=== PATIENT | male | born 1945 | race Hispanic/Latino ===

== ENCOUNTER 2016-08-12 12:26 | Emergency (ER) | payer MEDICARE ==
[2016-08-12 12:46] VITALS: RESP 18; TEMP 98.2; O2SAT 98; BMI 34.2
[2016-08-12] MEDS ORDERED: Oxycodone/Acetaminophen 5/325 mg Tab PO STA (12:55)
--- NOTE | 2016-08-12 13:25 | ED PDOC ---
Arrival/HPI - General Historian: Patient - General Chief Complaint: Finger,Hand,&Wrist Time Seen by Provider: 08/12/16 12:48 - History of Present Illness Narrative History of Present Illness (Text): 08/12/16 13:12 71yo male with PMHx of thrombocytopenia who present with complaint of left wrist pain/swelling s/p trauma 4days ago. States he placed his left outstretched hand on the floor when he fell foreward when fell asleep asleep while sitting on a sofa. He denies hitting head anywhere, nausea, vomiting, focal weakness, stephen other complaint. (Nicolas Marley A) Past Medical History - Provider Review Nursing Documentation Reviewed: Yes - Infectious Disease Hx of Infectious Diseases: None - Tetanus Immunization Tetanus Immunization: Unknown - Past Medical History Past Medical History: No Previous - Cardiac Hx Pacemaker: No - Pulmonary Hx Respiratory Disorders: No - Neurological Hx Paralysis: No - HEENT Hx HEENT Disorder: Yes (TONSILLECTOMY) Other/Comment: upper dentures only - Renal Hx Renal Disorder: No - Endocrine/Metabolic Hx Diabetes Mellitus Type 2: Yes - Hematological/Oncological Hx Blood Transfusions: Yes Hx Blood Transfusion Reaction: No - Integumentary Hx Dermatological Disorder: Yes (GENERALIZED PETECHIAE 01-15-16) - Musculoskeletal/Rheumatological Hx Musculoskeletal Disorders: No - Gastrointestinal Hx Gastrointestinal Disorders: Yes (HEMORRHOID) Other/Comment: RECTAL BLEED 11-06-15 - Genitourinary/Gynecological Hx Genitourinary Disorders: Yes Hx Urinary Tract Infection: Yes - Psychiatric Hx Psychophysiologic Disorder: No Hx Substance Use: No - Past Surgical History Past Surgical History: No Previous - Surgical History Hx Splenectomy: Yes - Anesthesia Hx Anesthesia Reactions: No Hx Malignant Hyperthermia: No - Suicidal Assessment Feels Threatened In Home Enviroment: No Family/Social History - Physician Review Nursing Documentation Reviewed: Yes Family/Social History: Unknown Family HX Smoking Status: Never Smoked Hx Alcohol Use: Yes (FEW GLASSES WINE/NIGHT) Hx Substance Use: No Hx Substance Use Treatment: No Allergies/Home Meds Allergies/Adverse Reactions: Allergies aspirin Allergy (Severe, Verified 08/12/16 12:46) RASH doxycycline Allergy (Severe, Verified 08/12/16 12:46) LOW PLATELETS ibuprofen [From Advil] Allergy (Severe, Verified 08/12/16 12:46) RASH Review of Systems - Physician Review All systems were reviewed & negative as marked: Yes - Review of Systems Constitutional: Normal Eyes: Normal ENT: Normal Respiratory: Normal Cardiovascular: Normal Gastrointestinal: Normal Genitourinary Male: Normal Musculoskeletal: Arthralgias (Left wrist/hand) Skin: Normal Neurological: Normal Endocrine: Normal Hemo/Lymphatic: Normal Psychiatric: Normal Physical Exam Vital Signs Reviewed: Yes Temperature: Afebrile Blood Pressure: Normal Pulse: Regular Respiratory Rate: Normal Appearance: Positive for: Well-Appearing, Non-Toxic, Comfortable Pain Distress: None Mental Status: Positive for: Alert and Oriented X 3 - Systems Exam Head: Present: Atraumatic, Normocephalic Pupils: Present: PERRL Extroacular Muscles: Present: EOMI Conjunctiva: Present: Normal Mouth: Present: Moist Mucous Membranes Neck: Present: Normal Range of Motion Respiratory/Chest: Present: Clear to Auscultation, Good Air Exchange. No: Respiratory Distress, Accessory Muscle Use Cardiovascular: Present: Regular Rate and Rhythm, Normal S1, S2. No: Murmurs Abdomen: Present: Normal Bowel Sounds. No: Tenderness, Distention, Peritoneal Signs Back: Present: Normal Inspection Upper Extremity: Present: Normal ROM, NORMAL PULSES, Tenderness (LEft wrist), Swelling (LEft wrist/hands), Neurovascularly Intact. No: Cyanosis, Edema, Erythema, Temperature Abnormalties, Deformity Lower Extremity: Present: Normal Inspection. No: Edema Neurological: Present: GCS=15, CN II-XII Intact, Speech Normal Skin: Present: Warm, Dry, Normal Color. No: Rashes Psychiatric: Present: Alert, Oriented x 3, Normal Insight, Normal Concentration Vital Signs Temp Pulse Resp BP Pulse Ox 08/12/16 12:38 98.2 F 98 H 18 148/76 98 Medical Decision Making ED Course and Treatment: I was available for consultation during PA evaluation. The chart was reviewed by me, and I agree with disposition. The documented history was done by the physician audit control clerk. The documented physical exam was done by the physician audit control clerk. The documented procedures were done by the physician audit control clerk. (Jack Klein) 08/12/16 14:22 Pt presented for stated history. Left wrist/hand - No acute fracture. DJD of MCP noted. Pt was seen in ED by Dr. Izquierdo Cock up splint was placed. and arm placed in a sling. Dr. Izquierdo advised patient to f/u with his office in 2weeks. (Nicolas Marley) - RAD Interpretation Radiology Orders: 08/12/16 12:55 HAND LEFT 3 VIEWS ROUTINE [RAD] Stat WRIST, LEFT 3 VIEWS [RAD] Stat - Medication Orders Current Medication Orders: Discontinued Medications Acetaminophen (Tylenol 325mg Tab) Confirm Administered Dose 650 mg .ROUTE .STK- MED ONE Stop: 08/12/16 13:09 Last Admin: 08/12/16 13:13 Dose: 650 mg Oxycodone/Acetaminophen (Percocet 5/325 Mg Tab) 1 tab PO STAT STA Stop: 08/12/16 12:56 Last Admin: 08/12/16 13:11 Dose: Not Given Non-Admin Reason: Patient Refused Disposition/Present on Arrival - Present on Arrival Any Indicators Present on Arrival: No History of DVT/PE: No History of Uncontrolled Diabetes: No Urinary Catheter: No History of Decub. Ulcer: No History Surgical Site Infection Following: None - Disposition Have Diagnosis and Disposition been Completed?: Yes Disposition Time: 14:25 Patient Plan: Discharge - Disposition Diagnosis: Wrist sprain, Acute arthritis Disposition: HOME/ ROUTINE Condition: STABLE Discharge Instructions (ExitCare): Wrist Sprain (ED) Additional Instructions: Follow up with Orthopedist, Dr. Izquierdo in 2weeks Return to ED for any new or worsening symptoms Prescriptions: Acetaminophen with Codeine [Tylenol with Codeine #3 Tablet] 1 each PO Q6 #9 tablet Referrals: Chadd Savage MD [Primary Care Provider] - Follow up with primary Andres Izquierdo DO [Staff Provider] - Follow up with primary
--- NOTE | 2016-08-12 13:54 | RAD ---
PROCEDURE: Left Hand Radiographs. HISTORY: hand pain s/p trauma COMPARISON: None. FINDINGS: BONES: Bone alignment and mineralization are normal. There is no acute fracture or bone destruction. JOINTS: There is severe degenerative osteoarthrosis in the interphalangeal joints with probable fixed flexion deformities. SOFT TISSUES: There is moderate soft tissue swelling in the hand. OTHER FINDINGS: Atherosclerotic vascular calcifications are present. IMPRESSION: No acute fracture or dislocation. Moderate soft tissue swelling in the hand.
--- NOTE | 2016-08-12 13:56 | RAD ---
PROCEDURE: Left Wrist Radiographs. HISTORY: wrist pain s/p trauma COMPARISON: None. FINDINGS: BONES: Bone alignment and mineralization are normal. There is no acute fracture or bone destruction. JOINTS: There is moderate degenerative osteoarthrosis in the 1st [employer] joint. The proximal and distal carpal rows are maintained. The intercarpal joint spaces are preserved. SOFT TISSUES: Normal. OTHER FINDINGS: Atherosclerotic vascular calcifications are present. Wake IMPRESSION: No acute fracture or dislocation.
[2016-08-12 14:35] VITALS: BP 145/69; PULSE 89
--- NOTE | 2016-08-12 15:09 | CON ---
DATE: 08/12/2016 A 71-year-old male with left thumb pain from a blunt injury. X-ray shows osteoarthritis of the base of the thumb with no evidence of fracture. It looks like a chronic injury of metacarpocarpal joints, so we are going to put him in a volar splint with thumb extension and see him in the office when the swelling goes down. He is right hand dominant. FINAL DIAGNOSIS: Severe osteoarthritis base of left thumb put in a splint and I will see him when th e swelling goes down to reevaluate him in the office. Andres Izquierdo DO cc: [id number] TT: 08/12/2016 15:08:56 Confirmation # [id number] Dictation # [id number]
== END 2016-08-12 14:50 | disposition home or self-care (01) ==
LOC: ED 12:26
DX: S63.502A Unspecified sprain of left wrist, initial encounter (principal); W07.XXXA Fall from chair, initial encounter; Y93.89 Activity, other specified; Y92.89 Other specified places as the place of occurrence of the external cause; M13.842 Other specified arthritis, left hand

== ENCOUNTER 2018-06-09 13:42 | Inpatient (IN) | payer MEDICARE ==
--- NOTE | 2018-06-09 14:24 | ED PDOC ---
Arrival/HPI - General Chief Complaint: Shortness Of Breath Time Seen by Provider: 06/09/18 13:43 Historian: Patient, Family - History of Present Illness Narrative History of Present Illness (Text): 06/09/18 14:21 73 year old male, with past medical history of thrombocytopenia and spleenectomy, presents to the ED for evaluation of dyspnea on exertion, increased somnolence and abdominal distention since 3 weeks. Sister reports kylie donato has been experiencing falls secondary to symptoms, with last fall was last Thursday. Patient reports visiting Dr. Savage with the presented symptoms and was subsequently referred to the Ed for evaluation of possible pneumonia and concern for A-fib. Patient denies any other associated somatic complaints. Patient denies any fevers, chills, headache, dizziness, chest pain, cough, diaphoresis, abdominal pain, nausea, vomiting, diarrhea, back pain, neck pain, or any other complaints. As per sister, patient stopped alcohol consumption for past 2 months. PMD: Dr. Savage Time/Duration: > week Symptom Onset: Gradual Symptom Course: Unchanged Activities at Onset: Light Context: Home Past Medical History - Provider Review Nursing Documentation Reviewed: Yes - Infectious Disease Hx of Infectious Diseases: None - Tetanus Immunization Tetanus Immunization: Unknown - Past Medical History Past Medical History: No Previous - Cardiac Hx Pacemaker: No - Pulmonary Hx Respiratory Disorders: No - Neurological Hx Paralysis: No - HEENT Hx HEENT Disorder: Yes (TONSILLECTOMY) Other/Comment: upper dentures only - Renal Hx Renal Disorder: No - Endocrine/Metabolic Hx Diabetes Mellitus Type 2: Yes - Hematological/Oncological Hx Blood Transfusions: Yes Hx Blood Transfusion Reaction: No - Integumentary Hx Dermatological Disorder: Yes (GENERALIZED PETECHIAE 01-15-16) - Musculoskeletal/Rheumatological Hx Musculoskeletal Disorders: No - Gastrointestinal Hx Gastrointestinal Disorders: Yes (HEMORRHOID) Other/Comment: RECTAL BLEED 11-06-15 - Genitourinary/Gynecological Hx Genitourinary Disorders: Yes Hx Urinary Tract Infection: Yes - Psychiatric Hx Psychophysiologic Disorder: No Hx Substance Use: No - Past Surgical History Past Surgical History: No Previous - Surgical History Hx Splenectomy: Yes - Anesthesia Hx Anesthesia Reactions: No Hx Malignant Hyperthermia: No - Suicidal Assessment Feels Threatened In Home Enviroment: No Family/Social History - Physician Review Nursing Documentation Reviewed: Yes Family/Social History: No Known Family HX Smoking Status: Never Smoked Hx Alcohol Use: Yes (FEW GLASSES WINE/NIGHT) Hx Substance Use: No Hx Substance Use Treatment: No Allergies/Home Meds Allergies/Adverse Reactions: Allergies aspirin Allergy (Severe, Verified 06/09/18 17:16) RASH doxycycline Allergy (Severe, Verified 06/09/18 17:16) LOW PLATELETS ibuprofen [From Advil] Allergy (Severe, Verified 06/09/18 17:16) RASH Home Medications: Home Meds Medication Instructions Recorded Confirmed No Known Home Med 06/09/18 06/09/18 Review of Systems - Physician Review All systems were reviewed & negative as marked: Yes - Review of Systems Constitutional: absent: Fevers Eyes: absent: Vision Changes Respiratory: SOB. absent: Cough Cardiovascular: Edema, CONNORS. absent: Chest Pain Gastrointestinal: absent: Abdominal Pain, Diarrhea, Nausea, Vomiting Genitourinary Male: absent: Dysuria, Urinary Output Changes Musculoskeletal: absent: Back Pain, Neck Pain Skin: absent: Rash Neurological: absent: Headache, Dizziness Endocrine: absent: Diaphoresis Psychiatric: absent: Anxiety Physical Exam Vital Signs Reviewed: Yes Vital Signs Temp Pulse Resp BP Pulse Ox 06/09/18 14:10 20 98 06/09/18 14:08 98.1 F 06/09/18 14:06 107 H 18 130/84 98 Temperature: Afebrile Blood Pressure: Normal Pulse: Tachycardic Respiratory Rate: Normal Appearance: Positive for: Well-Appearing, Non-Toxic, Comfortable Pain Distress: None Mental Status: Positive for: Alert and Oriented X 3, other (Drowsy but arousable) - Systems Exam Head: Present: Atraumatic, Normocephalic Pupils: Present: PERRL Extroacular Muscles: Present: EOMI Conjunctiva: Present: Normal Mouth: Present: Dry Nose (External): Present: Abrasion (2 abrasions to bridge of nose) Neck: Present: Normal Range of Motion Respiratory/Chest: Present: Decreased Breath Sounds. No: Respiratory Distress, Accessory Muscle Use Cardiovascular: Present: Regular Rate and Rhythm, Normal S1, S2. No: Murmurs Abdomen: Present: Distention, Other (Lower abdominal edema). No: Tenderness, Normal Bowel Sounds (Decreased bowel sounds), Peritoneal Signs Upper Extremity: Present: Normal Inspection. No: Cyanosis, Edema Lower Extremity: Present: Edema, Other (Chronic venous changes. Right tibial skin sloffing, ble wounds) Neurological: Present: GCS=15, CN II-XII Intact, Speech Normal, Other (Non tremulous. No asterisk on exam.) Skin: Present: Warm, Dry, Normal Color. No: Rashes Psychiatric: Present: Alert, Oriented x 3, Normal Insight, Normal Concentration Medical Decision Making ED Course and Treatment: 06/09/18 14:31 Impression: 73 year old male presents to the ED for evaluation of dyspnea on exertion and abdominal distention. Plan: -- VBG -- CT of Head -- EKG -- Labs -- Chest X-ray -- Blood Culture -- Urine Culture -- Urinalysis -- US of Lower Extremity -- Reassess and disposition Prior Visits: Notes and results from previous visits were reviewed. Progress Notes: 06/09/18 14:59 EK BPM. NSR. PVCs. Flattened T waves. No S/T elevation. 06/09/18 15:17 Chest X-Ray: IMPRESSION: Suspect right lower lobe pneumonia and small right pleural effusion. Follow-up after medical management is recommended to ensure complete resolution. 06/09/18 15:58 CT Head: IMPRESSION: No acute intracranial abnormality. 06/09/18 16:01 Extremity Ultrasound: IMPRESSION: No sonographic evidence for deep venous thrombosis in the visualized segments of both lower extremities. 06/09/18 16:[address] Savage who agrees to admit patient and advise to give patient antibiotics and Lasix. - Scribe Statement The provider has reviewed the documentation as recorded by the Scribe Connor Sheth. All medical record entries made by the Scribe were at my direction and personally dictated by me. I have reviewed the chart and agree that the record accurately reflects my personal performance of the history, physical exam, [facility] decision making, and the department course for this patient. I have also personally directed, reviewed, and agree with the discharge instructions and disposition. Disposition/Present on Arrival - Present on Arrival Any Indicators Present on Arrival: No History of DVT/PE: No History of Uncontrolled Diabetes: No Urinary Catheter: No History of Decub. Ulcer: No History Surgical Site Infection Following: None - Disposition Have Diagnosis and Disposition been Completed?: Yes Diagnosis: CHF (congestive heart failure), Falls frequently Disposition: HOSPITALIZED Disposition Time: 16:35 Patient Plan: Admission Condition: STABLE
[2018-06-09 14:35] LABS: VENOUS BLOOD GAS BASE EXCESS 1.4 mmol/L (0.0-2.0); VENOUS BLOOD GAS PO2 32 mm/Hg (30-55); VENOUS BLOOD PH 7.34 (7.32-7.43)
[2018-06-09 14:43] LABS: BASO # 0.02 K/mm3 (0.0-2.0); BASO % 0.3 % (0.0-3.0); EOS # 0.2 (0.0-0.7); EOS % 2.8 % (1.5-5.0); HEMOGLOBIN 14.8 g/dL (14.0-18.0); LYMPH # 0.6 (1.2-3.4); LYMPH % 9.4 % (22.0-35.0); MEAN CELL VOLUME 96.8 fl (80.0-105.0); MEAN CORPUSCULAR HEMOGLOBIN 33.6 pg (25.0-35.0); MEAN CORPUSCULAR HGB CONC 34.7 g/dl (31.0-37.0); MEAN PLATELET VOLUME 10.1 fl (7.0-11.0); MONO # 0.8 (0.1-0.6); MONO % 11.7 % (1.0-6.0); RBC 4.4 10^6/uL (3.5-6.1); RED CELL DISTRIBUTION WIDTH 16.7 % (11.5-14.5); WHITE BLOOD COUNT 6.5 10^3/uL (4.5-11.0)
[2018-06-09 14:51] LABS: INR 2.28; PARTIAL THROMBOPLASTIN TIME 45.6 Seconds (26.9-38.3); PROTHROMBIN TIME 25.3 SECONDS (9.4-12.5)
[2018-06-09 14:56] LABS: ALB/GLOB RATIO 0.8 (1.1-1.8); ALBUMIN 3.6 g/dL (3.0-4.8); ALT/SGPT 48 U/L (7-56); AST/SGOT 82 U/L (17-59); BLOOD UREA NITROGEN 39 mg/dL (7-21); CALCIUM 9.6 mg/dL (8.4-10.5); GFR NON-AFRICAN AMERICAN 46
--- NOTE | 2018-06-09 15:01 | RAD ---
Date of service: 06/09/2018 HISTORY: sob COMPARISON: 02/11/2016. FINDINGS: LUNGS: The lungs are well inflated. There is confluent airspace disease in the right lower lobe. The left lung is clear. PLEURA: Small right pleural effusion. No left pleural effusion or pneumothorax. CARDIOVASCULAR: The heart is normal in size. No aortic atherosclerotic calcifications present. OSSEOUS STRUCTURES: Within normal limits for the patient's age. VISUALIZED UPPER ABDOMEN: Normal. OTHER FINDINGS: None. IMPRESSION: Suspect right lower lobe pneumonia and small right pleural effusion. Follow-up after medical management is recommended to ensure complete resolution. The final report is tagged to the PA review folder.
[2018-06-09 15:07] LABS: B-TYPE NATRIURETIC PEPTIDE 3760 pg/mL (0-450); TROPONIN I < 0.01 ng/mL
[2018-06-09 15:20] LABS: CK MB% 6.2 % (2.5-3.0)
--- NOTE | 2018-06-09 15:22 | CT ---
Date of service: 06/09/2018 PROCEDURE: CT HEAD WITHOUT CONTRAST. HISTORY: falls COMPARISON: None available. TECHNIQUE: Axial computed tomography images were obtained through the head/brain without intravenous contrast. Radiation dose: Total exam DLP = 1088.24 mGy-cm. This CT exam was performed using one or more of the following dose reduction techniques: Automated exposure control, adjustment of the mA and/or kV according to patient size, and/or use of iterative reconstruction technique. FINDINGS: HEMORRHAGE: No intracranial hemorrhage. BRAIN: Eisenberg-white matter differentiation is preserved. There is no mass, mass effect or abnormal extra-axial fluid collection. There is no territorial infarction. The midline sagittal structures are normal. VENTRICLES: There is mild age-related global parenchymal volume loss and proportionate enlargement of the ventricles and cortical sulci. CALVARIUM: There is no calvarial fracture or extracranial soft tissue swelling. PARANASAL SINUSES: Predominantly clear. MASTOID AIR CELLS: Predominantly clear. OTHER FINDINGS: None. IMPRESSION: No acute intracranial abnormality.
--- NOTE | 2018-06-09 15:48 | US ---
HISTORY: Leg pain and swelling. Evaluate for DVT PHYSICIAN(S): Henry Gomes MD. TECHNIQUE: Duplex sonography and color-flow Doppler with graded compression were used to evaluate the deep venous systems of both lower extremities. The exam is limited by body habitus and edema FINDINGS: The visualized deep venous systems of both lower extremities are sonographically normal and compressible. Normal wave forms and augmentation are seen. There is no sonographic evidence for deep venous thrombosis in the visualized segments of both lower extremities. IMPRESSION: No sonographic evidence for deep venous thrombosis in the visualized segments of both lower extremities. Limited study.
--- NOTE | 2018-06-09 15:59 | US ---
Date of service: 06/09/2018 HISTORY: ascites COMPARISON: None. TECHNIQUE: Grayscale imaging was performed. FINDINGS: LIVER: Measures 18.7 cm. There is diffuse increased echogenicity of the liver parenchyma with coarse echotexture. No mass. No intrahepatic bile duct dilatation. GALLBLADDER: There is diffuse gallbladder wall thickening. The sonographic Becker's sign is negative. No gallstones. COMMON BILE DUCT: No stones. No dilatation. PANCREAS: Unremarkable as visualized. No mass. No ductal dilatation. RIGHT KIDNEY: Measures cm. Normal echogenicity. No calculus, mass, or hydronephrosis. LEFT KIDNEY: Measures cm. Normal echogenicity. No calculus, mass, or hydronephrosis. SPLEEN: Normal in size and contour. No mass. AORTA: No aneurysmal dilatation. IVC: Unremarkable. OTHER FINDINGS: There is trace perihepatic ascites. IMPRESSION: Mild hepatomegaly.Diffuse increased echogenicity in the liver may reflect hepatic steatosis however parenchymal infectious/ inflammatory etiologies cannot be entirely excluded. Clinical and laboratory correlation is advised. Trace perihepatic ascites. No cholelithiasis or biliary dilatation. Diffuse gallbladder wall thickening nonspecific and could be primary or secondary in etiology.
[2018-06-09 16:18] LABS: PH,URINE 5.5 (4.7-8.0); URINE BILIRUBIN MODERATE (NEGATIVE); URINE BLOOD NEGATIVE (NEGATIVE); URINE GLUCOSE (UA) NEGATIVE (NEGATIVE); URINE LEUKOCYTE ESTERASE SMALL Leu/uL (NEGATIVE); URINE PROTEIN 100 mg/dL (<30 mg/dL); URINE UROBILINOGEN 0.2 E.U./dL (<1 E.U./dL)
[2018-06-09 16:20] LABS: URINE APPEARANCE CLEAR (CLEAR); URINE COLOR DARK YELLOW (YELLOW)
[2018-06-09 16:27] LABS: VENOUS BLOOD GAS PO2 62 mm/Hg (30-55); VENOUS BLOOD PH 7.35 (7.32-7.43)
[2018-06-09 16:53] LABS: URINE RBC 0 - 2 /hpf (0-2)
[2018-06-09 16:54] LABS: URINE EPITHELIAL CELLS 0 - 2 /hpf (0-5)
[2018-06-09 16:55] LABS: BARBITURATES, UR NEGATIVE (NEGATIVE); BENZODIAZEPINES, UR NEGATIVE (NEGATIVE); OPIATES, UR NEGATIVE (NEGATIVE); PHENCYCLIDINE, UR NEGATIVE (NEGATIVE)
[2018-06-09] MEDS ORDERED: Vancomycin 1gm in NS 250ml 1 GM/250 ML BAG IVPB STA (17:09)
[2018-06-09 20:39] VITALS: BMI 38.5
[2018-06-09] MEDS ORDERED: Pneumococcal 23-Valent Vaccine IM ONE (20:39)
[2018-06-09] MEDS ORDERED: Influenza Vaccine 60 mcg/0.5 mL SYR (4YR UP) IM ONE (20:39)
[2018-06-09] MEDS: levoFLOXacin 750 mg in D5W 750 MG/150 ML BAG IVPB SCH (21:38)
--- NOTE | 2018-06-09 22:18 | CARD ---
APPROVED REPORT Date of service: 06/09/2018 EKG Measurement Heart [id number] [id number] <Conclusion> Atrial fibrillation with a moderate ventricular response Rare probable PVC's Indeterminate axis Q waves in the inferior leads- cannot exclude IMI Nonspecific T wave abnormality Abnormal ECG
--- NOTE | 2018-06-09 23:07 | HP ---
DATE OF EXAM: 06/09/2018 HISTORY OF PRESENT ILLNESS: The patient, Danilo Chaidez, a 73-year-old white male, long history of splenectomy for ITP, history of chronic lymphedema of his lower extremities with venous insufficiency. Patient has a chronic history of alcoholism abuse. The patient over the past 3 to 4 weeks has been found by the family to have increasing episodes of lethargy, sometimes nodding out during a mid sentence. Patient had fallen off his chair onto the floor after passing out multiple times, injuring the bridge of his nose and lacerating his face. Patient also has had increasing swelling of his lower extremities, increasing abdominal girth, darkening of the urine over the last several weeks and some shortness of breath. Patient was brought to the office by his sister today, was found to be in rapid atrial fibrillation with anasarca swelling from the feet, legs, up to the abdominal wall, decreased breath sounds with rales at the bases, possible pleural effusions, possible ascites and evidence of liver compromise. Patient was taken by the EMT's to the hospital and admitted through the emergency room. Patient denies any chest pain or palpitations. Patient does complain of some shortness of breath on short walks. REVIEW OF SYSTEMS: Cardiac: Negative for chest pain and palpitations, but he does complain of increased heart rate. Chest: Respiratory is positive for shortness of breath, but negative for cough or sputum production, hemoptysis. Genitourinary: Positive for dark urine, frequency of urination without dysuria. Gastrointestinal: Negative for nausea, vomiting and diarrhea. Skin: Positive for swelling, erythema, and leaking of fluids from the lower extremities. Neurological: Positive only for episodes of passing out, syncope and lethargy, but denies any headache. PHYSICAL EXAMINATION GENERAL: A poorly developed massively obese white male in a wheel chair, seen with his sister and then again seen in the Emergency Room at [facility] on the day of admission. VITAL SIGNS: Patient is in rapid atrial fibrillation with heart rates ranging from 85 to 140. CHEST: Shows decreased breath sounds with rales at both bases. ABDOMEN: Obese with a midline scar from a past splenectomy. Liver edge is barely palpable due to the induration of the abdominal wall. The abdominal wall is erythematous, indurated and distended. Bowel sounds are normoactive. EXTREMITIES: Show chronic stasis dermatitis with weeping wounds on both lower extremities, particularly left with 2 to 3+ pitting and brawny edema bilaterally. Patient also does have some hypothenar and thenar atrophy of both upper extremities. NEUROLOGIC: Patient is alert and oriented x3. Neurologic examination is grossly intact. LABORATORY DATA: Reveal an elevated PT/INR, elevated total bilirubin, elevated liver enzymes, normal CBC and platelet count, bilirubinuria, some hematuria and bacteriuria. PLAN: Cardiology consult, Infectious Disease consult and consult with a liver specialist. IV antibiotics, diuretics, DT precautions. Further evaluation of liver disease, treatment of his elevated BNP and counseling for alcohol abuse. Chadd Savage MD
[2018-06-10] MEDS ORDERED: Barium Sulfate Susp 2.1% w/v, 2.0% w/w 450 mL Bottle PO ONE (00:22)
--- NOTE | 2018-06-10 01:36 | CP.PCM.CON ---
<Yee Simpson - Last Filed: 06/10/18 06:34> History of Present Illness - History of Present Illness History of Present Illness: HEPATOBILIARY SURGERY CONSULT NOTE FOR DR. HOFFMAN 73yo M with PMHx of ITP s/p splenectomy, etoh abuse presented to the ED as sent by his PMD for lethargy, somnolence leading to falls, weight gain, dyspnea on exertion. Pt states that he has noticed he is gaining weight and he has increased abdominal girth. He reports darker urine than usual. Pt states that he is so tired that sometimes he falls forward while sitting in a chair or while eating. Denies abdominal pain. PMHx: open splenectomy for ITP, chronic lymphadema of LE Allergies: aspirin, doxycycline, ibuprofen Social hx: former etoh abuse, hasn't drinken in 2 months Review of Systems - Review of Systems All systems: reviewed and no additional remarkable complaints except (as per HPI) Past Patient History - Infectious Disease Hx of Infectious Diseases: None - Tetanus Immunizations Tetanus Immunization: Unknown - Past Medical History & Family History Past Medical History?: Yes - Past Social History Smoking Status: Former Smoker - CARDIAC Hx Cardiac Disorders: Yes Hx Congestive Heart Failure: Yes Hx Pacemaker: No Hx Peripheral Edema: Yes Hx Peripheral Vascular Disease: Yes - PULMONARY Hx Respiratory Disorders: Yes (USED TO SMOKE CIGARETTES 2 PPD QUIT 1972) Hx Pneumonia: Yes (06-09-18) - NEUROLOGICAL Hx Neurological Disorder: No - HEENT Hx HEENT Problems: Yes (TONSILLECTOMY) Other/Comment: upper dentures only - RENAL Hx Chronic Kidney Disease: No - ENDOCRINE/METABOLIC Hx Endocrine Disorders: Yes Hx Diabetes Mellitus Type 2: Yes - HEMATOLOGICAL/ONCOLOGICAL Hx Blood Disorders: Yes Other/Comment: thrombocytopenia - INTEGUMENTARY Hx Dermatological Problems: Yes (GENERALIZED PETECHIAE 01-15-16) Hx Psoriasis: Yes (PT DENIES) Other/Comment: 06-09-18- GENERALIZED SKIN DRYNESS,REDDENED SKIN ALL OVER. BILATERAL LE GROSS EDEMA MORE TO RIGHT LEG THAN LEFT. WITH MULTIPE DRY SCABBED W OUNDS. TEDS STOCKING WORN. BILATERAL ARMS WITH DRY SCABBED WOUNDS.MORE TO LEFT. NOSE HAS DRY SCABBED WOUND AND ALSO LOWER LIP FROM PREVIOUS FALL PER PT. PT GOES TO WOUND CTR. - MUSCULOSKELETAL/RHEUMATOLOGICAL Hx Musculoskeletal Disorders: Yes Hx Falls: Yes (June) Hx Unsteady Gait: Yes (AT TIMES HE USES A CANE.) - GASTROINTESTINAL Hx Gastrointestinal Disorders: Yes (HEMORRHOID) Other/Comment: RECTAL BLEED 11-06-15 - GENITOURINARY/GYNECOLOGICAL Hx Genitourinary Disorders: Yes Hx Urinary Tract Infection: Yes - PSYCHIATRIC Hx Psychophysiologic Disorder: Yes (SMOKED 2 PPD CIGARETTES QUIT 1972,QUIT DRINKING WINE APR 2018.) Hx Substance Use: No - SURGICAL HISTORY Hx Surgeries: Yes (TONSILLECTOMY) Hx Coronary Stent: (06-09-18) Hx Splenectomy: Yes - ANESTHESIA Hx Anesthesia Reactions: No Hx Malignant Hyperthermia: No Meds Allergies/Adverse Reactions: Allergies Allergy/AdvReac Type Severity Reaction Status Date / Time aspirin Allergy Severe RASH Verified 06/09/18 17:16 doxycycline Allergy Severe LOW Verified 06/09/18 17:16 PLATELETS ibuprofen [From Advil] Allergy Severe RASH Verified 06/09/18 17:16 - Medications Medications: Current Medications Folic Acid (Folic Acid) 1 mg PO DAILY [facility] Furosemide (Lasix) 40 mg IVP DAILY [facility] Ceftriaxone Sodium (Rocephin 1 Gram Ivpb) 1 gm in 100 mls @ 100 mls/hr IVPB DAILY [facility]; Protocol Levofloxacin/Dextrose (Levaquin 750mg) 750 mg in 150 mls @ 100 mls/hr IVPB DAILY [facility]; Protocol Stop: 06/16/18 20:03 Last Admin: 06/09/18 21:38 Dose: 100 mls/hr Lactulose (Enulose) 20 gm PO HS [facility] Last Admin: 06/09/18 21:38 Dose: 20 gm Thiamine HCl (Vitamin B1 Tab) 100 mg PO DAILY [facility] Physical Exam - Constitutional Appears: Non-toxic, No Acute Distress - Head Exam Head Exam: ATRAUMATIC, NORMAL INSPECTION - Eye Exam Eye Exam: EOMI, Normal appearance - Respiratory Exam Respiratory Exam: NORMAL BREATHING PATTERN. absent: Respiratory Distress - Cardiovascular Exam Cardiovascular Exam: +S1, +S2 - GI/Abdominal Exam GI & Abdominal Exam: Distended, Soft. absent: Diminished Bowel Sounds, Firm, Rebound, Rigid, Tenderness Additional comments: well healed splenectomy scar abdominal skin somewhat erythematous (pt states chronic) - Extremities Exam Additional comments: Bilateral LE edematous with 2+ pitting edema, erythematous - Neurological Exam Neurological exam: Alert, CN II-XII Intact, Oriented x3 - Psychiatric Exam Psychiatric exam: Normal Affect, Normal Mood Results - Vital Signs Recent Vital Signs: Last Vital Signs Temp 97.5 F L 06/10/18 00:01 Pulse 111 H 06/10/18 00:01 Resp 18 06/10/18 00:01 BP 112/75 06/10/18 00:01 Pulse Ox 96 06/09/18 19:12 - Labs Result Diagrams: 06/09/18 14:05 06/09/18 14:05 Labs: Laboratory Results - last 24 hr 06/09/18 06/09/18 06/09/18 14:05 14:05 14:05 WBC 6.5 RBC 4.40 Hgb 14.8 Hct 42.6 MCV 96.8 MCH 33.6 MCHC 34.7 RDW 16.7 H Plt Count 343 MPV 10.1 Neut % (Auto) 75.8 H Lymph % (Auto) 9.4 L [place] % (Auto) 11.7 H Eos % (Auto) 2.8 Baso % (Auto) 0.3 Lymph # (Auto) 0.6 L [place] # (Auto) 0.8 H Eos # (Auto) 0.2 Baso # (Auto) 0.02 Absolute Neuts (auto) 4.93 PT 25.3 H INR 2.28 APTT 45.6 H pO2 VBG pH VBG pCO2 VBG HCO3 VBG Total CO2 VBG O2 Sat (Calc) VBG Base Excess VBG Potassium Glucose Lactate FiO2 Sodium 138 Potassium 4.7 Chloride 102 Carbon Dioxide 26 Anion Gap 15 BUN 39 H Creatinine 1.5 Est GFR ( Amer) 56 Est GFR (Non-Af Amer) 46 Random Glucose 95 Calcium 9.6 Phosphorus 4.5 Magnesium 1.9 Total Bilirubin 1.7 H AST 82 H ALT 48 Alkaline Phosphatase 203 H Ammonia Lactate Dehydrogenase 1016 H Total Creatine Kinase 243 H CK-MB (CK-2) 15.0 H CK-MB (CK-2) % 6.2 H Troponin I < 0.01 NT-Pro-B Natriuret Pep 3760 H Total Protein 8.1 Albumin 3.6 Globulin 4.5 Albumin/Globulin Ratio 0.8 L Venous Blood Potassium Urine Color Urine Appearance Urine pH Ur Specific [place] Urine Protein Urine Glucose (UA) Urine Ketones Urine Blood Urine Nitrate Urine Bilirubin Urine Urobilinogen Ur Leukocyte Esterase Urine RBC Urine WBC Ur Epithelial Cells Urine Opiates Screen Urine Methadone Screen Ur Barbiturates Screen Ur Phencyclidine Scrn Ur Amphetamines Screen U Benzodiazepines Scrn U Oth Cocaine Metabols U Cannabinoids Screen Alcohol, Quantitative 06/09/18 06/09/18 06/09/18 14:05 14:27 16:00 WBC RBC Hgb Hct MCV MCH MCHC RDW Plt Count MPV Neut % (Auto) Lymph % (Auto) [place] % (Auto) Eos % (Auto) Baso % (Auto) Lymph # (Auto) [place] # (Auto) Eos # (Auto) Baso # (Auto) Absolute Neuts (auto) PT INR APTT pO2 32 VBG pH 7.34 VBG pCO2 52.0 VBG HCO3 28.1 H VBG Total CO2 VBG O2 Sat (Calc) 63.0 VBG Base Excess 1.4 VBG Potassium Glucose Lactate FiO2 Sodium Potassium Chloride Carbon Dioxide Anion Gap BUN Creatinine Est GFR ( Amer) Est GFR (Non-Af Amer) Random Glucose Calcium Phosphorus Magnesium Total Bilirubin AST ALT Alkaline Phosphatase Ammonia 36 H Lactate Dehydrogenase Total Creatine Kinase CK-MB (CK-2) CK-MB (CK-2) % Troponin I NT-Pro-B Natriuret Pep Total Protein Albumin Globulin Albumin/Globulin Ratio Venous Blood Potassium Urine Color Urine Appearance Urine pH Ur Specific [place] Urine Protein Urine Glucose (UA) Urine Ketones Urine Blood Urine Nitrate Urine Bilirubin Urine Urobilinogen Ur Leukocyte Esterase Urine RBC Urine WBC Ur Epithelial Cells Urine Opiates Screen Urine Methadone Screen Ur Barbiturates Screen Ur Phencyclidine Scrn Ur Amphetamines Screen U Benzodiazepines Scrn U Oth Cocaine Metabols U Cannabinoids Screen Alcohol, Quantitative < 10 06/09/18 06/09/18 06/09/18 16:00 16:05 16:05 WBC RBC Hgb Hct MCV MCH MCHC RDW Plt Count MPV Neut % (Auto) Lymph % (Auto) [place] % (Auto) Eos % (Auto) Baso % (Auto) Lymph # (Auto) [place] # (Auto) Eos # (Auto) Baso # (Auto) Absolute Neuts (auto) PT INR APTT pO2 62 H VBG pH 7.35 VBG pCO2 43.0 VBG HCO3 23.7 VBG Total CO2 25.0 VBG O2 Sat (Calc) 94.2 H VBG Base Excess -2.0 L VBG Potassium 4.7 Glucose 96 Lactate 1.8 FiO2 21.0 Sodium 136.0 Potassium Chloride 102.0 Carbon Dioxide Anion Gap BUN Creatinine Est GFR ( Amer) Est GFR (Non-Af Amer) Random Glucose Calcium Phosphorus Magnesium Total Bilirubin AST ALT Alkaline Phosphatase Ammonia Lactate Dehydrogenase Total Creatine Kinase CK-MB (CK-2) CK-MB (CK-2) % Troponin I NT-Pro-B Natriuret Pep Total Protein Albumin Globulin Albumin/Globulin Ratio Venous Blood Potassium 4.7 Urine Color Dark yellow Urine Appearance Clear Urine pH 5.5 Ur Specific [place] >= 1.030 Urine Protein 100 H Urine Glucose (UA) Negative Urine Ketones Trace H Urine Blood Negative Urine Nitrate Negative Urine Bilirubin Moderate H Urine Urobilinogen 0.2 Ur Leukocyte Esterase Small H Urine RBC 0 - 2 Urine WBC 2 - 5 Ur Epithelial Cells 0 - 2 Urine Opiates Screen Negative Urine Methadone Screen Negative Ur Barbiturates Screen Negative Ur Phencyclidine Scrn Negative Ur Amphetamines Screen Negative U Benzodiazepines Scrn Negative U Oth Cocaine Metabols Negative U Cannabinoids Screen Negative Alcohol, Quantitative Assessment & Plan - Assessment and Plan (Free Text) Assessment: 73yo M with PMHx of ITP s/p splenectomy, etoh abuse presented to the ED as sent by his PMD for lethargy, somnolence leading to falls, weight gain, dyspnea on exertion. Hepatobiliary consulted for possible cirrhosis - CT Abd/Pelvis ordered - Will FU results - Discussed plan with Dr. Nam Simpson PGY-4 <Dipesh Hoffman - Last Filed: 06/10/18 21:38> Meds - Medications Medications: Current Medications Betamethasone/Clotrimazole (Lotrisone) 0 gm TOP DAILY [facility] Diltiazem HCl (Cardizem) 60 mg PO TID [facility] Last Admin: 06/10/18 17:42 Dose: 60 mg Folic Acid (Folic Acid) 1 mg PO DAILY [facility] Last Admin: 06/10/18 09:18 Dose: 1 mg Furosemide (Lasix) 40 mg IVP DAILY [facility] Last Admin: 06/10/18 09:19 Dose: 40 mg Levofloxacin/Dextrose (Levaquin 750mg) 750 mg in 150 mls @ 100 mls/hr IVPB DAILY [facility]; Protocol Stop: 06/16/18 20:03 Last Admin: 06/10/18 14:04 Dose: 100 mls/hr Ceftaroline Fosamil 400 mg/ (Sodium Chloride) 100 mls @ 100 mls/hr IVPB Q12 [facility]; Protocol Stop: 06/20/18 11:16 Last Admin: 06/10/18 14:20 Dose: 100 mls/hr Lactic Acid (Lac-Hydrin 12% Cream (140 G)) 0 ea TOP DAILY [facility] Lactulose (Enulose) 20 gm PO HS [facility] Last Admin: 06/09/18 21:38 Dose: 20 gm Levalbuterol HCl (Xopenex) 0.63 mg IH TIDRESP [facility] Last Admin: 06/10/18 13:47 Dose: 0.63 mg Metoprolol Tartrate (Lopressor) 25 mg PO BID [facility] Last Admin: 06/10/18 17:42 Dose: 25 mg Thiamine HCl (Vitamin B1 Tab) 100 mg PO DAILY [facility] Last Admin: 06/10/18 09:20 Dose: 100 mg Results - Vital Signs Recent Vital Signs: Last Vital Signs Temp 97.6 F 06/10/18 17:39 Pulse 95 H 06/10/18 17:39 Resp 20 06/10/18 17:39 BP 120/76 06/10/18 17:39 Pulse Ox 97 06/10/18 05:41 - Labs Result Diagrams: 06/09/18 14:05 06/09/18 14:05 Labs: Laboratory Results - last 24 hr 06/09/18 06/10/18 20:00 14:30 Procalcitonin 0.19 Influenza Typ A,B (EIA) Negative for flu a/b Assessment & Plan - Assessment and Plan (Free Text) Plan: All medical record entries made by the resident were at my direction. 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 He states he hasn't used alcohol in 2 months. Although his ascites appears mild on CT imaging, his abdomen is tense on exam. He may also have an element of anasarca. On ultrasound his portal vein is patent,and there is no obvious liver mass. On his echo he has severe pulmonary hypertension and right heart dysfunction, which maybe contributing to his ascites. He may benefit from a right heart catheterization to assess if his heart of responsive to treatment and whether he would benefit from withdrawl of beta- blockade. - Date & Time Date: 06/10/18 Time: 17:46
[2018-06-10] MEDS: Metoprolol 1 mg/ml Inj IVP PRN ×2 (02:04→05:52)
[2018-06-10] MEDS ORDERED: DiphenhydrAMINE 50 mg/ml Inj IVP STA (03:08)
[2018-06-10] MEDS ORDERED: Alum-Mag Hydrox-Simethicone Susp (30 mL) PO ONE (03:08)
--- NOTE | 2018-06-10 03:11 | CP.PCM.PCO ---
<Alfonso Orozco - Last Filed: 06/10/18 03:09> Addendum Addendum: 06/10/18 03:09 Pt was in AFib RVR @120s given lopressor 5 IVP x2 complained of acid reflux given maalox CK PGY1 <Zoe Freeman - Last Filed: 06/10/18 06:32> Attending/Attestation - Attestation I have personally seen and examined this patient.: No I have fully participated in the care of the patient.: No I have reviewed all pertinent clinical information: No
--- NOTE | 2018-06-10 09:59 | CP.PCM.CON ---
History of Present Illness - History of Present Illness History of Present Illness: Podiatry Consult note for Drs. De/Omkar 73 year old male patient with PMHx of ITP s/p splenectomy and ETOH abuse was seen and evaluated at bedside for bilateral lower extremity xerosis/scaling and right hallucal bruising. Patient was evaluated with Dr. De, who patient has seen in the past for pedal complaints. Patient reports multiple falls recently. Patient denies any pain to his lower extremities. Patient states he feels short of breath, however, denies fever, nausea, vomiting, or chest pain. PMHx: open splenectomy for ITP, chronic lymphadema of LE Allergies: aspirin, doxycycline, ibuprofen Social Hx: former etoh abuse Review of Systems - Review of Systems All systems: reviewed and no additional remarkable complaints except Review of Systems: As per HPI Past Patient History - Infectious Disease Hx of Infectious Diseases: None - Tetanus Immunizations Tetanus Immunization: Unknown - Past Medical History & Family History Past Medical History?: Yes - Past Social History Smoking Status: Former Smoker - CARDIAC Hx Cardiac Disorders: Yes Hx Congestive Heart Failure: Yes Hx Pacemaker: No Hx Peripheral Edema: Yes Hx Peripheral Vascular Disease: Yes - PULMONARY Hx Respiratory Disorders: Yes (USED TO SMOKE CIGARETTES 2 PPD QUIT 1972) Hx Pneumonia: Yes (06-09-18) - NEUROLOGICAL Hx Neurological Disorder: No - HEENT Hx HEENT Problems: Yes (TONSILLECTOMY) Other/Comment: upper dentures only - RENAL Hx Chronic Kidney Disease: No - ENDOCRINE/METABOLIC Hx Endocrine Disorders: Yes Hx Diabetes Mellitus Type 2: Yes - HEMATOLOGICAL/ONCOLOGICAL Hx Blood Disorders: Yes Other/Comment: thrombocytopenia - INTEGUMENTARY Hx Dermatological Problems: Yes (GENERALIZED PETECHIAE 01-15-16) Hx Psoriasis: Yes (PT DENIES) Other/Comment: 06-09-18- GENERALIZED SKIN DRYNESS,REDDENED SKIN ALL OVER. BILATERAL LE GROSS EDEMA MORE TO RIGHT LEG THAN LEFT. WITH MULTIPE DRY SCABBED WOUNDS. TEDS STOCKING WORN. BILATERAL ARMS WITH DRY SCABBED WOUNDS.MORE TO LEFT. NOSE HAS DRY SCABBED WOUND AND ALSO LOWER LIP FROM PREVIOUS FALL PER PT. PT GOES TO WOUND CTR. - MUSCULOSKELETAL/RHEUMATOLOGICAL Hx Musculoskeletal Disorders: Yes Hx Falls: Yes (June) Hx Unsteady Gait: Yes (AT TIMES HE USES A CANE.) - GASTROINTESTINAL Hx Gastrointestinal Disorders: Yes (HEMORRHOID) Other/Comment: RECTAL BLEED 11-06-15 - GENITOURINARY/GYNECOLOGICAL Hx Genitourinary Disorders: Yes Hx Urinary Tract Infection: Yes - PSYCHIATRIC Hx Psychophysiologic Disorder: Yes (SMOKED 2 PPD CIGARETTES QUIT 1972,QUIT DRINKING WINE APR 2018.) Hx Substance Use: No - SURGICAL HISTORY Hx Surgeries: Yes (TONSILLECTOMY) Hx Coronary Stent: (06-09-18) Hx Splenectomy: Yes - ANESTHESIA Hx Anesthesia Reactions: No Hx Malignant Hyperthermia: No Meds Allergies/Adverse Reactions: Allergies Allergy/AdvReac Type Severity Reaction Status Date / Time aspirin Allergy Severe RASH Verified 06/09/18 17:16 doxycycline Allergy Severe LOW Verified 06/09/18 17:16 PLATELETS ibuprofen [From Advil] Allergy Severe RASH Verified 06/09/18 17:16 - Medications Medications: Current Medications Diltiazem HCl (Cardizem) 60 mg PO TID [facility] Last Admin: 06/10/18 09:18 Dose: 60 mg Folic Acid (Folic Acid) 1 mg PO DAILY [facility] Last Admin: 06/10/18 09:18 Dose: 1 mg Furosemide (Lasix) 40 mg IVP DAILY [facility] Last Admin: 06/10/18 09:19 Dose: 40 mg Ceftriaxone Sodium (Rocephin 1 Gram Ivpb) 1 gm in 100 mls @ 100 mls/hr IVPB DAILY [facility]; Protocol Last Admin: 06/10/18 09:19 Dose: 100 mls/hr Levofloxacin/Dextrose (Levaquin 750mg) 750 mg in 150 mls @ 100 mls/hr IVPB DAILY [facility]; Protocol Stop: 06/16/18 20:03 Last Admin: 06/09/18 21:38 Dose: 100 mls/hr Lactulose (Enulose) 20 gm PO HS [facility] Last Admin: 06/09/18 21:38 Dose: 20 gm Thiamine HCl (Vitamin B1 Tab) 100 mg PO DAILY [facility] Last Admin: 06/10/18 09:20 Dose: 100 mg Physical Exam - Constitutional Appears: Well, Non-toxic, No Acute Distress - Head Exam Head Exam: ATRAUMATIC, NORMOCEPHALIC - Extremities Exam Extremities exam: Positive for: normal inspection Additional comments: Bilateral Lower Extremity Focused Exam VASC: DP and PT pulses 2/4 bilaterally, CFT less than 3 seconds X 10, non- pitting edema noted to bilateral lower legs DERM: multiple excoriated scabbed wounds with scaling noted of bilateral legs circumferentially, positive mild erythema noted to bilateral legs along with the xerosis, minimal ecchymosis noted to the tip of the right hallux likely secondary to cyanosis vs. injury, no drainage, no tracking, no probe to bone, no open lesions NEURO: grossly intact ORTHO: no pain on palpation to the lower extremities, MSK not performed at this time - Neurological Exam Neurological exam: Alert, Oriented x3 - Psychiatric Exam Psychiatric exam: Normal Affect, Normal Mood Results - Vital Signs Recent Vital Signs: Last Vital Signs Temp 98.0 F 06/10/18 05:41 Pulse 119 H 06/10/18 05:52 Resp 20 06/10/18 05:41 BP 110/69 06/10/18 09:19 Pulse Ox 97 06/10/18 05:41 - Labs Result Diagrams: 06/09/18 14:05 06/09/18 14:05 Labs: Laboratory Results - last 24 hr 06/09/18 06/09/18 06/09/18 14:05 14:05 14:05 WBC 6.5 RBC 4.40 Hgb 14.8 Hct 42.6 MCV 96.8 MCH 33.6 MCHC 34.7 RDW 16.7 H Plt Count 343 MPV 10.1 Neut % (Auto) 75.8 H Lymph % (Auto) 9.4 L [place] % (Auto) 11.7 H Eos % (Auto) 2.8 Baso % (Auto) 0.3 Lymph # (Auto) 0.6 L [place] # (Auto) 0.8 H Eos # (Auto) 0.2 Baso # (Auto) 0.02 Absolute Neuts (auto) 4.93 PT 25.3 H INR 2.28 APTT 45.6 H pO2 VBG pH VBG pCO2 VBG HCO3 VBG Total CO2 VBG O2 Sat (Calc) VBG Base Excess VBG Potassium Glucose Lactate FiO2 Sodium 138 Potassium 4.7 Chloride 102 Carbon Dioxide 26 Anion Gap 15 BUN 39 H Creatinine 1.5 Est GFR ( Amer) 56 Est GFR (Non-Af Amer) 46 Random Glucose 95 Calcium 9.6 Phosphorus 4.5 Magnesium 1.9 Total Bilirubin 1.7 H AST 82 H ALT 48 Alkaline Phosphatase 203 H Ammonia Lactate Dehydrogenase 1016 H Total Creatine Kinase 243 H CK-MB (CK-2) 15.0 H CK-MB (CK-2) % 6.2 H Troponin I < 0.01 NT-Pro-B Natriuret Pep 3760 H Total Protein 8.1 Albumin 3.6 Globulin 4.5 Albumin/Globulin Ratio 0.8 L Venous Blood Potassium Urine Color Urine Appearance Urine pH Ur Specific [place] Urine Protein Urine Glucose (UA) Urine Ketones Urine Blood Urine Nitrate Urine Bilirubin Urine Urobilinogen Ur Leukocyte Esterase Urine RBC Urine WBC Ur Epithelial Cells Urine Opiates Screen Urine Methadone Screen Ur Barbiturates Screen Ur Phencyclidine Scrn Ur Amphetamines Screen U Benzodiazepines Scrn U Oth Cocaine Metabols U Cannabinoids Screen Alcohol, Quantitative 06/09/18 06/09/18 06/09/18 14:05 14:27 16:00 WBC RBC Hgb Hct MCV MCH MCHC RDW Plt Count MPV Neut % (Auto) Lymph % (Auto) [place] % (Auto) Eos % (Auto) Baso % (Auto) Lymph # (Auto) [place] # (Auto) Eos # (Auto) Baso # (Auto) Absolute Neuts (auto) PT INR APTT pO2 32 VBG pH 7.34 VBG pCO2 52.0 VBG HCO3 28.1 H VBG Total CO2 VBG O2 Sat (Calc) 63.0 VBG Base Excess 1.4 VBG Potassium Glucose Lactate FiO2 Sodium Potassium Chloride Carbon Dioxide Anion Gap BUN Creatinine Est GFR ( Amer) Est GFR (Non-Af Amer) Random Glucose Calcium Phosphorus Magnesium Total Bilirubin AST ALT Alkaline Phosphatase Ammonia 36 H Lactate Dehydrogenase Total Creatine Kinase CK-MB (CK-2) CK-MB (CK-2) % Troponin I NT-Pro-B Natriuret Pep Total Protein Albumin Globulin Albumin/Globulin Ratio Venous Blood Potassium Urine Color Urine Appearance Urine pH Ur Specific [place] Urine Protein Urine Glucose (UA) Urine Ketones Urine Blood Urine Nitrate Urine Bilirubin Urine Urobilinogen Ur Leukocyte Esterase Urine RBC Urine WBC Ur Epithelial Cells Urine Opiates Screen Urine Methadone Screen Ur Barbiturates Screen Ur Phencyclidine Scrn Ur Amphetamines Screen U Benzodiazepines Scrn U Oth Cocaine Metabols U Cannabinoids Screen Alcohol, Quantitative < 10 06/09/18 06/09/18 06/09/18 16:00 16:05 16:05 WBC RBC Hgb Hct MCV MCH MCHC RDW Plt Count MPV Neut % (Auto) Lymph % (Auto) [place] % (Auto) Eos % (Auto) Baso % (Auto) Lymph # (Auto) [place] # (Auto) Eos # (Auto) Baso # (Auto) Absolute Neuts (auto) PT INR APTT pO2 62 H VBG pH 7.35 VBG pCO2 43.0 VBG HCO3 23.7 VBG Total CO2 25.0 VBG O2 Sat (Calc) 94.2 H VBG Base Excess -2.0 L VBG Potassium 4.7 Glucose 96 Lactate 1.8 FiO2 21.0 Sodium 136.0 Potassium Chloride 102.0 Carbon Dioxide Anion Gap BUN Creatinine Est GFR ( Amer) Est GFR (Non-Af Amer) Random Glucose Calcium Phosphorus Magnesium Total Bilirubin AST ALT Alkaline Phosphatase Ammonia Lactate Dehydrogenase Total Creatine Kinase CK-MB (CK-2) CK-MB (CK-2) % Troponin I NT-Pro-B Natriuret Pep Total Protein Albumin Globulin Albumin/Globulin Ratio Venous Blood Potassium 4.7 Urine Color Dark yellow Urine Appearance Clear Urine pH 5.5 Ur Specific [place] >= 1.030 Urine Protein 100 H Urine Glucose (UA) Negative Urine Ketones Trace H Urine Blood Negative Urine Nitrate Negative Urine Bilirubin Moderate H Urine Urobilinogen 0.2 Ur Leukocyte Esterase Small H Urine RBC 0 - 2 Urine WBC 2 - 5 Ur Epithelial Cells 0 - 2 Urine Opiates Screen Negative Urine Methadone Screen Negative Ur Barbiturates Screen Negative Ur Phencyclidine Scrn Negative Ur Amphetamines Screen Negative U Benzodiazepines Scrn Negative U Oth Cocaine Metabols Negative U Cannabinoids Screen Negative Alcohol, Quantitative Assessment & Plan - Assessment and Plan (Free Text) Assessment: 73 y/o male patient was seen and evaluated for bilateral lower extremity xerosis with excoriated lesions Plan: Patient was seen and evaluated with Dr. De Plan was discussed with Dr. De Chart, labs and vitals were reviewed- afebrile, absent leukocytosis Ordered B/L SIMON/PVR to assess blow flow Ordered Lotrisone and LacHydrin to be applied to B/L LE Patient to be in Multipodus boots at all times when in bed Podiatry would like to trim patient toenails- patient refused at this time, will try again tomorrow No Dressing to be applied at this time Continue management per primary care team Podiatry will continue to follow patient while in house - Date & Time Date: 06/10/18 Time: 13:14
[2018-06-10] MEDS ORDERED: cefTRIAXone 1 gm 1 GM/100 ML BAG IVPB SCH (10:00)
--- NOTE | 2018-06-10 10:48 | CP.PCM.CON ---
<Bipin Davis - Last Filed: 06/10/18 10:45> History of Present Illness - History of Present Illness History of Present Illness: Bipin Davis D.O. PGY-3, Internal Medicine Resident, Infectious Disease Consultation Note 73 year old male with a PMH of ITP s/p splenectomy, A-fib, PAD, prior EtOH abuse who presented for increasing fatigue, weakness, shortness of breath and increasing weight. Infectious disease consultation was requested for concerns of lower extremity cellulitis. Patient was seen and examined at bedside. Patient states that at times it is very hard to catch his breath. At this time having some difficulty and thus states that he'd rather not go over his "story" at this time. Review of chart reveals that patient has been having recurrent falls because he gets so tired that he falls forward. Patient has been seen before by examiner and does appear to have gained some weight. Denies any fevers, chills, nausea, vomiting diarrhea, lightheadedness, headache, or other complaints. Does admit to some constipation, sometimes takes a few days to go. Otherwise no other history obtained. Patient states that he hasn't drank in months. Review of Systems - Review of Systems All systems: reviewed and no additional remarkable complaints except (as per HPI) Past Patient History - Infectious Disease Hx of Infectious Diseases: None - Tetanus Immunizations Tetanus Immunization: Unknown - Past Medical History & Family History Past Medical History?: Yes - Past Social History Smoking Status: Former Smoker - CARDIAC Hx Cardiac Disorders: Yes Hx Congestive Heart Failure: Yes Hx Pacemaker: No Hx Peripheral Edema: Yes Hx Peripheral Vascular Disease: Yes - PULMONARY Hx Respiratory Disorders: Yes (USED TO SMOKE CIGARETTES 2 PPD QUIT 1972) Hx Pneumonia: Yes (06-09-18) - NEUROLOGICAL Hx Neurological Disorder: No - HEENT Hx HEENT Problems: Yes (TONSILLECTOMY) Other/Comment: upper dentures only - RENAL Hx Chronic Kidney Disease: No - ENDOCRINE/METABOLIC Hx Endocrine Disorders: Yes Hx Diabetes Mellitus Type 2: Yes - HEMATOLOGICAL/ONCOLOGICAL Hx Blood Disorders: Yes Other/Comment: thrombocytopenia - INTEGUMENTARY Hx Dermatological Problems: Yes (GENERALIZED PETECHIAE 01-15-16) Hx Psoriasis: Yes (PT DENIES) Other/Comment: 06-09-18- GENERALIZED SKIN DRYNESS,REDDENED SKIN ALL OVER. BILATERAL LE GROSS EDEMA MORE TO RIGHT LEG THAN LEFT. WITH MULTIPE DRY SCABBED WOUNDS. TEDS STOCKING WORN. BILATERAL ARMS WITH DRY SCABBED WOUNDS.MORE TO LEFT. NOSE HAS DRY SCABBED WOUND AND ALSO LOWER LIP FROM PREVIOUS FALL PER PT. PT GOES TO WOUND CTR. - MUSCULOSKELETAL/RHEUMATOLOGICAL Hx Musculoskeletal Disorders: Yes Hx Falls: Yes (June) Hx Unsteady Gait: Yes (AT TIMES HE USES A CANE.) - GASTROINTESTINAL Hx Gastrointestinal Disorders: Yes (HEMORRHOID) Other/Comment: RECTAL BLEED 11-06-15 - GENITOURINARY/GYNECOLOGICAL Hx Genitourinary Disorders: Yes Hx Urinary Tract Infection: Yes - PSYCHIATRIC Hx Psychophysiologic Disorder: Yes (SMOKED 2 PPD CIGARETTES QUIT 1972,QUIT DRINKING WINE APR 2018.) Hx Substance Use: No - SURGICAL HISTORY Hx Surgeries: Yes (TONSILLECTOMY) Hx Coronary Stent: (06-09-18) Hx Splenectomy: Yes - ANESTHESIA Hx Anesthesia Reactions: No Hx Malignant Hyperthermia: No Meds Allergies/Adverse Reactions: Allergies Allergy/AdvReac Type Severity Reaction Status Date / Time aspirin Allergy Severe RASH Verified 06/09/18 17:16 doxycycline Allergy Severe LOW Verified 06/09/18 17:16 PLATELETS ibuprofen [From Advil] Allergy Severe RASH Verified 06/09/18 17:16 - Medications Medications: Current Medications Betamethasone/Clotrimazole (Lotrisone) 0 gm TOP DAILY [facility] Diltiazem HCl (Cardizem) 60 mg PO TID [facility] Last Admin: 06/10/18 09:18 Dose: 60 mg Folic Acid (Folic Acid) 1 mg PO DAILY [facility] Last Admin: 06/10/18 09:18 Dose: 1 mg Furosemide (Lasix) 40 mg IVP DAILY [facility] Last Admin: 06/10/18 09:19 Dose: 40 mg Ceftriaxone Sodium (Rocephin 1 Gram Ivpb) 1 gm in 100 mls @ 100 mls/hr IVPB D AILY [facility]; Protocol Last Admin: 06/10/18 09:19 Dose: 100 mls/hr Levofloxacin/Dextrose (Levaquin 750mg) 750 mg in 150 mls @ 100 mls/hr IVPB DAILY [facility]; Protocol Stop: 06/16/18 20:03 Last Admin: 06/09/18 21:38 Dose: 100 mls/hr Lactic Acid (Lac-Hydrin 12% Cream (140 G)) 0 ea TOP DAILY [facility] Lactulose (Enulose) 20 gm PO HS [facility] Last Admin: 06/09/18 21:38 Dose: 20 gm Thiamine HCl (Vitamin B1 Tab) 100 mg PO DAILY [facility] Last Admin: 06/10/18 09:20 Dose: 100 mg Physical Exam - Constitutional Appears: In Acute Distress, Chronically Ill - Head Exam Head Exam: ATRAUMATIC, NORMOCEPHALIC - Eye Exam Eye Exam: EOMI. absent: Scleral icterus - ENT Exam ENT Exam: Mucous Membranes Moist - Neck Exam Additional comments: large neck circumference - Respiratory Exam Respiratory Exam: Wheezes. absent: Rales, Rhonchi - Cardiovascular Exam Cardiovascular Exam: +S1, +S2. absent: Gallop, Rubs - GI/Abdominal Exam Additional comments: soft, obese, NT, ND - Extremities Exam Extremities exam: Negative for: calf tenderness Additional comments: chronic lymphedema, nonpitting, erythema and xerosis BL, some scabs noted, no juan ulcerations noted however - Neurological Exam Neurological exam: Alert - Skin Skin Exam: Dry, Warm Additional comments: as described above Results - Vital Signs Recent Vital Signs: Last Vital Signs Temp 98.0 F 06/10/18 05:41 Pulse 119 H 06/10/18 05:52 Resp 20 06/10/18 05:41 BP 110/69 06/10/18 09:19 Pulse Ox 97 06/10/18 05:41 - Labs Result Diagrams: 06/09/18 14:05 06/09/18 14:05 Labs: Laboratory Results - last 24 hr 06/09/18 06/09/18 06/09/18 14:05 14:05 14:05 WBC 6.5 RBC 4.40 Hgb 14.8 Hct 42.6 MCV 96.8 MCH 33.6 MCHC 34.7 RDW 16.7 H Plt Count 343 MPV 10.1 Neut % (Auto) 75.8 H Lymph % (Auto) 9.4 L Wheeler % (Auto) 11.7 H Eos % (Auto) 2.8 Baso % (Auto) 0.3 Lymph # (Auto) 0.6 L Wheeler # (Auto) 0.8 H Eos # (Auto) 0.2 Baso # (Auto) 0.02 Absolute Neuts (auto) 4.93 PT 25.3 H INR 2.28 APTT 45.6 H pO2 VBG pH VBG pCO2 VBG HCO3 VBG Total CO2 VBG O2 Sat (Calc) VBG Base Excess VBG Potassium Glucose Lactate FiO2 Sodium 138 Potassium 4.7 Chloride 102 Carbon Dioxide 26 Anion Gap 15 BUN 39 H Creatinine 1.5 Est GFR ( Amer) 56 Est GFR (Non-Af Amer) 46 Random Glucose 95 Calcium 9.6 Phosphorus 4.5 Magnesium 1.9 Total Bilirubin 1.7 H AST 82 H ALT 48 Alkaline Phosphatase 203 H Ammonia Lactate Dehydrogenase 1016 H Total Creatine Kinase 243 H CK-MB (CK-2) 15.0 H CK-MB (CK-2) % 6.2 H Troponin I < 0.01 NT-Pro-B Natriuret Pep 3760 H Total Protein 8.1 Albumin 3.6 Globulin 4.5 Albumin/Globulin Ratio 0.8 L Venous Blood Potassium Urine Color Urine Appearance Urine pH Ur Specific [place] Urine Protein Urine Glucose (UA) Urine Ketones Urine Blood Urine Nitrate Urine Bilirubin Urine Urobilinogen Ur Leukocyte Esterase Urine RBC Urine WBC Ur Epithelial Cells Urine Opiates Screen Urine Methadone Screen Ur Barbiturates Screen Ur Phencyclidine Scrn Ur Amphetamines Screen U Benzodiazepines Scrn U Oth Cocaine Metabols U Cannabinoids Screen Alcohol, Quantitative 06/09/18 06/09/18 06/09/18 14:05 14:27 16:00 WBC RBC Hgb Hct MCV MCH MCHC RDW Plt Count MPV Neut % (Auto) Lymph % (Auto) Wheeler % (Auto) Eos % (Auto) Baso % (Auto) Lymph # (Auto) Wheeler # (Auto) Eos # (Auto) Baso # (Auto) Absolute Neuts (auto) PT INR APTT pO2 32 VBG pH 7.34 VBG pCO2 52.0 VBG HCO3 28.1 H VBG Total CO2 VBG O2 Sat (Calc) 63.0 VBG Base Excess 1.4 VBG Potassium Glucose Lactate FiO2 Sodium Potassium Chloride Carbon Dioxide Anion Gap BUN Creatinine Est GFR ( Amer) Est GFR (Non-Af Amer) Random Glucose Calcium Phosphorus Magnesium Total Bilirubin AST ALT Alkaline Phosphatase Ammonia 36 H Lactate Dehydrogenase Total Creatine Kinase CK-MB (CK-2) CK-MB (CK-2) % Troponin I NT-Pro-B Natriuret Pep Total Protein Albumin Globulin Albumin/Globulin Ratio Venous Blood Potassium Urine Color Urine Appearance Urine pH Ur Specific [place] Urine Protein Urine Glucose (UA) Urine Ketones Urine Blood Urine Nitrate Urine Bilirubin Urine Urobilinogen Ur Leukocyte Esterase Urine RBC Urine WBC Ur Epithelial Cells Urine Opiates Screen Urine Methadone Screen Ur Barbiturates Screen Ur Phencyclidine Scrn Ur Amphetamines Screen U Benzodiazepines Scrn U Oth Cocaine Metabols U Cannabinoids Screen Alcohol, Quantitative < 10 06/09/18 06/09/18 06/09/18 16:00 16:05 16:05 WBC RBC Hgb Hct MCV MCH MCHC RDW Plt Count MPV Neut % (Auto) Lymph % (Auto) Wheeler % (Auto) Eos % (Auto) Baso % (Auto) Lymph # (Auto) Wheeler # (Auto) Eos # (Auto) Baso # (Auto) Absolute Neuts (auto) PT INR APTT pO2 62 H VBG pH 7.35 VBG pCO2 43.0 VBG HCO3 23.7 VBG Total CO2 25.0 VBG O2 Sat (Calc) 94.2 H VBG Base Excess -2.0 L VBG Potassium 4.7 Glucose 96 Lactate 1.8 FiO2 21.0 Sodium 136.0 Potassium Chloride 102.0 Carbon Dioxide Anion Gap BUN Creatinine Est GFR ( Amer) Est GFR (Non-Af Amer) Random Glucose Calcium Phosphorus Magnesium Total Bilirubin AST ALT Alkaline Phosphatase Ammonia Lactate Dehydrogenase Total Creatine Kinase CK-MB (CK-2) CK-MB (CK-2) % Troponin I NT-Pro-B Natriuret Pep Total Protein Albumin Globulin Albumin/Globulin Ratio Venous Blood Potassium 4.7 Urine Color Dark yellow Urine Appearance Clear Urine pH 5.5 Ur Specific [place] >= 1.030 Urine Protein 100 H Urine Glucose (UA) Negative Urine Ketones Trace H Urine Blood Negative Urine Nitrate Negative Urine Bilirubin Moderate H Urine Urobilinogen 0.2 Ur Leukocyte Esterase Small H Urine RBC 0 - 2 Urine WBC 2 - 5 Ur Epithelial Cells 0 - 2 Urine Opiates Screen Negative Urine Methadone Screen Negative Ur Barbiturates Screen Negative Ur Phencyclidine Scrn Negative Ur Amphetamines Screen Negative U Benzodiazepines Scrn Negative U Oth Cocaine Metabols Negative U Cannabinoids Screen Negative Alcohol, Quantitative Assessment & Plan - Assessment and Plan (Free Text) Assessment: 73 year old male with a PMH of ITP s/p splenectomy, A-fib, PAD, prior EtOH abuse who presented for increasing fatigue, weakness, shortness of breath and increasing weight. Infectious disease consultation was requested for concerns of lower extremity cellulitis. Plan: Severe sepsis, SIRS 2/4 with tachycardia and tachypnea in the setting of likely CAP and/or r leg cellulitis BL pleural effusions Afib with RVR HFpEF PAD MARIE Hyperbiliruinemia with elevated AST and alk phos Elevated INR not on anticoagulation Hyperammonemia Elevated BNP Increasing weight gain ITP s/p splenectomy Previous EtOH abuse Current symptomatology could be a combination of Afib with RVR, worsening HFpEF and CAP CXR reviewed, appears to show possible RLL pneumonia Podiatry note reviewed, recs appreciated Patient for echo right now, will f/u results May benefit from GI evaluation Has grown MRSA in the legs before Procal ordered Abd/pelvis CT pending Empirically started on levaquin and teflaro which will cover possible MRSA and has lung penetration Reviewed previous LE Art studies showing low ABIs Patient was seen and examined and case to be discussed with attending physician Thank you for the pleasure of participating in the care of this interesting patient - Date & Time Date: 06/10/18 Time: 10:00 <Karl Molina - Last Filed: 06/10/18 11:20> Meds - Medications Medications: Current Medications Betamethasone/Clotrimazole (Lotrisone) 0 gm TOP DAILY [facility] Diltiazem HCl (Cardizem) 60 mg PO TID [facility] Last Admin: 06/10/18 09:18 Dose: 60 mg Folic Acid (Folic Acid) 1 mg PO DAILY [facility] Last Admin: 06/10/18 09:18 Dose: 1 mg Furosemide (Lasix) 40 mg IVP DAILY [facility] Last Admin: 06/10/18 09:19 Dose: 40 mg Levofloxacin/Dextrose (Levaquin 750mg) 750 mg in 150 mls @ 100 mls/hr IVPB DAILY [facility]; Protocol Stop: 06/16/18 20:03 Last Admin: 06/09/18 21:38 Dose: 100 mls/hr Ceftaroline Fosamil 400 mg/ (Sodium Chloride) 100 mls @ 100 mls/hr IVPB Q12 [facility]; Protocol Stop: 06/20/18 11:16 Lactic Acid (Lac-Hydrin 12% Cream (140 G)) 0 ea TOP DAILY [facility] Lactulose (Enulose) 20 gm PO HS [facility] Last Admin: 06/09/18 21:38 Dose: 20 gm Thiamine HCl (Vitamin B1 Tab) 100 mg PO DAILY [facility] Last Admin: 06/10/18 09:20 Dose: 100 mg Results - Vital Signs Recent Vital Signs: Last Vital Signs Temp 98.0 F 06/10/18 05:41 Pulse 119 H 06/10/18 05:52 Resp 20 06/10/18 05:41 BP 110/69 06/10/18 09:19 Pulse Ox 97 06/10/18 05:41 - Labs Result Diagrams: 06/09/18 14:05 06/09/18 14:05 Labs: Laboratory Results - last 24 hr 06/09/18 06/09/18 06/09/18 14:05 14:05 14:05 WBC 6.5 RBC 4.40 Hgb 14.8 Hct 42.6 MCV 96.8 MCH 33.6 MCHC 34.7 RDW 16.7 H Plt Count 343 MPV 10.1 Neut % (Auto) 75.8 H Lymph % (Auto) 9.4 L Wheeler % (Auto) 11.7 H Eos % (Auto) 2.8 Baso % (Auto) 0.3 Lymph # (Auto) 0.6 L Wheeler # (Auto) 0.8 H Eos # (Auto) 0.2 Baso # (Auto) 0.02 Absolute Neuts (auto) 4.93 PT 25.3 H INR 2.28 APTT 45.6 H pO2 VBG pH VBG pCO2 VBG HCO3 VBG Total CO2 VBG O2 Sat (Calc) VBG Base Excess VBG Potassium Glucose Lactate FiO2 Sodium 138 Potassium 4.7 Chloride 102 Carbon Dioxide 26 Anion Gap 15 BUN 39 H Creatinine 1.5 Est GFR ( Amer) 56 Est GFR (Non-Af Amer) 46 Random Glucose 95 Calcium 9.6 Phosphorus 4.5 Magnesium 1.9 Total Bilirubin 1.7 H AST 82 H ALT 48 Alkaline Phosphatase 203 H Ammonia Lactate Dehydrogenase 1016 H Total Creatine Kinase 243 H CK-MB (CK-2) 15.0 H CK-MB (CK-2) % 6.2 H Troponin I < 0.01 NT-Pro-B Natriuret Pep 3760 H Total Protein 8.1 Albumin 3.6 Globulin 4.5 Albumin/Globulin Ratio 0.8 L Venous Blood Potassium Urine Color Urine Appearance Urine pH Ur Specific [place] Urine Protein Urine Glucose (UA) Urine Ketones Urine Blood Urine Nitrate Urine Bilirubin Urine Urobilinogen Ur Leukocyte Esterase Urine RBC Urine WBC Ur Epithelial Cells Urine Opiates Screen Urine Methadone Screen Ur Barbiturates Screen Ur Phencyclidine Scrn Ur Amphetamines Screen U Benzodiazepines Scrn U Oth Cocaine Metabols U Cannabinoids Screen Alcohol, Quantitative 06/09/18 06/09/18 06/09/18 14:05 14:27 16:00 WBC RBC Hgb Hct MCV MCH MCHC RDW Plt Count MPV Neut % (Auto) Lymph % (Auto) Wheeler % (Auto) Eos % (Auto) Baso % (Auto) Lymph # (Auto) Wheeler # (Auto) Eos # (Auto) Baso # (Auto) Absolute Neuts (auto) PT INR APTT pO2 32 VBG pH 7.34 VBG pCO2 52.0 VBG HCO3 28.1 H VBG Total CO2 VBG O2 Sat (Calc) 63.0 VBG Base Excess 1.4 VBG Potassium Glucose Lactate FiO2 Sodium Potassium Chloride Carbon Dioxide Anion Gap BUN Creatinine Est GFR ( Amer) Est GFR (Non-Af Amer) Random Glucose Calcium Phosphorus Magnesium Total Bilirubin AST ALT Alkaline Phosphatase Ammonia 36 H Lactate Dehydrogenase Total Creatine Kinase CK-MB (CK-2) CK-MB (CK-2) % Troponin I NT-Pro-B Natriuret Pep Total Protein Albumin Globulin Albumin/Globulin Ratio Venous Blood Potassium Urine Color Urine Appearance Urine pH Ur Specific [place] Urine Protein Urine Glucose (UA) Urine Ketones Urine Blood Urine Nitrate Urine Bilirubin Urine Urobilinogen Ur Leukocyte Esterase Urine RBC Urine WBC Ur Epithelial Cells Urine Opiates Screen Urine Methadone Screen Ur Barbiturates Screen Ur Phencyclidine Scrn Ur Amphetamines Screen U Benzodiazepines Scrn U Oth Cocaine Metabols U Cannabinoids Screen Alcohol, Quantitative < 10 06/09/18 06/09/18 06/09/18 16:00 16:05 16:05 WBC RBC Hgb Hct MCV MCH MCHC RDW Plt Count MPV Neut % (Auto) Lymph % (Auto) Wheeler % (Auto) Eos % (Auto) Baso % (Auto) Lymph # (Auto) Wheeler # (Auto) Eos # (Auto) Baso # (Auto) Absolute Neuts (auto) PT INR APTT pO2 62 H VBG pH 7.35 VBG pCO2 43.0 VBG HCO3 23.7 VBG Total CO2 25.0 VBG O2 Sat (Calc) 94.2 H VBG Base Excess -2.0 L VBG Potassium 4.7 Glucose 96 Lactate 1.8 FiO2 21.0 Sodium 136.0 Potassium Chloride 102.0 Carbon Dioxide Anion Gap BUN Creatinine Est GFR ( Amer) Est GFR (Non-Af Amer) Random Glucose Calcium Phosphorus Magnesium Total Bilirubin AST ALT Alkaline Phosphatase Ammonia Lactate Dehydrogenase Total Creatine Kinase CK-MB (CK-2) CK-MB (CK-2) % Troponin I NT-Pro-B Natriuret Pep Total Protein Albumin Globulin Albumin/Globulin Ratio Venous Blood Potassium 4.7 Urine Color Dark yellow Urine Appearance Clear Urine pH 5.5 Ur Specific [place] >= 1.030 Urine Protein 100 H Urine Glucose (UA) Negative Urine Ketones Trace H Urine Blood Negative Urine Nitrate Negative Urine Bilirubin Moderate H Urine Urobilinogen 0.2 Ur Leukocyte Esterase Small H Urine RBC 0 - 2 Urine WBC 2 - 5 Ur Epithelial Cells 0 - 2 Urine Opiates Screen Negative Urine Methadone Screen Negative Ur Barbiturates Screen Negative Ur Phencyclidine Scrn Negative Ur Amphetamines Screen Negative U Benzodiazepines Scrn Negative U Oth Cocaine Metabols Negative U Cannabinoids Screen Negative Alcohol, Quantitative Attending/Attestation - Attestation I have personally seen and examined this patient.: Yes I have fully participated in the care of the patient.: Yes I have reviewed all pertinent clinical information: Yes
--- NOTE | 2018-06-10 11:17 | PN ---
DATE: 06/10/2018 SUBJECTIVE: This is 73-year-old white male admitted hospital with new onset atrial fibrillation, congestive heart failure systolic without prior history of heart failure in the past, increased abdominal girth, edema of the abdominal wall and peripheral edema lower extremities, chronic liver disease with an elevated PT/INR and an elevated bilirubin. The patient is being diuresed in the hospital. He has been treated. His heart rate is still in 110 to 130 range with irregularly regular rate and rhythm. He is short of breath this morning, seen on the bed. He is scheduled for a CT of the abdomen. He was seen by and Dr. Montilla. He does have stasis dermatitis and chronic venous insufficiency of lower extremities, will be seen by Dr. De. He also has possible early cellulitis of the lower extremities and the abdominal wall and small amount of ascites. Chest has some rales at both bases. Abdomen is obese with indurated abdominal wall with cellulitic changes and edema. Extremities shows chronic stasis dermatitis with some oozing and some edema. Heart examination is irregularly regular with rapid ventricular response. The patient is somewhat awake and alert, but in mild respiratory distress. The plan is to continue diureses, CT of the abdomen, IV antibiotics and blood sugar is control. Thiamine and folic acid. Librium and Ativan, if needed for alcohol withdrawal and close monitoring. Chadd Savage MD
--- NOTE | 2018-06-10 11:29 | CP.PCM.APN ---
Subjective - Date & Time of Evaluation Date of Evaluation: 06/10/18 Time of Evaluation: 11:22 - Subjective Subjective: pt seen and examined at bedside, pt reports weakness and cough Review of Systems - Constitutional Constitutional: Weakness - Respiratory Respiratory: Cough, Dyspnea Objective - Vital Signs/Intake and Output Vital Signs (last 24 hours): Temp Pulse Resp BP Pulse Ox 98.0 F 119 H 20 110/69 97 06/10/18 05:41 06/10/18 05:52 06/10/18 05:41 06/10/18 09:19 06/10/18 05:41 Intake and Output: 06/10/18 06/10/18 06:59 18:59 Intake Total 650 Output Total 400 Balance 250 - Medications Medications: Current Medications Betamethasone/Clotrimazole (Lotrisone) 0 gm TOP DAILY [facility] Diltiazem HCl (Cardizem) 60 mg PO TID [facility] Last Admin: 06/10/18 09:18 Dose: 60 mg Folic Acid (Folic Acid) 1 mg PO DAILY [facility] Last Admin: 06/10/18 09:18 Dose: 1 mg Furosemide (Lasix) 40 mg IVP DAILY [facility] Last Admin: 06/10/18 09:19 Dose: 40 mg Levofloxacin/Dextrose (Levaquin 750mg) 750 mg in 150 mls @ 100 mls/hr IVPB DAILY [facility]; Protocol Stop: 06/16/18 20:03 Last Admin: 06/09/18 21:38 Dose: 100 mls/hr Ceftaroline Fosamil 400 mg/ (Sodium Chloride) 100 mls @ 100 mls/hr IVPB Q12 [facility]; Protocol Stop: 06/20/18 11:16 Lactic Acid (Lac-Hydrin 12% Cream (140 G)) 0 ea TOP DAILY [facility] Lactulose (Enulose) 20 gm PO HS [facility] Last Admin: 06/09/18 21:38 Dose: 20 gm Thiamine HCl (Vitamin B1 Tab) 100 mg PO DAILY [facility] Last Admin: 06/10/18 09:20 Dose: 100 mg - Labs Labs: 06/09/18 14:05 06/09/18 14:05 PT 25.3 SECONDS (9.4-12.5) H 06/09/18 14:05 INR 2.28 06/09/18 14:05 APTT 45.6 Seconds (26.9-38.3) H 06/09/18 14:05 - Constitutional Appears: No Acute Distress, Older Than Stated Age - Head Exam Head Exam: NORMAL INSPECTION - Eye Exam Eye Exam: PERRL Pupil Exam: NORMAL ACCOMODATION - Respiratory Exam Respiratory Exam: Decreased Breath Sounds, Rales - Cardiovascular Exam Cardiovascular Exam: Irregular Rhythm, +S1, +S2 - GI/Abdominal Exam GI & Abdominal Exam: Distended, Soft Additional comments: obese - Extremities Exam Extremities Exam: Pedal Edema Additional comments: legs with chronic looking venous skin changes noted, - Neurological Exam Neurological Exam: Alert, Awake - Psychiatric Exam Psychiatric exam: Normal Mood - Skin Skin Exam: Dry, Intact Assessment and Plan - Assessment and Plan (Free Text) Plan: ITS Impressions Extremity Ultrasound 06/09/18 14:22 IMPRESSION: No sonographic evidence for deep venous thrombosis in the visualized segments of both lower extremities. Limited study. Head CT 06/09/18 14:23 IMPRESSION: No acute intracranial abnormality. Chest X-Ray 06/09/18 14:25 IMPRESSION: Suspect right lower lobe pneumonia and small right pleural effusion. Follow-up after medical management is recommended to ensure complete resolution. The final report is tagged to the PA review folder. Abdomen Ultrasound 06/09/18 15:11 IMPRESSION: Mild hepatomegaly.Diffuse increased echogenicity in the liver may reflect hepatic steatosis however parenchymal infectious/ inflammatory etiologies cannot be entirely excluded. Clinical and laboratory correlation is advised. Trace perihepatic ascites. No cholelithiasis or biliary dilatation. Diffuse gallbladder wall thickening nonspecific and could be primary or secondary in etiology. 73 yr old white male with pmh sig for splenectomy from ITP, chronic Lympedema with venosu insufficiency, falls , who presented with weakness, increasing lethargy per family, recent syncopal episode. LE swelling and SOB now admited for further eval and treatment with cardiology, podiarty and ID consultations. pt noted with right lower lobe pneumonia and small right pleural effusion on cxr, elevated bnp and RI pt on iv antibiotics and IV lasix. Physical therapy eval ordered for falls, pt had echo and ct scan this am pt with Pancultures pending BC and UC will follow results plan of care discussed with IDT in rounds. Beryl Linn APN
--- NOTE | 2018-06-10 11:39 | CP.PCM.CON ---
History of Present Illness - History of Present Illness History of Present Illness: Awake, alert, mild shortness of breath at rest Reason for consultation:Cardiac evaluation of rapid atrial fibrillation Brief history of present illness: A 73 year old obese male who came in to the ER due to increasing fatigue, weakness & shortness of breath. History of open splenectomy for refractory ITP, (follows up with Dr. Santiago). congestive heart failure, chronic bilateral leg lymph edema, pneumonia, diabetes,former smoker, alcohol abuse last drink 2 months ago, unsteady gait, falls, urinary tract infection, hemorrhoids. In ER ,EKG showed atrial fibrillation. Seen and examined by me and Dr. Montilla Review of Systems - Review of Systems All systems: reviewed and no additional remarkable complaints except Review of Systems: as per HPI Past Patient History - Infectious Disease Hx of Infectious Diseases: None - Tetanus Immunizations Tetanus Immunization: Unknown - Past Medical History & Family History Past Medical History?: Yes - Past Social History Smoking Status: Former Smoker - CARDIAC Hx Cardiac Disorders: Yes Hx Congestive Heart Failure: Yes Hx Pacemaker: No Hx Peripheral Edema: Yes Hx Peripheral Vascular Disease: Yes - PULMONARY Hx Respiratory Disorders: Yes (USED TO SMOKE CIGARETTES 2 PPD QUIT 1972) Hx Pneumonia: Yes (06-09-18) - NEUROLOGICAL Hx Neurological Disorder: No - HEENT Hx HEENT Problems: Yes (TONSILLECTOMY) Other/Comment: upper dentures only - RENAL Hx Chronic Kidney Disease: No - ENDOCRINE/METABOLIC Hx Endocrine Disorders: Yes Hx Diabetes Mellitus Type 2: Yes - HEMATOLOGICAL/ONCOLOGICAL Hx Blood Disorders: Yes Other/Comment: thrombocytopenia - INTEGUMENTARY Hx Dermatological Problems: Yes (GENERALIZED PETECHIAE 01-15-16) Hx Psoriasis: Yes (PT DENIES) Other/Comment: 06-09-18- GENERALIZED SKIN DRYNESS,REDDENED SKIN ALL OVER. BILATERAL LE GROSS EDEMA MORE TO RIGHT LEG THAN LEFT. WITH MULTIPE DRY SCABBED WOUNDS. TEDS STOCKING WORN. BILATERAL ARMS WITH DRY SCABBED WOUNDS.MORE TO LEFT. NOSE HAS DRY SCABBED WOUND AND ALSO LOWER LIP FROM PREVIOUS FALL PER PT. PT GOES TO WOUND [facility]. - MUSCULOSKELETAL/RHEUMATOLOGICAL Hx Musculoskeletal Disorders: Yes Hx Falls: Yes (June) Hx Unsteady Gait: Yes (AT TIMES HE USES A CANE.) - GASTROINTESTINAL Hx Gastrointestinal Disorders: Yes (HEMORRHOID) Other/Comment: RECTAL BLEED 11-06-15 - GENITOURINARY/GYNECOLOGICAL Hx Genitourinary Disorders: Yes Hx Urinary Tract Infection: Yes - PSYCHIATRIC Hx Psychophysiologic Disorder: Yes (SMOKED 2 PPD CIGARETTES QUIT 1972,QUIT DRINKING WINE APR 2018.) Hx Substance Use: No - SURGICAL HISTORY Hx Surgeries: Yes (TONSILLECTOMY) Hx Coronary Stent: (06-09-18) Hx Splenectomy: Yes - ANESTHESIA Hx Anesthesia Reactions: No Hx Malignant Hyperthermia: No Meds Allergies/Adverse Reactions: Allergies Allergy/AdvReac Type Severity Reaction Status Date / Time aspirin Allergy Severe RASH Verified 06/09/18 17:16 doxycycline Allergy Severe LOW Verified 06/09/18 17:16 PLATELETS ibuprofen [From Advil] Allergy Severe RASH Verified 06/09/18 17:16 - Medications Medications: Current Medications Betamethasone/Clotrimazole (Lotrisone) 0 gm TOP DAILY [facility] Diltiazem HCl (Cardizem) 60 mg PO TID [facility] Last Admin: 06/10/18 09:18 Dose: 60 mg Folic Acid (Folic Acid) 1 mg PO DAILY [facility] Last Admin: 06/10/18 09:18 Dose: 1 mg Furosemide (Lasix) 40 mg IVP DAILY [facility] Last Admin: 06/10/18 09:19 Dose: 40 mg Levofloxacin/Dextrose (Levaquin 750mg) 750 mg in 150 mls @ 100 mls/hr IVPB DAILY [facility]; Protocol Stop: 06/16/18 20:03 Last Admin: 06/09/18 21:38 Dose: 100 mls/hr Ceftaroline Fosamil 400 mg/ (Sodium Chloride) 100 mls @ 100 mls/hr IVPB Q12 [facility]; Protocol Stop: 06/20/18 11:16 Lactic Acid (Lac-Hydrin 12% Cream (140 G)) 0 ea TOP DAILY [facility] Lactulose (Enulose) 20 gm PO HS [facility] Last Admin: 06/09/18 21:38 Dose: 20 gm Thiamine HCl (Vitamin B1 Tab) 100 mg PO DAILY [facility] Last Admin: 06/10/18 09:20 Dose: 100 mg Physical Exam - Constitutional Additional comments: mild shortness of breath - Respiratory Exam Respiratory Exam: Decreased Breath Sounds, NORMAL BREATHING PATTERN - Cardiovascular Exam Cardiovascular Exam: Irregular Rhythm, +S1, +S2 Additional comments: Atrial fib 110-120's - GI/Abdominal Exam GI & Abdominal Exam: Normal Bowel Sounds, Soft - Extremities Exam Additional comments: bilateral 2-3+ edema ,elevated with pillow - Neurological Exam Neurological exam: Alert - Psychiatric Exam Psychiatric exam: Anxious - Skin Skin Exam: Dry, Normal Color, Warm Results - Vital Signs Recent Vital Signs: Last Vital Signs Temp 98.0 F 06/10/18 05:41 Pulse 119 H 06/10/18 05:52 Resp 20 06/10/18 05:41 BP 110/69 06/10/18 09:19 Pulse Ox 97 06/10/18 05:41 - Labs Result Diagrams: 06/09/18 14:05 06/09/18 14:05 Labs: Laboratory Results - last 24 hr 06/09/18 06/09/18 06/09/18 14:05 14:05 14:05 WBC 6.5 RBC 4.40 Hgb 14.8 Hct 42.6 MCV 96.8 MCH 33.6 MCHC 34.7 RDW 16.7 H Plt Count 343 MPV 10.1 Neut % (Auto) 75.8 H Lymph % (Auto) 9.4 L [place] % (Auto) 11.7 H Eos % (Auto) 2.8 Baso % (Auto) 0.3 Lymph # (Auto) 0.6 L [place] # (Auto) 0.8 H Eos # (Auto) 0.2 Baso # (Auto) 0.02 Absolute Neuts (auto) 4.93 PT 25.3 H INR 2.28 APTT 45.6 H pO2 VBG pH VBG pCO2 VBG HCO3 VBG Total CO2 VBG O2 Sat (Calc) VBG Base Excess VBG Potassium Glucose Lactate FiO2 Sodium 138 Potassium 4.7 Chloride 102 Carbon Dioxide 26 Anion Gap 15 BUN 39 H Creatinine 1.5 Est GFR ( Amer) 56 Est GFR (Non-Af Amer) 46 Random Glucose 95 Calcium 9.6 Phosphorus 4.5 Magnesium 1.9 Total Bilirubin 1.7 H AST 82 H ALT 48 Alkaline Phosphatase 203 H Ammonia Lactate Dehydrogenase 1016 H Total Creatine Kinase 243 H CK-MB (CK-2) 15.0 H CK-MB (CK-2) % 6.2 H Troponin I < 0.01 NT-Pro-B Natriuret Pep 3760 H Total Protein 8.1 Albumin 3.6 Globulin 4.5 Albumin/Globulin Ratio 0.8 L Venous Blood Potassium Urine Color Urine Appearance Urine pH Ur Specific [place] Urine Protein Urine Glucose (UA) Urine Ketones Urine Blood Urine Nitrate Urine Bilirubin Urine Urobilinogen Ur Leukocyte Esterase Urine RBC Urine WBC Ur Epithelial Cells Urine Opiates Screen Urine Methadone Screen Ur Barbiturates Screen Ur Phencyclidine Scrn Ur Amphetamines Screen U Benzodiazepines Scrn U Oth Cocaine Metabols U Cannabinoids Screen Alcohol, Quantitative 06/09/18 06/09/18 06/09/18 14:05 14:27 16:00 WBC RBC Hgb Hct MCV MCH MCHC RDW Plt Count MPV Neut % (Auto) Lymph % (Auto) [place] % (Auto) Eos % (Auto) Baso % (Auto) Lymph # (Auto) [place] # (Auto) Eos # (Auto) Baso # (Auto) Absolute Neuts (auto) PT INR APTT pO2 32 VBG pH 7.34 VBG pCO2 52.0 VBG HCO3 28.1 H VBG Total CO2 VBG O2 Sat (Calc) 63.0 VBG Base Excess 1.4 VBG Potassium Glucose Lactate FiO2 Sodium Potassium Chloride Carbon Dioxide Anion Gap BUN Creatinine Est GFR ( Amer) Est GFR (Non-Af Amer) Random Glucose Calcium Phosphorus Magnesium Total Bilirubin AST ALT Alkaline Phosphatase Ammonia 36 H Lactate Dehydrogenase Total Creatine Kinase CK-MB (CK-2) CK-MB (CK-2) % Troponin I NT-Pro-B Natriuret Pep Total Protein Albumin Globulin Albumin/Globulin Ratio Venous Blood Potassium Urine Color Urine Appearance Urine pH Ur Specific [place] Urine Protein Urine Glucose (UA) Urine Ketones Urine Blood Urine Nitrate Urine Bilirubin Urine Urobilinogen Ur Leukocyte Esterase Urine RBC Urine WBC Ur Epithelial Cells Urine Opiates Screen Urine Methadone Screen Ur Barbiturates Screen Ur Phencyclidine Scrn Ur Amphetamines Screen U Benzodiazepines Scrn U Oth Cocaine Metabols U Cannabinoids Screen Alcohol, Quantitative < 10 06/09/18 06/09/18 06/09/18 16:00 16:05 16:05 WBC RBC Hgb Hct MCV MCH MCHC RDW Plt Count MPV Neut % (Auto) Lymph % (Auto) [place] % (Auto) Eos % (Auto) Baso % (Auto) Lymph # (Auto) [place] # (Auto) Eos # (Auto) Baso # (Auto) Absolute Neuts (auto) PT INR APTT pO2 62 H VBG pH 7.35 VBG pCO2 43.0 VBG HCO3 23.7 VBG Total CO2 25.0 VBG O2 Sat (Calc) 94.2 H VBG Base Excess -2.0 L VBG Potassium 4.7 Glucose 96 Lactate 1.8 FiO2 21.0 Sodium 136.0 Potassium Chloride 102.0 Carbon Dioxide Anion Gap BUN Creatinine Est GFR ( Amer) Est GFR (Non-Af Amer) Random Glucose Calcium Phosphorus Magnesium Total Bilirubin AST ALT Alkaline Phosphatase Ammonia Lactate Dehydrogenase Total Creatine Kinase CK-MB (CK-2) CK-MB (CK-2) % Troponin I NT-Pro-B Natriuret Pep Total Protein Albumin Globulin Albumin/Globulin Ratio Venous Blood Potassium 4.7 Urine Color Dark yellow Urine Appearance Clear Urine pH 5.5 Ur Specific [place] >= 1.030 Urine Protein 100 H Urine Glucose (UA) Negative Urine Ketones Trace H Urine Blood Negative Urine Nitrate Negative Urine Bilirubin Moderate H Urine Urobilinogen 0.2 Ur Leukocyte Esterase Small H Urine RBC 0 - 2 Urine WBC 2 - 5 Ur Epithelial Cells 0 - 2 Urine Opiates Screen Negative Urine Methadone Screen Negative Ur Barbiturates Screen Negative Ur Phencyclidine Scrn Negative Ur Amphetamines Screen Negative U Benzodiazepines Scrn Negative U Oth Cocaine Metabols Negative U Cannabinoids Screen Negative Alcohol, Quantitative Assessment & Plan - Assessment and Plan (Free Text) Assessment: Brief history of present illness: A 73 year old obese male who came in to the ER due to increasing fatigue, weakness & shortness of breath. History of open splenectomy for refractory ITP,(follows up with Dr. Santiago). congestive heart failure, peripheral vascular disease, pneumonia, diabetes,former smoker, alcohol abuse last drink 2 months ago, unsteady gait, falls, urinary tract infection, hemorrhoids. EKG showed atrial fibrillation, episode of rapid rate, Lopressor IV given, Chest X ray suggestive of right lower lobe pneumonia, small right pleural effusion. Rapid ventricular rate atrial fibrillation. Will give cardizem bolus and start on Cardizem 60 mg TID. Will order Echo to evaluate LV function. Plan: Rapid ventricular rate atrial fibrillation. Will give Cardizem 20 mg IV bolus and start on Cardizem 60 mg TID Will order Echo to evaluate LV function. Xopenex for shortness of breath On Lasix 40 mg daily Echo to evaluate LV function Continue current treatment Continue current medications TSH, Lipid profile, HgbA1C Further recommendations during hospital course Will follow up Plan and treatment discussed with Dr. Montilla Thank you Dr. Savage for the opportunity of taking care of Danilo Chaidez - Date & Time Date: 06/10/18 Time: 06:20
--- NOTE | 2018-06-10 12:08 | CT ---
Date of service: 06/10/2018 PROCEDURE: CT Abdomen and Pelvis with contrast HISTORY: cirrhosis COMPARISON: Noncontrast abdomen pelvis CT 01/18/2016. TECHNIQUE: Helical CT of the abdomen and pelvis was performed following oral contrast administration only. Intravenous contrast was not administered as per referring physician request. Coronal and sagittal reformats were generated. Radiation dose: Total exam DLP = 1388.14 mGy-cm. This CT exam was performed using one or more of the following dose reduction techniques: Automated exposure control, adjustment of the mA and/or kV according to patient size, and/or use of iterative reconstruction technique. FINDINGS: LOWER THORAX: Interval mild right and very mild left pleural effusions are identified as well as stable cardiomegaly. Trace pericardial effusion or thickening is seen surrounding the heart. Limited bilateral basilar dependent atelectasis identified. LIVER: Peripheral margins of the liver appears smooth with no overt cirrhotic pattern appreciated cryptogenic type cirrhotic pattern impossible to exclude. No intrahepatic biliary dilatation appreciated. Overall liver size is unchanged. GALLBLADDER AND BILE DUCTS: Unremarkable. PANCREAS: Unremarkable. No gross lesion or ductal dilatation. SPLEEN: Unremarkable. ADRENALS: Unremarkable. No mass. KIDNEYS AND URETERS: Right kidney remains unremarkable. Punctate intrarenal calculus is unchanged at the left kidney midpole. No obstructive uropathy bilaterally. VASCULATURE: Nonaneurysmal abdominal aortic calcific atherosclerotic changes are identified. Gross partially calcified atherosclerosis is identified affecting the superior mesenteric artery proximally and mildly affects the main right renal artery. BOWEL: The stomach is distended with oral contrast material and appears unremarkable. There is no bowel obstruction identified. Thickening of the duodenum may indicate duodenitis. Clinically correlate. APPENDIX: No CT evidence to suggest appendicitis. The appendix is not clearly identified. PERITONEUM: Limited perihepatic ascites appreciated with no additional fluid collection appreciated throughout the abdomen and pelvis. This is a nonspecific finding. LYMPH NODES: No significant intra-abdominal lymphadenopathy as well as the pelvis. However, there is moderate bilateral inguinal lymphadenopathy including a 3.1 x 1.5 cm left inguinal lymph node and 3.1 x 1.2 cm right inguinal lymph node. Numerous similar lymph nodes are scattered near these lymph nodes as well. BLADDER: Unremarkable. REPRODUCTIVE: Unremarkable. BONES: No acute fracture. OTHER FINDINGS: Prominent extra abdominal reactive changes are appreciated with dermal thickening suspicious for possible anasarca. IMPRESSION: 1. Potential duodenitis. 2. Unremarkable appearing liver once again. No overt pattern of cirrhosis although cryptogenic cirrhotic pattern is not completely excluded. Trace perihepatic ascites is identified however. 3. Nonobstructing solitary intrarenal calculus midpole left kidney. 4. Bilateral inguinal lymphadenopathy. Questionable anasarca. 5. Other abdominal findings as discussed above. 6. Bilateral pleural effusions are mild, right greater than left with limited pericardial thickening or effusion. Questionable anasarca.
[2018-06-10] MEDS: Levalbuterol 0.63 MG/3 ML Inhal Soln UD IH SCH ×2 (13:47→19:44)
[2018-06-10] MEDS: levoFLOXacin 750 mg in D5W 750 MG/150 ML BAG IVPB SCH (14:04)
--- NOTE | 2018-06-10 19:57 | CARD ---
APPROVED REPORT Date of service: 06/10/2018 EXAM: Two-dimensional and M-mode echocardiogram with Doppler and color Doppler. INDICATION Infection:Rule out subacute bacterial endocarditis 2D DIMENSIONS RVDd4.3 (2.9-3.5cm)Left Atrium (2D)4.9 (1.6-4.0cm) IVSd0.9 (0.7-1.1cm)LVDd3.6 (3.9-5.9cm) PWd1.0 (0.7-1.1cm)LVDs2.3 (2.5-4.0cm) FS (%) 35.5 %LVEF (%)66.0 (>50%) M-Mode DIMENSIONS Aortic Root3.80 (2.2-3.7cm)Aortic Cusp Exc.0.70 (1.5-2.0cm) Aortic Valve AoV Peak Zzeflpcp235.0cm/sAoV VTI65.7cmAO Peak GR.37mmHg LVOT Peak Eersohsb76.8cm/sLVOT VTI11.20cmAO Mean GR.23mmHg Mitral Valve MV [id number]/A ratio0.0MVA (PHT)1.29cm2 TDI E/Lateral E'0.0E/Medial E'0.0 Pulmonary Valve PV Peak Xbyxsvjq70.4cm/sPV Peak Grad.1mmHg Tricuspid Valve TR Peak [id number]/sRAP [id number] Peak Gr.69mmHg [id number] LEFT VENTRICLE The left ventricle is normal size. There is normal left ventricular wall thickness. The left ventricular function is normal.EF-60-65% There is a flattened septum consistent with right ventricle volume and pressure overload. A fib No left ventricle thrombus noted on this study. There is no ventricular septal defect visualized. There is no left ventricular aneurysm. There is no mass noted in the left ventricle. RIGHT VENTRICLE The right ventricle is severely dilated. There is normal right ventricular wall thickness. Systolic function of RV is severely reduced. ATRIA The left atrium is mildly dilated. The right atrium is severely dilated. The interatrial septum is intact with no evidence for an atrial septal defect. AORTIC VALVE The aortic valve is calcified and displays decreased opening. There is trace to mild aortic regurgitation. There is moderate valvular aortic stenosis.DESMOND 1.13 by planimetry. There is no aortic valvular vegetation. MITRAL VALVE The mitral valve is calcified and displays decreased opening. Mitral regurgitation is trace. There is moderate to severe mitral valve stenosis.MVA 1.3 cm2 TRICUSPID VALVE The tricuspid valve leaflets are thickened , but open well. There is moderate to severe tricuspid regurgitation. There is severe pulmonary hypertension. There is no tricuspid valve stenosis. There is no tricuspid valve prolapse or vegetation. PULMONIC VALVE The pulmonary valve is normal in structure. There is mild to moderate pulmonic valvular regurgitation. There is no pulmonic valvular stenosis. GREAT VESSELS The aortic root is normal in size. The ascending aorta is normal in size. The pulmonary artery is normal. The IVC is dilated. PERICARDIAL EFFUSION There is no pleural effusion. There is no pericardial effusion. <Conclusion> The left ventricular function is normal.EF-60-65% The right ventricle is severely dilated. Systolic function of RV is severely reduced. There is trace to mild aortic regurgitation. There is moderate valvular aortic stenosis.DESMOND 1.13 by planimetry. Mitral regurgitation is trace. There is moderate to severe mitral valve stenosis.MVA 1.3 cm2 There is moderate to severe tricuspid regurgitation. There is severe pulmonary hypertension. The IVC is dilated. There is no pericardial effusion.
--- NOTE | 2018-06-11 06:39 | CP.PCM.PN ---
<Tomasa Quinn - Last Filed: 06/11/18 10:18> Subjective - Date & Time of Evaluation Date of Evaluation: 06/11/18 Time of Evaluation: 06:50 - Subjective Subjective: IM Resident progress note for Dr. Aviles's service - covering Dr. Savage. Patient with no acute events overnight. This morning, patient is stumbling through his words. States he quit alcohol for 2 weeks then he relapsed. States he has problem with whiskey. Denies any pain, states he's able to tolerated po intake. No fever or chills. No cp, sob, no nausea, vomiting or diarrhea. Objective - Vital Signs/Intake and Output Vital Signs (last 24 hours): Temp Pulse Resp BP Pulse Ox 98.3 F 73 18 92/67 L 95 06/11/18 00:01 06/11/18 02:00 06/11/18 00:01 06/11/18 00:01 06/11/18 00:01 Intake and Output: 06/10/18 06/11/18 18:59 06:59 Intake Total 1360 480 Output Total 4 100 Balance 1356 380 - Medications Medications: Current Medications Betamethasone/Clotrimazole (Lotrisone) 0 gm TOP DAILY [facility] Diltiazem HCl (Cardizem) 60 mg PO TID [facility] Last Admin: 06/10/18 17:42 Dose: 60 mg Folic Acid (Folic Acid) 1 mg PO DAILY [facility] Last Admin: 06/10/18 09:18 Dose: 1 mg Furosemide (Lasix) 40 mg IVP DAILY [facility] Last Admin: 06/10/18 09:19 Dose: 40 mg Levofloxacin/Dextrose (Levaquin 750mg) 750 mg in 150 mls @ 100 mls/hr IVPB DAILY [facility]; Protocol Stop: 06/16/18 20:03 Last Admin: 06/10/18 14:04 Dose: 100 mls/hr Ceftaroline Fosamil 400 mg/ (Sodium Chloride) 100 mls @ 100 mls/hr IVPB Q12 S ; Protocol Stop: 06/20/18 11:16 Last Admin: 06/10/18 14:20 Dose: 100 mls/hr Lactic Acid (Lac-Hydrin 12% Cream (140 G)) 0 ea TOP DAILY [facility] Lactulose (Enulose) 20 gm PO HS [facility] Last Admin: 06/10/18 21:43 Dose: 20 gm Levalbuterol HCl (Xopenex) 0.63 mg IH TIDRESP [facility] Last Admin: 06/10/18 19:44 Dose: 0.63 mg Metoprolol Tartrate (Lopressor) 25 mg PO BID [facility] Last Admin: 06/10/18 17:42 Dose: 25 mg Thiamine HCl (Vitamin B1 Tab) 100 mg PO DAILY [facility] Last Admin: 06/10/18 09:20 Dose: 100 mg - Labs Labs: 06/09/18 14:05 06/09/18 14:05 PT 25.3 SECONDS (9.4-12.5) H 06/09/18 14:05 INR 2.28 06/09/18 14:05 APTT 45.6 Seconds (26.9-38.3) H 06/09/18 14:05 - Constitutional Appears: No Acute Distress, Older Than Stated Age, Confused, Chronically Ill - Head Exam Head Exam: ATRAUMATIC, NORMAL INSPECTION, NORMOCEPHALIC - Eye Exam Eye Exam: EOMI, Normal appearance, PERRL. absent: Scleral icterus Pupil Exam: NORMAL ACCOMODATION - ENT Exam ENT Exam: Mucous Membranes Moist - Neck Exam Neck Exam: Normal Inspection. absent: Lymphadenopathy, Meningismus, Tenderness, Thyromegaly - Respiratory Exam Respiratory Exam: Clear to Ausculation Bilateral, NORMAL BREATHING PATTERN. absent: Prolonged Expiratory Phase, Rales, Rhonchi, Wheezes, Respiratory Distress, Stridor - Cardiovascular Exam Cardiovascular Exam: Diastolic murmur, Irregular Rhythm, +S1, +S2, Murmur. absent: Bradycardia, Tachycardia, Gallop, JVD, RRR, Rubs - GI/Abdominal Exam GI & Abdominal Exam: Distended, Soft, Normal Bowel Sounds. absent: Firm, Guard ing, Rigid, Tenderness, Rebound - Extremities Exam Extremities Exam: Joint Swelling, Normal Capillary Refill, Pedal Edema - Back Exam Back Exam: NORMAL INSPECTION, rash noted - Neurological Exam Neurological Exam: Alert, Awake Additional comments: Waxing and waning mentation. - Psychiatric Exam Psychiatric exam: Normal Affect, Normal Mood - Skin Skin Exam: Dry, Normal Color, Rash, Warm Additional comments: Chronic venous stasis in reyes lower extremities with excoriation. Assessment and Plan - Assessment and Plan (Free Text) Assessment: 1) Rapid ventricular rate atrial fibrillation 2) Sepsis with right lower lobe pneumonia as the possible source 3) Bilateral mild pleural effusions R>L 4) Right ventricular heart failure 5) Moderate aortic stenosis 6) Moderate to severe mitral valve stenosis 7) Moderate to severe tricuspid regurgitation 8) Severe pulmonary htn 9) Trace ascites 10) Non obstructing intrarenal calculus 11) Bilateral inguinal lymphadenopathy 12) MARIE pre-renal , roule out obstructire uropathy. 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 Patient with [id number] Score of 3, INR of 2.28 on 06/09, and HABLED score of 2. Patient is on therapeutic Lovenox 110 mg sc q12. Life Support Technician is following. For sepsis, procal was on the lower side of normal, chest x-ray with right lower lobe pneumonia, negative influenza a and b. Blood cultures x2 with no growth in the past 2 days. Urine culture with multiple species likely contamination. Naris MRSA negative, extremities wound culture pending. No leukocytosis and patient is afebrile. ID is following, patient is on Levaquin and teflora. For pleural effusions, echo with normal LVEF, patient had dilated right ventricles with valvular abnormalities, patient is getting diuresed, with lasix IV, patient's respiratory status is improving, will hold Lasix this morning due to worsening in renal function while on diuretic. Patient is also on xoponex and aldactone 25 mg bid. For MARIE- Will add urine random creatinine, sodium and urea to evaluate. Will get strict I&O and bladder scan if output is inappropriate. For transaminitis- will add hep panel, add HIV due to lymphadenopathy. Hepatolo gist is consulted to evaluate the liver. Podiatry is following for the excoriations of the lower extremities, no DVT in reyes lower extremities, SIMON pending, Dr. Henry Gomes was consulted to evaluate f or PAD. TSH was elevated, will add free T4, continue with synthroid 25 mcg for now. Patient is on folic acid and thiamine 100 mg po daily due to alcohol abuse. Will continue with lactulose for possible hepatic encephalopathy. Patient's platelet and hgb are stable, will continue to monitor. Patient seen, examined and case discussed with Dr. Aviles. <Jonathon Aviles - Last Filed: 06/11/18 16:06> Objective - Vital Signs/Intake and Output Vital Signs (last 24 hours): Temp Pulse Resp BP Pulse Ox 98.1 F 68 18 98/63 L 95 06/11/18 14:20 06/11/18 14:20 06/11/18 14:20 06/11/18 14:20 06/11/18 14:20 Intake and Output: 06/11/18 06/11/18 06:59 18:59 Intake Total 480 Output Total 100 Balance 380 - Medications Medications: Current Medications Betamethasone/Clotrimazole (Lotrisone) 0 gm TOP DAILY [facility] Last Admin: 06/11/18 09:32 Dose: 1 tcp Diltiazem HCl (Cardizem) 60 mg PO TID [facility] Last Admin: 06/11/18 13:15 Dose: 60 mg Enoxaparin Sodium (Lovenox) 110 mg SC Q24H [facility]; Protocol Last Admin: 06/11/18 09:42 Dose: 110 mg Folic Acid (Folic Acid) 1 mg PO DAILY [facility] Last Admin: 06/11/18 09:29 Dose: 1 mg Furosemide (Lasix) 40 mg IVP 0800,1400 [facility] Ceftaroline Fosamil 400 mg/ (Sodium Chloride) 100 mls @ 100 mls/hr IVPB Q12 [facility]; Protocol Stop: 06/20/18 11:16 Last Admin: 06/11/18 13:15 Dose: 100 mls/hr Levofloxacin/Dextrose (Levaquin 750mg) 750 mg in 150 mls @ 100 mls/hr IVPB Q48H [facility]; Protocol Stop: 06/18/18 11:16 Lactic Acid (Lac-Hydrin 12% Cream (140 G)) 0 ea TOP DAILY [facility] Last Admin: 06/11/18 09:32 Dose: 1 tcp Lactulose (Enulose) 20 gm PO TID [facility] Last Admin: 06/11/18 13:15 Dose: 20 gm Lactulose (Enulose) 30 gm PO ONCE ONE Stop: 06/11/18 16:49 Levalbuterol HCl (Xopenex) 0.63 mg IH TIDRESP [facility] Last Admin: 06/11/18 13:15 Dose: 0.63 mg Levothyroxine Sodium (Synthroid) 25 mcg PO 0600 [facility] Metoprolol Tartrate (Lopressor) 25 mg PO BID [facility] Last Admin: 06/11/18 09:29 Dose: 25 mg Mupirocin (Bactroban Ointment) 0 gm TOP BID [facility] Last Admin: 06/11/18 13:10 Dose: Not Given Rifaximin (Xifaxan) 550 mg PO BID [facility]; Protocol Spironolactone (Aldactone) 25 mg PO BID [facility] Last Admin: 06/11/18 09:30 Dose: 25 mg Thiamine HCl (Vitamin B1 Tab) 100 mg PO DAILY [facility] Last Admin: 06/11/18 09:29 Dose: 100 mg - Labs Labs: 06/11/18 14:20 06/11/18 14:20 PT 31.9 SECONDS (9.4-12.5) H 06/11/18 14:20 INR 2.87 06/11/18 14:20 APTT 45.6 Seconds (26.9-38.3) H 06/09/18 14:05 Assessment and Plan - Assessment and Plan (Free Text) Plan: Pt seen and examined by me. I have reviewed the note of the medical corps officer and I agree with it. I have discussed the assessment and plan with the resident. I have reviewed the medications and the last labs.
[2018-06-11 06:56] LABS: HDL CHOLESTEROL 18 mg/dL (29-60)
[2018-06-11 07:06] LABS: LDL CHOLESTEROL 84 mg/dL (0-129)
[2018-06-11] MEDS: Levalbuterol 0.63 MG/3 ML Inhal Soln UD IH SCH ×3 (07:23→20:10)
[2018-06-11] MEDS ORDERED: Enoxaparin 120 mg Syringe SC SCH (09:15)
[2018-06-11] MEDS: levoFLOXacin 750 mg in D5W 750 MG/150 ML BAG IVPB SCH (09:30)
--- NOTE | 2018-06-11 09:31 | CP.PCM.PN ---
<Matias Quiñonez - Last Filed: 06/11/18 09:28> Subjective - Date & Time of Evaluation Date of Evaluation: 06/11/18 Time of Evaluation: 09:28 - Subjective Subjective: Podiatry progress note for Drs. De/Omkar 73 year old male patient with PMHx of ITP s/p splenectomy and ETOH abuse was seen and evaluated at bedside for bilateral lower extremity xerosis/scaling and right hallucal bruising. Patient complains of pain and discomfort to his LE. Patient denies any fever, nausea or vomiting, but complains of shortness of breath. Objective - Vital Signs/Intake and Output Vital Signs (last 24 hours): Temp Pulse Resp BP Pulse Ox 98.1 F 85 18 110/70 97 06/11/18 06:00 06/11/18 06:00 06/11/18 06:00 06/11/18 06:00 06/11/18 06:00 Intake and Output: 06/11/18 06/11/18 06:59 18:59 Intake Total 480 Output Total 100 Balance 380 - Medications Medications: Current Medications Betamethasone/Clotrimazole (Lotrisone) 0 gm TOP DAILY [facility] Diltiazem HCl (Cardizem) 60 mg PO TID [facility] Last Admin: 06/10/18 17:42 Dose: 60 mg Enoxaparin Sodium (Lovenox) 110 mg SC Q24H [facility]; Protocol Folic Acid (Folic Acid) 1 mg PO DAILY [facility] Last Admin: 06/10/18 09:18 Dose: 1 mg Furosemide (Lasix) 40 mg IVP DAILY [facility] Last Admin: 06/10/18 09:19 Dose: 40 mg Furosemide (Lasix) 40 mg IVP ONCE ONE Stop: 06/11/18 17:01 Furosemide (Lasix) 40 mg IVP 0800,1400 [facility] Levofloxacin/Dextrose (Levaquin 750mg) 750 mg in 150 mls @ 100 mls/hr IVPB DAILY [facility]; Protocol Stop: 06/16/18 20:03 Last Admin: 06/10/18 14:04 Dose: 100 mls/hr Ceftaroline Fosamil 400 mg/ (Sodium Chloride) 100 mls @ 100 mls/hr IVPB Q12 [facility]; Protocol Stop: 06/20/18 11:16 Last Admin: 06/10/18 14:20 Dose: 100 mls/hr Lactic Acid (Lac-Hydrin 12% Cream (140 G)) 0 ea TOP DAILY [facility] Lactulose (Enulose) 20 gm PO HS [facility] Last Admin: 06/10/18 21:43 Dose: 20 gm Levalbuterol HCl (Xopenex) 0.63 mg IH TIDRESP [facility] Last Admin: 06/11/18 07:23 Dose: 0.63 mg Levothyroxine Sodium (Synthroid) 25 mcg PO 0600 [facility] Metoprolol Tartrate (Lopressor) 25 mg PO BID [facility] Last Admin: 06/10/18 17:42 Dose: 25 mg Spironolactone (Aldactone) 25 mg PO BID [facility] Thiamine HCl (Vitamin B1 Tab) 100 mg PO DAILY [facility] Last Admin: 06/10/18 09:20 Dose: 100 mg - Labs Labs: 06/09/18 14:05 06/09/18 14:05 PT 25.3 SECONDS (9.4-12.5) H 06/09/18 14:05 INR 2.28 06/09/18 14:05 APTT 45.6 Seconds (26.9-38.3) H 06/09/18 14:05 - Constitutional Appears: Well, Non-toxic, No Acute Distress - Head Exam Head Exam: ATRAUMATIC, NORMOCEPHALIC - Extremities Exam Additional comments: Bilateral Lower Extremity Focused Exam VASC: DP and PT pulses 2/4 bilaterally, CFT less than 3 seconds X 10, non- pitting edema noted to bilateral lower legs DERM: multiple excoriated scabbed wounds with scaling noted of bilateral legs circumferentially, positive mild erythema noted to bilateral legs along with the xerosis, minimal ecchymosis noted to the tip of the right hallux likely secondary to cyanosis vs. injury, no drainage, no tracking, no probe to bone, no open lesions NEURO: grossly intact ORTHO: no pain on palpation to the lower extremities, MSK not performed at this time - Neurological Exam Neurological Exam: Alert, Awake, Oriented x3 - Psychiatric Exam Psychiatric exam: Normal Affect, Normal Mood Assessment and Plan - Assessment and Plan (Free Text) Assessment: 73 y/o male patient was seen and evaluated for bilateral lower extremity xerosis with excoriated lesions Plan: Patient was seen and evaluated with Plan was discussed with Dr. Espitia Chart, labs and vitals were reviewed- afebrile, absent leukocytosis SIMON/PVR: R: 0.67, L: 0.72 Lotrisone and LacHydrin applied to B/L LE Patient to be in Multipodus boots at all times when in bed Mepilex to scabs on the knee, bactroban ordered for the scabs Continue management per primary care team Podiatry will continue to follow patient while in house <Reji Espitia - Last Filed: 06/12/18 07:31> Objective - Vital Signs/Intake and Output Vital Signs (last 24 hours): Temp Pulse Resp BP Pulse Ox 97.3 F L 83 23 107/70 95 06/12/18 04:00 06/12/18 07:01 06/12/18 07:01 06/12/18 07:01 06/12/18 07:01 Intake and Output: 06/12/18 06/12/18 06:59 18:59 Intake Total 820 Output Total 470 Balance 350 - Medications Medications: Current Medications Betamethasone/Clotrimazole (Lotrisone) 0 gm TOP DAILY [facility] Last Admin: 06/11/18 09:32 Dose: 1 tcp Diltiazem HCl (Cardizem) 60 mg PO TID [facility] Last Admin: 06/11/18 13:15 Dose: 60 mg Folic Acid (Folic Acid) 1 mg PO DAILY [facility] Last Admin: 06/11/18 09:29 Dose: 1 mg Ceftaroline Fosamil 400 mg/ (Sodium Chloride) 100 mls @ 100 mls/hr IVPB Q12 [facility]; Protocol Stop: 06/20/18 11:16 Last Admin: 06/11/18 21:33 Dose: 100 mls/hr Azithromycin (Zithromax 500mg In Ns) 500 mg in 250 mls @ 167 mls/hr IVPB DAILY [facility]; Protocol Last Admin: 06/11/18 18:30 Dose: 167 mls/hr Lactic Acid (Lac-Hydrin 12% Cream (140 G)) 0 ea TOP DAILY [facility] Last Admin: 06/11/18 09:32 Dose: 1 tcp Lactulose (Enulose) 20 gm PO TID [facility] Last Admin: 06/11/18 18:30 Dose: 20 gm Levalbuterol HCl (Xopenex) 0.63 mg IH TIDRESP [facility] Last Admin: 06/11/18 20:10 Dose: 0.63 mg Levothyroxine Sodium (Synthroid) 25 mcg PO 0600 [facility] Last Admin: 06/12/18 05:29 Dose: 25 mcg Metoprolol Tartrate (Lopressor) 25 mg PO BID [facility] Last Admin: 06/11/18 09:29 Dose: 25 mg Mupirocin (Bactroban Ointment) 0 gm TOP BID [facility] Last Admin: 06/11/18 18:49 Dose: Not Given Spironolactone (Aldactone) 25 mg PO BID [facility] Last Admin: 06/11/18 09:30 Dose: 25 mg Thiamine HCl (Vitamin B1 Tab) 100 mg PO DAILY [facility] Last Admin: 06/11/18 09:29 Dose: 100 mg - Labs Labs: 06/12/18 05:00 06/12/18 05:00 PT 31.9 SECONDS (9.4-12.5) H 06/11/18 14:20 INR 2.87 06/11/18 14:20 APTT 45.6 Seconds (26.9-38.3) H 06/09/18 14:05 Attending/Attestation - Attestation I have personally seen and examined this patient.: Yes I have fully participated in the care of the patient.: Yes I have reviewed all pertinent clinical information, including history, physical exam and plan: Yes
[2018-06-11] MEDS: Ammonium Lactate 12% Cream (140 g) TOP SCH (09:32)
[2018-06-11] MEDS: Clotrimazole/Betamethasone Cream(15 gm) TOP SCH (09:32)
[2018-06-11 09:33] LABS: ALB/GLOB RATIO 0.7 (1.1-1.8); ALBUMIN 3.2 g/dL (3.0-4.8); CALCIUM 8.7 mg/dL (8.4-10.5)
[2018-06-11 11:49] LABS: ARTERIAL BLOOD GAS HCO3 20.2 mmol/L (21-28); ARTERIAL BLOOD GAS HEMOGLOBIN 13.7 g/dL (11.7-17.4); ARTERIAL BLOOD GAS O2 CAPACITY 18.7 mL/dl (16-24); ARTERIAL BLOOD GAS O2 CONTENT 18.6 ML/dl (15-23); ARTERIAL BLOOD GAS O2 SAT 99.3 % (95-98); ARTERIAL BLOOD GAS PCO2 42 mm/Hg (35-45); ARTERIAL BLOOD GAS PH 7.29 (7.35-7.45); ARTERIAL BLOOD GAS TCO2 21.5 mmol.L (22-28)
--- NOTE | 2018-06-11 13:07 | CP.PCM.CON ---
<Vickie Aviles - Last Filed: 06/11/18 17:13> History of Present Illness - History of Present Illness History of Present Illness: Vickie Aviles, PGY2, GI Consult Note for Dr Issa: CC: increasing episodes of lethargy, nodding mid sentence x 3-4 weeks Reason for consult: elevated ammonia, elevated LFTs This is a 73 year old male with PMH ITP s/p splenectomy, thrombocytopenia, chronic lymphedema of LE with venous insufficiency, prior heavy EtOH and tobacco abuse, is here for increasing episodes of lethargy for past 3-4 weeks. Of note, at time of my interview, patient was noted to be confused. Most of HPI obtained from prior records. Patient was noted to nod mid sentence, and very sleepy at home. Patient's sister also reported falls secondary to the above symptoms. Patient was admitted and is currently being treated for Sepsis from RLL pneumonia, lower extremity cellulitis, rapid afib, bilateral pleural effusions, anasarca. Patient also found to have imaging showing cirrhosis, for which GI is consulted. Patient's ammonia was elevated at 100, started on lactulose 20 gm tid. Currently, patient has intermittent states of altered state. ROS limited due to patient's AMS. PMHx: ITP s/p splenectomy, thrombocytopenia, chronic lymphedema of LE with venous insufficiency, prior EtOH abuse PSH: open splenectomy for ITP Allergies: aspirin, doxycycline, ibuprofen Endoscopy hx: denies prior EGD/colonoscopy FH: unobtainable Social hx: former etoh abuse, hasn't drinken in 2 months Review of Systems - Review of Systems Systems not reviewed;Unavailable: Altered Mental Status Past Patient History - Infectious Disease Hx of Infectious Diseases: None - Tetanus Immunizations Tetanus Immunization: Unknown - Past Medical History & Family History Past Medical History?: Yes - Past Social History Smoking Status: Former Smoker - CARDIAC Hx Cardiac Disorders: Yes Hx Congestive Heart Failure: Yes Hx Pacemaker: No Hx Peripheral Edema: Yes Hx Peripheral Vascular Disease: Yes - PULMONARY Hx Respiratory Disorders: Yes (USED TO SMOKE CIGARETTES 2 PPD QUIT 1972) Hx Pneumonia: Yes (06-09-18) - NEUROLOGICAL Hx Neurological Disorder: No - HEENT Hx HEENT Problems: Yes (TONSILLECTOMY) Other/Comment: upper dentures only - RENAL Hx Chronic Kidney Disease: No - ENDOCRINE/METABOLIC Hx Endocrine Disorders: Yes Hx Diabetes Mellitus Type 2: Yes - HEMATOLOGICAL/ONCOLOGICAL Hx Blood Disorders: Yes Other/Comment: thrombocytopenia - INTEGUMENTARY Hx Dermatological Problems: Yes (GENERALIZED PETECHIAE 01-15-16) Hx Psoriasis: Yes (PT DENIES) Other/Comment: 06-09-18- GENERALIZED SKIN DRYNESS,REDDENED SKIN ALL OVER. BILATERAL LE GROSS EDEMA MORE TO RIGHT LEG THAN LEFT. WITH MULTIPE DRY SCABBED WOUNDS. TEDS STOCKING WORN. BILATERAL ARMS WITH DRY SCABBED WOUNDS.MORE TO LEFT. NOSE HAS DRY SCABBED WOUND AND ALSO LOWER LIP FROM PREVIOUS FALL PER PT. PT GOES TO WOUND CTR. - MUSCULOSKELETAL/RHEUMATOLOGICAL Hx Musculoskeletal Disorders: Yes Hx Falls: Yes (June) Hx Unsteady Gait: Yes (AT TIMES HE USES A CANE.) - GASTROINTESTINAL Hx Gastrointestinal Disorders: Yes (HEMORRHOID) Other/Comment: RECTAL BLEED 11-06-15 - GENITOURINARY/GYNECOLOGICAL Hx Genitourinary Disorders: Yes Hx Urinary Tract Infection: Yes - PSYCHIATRIC Hx Psychophysiologic Disorder: Yes (SMOKED 2 PPD CIGARETTES QUIT 1972,QUIT DRINKING WINE APR 2018.) Hx Substance Use: No - SURGICAL HISTORY Hx Surgeries: Yes (TONSILLECTOMY) Hx Coronary Stent: (06-09-18) Hx Splenectomy: Yes - ANESTHESIA Hx Anesthesia Reactions: No Hx Malignant Hyperthermia: No Meds Allergies/Adverse Reactions: Allergies Allergy/AdvReac Type Severity Reaction Status Date / Time aspirin Allergy Severe RASH Verified 06/09/18 17:16 doxycycline Allergy Severe LOW Verified 06/09/18 17:16 PLATELETS ibuprofen [From Advil] Allergy Severe RASH Verified 06/09/18 17:16 - Medications Medications: Current Medications Betamethasone/Clotrimazole (Lotrisone) 0 gm TOP DAILY [facility] Last Admin: 06/11/18 09:32 Dose: 1 tcp Diltiazem HCl (Cardizem) 60 mg PO TID [facility] Last Admin: 06/11/18 09:29 Dose: 60 mg Enoxaparin Sodium (Lovenox) 110 mg SC Q24H [facility]; Protocol Last Admin: 06/11/18 09:42 Dose: 110 mg Folic Acid (Folic Acid) 1 mg PO DAILY [facility] Last Admin: 06/11/18 09:29 Dose: 1 mg Furosemide (Lasix) 40 mg IVP 0800,1400 [facility] Ceftaroline Fosamil 400 mg/ (Sodium Chloride) 100 mls @ 100 mls/hr IVPB Q12 [facility]; Protocol Stop: 06/20/18 11:16 Last Admin: 06/10/18 14:20 Dose: 100 mls/hr Levofloxacin/Dextrose (Levaquin 750mg) 750 mg in 150 mls @ 100 mls/hr IVPB Q48H [facility]; Protocol Stop: 06/18/18 11:16 Lactic Acid (Lac-Hydrin 12% Cream (140 G)) 0 ea TOP DAILY [facility] Last Admin: 06/11/18 09:32 Dose: 1 tcp Lactulose (Enulose) 20 gm PO TID [facility] Levalbuterol HCl (Xopenex) 0.63 mg IH TIDRESP [facility] Last Admin: 06/11/18 07:23 Dose: 0.63 mg Levothyroxine Sodium (Synthroid) 25 mcg PO 0600 [facility] Metoprolol Tartrate (Lopressor) 25 mg PO BID [facility] Last Admin: 06/11/18 09:29 Dose: 25 mg Mupirocin (Bactroban Ointment) 0 gm TOP BID [facility] Spironolactone (Aldactone) 25 mg PO BID [facility] Last Admin: 06/11/18 09:30 Dose: 25 mg Thiamine HCl (Vitamin B1 Tab) 100 mg PO DAILY [facility] Last Admin: 06/11/18 09:29 Dose: 100 mg Physical Exam - Constitutional Appears: Confused, Chronically Ill - Head Exam Head Exam: ATRAUMATIC, NORMOCEPHALIC - Eye Exam Eye Exam: EOMI, PERRL. absent: Conjunctival injection, Nystagmus, Scleral icterus Pupil Exam: NORMAL ACCOMODATION, PERRL. absent: Irregular, Miosis, Mydriatic - ENT Exam ENT Exam: Mucous Membranes Dry - Neck Exam Neck exam: Positive for: Full Rom - Respiratory Exam Respiratory Exam: Decreased Breath Sounds - Cardiovascular Exam Cardiovascular Exam: RRR, +S1, +S2. absent: Systolic Murmur - GI/Abdominal Exam GI & Abdominal Exam: Distended, Normal Bowel Sounds. absent: Firm, Guarding, Rebound, Tenderness Additional comments: + anasarca no fluid wave - Extremities Exam Extremities exam: Positive for: pedal edema Additional comments: + pus on RLE. + erythema, warmth b/l LE - Neurological Exam Additional comments: awake, oriented to self, time, person - Psychiatric Exam Psychiatric exam: Normal Mood - Skin Skin Exam: Normal Color, Warm Results - Vital Signs Recent Vital Signs: Last Vital Signs Temp 97.1 F L 06/11/18 12:00 Pulse 80 06/11/18 12:00 Resp 21 06/11/18 12:00 BP 95/63 L 06/11/18 12:00 Pulse Ox 97 06/11/18 06:00 - Labs Result Diagrams: 06/11/18 14:20 06/11/18 14:20 Labs: Laboratory Results - last 24 hr 06/09/18 06/10/18 06/11/18 20:00 14:30 06:00 ESR 45 H pCO2 pO2 HCO3 ABG pH ABG Total CO2 ABG O2 Saturation ABG O2 Content ABG Base Excess ABG Hemoglobin ABG Carboxyhemoglobin POC ABG HHb (Measured) ABG Methemoglobin ABG O2 Capacity Hgb O2 Saturation FiO2 Sodium Potassium Chloride Carbon Dioxide Anion Gap BUN Creatinine Est GFR ( Amer) Est GFR (Non-Af Amer) Random Glucose Hemoglobin A1c Calcium Magnesium Total Bilirubin AST ALT Alkaline Phosphatase Ammonia C-React Prot High Sens Total Protein Albumin Globulin Albumin/Globulin Ratio Triglycerides Cholesterol LDL Cholesterol Direct HDL Cholesterol Procalcitonin 0.19 Free T4 TSH 3rd Generation Influenza Typ A,B (EIA) Negative for flu a/b 06/11/18 06/11/18 06/11/18 06:00 06:00 06:00 ESR pCO2 pO2 HCO3 ABG pH ABG Total CO2 ABG O2 Saturation ABG O2 Content ABG Base Excess ABG Hemoglobin ABG Carboxyhemoglobin POC ABG HHb (Measured) ABG Methemoglobin ABG O2 Capacity Hgb O2 Saturation FiO2 Sodium Potassium Chloride Carbon Dioxide Anion Gap BUN Creatinine Est GFR ( Amer) Est GFR (Non-Af Amer) Random Glucose Hemoglobin A1c 6.4 Calcium Magnesium Total Bilirubin AST ALT Alkaline Phosphatase Ammonia C-React Prot High Sens > 15.00 H Total Protein Albumin Globulin Albumin/Globulin Ratio Triglycerides 84 Cholesterol 123 L LDL Cholesterol Direct 84 HDL Cholesterol 18 L Procalcitonin Free T4 TSH 3rd Generation 5.53 H Influenza Typ A,B (EIA) 06/11/18 06/11/18 06/11/18 06:00 08:27 11:30 ESR pCO2 42 pO2 100.0 HCO3 20.2 L ABG pH 7.29 L ABG Total CO2 21.5 L ABG O2 Saturation 99.3 H ABG O2 Content 18.6 ABG Base Excess -6.1 L ABG Hemoglobin 13.7 ABG Carboxyhemoglobin 2.3 H POC ABG HHb (Measured) 0.7 ABG Methemoglobin 0.8 ABG O2 Capacity 18.7 Hgb O2 Saturation 96.1 FiO2 24.0 Sodium 133 Potassium 4.9 Chloride 98 Carbon Dioxide 22 Anion Gap 17 BUN 48 H Creatinine 2.4 H Est GFR ( Amer) 32 Est GFR (Non-Af Amer) 27 Random Glucose 79 Hemoglobin A1c Calcium 8.7 Magnesium 1.9 Total Bilirubin 1.7 H AST 85 H ALT 46 Alkaline Phosphatase 198 H Ammonia C-React Prot High Sens Total Protein 7.9 Albumin 3.2 Globulin 4.7 Albumin/Globulin Ratio 0.7 L Triglycerides Cholesterol LDL Cholesterol Direct HDL Cholesterol Procalcitonin Free T4 1.58 TSH 3rd Generation Influenza Typ A,B (EIA) 06/11/18 11:30 ESR pCO2 pO2 HCO3 ABG pH ABG Total CO2 ABG O2 Saturation ABG O2 Content ABG Base Excess ABG Hemoglobin ABG Carboxyhemoglobin POC ABG HHb (Measured) ABG Methemoglobin ABG O2 Capacity Hgb O2 Saturation FiO2 Sodium Potassium Chloride Carbon Dioxide Anion Gap BUN Creatinine Est GFR ( Amer) Est GFR (Non-Af Amer) Random Glucose Hemoglobin A1c Calcium Magnesium Total Bilirubin AST ALT Alkaline Phosphatase Ammonia 100 H D C-React Prot High Sens Total Protein Albumin Globulin Albumin/Globulin Ratio Triglycerides Cholesterol LDL Cholesterol Direct HDL Cholesterol Procalcitonin Free T4 TSH 3rd Generation Influenza Typ A,B (EIA) Assessment & Plan - Assessment and Plan (Free Text) Assessment: # Alcoholic Cirrhosis, rule out Selvin's disease vs AI hepatitis vs viral hepatitis # Elevated LFTs 2/2 hepatic congestion 2/2 right sided heart failure, rule out tylenol toxicity # AMS 2/2 hepatic encephalopathy # Rapid afib # Severe pulm HTN # Right ventricular heart failure # Bilateral pleural effusions, R>L # Anasarca # MARIE 2/2 pre-renal vs hepatorenal syndrome # Alcohol abuse # ITP s/p splenectomy # Hypothyroidism # Peripheral arterial disease # Hypotension - Abd pelvis CT: potential duodenitis. liver size unchanged, cryptogenic type cirrhotic pattern imposs to exclude, no overt cirrhotic pattern. trace perihepatic ascites. b/l inguinal LAD. questionable anasarca? Mild b/l pleural effusions, R>L with limited pericardial thickening. - Abd US: mild hepatomegaly, diffuse increased echogenicity of the liver, hepatic steatosis. trace perihepatic ascites. no cholelithiasis or biliary dilatation. Diffuse gallbladder wall thickening. - Echo: EF 66%. Systolic fxn of RV is severely reduced. Mod valvular aortic stenosis, DESMOND 1.13. Mod to severe MV stenosis. Mod to severe TR. Severe pulm HTN (RVSP 79 mmHg). IVC dilated. - Head CT neg - LE US: neg for DVT - Started on lactulose 20 gm tid today per primary team. Will titrate to 2-3 BMs/day. - Started on rifaximin bid - F/u hepatitis panel, HIV. Ordered ceruloplasmin, ferritin, percent saturation, AI hepatitis w/u, immunofixation, hep Bs Ab, hep A total, tylenol, salicylate, direct bilirubin. - Spoke with cargo vessel stewardess Dr Garnett, regarding fluids for pre-renal vs hepatorenal syndrome. Since patient is sob with pleural effusions, will hold IVF for today. Will also hold diuretics for today in setting of hypotension. Monitor Cr tomorrow. If worsening, will consider starting IVF and give albumin. - Will monitor mentation, clinical course - Recommend EGD to assess for varices - continue with antibiotics as per ID. - Further recs per Dr Issa. Case seen and discussed with Dr Issa. <Marysol Issa V - Last Filed: 06/11/18 21:23> Meds - Medications Medications: Current Medications Betamethasone/Clotrimazole (Lotrisone) 0 gm TOP DAILY [facility] Last Admin: 06/11/18 09:32 Dose: 1 tcp Diltiazem HCl (Cardizem) 60 mg PO TID [facility] Last Admin: 06/11/18 13:15 Dose: 60 mg Folic Acid (Folic Acid) 1 mg PO DAILY [facility] Last Admin: 06/11/18 09:29 Dose: 1 mg Ceftaroline Fosamil 400 mg/ (Sodium Chloride) 100 mls @ 100 mls/hr IVPB Q12 [facility]; Protocol Stop: 06/20/18 11:16 Last Admin: 06/11/18 13:15 Dose: 100 mls/hr Azithromycin (Zithromax 500mg In Ns) 500 mg in 250 mls @ 167 mls/hr IVPB DAILY [facility]; Protocol Last Admin: 06/11/18 18:30 Dose: 167 mls/hr Lactic Acid (Lac-Hydrin 12% Cream (140 G)) 0 ea TOP DAILY [facility] Last Admin: 06/11/18 09:32 Dose: 1 tcp Lactulose (Enulose) 20 gm PO TID [facility] Last Admin: 06/11/18 18:30 Dose: 20 gm Levalbuterol HCl (Xopenex) 0.63 mg IH TIDRESP [facility] Last Admin: 06/11/18 20:10 Dose: 0.63 mg Levothyroxine Sodium (Synthroid) 25 mcg PO 0600 [facility] Metoprolol Tartrate (Lopressor) 25 mg PO BID [facility] Last Admin: 06/11/18 09:29 Dose: 25 mg Mupirocin (Bactroban Ointment) 0 gm TOP BID [facility] Last Admin: 06/11/18 18:49 Dose: Not Given Spironolactone (Aldactone) 25 mg PO BID [facility] Last Admin: 06/11/18 09:30 Dose: 25 mg Thiamine HCl (Vitamin B1 Tab) 100 mg PO DAILY [facility] Last Admin: 06/11/18 09:29 Dose: 100 mg Results - Vital Signs Recent Vital Signs: Last Vital Signs Temp 98.1 F 06/11/18 14:20 Pulse 69 06/11/18 20:38 Resp 29 H 06/11/18 20:20 BP 96/54 L 06/11/18 20:00 Pulse Ox 98 06/11/18 20:20 - Labs Result Diagrams: 06/11/18 14:20 06/11/18 19:57 Labs: Laboratory Results - last 24 hr 06/11/18 06/11/18 06/11/18 06:00 06:00 06:00 WBC RBC Hgb Hct MCV MCH MCHC RDW Plt Count MPV Neut % (Auto) Lymph % (Auto) Banks % (Auto) Eos % (Auto) Baso % (Auto) Lymph # (Auto) Banks # (Auto) Eos # (Auto) Baso # (Auto) Absolute Neuts (auto) ESR 45 H PT INR pCO2 pO2 HCO3 ABG pH ABG Total CO2 ABG O2 Saturation ABG O2 Content ABG Base Excess ABG Hemoglobin ABG Carboxyhemoglobin POC ABG HHb (Measured) ABG Methemoglobin ABG O2 Capacity ABG Potassium Hgb O2 Saturation Glucose Lactate FiO2 Sodium Potassium Chloride Carbon Dioxide Anion Gap BUN Creatinine Est GFR ( Amer) Est GFR (Non-Af Amer) Random Glucose Hemoglobin A1c Uric Acid Calcium Magnesium Iron TIBC % Saturation Ferritin Total Bilirubin Direct Bilirubin AST ALT Alkaline Phosphatase Ammonia C-React Prot High Sens > 15.00 H Total Protein Albumin Globulin Albumin/Globulin Ratio Triglycerides 84 Cholesterol 123 L LDL Cholesterol Direct 84 HDL Cholesterol 18 L Free T4 TSH 3rd Generation 5.53 H Arterial Blood Potassium Salicylates Acetaminophen Hepatitis A IgM Ab Hep Bs Antigen Hep B Core IgM Ab Hepatitis C Antibody 06/11/18 06/11/18 06/11/18 06:00 06:00 08:27 WBC RBC Hgb Hct MCV MCH MCHC RDW Plt Count MPV Neut % (Auto) Lymph % (Auto) Banks % (Auto) Eos % (Auto) Baso % (Auto) Lymph # (Auto) Banks # (Auto) Eos # (Auto) Baso # (Auto) Absolute Neuts (auto) ESR PT INR pCO2 pO2 HCO3 ABG pH ABG Total CO2 ABG O2 Saturation ABG O2 Content ABG Base Excess ABG Hemoglobin ABG Carboxyhemoglobin POC ABG HHb (Measured) ABG Methemoglobin ABG O2 Capacity ABG Potassium Hgb O2 Saturation Glucose Lactate FiO2 Sodium 133 Potassium 4.9 Chloride 98 Carbon Dioxide 22 Anion Gap 17 BUN 48 H Creatinine 2.4 H Est GFR ( Amer) 32 Est GFR (Non-Af Amer) 27 Random Glucose 79 Hemoglobin A1c 6.4 Uric Acid Calcium 8.7 Magnesium 1.9 Iron TIBC % Saturation Ferritin Total Bilirubin 1.7 H Direct Bilirubin AST 85 H ALT 46 Alkaline Phosphatase 198 H Ammonia C-React Prot High Sens Total Protein 7.9 Albumin 3.2 Globulin 4.7 Albumin/Globulin Ratio 0.7 L Triglycerides Cholesterol LDL Cholesterol Direct HDL Cholesterol Free T4 1.58 TSH 3rd Generation Arterial Blood Potassium Salicylates Acetaminophen Hepatitis A IgM Ab Hep Bs Antigen Hep B Core IgM Ab Hepatitis C Antibody 06/11/18 06/11/18 06/11/18 10:07 11:30 11:30 WBC RBC Hgb Hct MCV MCH MCHC RDW Plt Count MPV Neut % (Auto) Lymph % (Auto) Banks % (Auto) Eos % (Auto) Baso % (Auto) Lymph # (Auto) Banks # (Auto) Eos # (Auto) Baso # (Auto) Absolute Neuts (auto) ESR PT INR pCO2 42 pO2 100.0 HCO3 20.2 L ABG pH 7.29 L ABG Total CO2 21.5 L ABG O2 Saturation 99.3 H ABG O2 Content 18.6 ABG Base Excess -6.1 L ABG Hemoglobin 13.7 ABG Carboxyhemoglobin 2.3 H POC ABG HHb (Measured) 0.7 ABG Methemoglobin 0.8 ABG O2 Capacity 18.7 ABG Potassium Hgb O2 Saturation 96.1 Glucose Lactate FiO2 24.0 Sodium Potassium Chloride Carbon Dioxide Anion Gap BUN Creatinine Est GFR ( Amer) Est GFR (Non-Af Amer) Random Glucose Hemoglobin A1c Uric Acid Calcium Magnesium Iron TIBC % Saturation Ferritin Total Bilirubin Direct Bilirubin AST ALT Alkaline Phosphatase Ammonia 100 H D C-React Prot High Sens Total Protein Albumin Globulin Albumin/Globulin Ratio Triglycerides Cholesterol LDL Cholesterol Direct HDL Cholesterol Free T4 TSH 3rd Generation Arterial Blood Potassium Salicylates Acetaminophen Hepatitis A IgM Ab Negative Hep Bs Antigen Negative Hep B Core IgM Ab Negative Hepatitis C Antibody Negative 06/11/18 06/11/18 06/11/18 14:20 14:20 14:20 WBC 6.9 RBC 4.30 Hgb 14.3 Hct 41.9 L MCV 97.4 MCH 33.3 MCHC 34.1 RDW 17.0 H Plt Count 333 MPV 9.7 Neut % (Auto) 70.8 H Lymph % (Auto) 15.2 L Banks % (Auto) 12.2 H Eos % (Auto) 1.5 Baso % (Auto) 0.3 Lymph # (Auto) 1.0 L Banks # (Auto) 0.8 H Eos # (Auto) 0.1 Baso # (Auto) 0.02 Absolute Neuts (auto) 4.86 ESR PT 31.9 H INR 2.87 pCO2 pO2 HCO3 ABG pH ABG Total CO2 ABG O2 Saturation ABG O2 Content ABG Base Excess ABG Hemoglobin ABG Carboxyhemoglobin POC ABG HHb (Measured) ABG Methemoglobin ABG O2 Capacity ABG Potassium Hgb O2 Saturation Glucose Lactate FiO2 Sodium Potassium Chloride Carbon Dioxide Anion Gap BUN Creatinine Est GFR ( Amer) Est GFR (Non-Af Amer) Random Glucose Hemoglobin A1c Uric Acid Calcium Magnesium Iron TIBC % Saturation Ferritin Total Bilirubin Direct Bilirubin AST ALT Alkaline Phosphatase Ammonia 71 H D C-React Prot High Sens Total Protein Albumin Globulin Albumin/Globulin Ratio Triglycerides Cholesterol LDL Cholesterol Direct HDL Cholesterol Free T4 TSH 3rd Generation Arterial Blood Potassium Salicylates Acetaminophen Hepatitis A IgM Ab Hep Bs Antigen Hep B Core IgM Ab Hepatitis C Antibody 06/11/18 06/11/18 06/11/18 14:20 14:20 14:49 WBC RBC Hgb Hct MCV MCH MCHC RDW Plt Count MPV Neut % (Auto) Lymph % (Auto) Banks % (Auto) Eos % (Auto) Baso % (Auto) Lymph # (Auto) Banks # (Auto) Eos # (Auto) Baso # (Auto) Absolute Neuts (auto) ESR PT INR pCO2 42 pO2 94.0 HCO3 20.7 L ABG pH 7.30 L ABG Total CO2 22.0 ABG O2 Saturation 98.9 H ABG O2 Content ABG Base Excess -5.5 L ABG Hemoglobin ABG Carboxyhemoglobin POC ABG HHb (Measured) ABG Methemoglobin ABG O2 Capacity ABG Potassium 4.8 Hgb O2 Saturation Glucose 132 H Lactate 1.6 FiO2 32.0 Sodium 132 129.0 L Potassium 5.1 H Chloride 98 98.0 Carbon Dioxide 22 Anion Gap 16 BUN 50 H Creatinine 2.7 H Est GFR ( Amer) 28 Est GFR (Non-Af Amer) 23 Random Glucose 134 H Hemoglobin A1c Uric Acid 7.6 Calcium 8.6 Magnesium Iron 87 TIBC 316 % Saturation 28 Ferritin 225.0 Total Bilirubin 1.6 H Direct Bilirubin AST 77 H ALT 44 Alkaline Phosphatase 181 H Ammonia C-React Prot High Sens Total Protein 7.6 Albumin 3.4 Globulin 4.2 Albumin/Globulin Ratio 0.8 L Triglycerides Cholesterol LDL Cholesterol Direct HDL Cholesterol Free T4 TSH 3rd Generation Arterial Blood Potassium 4.8 Salicylates Acetaminophen Hepatitis A IgM Ab Hep Bs Antigen Hep B Core IgM Ab Hepatitis C Antibody 06/11/18 06/11/18 19:57 19:57 WBC RBC Hgb Hct MCV MCH MCHC RDW Plt Count MPV Neut % (Auto) Lymph % (Auto) Banks % (Auto) Eos % (Auto) Baso % (Auto) Lymph # (Auto) Banks # (Auto) Eos # (Auto) Baso # (Auto) Absolute Neuts (auto) ESR PT INR pCO2 pO2 HCO3 ABG pH ABG Total CO2 ABG O2 Saturation ABG O2 Content ABG Base Excess ABG Hemoglobin ABG Carboxyhemoglobin POC ABG HHb (Measured) ABG Methemoglobin ABG O2 Capacity ABG Potassium Hgb O2 Saturation Glucose Lactate FiO2 Sodium 133 Potassium 4.9 Chloride 99 Carbon Dioxide 21 Anion Gap 18 BUN 53 H Creatinine 2.9 H Est GFR ( Amer) 26 Est GFR (Non-Af Amer) 22 Random Glucose 116 H Hemoglobin A1c Uric Acid Calcium 8.5 Magnesium 2.1 Iron TIBC % Saturation Ferritin Total Bilirubin 1.6 H Direct Bilirubin 1.4 H AST 77 H ALT 49 Alkaline Phosphatase 190 H Ammonia C-React Prot High Sens Total Protein 8.0 Albumin 3.3 Globulin 4.7 Albumin/Globulin Ratio 0.7 L Triglycerides Cholesterol LDL Cholesterol Direct HDL Cholesterol Free T4 TSH 3rd Generation Arterial Blood Potassium Salicylates < 1 L Acetaminophen < 10.0 L Hepatitis A IgM Ab Hep Bs Antigen Hep B Core IgM Ab Hepatitis C Antibody Assessment & Plan - Assessment and Plan (Free Text) Assessment: We avoid EGD now Attending/Attestation - Attestation I have personally seen and examined this patient.: Yes I have fully participated in the care of the patient.: Yes I have reviewed all pertinent clinical information: Yes Notes (Text): This patient was seen and evaluated along with the medical microbiologist team earlier.. This is an addendum to the GI consultation report dictated by the resident. This patient was admitted with the shortness of breath new onset A. fib. Sepsis pneumonia cellulitis patient developed change in mental status found to have elevated ammonia level and a CAT scan showed a cirrhosis of the liver. History of EtOH in the past. 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 Patient does have a elevated right ventricle systolic pressure right heart failure with hepatic congestion should contribute to this hepatic dysfunction The elevated INR even at the time of admission could be secondary to hepatic dysfunction congestion causing acute worsening of the liver function in addition to cirrhosis History of 1. Follow-up of the LFTs,INR 2. Continue the antibiotics 3. Etiology of cirrhosis unclear however Levi should be the first consider We will request hepatitis profile and autoimmune markers, iron studies to evaluate For. Patient's ammonia level significantly elevated. Continue lactulose if the diarrhea is an issue then will change it to Xifaxan 06/11/18 21:07
--- NOTE | 2018-06-11 13:08 | PN ---
DATE: 06/11/2018 REASON FOR CONSULTATION: Followup cardiac evaluation admitted with AFib, shortness of breath, congestive heart failure, cardiac evaluation. SUBJECTIVE: The patient feels a little better and not in distress, but he still cannot lay flat, gets short winded. PHYSICAL EXAMINATION: As follows: VITAL SIGNS: Temperature afebrile, heart rate 85, blood pressure 110/70. HEENT: PERRLA. Extraocular muscles intact. NECK: Supple. No carotid bruits. No thyromegaly. CHEST: Clear to auscultation. ABDOMEN: Soft and distended. EXTREMITIES: Clubbing and cyanosis negative. 2+ pedal edema with weeping wounds. LABORATORY DATA: Telemetry shows AFib, rate controlled 60 to 70. Blood workup as follows: WBC yesterday 6.5, hemoglobin 14.8, hematocrit 42.6, platelet count 343. Chemistry showed sodium 130, potassium 4.3, chloride 102, carbon dioxide 26, anion gap of 15, BUN 13, and creatinine 1.2. Triglycerides 84, cholesterol 123, LDL 84, HDL 18, and TSH 5.53. The patient had an echocardiography done yesterday that revealed ejection fraction 75%, severe systolic function of RV severely reduced, trace to mild aortic regurgitation, moderate valvular aortic stenosis, valve area of 1.13 cm planimetry, trace mitral regurgitation, moderate to severe mitral stenosis, mitral valve area of 1.3 cm2, moderate to severe tricuspid regurgitation, severe pulmonary hypertension, RV systolic pressure of 79 mmHg. No pericardial effusion. IMPRESSION: A 73-year-old morbidly obese male with pendulous belly; history of heavy alcohol abuse, still drinking alcohol; history of splenectomy for idiopathic thrombocytopenic purpura since the platelet count improved; ex-smoker; diabetes; hypertension; admitted with shortness of breath, multifactorial secondary to underlying severe valvular disease; moderate aortic stenosis; moderate to severe aortic valve area 1.13 cm2, moderate to severe mitral stenosis valve area 1.3 cm2; trace mitral regurgitation, trace mild aortic regurgitation; moderate to severe tricuspid regurgitation with severe pulmonary hypertension; right ventricular systolic pressure 79 mmHg; admitted with atrial fibrillation; most likely atrial fibrillation secondary to alcohol liver disease with severely dilated right ventricle, right atrium, and left atrium. Probably chances of him remaining in sinus is very low, so we will not aim to convert to normal sinus because even if the patient converts, he is not going to stay in sinus because of dilatation of atrium and underlying condition as well as mitral stenosis. We will try to diurese him as the patient has good left ventricular function, but is essentially right-sided failure; severely dilated artery and severe pulmonary hypertension secondary to underlying valvular disease as well as history of alcohol disease. RECOMMENDATION: Discussed with the patient for the cardiac catheterization. The patient is not willing, and we will think. Right now, the patient is not in a position to go for the cardiac catheterization because he cannot lay flat on the bed, he is mostly sitting. Once the patient stabilizes with diuresis and improve symptomatically, may consider cardiac catheterization. The patient agrees. Because the patient may be a candidate for transcatheter aortic valve replacement, possibly because the patient has severe mitral stenosis, the valve is not too good for mitral valvuloplasty and probably with severe pulmonary hypertension, I doubt he will be a surgical candidate, very high risk. Discussed at length with the patient, we will discuss again. If the patient agrees and able to lie flat, we will consider cardiac catheterization, otherwise we will treat medically. Overall, the patient's condition is critical. Long-term prognosis, extremely poor. The patient is still alcohol abused. Suggested complete abstinence from alcohol abuse. Optimize medical treatment including diuretics, spironolactone, continue the rate control with Cardizem. Repeat the blood workup in the morning. Low dose of beta-sesar is started also at 25 b.i.d. to control the heart rate. Continue diuresis. Thank you, Dr. Savage, for providing us the opportunity in taking care of the patient, Danilo Chaidez. We will repeat the blood workup in the morning. We will put low dose of Synthroid because of hypothyroidism. Since the patient's liver function is improving and has no more thrombocytopenia, we will start Lovenox. If the patient agrees for the cath, we will continue; otherwise if the patient does not agree for cath, we will put Eliquis 5 mg p.o. b.i.d. The patient's GFR is 56, so we will put 110 mg every 24 with renal-adjusted dose. We will increase the Lasix to 40 twice a day as blood pressure is tolerated. We will give extra dose at 5 p.m. because this patient is getting 10 a.m. dose from tomorrow, we will increase to 40 b.i.d. Aruna Montilla MD
[2018-06-11] MEDS: Mupirocin 2% Ointment 15 GM TUBE TOP SCH ×2 (13:10→18:49)
[2018-06-11] MEDS ORDERED: Lactulose 10 gm/15 ml (Rectal Use) PR STA (14:07)
--- NOTE | 2018-06-11 14:12 | PCM.RRT ---
<Raman Mcqueen - Last Filed: 06/11/18 15:46> ATTORNEY GENERAL Nurse Assessment - Situation Date: 06/11/18 ATTORNEY GENERAL Reason for Call: Change in Mental Status ATTORNEY GENERAL Called By: Physician - Respiratory Oxygen Delivery Method: Room Air I.Reason for ATTORNEY GENERAL - A) Acute Change in Patient: (Select all that apply): Acute change in mental status Subjective: ATTORNEY GENERAL for Acute Change in Mental Status This is a 73 year old male with PMH of ITP s/p splenectomy, A-fib, PAD, chronic lypmhedema of legs, prior EtOH abuse with cirrhosis and admitted to the hospital for severe sepsis with tachycardia and tachypnea in the setting of likely CAP/R leg cellulitis who had a rapid response called for acute change in mental status. Per nursing staff, patient has had episodes of confusion throughout the day. Upon arrival, vitals were BP 100/61, 97% O2 on room air, 74 pulse and temperature of 97.4F. Patient was AOx2 and had no focal motor/sensory deficits. Patient noted to have urinary continence during events and patient denies any history of seizure. 12 point ROS limited due to patient condition. ABG noted to be unremarkable today. CT head on admission did not show acute intracranial abnormality. Physical Exam Appearance: appears chronically ill HEENT: pale mucosa, scleral icterus noted in eyes, confused Heart: +S1, S2. No murmurs Lungs: CTA B/L, no respiratory distress or accessory muscle use Abd: globular abdomen, soft, non tender, +BS in 4 quadrants Ext: B/L lymphedema noted in legs with clear drainage Neuro: AOx2, no focal motor/sensory deficits. Able to spontaneously move all extremities. Skin: Dry, warm Assessment/Plan: Metabolic encephalopathy 2/2 sepsis from CAP/R leg cellulitis in the setting of cirrhosis -continue lactulose -continue lasix 40mg IVP BID -continue levaquin for severe sepsis -continue aldactone -neurochecks, vital signs q4 -transfer to ICU - Neurological Status (Select all that apply): Alert - Respiratory Oxygen Delivery Method: Room Air <Magdalena Kramer - Last Filed: 06/11/18 18:41> ATTORNEY GENERAL Nurse Assessment - Vital Signs Vital Sign: Rapid Response Vital Sign Blood Pressure 100/61 Pulse Rate 78 Respiratory Rate 18 Oxygen Saturation 93 - Vital Signs at end of ATTORNEY GENERAL Vital Signs at end of ATTORNEY GENERAL: Rapid Response End Vital Sign Blood Pressure 105/71 Pulse Rate 74 Respiratory Rate 18 Temperature 97.4 F O2 Sat by Pulse Oximetry 94 Attending/Attestation - Attestation I have personally seen and examined this patient.: Yes I have fully participated in the care of the patient.: Yes I have reviewed all pertinent clinical information, including history, physical exam and plan: Yes Notes (Text): 06/11/18 18:39 Attending note; Patient seen and examined during rapid response. Rapid response was called for lethargy. Patient has been having lethargy since admission. Patient has episodes of confusion secondary to hepatic encephalopathy. This is a 73 year old male with PMH of ITP s/p splenectomy, A-fib, PAD, chronic lypmhedema of legs, prior EtOH abuse with cirrhosis and admitted to the hospital for severe sepsis with tachycardia and tachypnea in the setting of likely CAP/R leg cellulitis who had a rapid response called for acute change in mental status. Altered mental status/lethargy secondary to hepatic encephalopathy. Currently on lactulose. Patient is alert and awake. Oriented to place only Episodes of confusion. Hypotension; will start IV fluids and monitor closely. Hold antihypertensive medication. CBC, CMP, PT/INR ordered Severe lower extremity cellulitis; continue antibiotics per ID . Case discussed with PMD Dr. Aviles in detail. Patient will be evaluated by ICU. Resident discussed the diagnosis and treatment options with family in detail by the bedside. Further care per PMD/ICU team. .
[2018-06-11 14:35] LABS: BASO # 0.02 K/mm3 (0.0-2.0); BASO % 0.3 % (0.0-3.0); EOS # 0.1 (0.0-0.7); EOS % 1.5 % (1.5-5.0); HEMOGLOBIN 14.3 g/dL (14.0-18.0); LYMPH % 15.2 % (22.0-35.0); MEAN CELL VOLUME 97.4 fl (80.0-105.0); MEAN CORPUSCULAR HEMOGLOBIN 33.3 pg (25.0-35.0); MEAN CORPUSCULAR HGB CONC 34.1 g/dl (31.0-37.0); MEAN PLATELET VOLUME 9.7 fl (7.0-11.0); MONO # 0.8 (0.1-0.6); MONO % 12.2 % (1.0-6.0); RBC 4.3 10^6/uL (3.5-6.1); WHITE BLOOD COUNT 6.9 10^3/uL (4.5-11.0)
[2018-06-11 14:36] LABS: INR 2.87; PROTHROMBIN TIME 31.9 SECONDS (9.4-12.5)
--- NOTE | 2018-06-11 14:39 | CP.PCM.PN ---
<Bipin Davis - Last Filed: 06/11/18 14:31> Subjective - Date & Time of Evaluation Date of Evaluation: 06/11/18 Time of Evaluation: 09:10 - Subjective Subjective: Bipin Davis D.O. PGY-3, Internal Medicine Resident, Infectious Disease Consultation Note 73 year old male with a PMH of ITP s/p splenectomy, A-fib, PAD, prior EtOH abuse who presented for increasing fatigue, weakness, shortness of breath and increasing weight. Infectious disease consultation was requested for concerns of lower extremity cellulitis. Patient was seen and examined at bedside. Sitting up and enjoying breakfast. Admits that he had been drinking a lot of EtOH over the last few months and not watching what he eats. Knows that's why he's gained so much weight. No acute complaints other than episodic SOB. Objective - Vital Signs/Intake and Output Vital Signs (last 24 hours): Temp Pulse Resp BP Pulse Ox 97.1 F L 80 21 95/63 L 97 06/11/18 12:00 06/11/18 12:00 06/11/18 12:00 06/11/18 12:00 06/11/18 06:00 Intake and Output: 06/11/18 06/11/18 06:59 18:59 Intake Total 480 Output Total 100 Balance 380 - Medications Medications: Current Medications Betamethasone/Clotrimazole (Lotrisone) 0 gm TOP DAILY [facility] Last Admin: 06/11/18 09:32 Dose: 1 tcp Diltiazem HCl (Cardizem) 60 mg PO TID [facility] Last Admin: 06/11/18 13:15 Dose: 60 mg Enoxaparin Sodium (Lovenox) 110 mg SC Q24H [facility]; Protocol Last Admin: 06/11/18 09:42 Dose: 110 mg Folic Acid (Folic Acid) 1 mg PO DAILY [facility] Last Admin: 06/11/18 09:29 Dose: 1 mg Furosemide (Lasix) 40 mg IVP 0800,1400 [facility] Ceftaroline Fosamil 400 mg/ (Sodium Chloride) 100 mls @ 100 mls/hr IVPB Q12 [facility]; Protocol Stop: 06/20/18 11:16 Last Admin: 06/11/18 13:15 Dose: 100 mls/hr Levofloxacin/Dextrose (Levaquin 750mg) 750 mg in 150 mls @ 100 mls/hr IVPB Q48H [facility]; Protocol Stop: 06/18/18 11:16 Lactic Acid (Lac-Hydrin 12% Cream (140 G)) 0 ea TOP DAILY [facility] Last Admin: 06/11/18 09:32 Dose: 1 tcp Lactulose (Enulose) 20 gm PO TID [facility] Last Admin: 06/11/18 13:15 Dose: 20 gm Levalbuterol HCl (Xopenex) 0.63 mg IH TIDRESP [facility] Last Admin: 06/11/18 13:15 Dose: 0.63 mg Levothyroxine Sodium (Synthroid) 25 mcg PO 0600 [facility] Metoprolol Tartrate (Lopressor) 25 mg PO BID [facility] Last Admin: 06/11/18 09:29 Dose: 25 mg Mupirocin (Bactroban Ointment) 0 gm TOP BID [facility] Last Admin: 06/11/18 13:10 Dose: Not Given Spironolactone (Aldactone) 25 mg PO BID [facility] Last Admin: 06/11/18 09:30 Dose: 25 mg Thiamine HCl (Vitamin B1 Tab) 100 mg PO DAILY [facility] Last Admin: 06/11/18 09:29 Dose: 100 mg - Labs Labs: 06/09/18 14:05 06/11/18 06:00 PT 25.3 SECONDS (9.4-12.5) H 06/09/18 14:05 INR 2.28 06/09/18 14:05 APTT 45.6 Seconds (26.9-38.3) H 06/09/18 14:05 - Constitutional Appears: No Acute Distress, Chronically Ill - Head Exam Head Exam: ATRAUMATIC, NORMOCEPHALIC - Eye Exam Eye Exam: EOMI. absent: Scleral icterus - ENT Exam ENT Exam: Mucous Membranes Moist - Neck Exam Additional comments: large neck circumference - Respiratory Exam Respiratory Exam: Wheezes. absent: Rales, Rhonchi - Cardiovascular Exam Cardiovascular Exam: +S1, +S2. absent: Gallop, Rubs - GI/Abdominal Exam Additional comments: soft, obese, NT, ND - Extremities Exam Extremities exam: chronic lymphedema, nonpitting, erythema, dryness better, some scabs, no juan ulcerations - Neurological Exam Neurological exam: Alert, Awake, nonfocal - Skin Skin Exam: as above Assessment and Plan - Assessment and Plan (Free Text) Assessment: 73 year old male with a PMH of ITP s/p splenectomy, A-fib, PAD, prior EtOH abuse who presented for increasing fatigue, weakness, shortness of breath and increasing weight. Infectious disease consultation was requested for concerns of lower extremity cellulitis. Plan: Severe sepsis with CAP and/or r leg cellulitis BL pleural effusions Afib with RVR HFpEF PAD MARIE Hyperbiliruinemia with elevated AST and alk phos Elevated INR not on anticoagulation Hyperammonemia Elevated BNP Increasing weight gain ITP s/p splenectomy Previous EtOH abuse Afebrile No leukocytosis Flu negative Abd/pelvis CT showing possible duodenitis GI consultation requested, will f/u recs Wound Cx with GNR and GPC BCx negative / day 1 MRSA nares negative Continue teflaro and levaquin day 2 Patient was seen and examined and case to be discussed with attending physician Thank you for the pleasure of participating in the care of this interesting patient <Karl Molina - Last Filed: 06/11/18 16:14> Objective - Vital Signs/Intake and Output Vital Signs (last 24 hours): Temp Pulse Resp BP Pulse Ox 98.1 F 68 18 98/63 L 95 06/11/18 14:20 06/11/18 14:20 06/11/18 14:20 06/11/18 14:20 06/11/18 14:20 Intake and Output: 06/11/18 06/11/18 06:59 18:59 Intake Total 480 Output Total 100 Balance 380 - Medications Medications: Current Medications Betamethasone/Clotrimazole (Lotrisone) 0 gm TOP DAILY [facility] Last Admin: 06/11/18 09:32 Dose: 1 tcp Diltiazem HCl (Cardizem) 60 mg PO TID [facility] Last Admin: 06/11/18 13:15 Dose: 60 mg Folic Acid (Folic Acid) 1 mg PO DAILY [facility] Last Admin: 06/11/18 09:29 Dose: 1 mg Ceftaroline Fosamil 400 mg/ (Sodium Chloride) 100 mls @ 100 mls/hr IVPB Q12 [facility]; Protocol Stop: 06/20/18 11:16 Last Admin: 06/11/18 13:15 Dose: 100 mls/hr Levofloxacin/Dextrose (Levaquin 750mg) 750 mg in 150 mls @ 100 mls/hr IVPB Q48H [facility]; Protocol Stop: 06/18/18 11:16 Lactic Acid (Lac-Hydrin 12% Cream (140 G)) 0 ea TOP DAILY [facility] Last Admin: 06/11/18 09:32 Dose: 1 tcp Lactulose (Enulose) 20 gm PO TID [facility] Last Admin: 06/11/18 13:15 Dose: 20 gm Lactulose (Enulose) 30 gm PO ONCE ONE Stop: 06/11/18 16:49 Levalbuterol HCl (Xopenex) 0.63 mg IH TIDRESP [facility] Last Admin: 06/11/18 13:15 Dose: 0.63 mg Levothyroxine Sodium (Synthroid) 25 mcg PO 0600 [facility] Metoprolol Tartrate (Lopressor) 25 mg PO BID [facility] Last Admin: 06/11/18 09:29 Dose: 25 mg Mupirocin (Bactroban Ointment) 0 gm TOP BID [facility] Last Admin: 06/11/18 13:10 Dose: Not Given Rifaximin (Xifaxan) 550 mg PO BID [facility]; Protocol Spironolactone (Aldactone) 25 mg PO BID [facility] Last Admin: 06/11/18 09:30 Dose: 25 mg Thiamine HCl (Vitamin B1 Tab) 100 mg PO DAILY [facility] Last Admin: 06/11/18 09:29 Dose: 100 mg - Labs Labs: 06/11/18 14:20 06/11/18 14:20 PT 31.9 SECONDS (9.4-12.5) H 06/11/18 14:20 INR 2.87 06/11/18 14:20 APTT 45.6 Seconds (26.9-38.3) H 06/09/18 14:05 Attending/Attestation - Attestation I have personally seen and examined this patient.: Yes I have fully participated in the care of the patient.: Yes I have reviewed all pertinent clinical information, including history, physical exam and plan: Yes
[2018-06-11 14:44] LABS: ALB/GLOB RATIO 0.8 (1.1-1.8); ALBUMIN 3.4 g/dL (3.0-4.8); CALCIUM 8.6 mg/dL (8.4-10.5); URIC ACID 7.6 mg/dL (3.5-8.5)
[2018-06-11 14:46] LABS: IRON 87 ug/dL (45-180)
--- NOTE | 2018-06-11 14:48 | CP.CCUPN ---
CCU Subjective - Physician Review Events Since Last Encounter (Free Text): 06/11/18 14:45 73yo male pt presented to the hospital with lethargy and shortness of breath. Pt was admitted to medical wards and treated. Today ICU eval was called as pt was noted to be lethargic and confused and also his B\P was noted to be low. Pt seen and examined at bedside. Pt is awake and alert but oriented to person only. Pt has no complaints and is comfortable on NC. Pt unable to provide HPI or ROS at this time CCU Objective - Vital Signs / Intake & Output Vital Signs (Last 4 hours): Vital Signs Temp Pulse Resp BP Pulse Ox 06/11/18 14:20 98.1 F 68 18 98/63 L 95 06/11/18 12:00 97.1 F L 80 21 95/63 L Intake and Output (Last 8hrs): Intake & Output 06/10/18 06/11/18 06/11/18 22:59 06:59 14:59 Intake Total 1360 480 Output Total 4 100 Balance 1356 380 Weight 256 lb 11.2 oz Intake: Oral 1360 480 Output: Urine 4 100 Urine, Voided 4 100 Other: # Bowel Movements 6 2 - Physical Exam Head: Positive for: Atraumatic, Normocephalic Pupils: Positive for: PERRL Extroacular Muscles: Positive for: EOMI Conjunctiva: Positive for: Normal Mouth: Positive for: Dry Nose (External): Positive for: Abrasion (2 abrasions to bridge of nose) Neck: Positive for: Normal Range of Motion Respiratory/Chest: Positive for: Decreased Breath Sounds. Negative for: Respiratory Distress, Accessory Muscle Use Cardiovascular: Positive for: Normal S1, S2, Irregular Rhythm. Negative for: Murmurs Abdomen: Positive for: Distention, Other (Lower abdominal edema). Negative for: Tenderness, Normal Bowel Sounds (Decreased bowel sounds), Peritoneal Signs Upper Extremity: Positive for: Normal Inspection. Negative for: Cyanosis, Edema Lower Extremity: Positive for: Edema, Other (Chronic venous changes. Right tibial skin sloffing, ble wounds) Neurological: Positive for: CN II-XII Intact, Speech Normal Skin: Positive for: Warm, Dry, Normal Color. Negative for: Rashes Psychiatric: Positive for: Alert, Normal Concentration, Lethargic. Negative for: Oriented x 3, Normal Insight - Medications Active Medications: Active Medications Generic Name Dose Route Start Last Admin Trade Name Amparo PRN Reason Stop Dose Admin Betamethasone/Clotrimazole 0 gm 06/11/18 10:00 06/11/18 09:32 Lotrisone TOP 1 tcp DAILY CASEY Administration Diltiazem HCl 60 mg 06/10/18 10:00 06/11/18 13:15 Cardizem PO 60 mg TID CASEY Administration Enoxaparin Sodium 110 mg 06/11/18 09:15 06/11/18 09:42 Lovenox SC 110 mg Q24H CASEY Administration Protocol Folic Acid 1 mg 06/10/18 10:00 06/11/18 09:29 Folic Acid PO 1 mg DAILY CASEY Administration Furosemide 40 mg 06/12/18 08:00 Lasix IVP 0800,1400 [facility] Ceftaroline Fosamil 400 mg/ 100 mls @ 100 mls/hr 06/10/18 11:15 06/11/18 13:15 Sodium Chloride IVPB 06/20/18 11:16 100 mls/hr Q12 CASEY Administration Protocol Levofloxacin/Dextrose 750 mg in 150 mls @ 100 mls/hr 06/12/18 11:15 Levaquin 750mg IVPB 06/18/18 11:16 Q48H [facility] Protocol Lactic Acid 0 ea 06/11/18 10:00 06/11/18 09:32 Lac-Hydrin 12% Cream (140 G) TOP 1 tcp DAILY CASEY Administration Lactulose 20 gm 06/11/18 14:00 06/11/18 13:15 Enulose PO 20 gm TID CASEY Administration Levalbuterol HCl 0.63 mg 06/10/18 14:00 06/11/18 13:15 Xopenex IH 0.63 mg TIDRESP CASEY Administration Levothyroxine Sodium 25 mcg 06/12/18 06:00 Synthroid PO 0600 [facility] Metoprolol Tartrate 25 mg 06/10/18 18:00 06/11/18 09:29 Lopressor PO 25 mg BID CASEY Administration Mupirocin 0 gm 06/11/18 10:00 06/11/18 13:10 Bactroban Ointment TOP Not Given BID [facility] Rifaximin 550 mg 06/11/18 18:00 Xifaxan PO BID [facility] Protocol Spironolactone 25 mg 06/11/18 10:00 06/11/18 09:30 Aldactone PO 25 mg BID CASEY Administration Thiamine HCl 100 mg 06/10/18 10:00 06/11/18 09:29 Vitamin B1 Tab PO 100 mg DAILY CASEY Administration - Patient Studies Lab Studies: Microbiology Studies 06/09/18 17:11 Gram Stain - Final Leg - Right Wound Culture - Preliminary Gram Negative Raheel Gram Positive Cocci Corynebacterium Species 06/10/18 06:00 MRSA Culture (Admit) - Final Naris MRSA NOT DETECTED 06/09/18 16:00 Urine Culture - Final Urine,Clean Catch MULTIPLE SPECIES. SUGGEST REPEAT SPECIMEN. 06/09/18 14:35 Blood Culture - Preliminary Blood-Venous NO GROWTH AFTER 24 HOURS 06/09/18 14:05 Blood Culture - Preliminary Blood-Venous NO GROWTH AFTER 24 HOURS Lab Studies 06/11/18 06/11/18 06/11/18 Range/Units 14:20 14:20 14:20 WBC 6.9 (4.5-11.0) 10^3/uL RBC 4.30 (3.5-6.1) 10^6/uL Hgb 14.3 (14.0-18.0) g/dL Hct 41.9 L (42.0-52.0) % MCV 97.4 (80.0-105.0) fl MCH 33.3 (25.0-35.0) pg MCHC 34.1 (31.0-37.0) g/dl RDW 17.0 H (11.5-14.5) % Plt Count 333 (120.0-450.0) 10^3/uL MPV 9.7 (7.0-11.0) fl Neut % (Auto) 70.8 H (50.0-68.0) % Lymph % (Auto) 15.2 L (22.0-35.0) % Wise % (Auto) 12.2 H (1.0-6.0) % Eos % (Auto) 1.5 (1.5-5.0) % Baso % (Auto) 0.3 (0.0-3.0) % Lymph # (Auto) 1.0 L (1.2-3.4) Wise # (Auto) 0.8 H (0.1-0.6) Eos # (Auto) 0.1 (0.0-0.7) Baso # (Auto) 0.02 (0.0-2.0) K/mm3 Absolute Neuts (auto) 4.86 (1.4-6.5) ESR (0.00-15.0) mm/hr PT 31.9 H (9.4-12.5) SECONDS INR 2.87 pCO2 (35-45) mm/Hg pO2 (80-100) mm/Hg HCO3 (21-28) mmol/L ABG pH (7.35-7.45) ABG Total CO2 (22-28) mmol.L ABG O2 Saturation (95-98) % ABG O2 Content (15-23) ML/dl ABG Base Excess (-2.0-3.0) mmol/L ABG Hemoglobin (11.7-17.4) g/dL ABG Carboxyhemoglobin (0.5-1.5) % POC ABG HHb (Measured) (0-5) % ABG Methemoglobin (0.0-3.0) % ABG O2 Capacity (16-24) mL/dl Hgb O2 Saturation (95.0-98.0) % FiO2 % Sodium 132 (132-148) mmol/L Potassium 5.1 H (3.6-5.0) mmol/L Chloride 98 (98-107) mmol/L Carbon Dioxide 22 (21-33) mmol/L Anion Gap 16 (10-20) BUN 50 H (7-21) mg/dL Creatinine 2.7 H (0.8-1.5) mg/dl Est GFR ( Amer) 28 Est GFR (Non-Af Amer) 23 Random Glucose 134 H (70-110) mg/dL Hemoglobin A1c (4.2-6.5) % Uric Acid 7.6 (3.5-8.5) mg/dL Calcium 8.6 (8.4-10.5) mg/dL Magnesium (1.7-2.2) mg/dL Total Bilirubin 1.6 H (0.2-1.3) mg/dL AST 77 H (17-59) U/L ALT 44 (7-56) U/L Alkaline Phosphatase 181 H (38-126) U/L Ammonia (9-33) umol/L C-React Prot High Sens (1.00-3.00) mg/L Total Protein 7.6 (5.8-8.3) g/dL Albumin 3.4 (3.0-4.8) g/dL Globulin 4.2 gm/dL Albumin/Globulin Ratio 0.8 L (1.1-1.8) Triglycerides (35-160) mg/dL Cholesterol (130-200) mg/dL LDL Cholesterol Direct (0-129) mg/dL HDL Cholesterol (29-60) mg/dL Procalcitonin (0.19-0.49) NG/ML Free T4 (0.78-2.19) ng/dL TSH 3rd Generation (0.46-4.68) mIU/mL Influenza Typ A,B (EIA) (NEGATIVE) 06/11/18 06/11/18 06/11/18 Range/Units 11:30 11:30 08:27 WBC (4.5-11.0) 10^3/uL RBC (3.5-6.1) 10^6/uL Hgb (14.0-18.0) g/dL Hct (42.0-52.0) % MCV (80.0-105.0) fl MCH (25.0-35.0) pg MCHC (31.0-37.0) g/dl RDW (11.5-14.5) % Plt Count (120.0-450.0) 10^3/uL MPV (7.0-11.0) fl Neut % (Auto) (50.0-68.0) % Lymph % (Auto) (22.0-35.0) % Wise % (Auto) (1.0-6.0) % Eos % (Auto) (1.5-5.0) % Baso % (Auto) (0.0-3.0) % Lymph # (Auto) (1.2-3.4) Wise # (Auto) (0.1-0.6) Eos # (Auto) (0.0-0.7) Baso # (Auto) (0.0-2.0) K/mm3 Absolute Neuts (auto) (1.4-6.5) ESR (0.00-15.0) mm/hr PT (9.4-12.5) SECONDS INR pCO2 42 (35-45) mm/Hg pO2 100.0 (80-100) mm/Hg HCO3 20.2 L (21-28) mmol/L ABG pH 7.29 L (7.35-7.45) ABG Total CO2 21.5 L (22-28) mmol.L ABG O2 Saturation 99.3 H (95-98) % ABG O2 Content 18.6 (15-23) ML/dl ABG Base Excess -6.1 L (-2.0-3.0) mmol/L ABG Hemoglobin 13.7 (11.7-17.4) g/dL ABG Carboxyhemoglobin 2.3 H (0.5-1.5) % POC ABG HHb (Measured) 0.7 (0-5) % ABG Methemoglobin 0.8 (0.0-3.0) % ABG O2 Capacity 18.7 (16-24) mL/dl Hgb O2 Saturation 96.1 (95.0-98.0) % FiO2 24.0 % Sodium (132-148) mmol/L Potassium (3.6-5.0) mmol/L Chloride (98-107) mmol/L Carbon Dioxide (21-33) mmol/L Anion Gap (10-20) BUN (7-21) mg/dL Creatinine (0.8-1.5) mg/dl Est GFR ( Amer) Est GFR (Non-Af Amer) Random Glucose (70-110) mg/dL Hemoglobin A1c (4.2-6.5) % Uric Acid (3.5-8.5) mg/dL Calcium (8.4-10.5) mg/dL Magnesium (1.7-2.2) mg/dL Total Bilirubin (0.2-1.3) mg/dL AST (17-59) U/L ALT (7-56) U/L Alkaline Phosphatase (38-126) U/L Ammonia 100 H D (9-33) umol/L C-React Prot High Sens (1.00-3.00) mg/L Total Protein (5.8-8.3) g/dL Albumin (3.0-4.8) g/dL Globulin gm/dL Albumin/Globulin Ratio (1.1-1.8) Triglycerides (35-160) mg/dL Cholesterol (130-200) mg/dL LDL Cholesterol Direct (0-129) mg/dL HDL Cholesterol (29-60) mg/dL Procalcitonin (0.19-0.49) NG/ML Free T4 1.58 (0.78-2.19) ng/dL TSH 3rd Generation (0.46-4.68) mIU/mL Influenza Typ A,B (EIA) (NEGATIVE) 06/11/18 06/11/18 06/11/18 Range/Units 06:00 06:00 06:00 WBC (4.5-11.0) 10^3/uL RBC (3.5-6.1) 10^6/uL Hgb (14.0-18.0) g/dL Hct (42.0-52.0) % MCV (80.0-105.0) fl MCH (25.0-35.0) pg MCHC (31.0-37.0) g/dl RDW (11.5-14.5) % Plt Count (120.0-450.0) 10^3/uL MPV (7.0-11.0) fl Neut % (Auto) (50.0-68.0) % Lymph % (Auto) (22.0-35.0) % Wise % (Auto) (1.0-6.0) % Eos % (Auto) (1.5-5.0) % Baso % (Auto) (0.0-3.0) % Lymph # (Auto) (1.2-3.4) Wise # (Auto) (0.1-0.6) Eos # (Auto) (0.0-0.7) Baso # (Auto) (0.0-2.0) K/mm3 Absolute Neuts (auto) (1.4-6.5) ESR (0.00-15.0) mm/hr PT (9.4-12.5) SECONDS INR pCO2 (35-45) mm/Hg pO2 (80-100) mm/Hg HCO3 (21-28) mmol/L ABG pH (7.35-7.45) ABG Total CO2 (22-28) mmol.L ABG O2 Saturation (95-98) % ABG O2 Content (15-23) ML/dl ABG Base Excess (-2.0-3.0) mmol/L ABG Hemoglobin (11.7-17.4) g/dL ABG Carboxyhemoglobin (0.5-1.5) % POC ABG HHb (Measured) (0-5) % ABG Methemoglobin (0.0-3.0) % ABG O2 Capacity (16-24) mL/dl Hgb O2 Saturation (95.0-98.0) % FiO2 % Sodium 133 (132-148) mmol/L Potassium 4.9 (3.6-5.0) mmol/L Chloride 98 (98-107) mmol/L Carbon Dioxide 22 (21-33) mmol/L Anion Gap 17 (10-20) BUN 48 H (7-21) mg/dL Creatinine 2.4 H (0.8-1.5) mg/dl Est GFR ( Amer) 32 Est GFR (Non-Af Amer) 27 Random Glucose 79 (70-110) mg/dL Hemoglobin A1c 6.4 (4.2-6.5) % Uric Acid (3.5-8.5) mg/dL Calcium 8.7 (8.4-10.5) mg/dL Magnesium 1.9 (1.7-2.2) mg/dL Total Bilirubin 1.7 H (0.2-1.3) mg/dL AST 85 H (17-59) U/L ALT 46 (7-56) U/L Alkaline Phosphatase 198 H (38-126) U/L Ammonia (9-33) umol/L C-React Prot High Sens (1.00-3.00) mg/L Total Protein 7.9 (5.8-8.3) g/dL Albumin 3.2 (3.0-4.8) g/dL Globulin 4.7 gm/dL Albumin/Globulin Ratio 0.7 L (1.1-1.8) Triglycerides 84 (35-160) mg/dL Cholesterol 123 L (130-200) mg/dL LDL Cholesterol Direct 84 (0-129) mg/dL HDL Cholesterol 18 L (29-60) mg/dL Procalcitonin (0.19-0.49) NG/ML Free T4 (0.78-2.19) ng/dL TSH 3rd Generation (0.46-4.68) mIU/mL Influenza Typ A,B (EIA) (NEGATIVE) 06/11/18 06/11/18 06/10/18 Range/Units 06:00 06:00 14:30 WBC (4.5-11.0) 10^3/uL RBC (3.5-6.1) 10^6/uL Hgb (14.0-18.0) g/dL Hct (42.0-52.0) % MCV (80.0-105.0) fl MCH (25.0-35.0) pg MCHC (31.0-37.0) g/dl RDW (11.5-14.5) % Plt Count (120.0-450.0) 10^3/uL MPV (7.0-11.0) fl Neut % (Auto) (50.0-68.0) % Lymph % (Auto) (22.0-35.0) % Wise % (Auto) (1.0-6.0) % Eos % (Auto) (1.5-5.0) % Baso % (Auto) (0.0-3.0) % Lymph # (Auto) (1.2-3.4) Wise # (Auto) (0.1-0.6) Eos # (Auto) (0.0-0.7) Baso # (Auto) (0.0-2.0) K/mm3 Absolute Neuts (auto) (1.4-6.5) ESR 45 H (0.00-15.0) mm/hr PT (9.4-12.5) SECONDS INR pCO2 (35-45) mm/Hg pO2 (80-100) mm/Hg HCO3 (21-28) mmol/L ABG pH (7.35-7.45) ABG Total CO2 (22-28) mmol.L ABG O2 Saturation (95-98) % ABG O2 Content (15-23) ML/dl ABG Base Excess (-2.0-3.0) mmol/L ABG Hemoglobin (11.7-17.4) g/dL ABG Carboxyhemoglobin (0.5-1.5) % POC ABG HHb (Measured) (0-5) % ABG Methemoglobin (0.0-3.0) % ABG O2 Capacity (16-24) mL/dl Hgb O2 Saturation (95.0-98.0) % FiO2 % Sodium (132-148) mmol/L Potassium (3.6-5.0) mmol/L Chloride (98-107) mmol/L Carbon Dioxide (21-33) mmol/L Anion Gap (10-20) BUN (7-21) mg/dL Creatinine (0.8-1.5) mg/dl Est GFR ( Amer) Est GFR (Non-Af Amer) Random Glucose (70-110) mg/dL Hemoglobin A1c (4.2-6.5) % Uric Acid (3.5-8.5) mg/dL Calcium (8.4-10.5) mg/dL Magnesium (1.7-2.2) mg/dL Total Bilirubin (0.2-1.3) mg/dL AST (17-59) U/L ALT (7-56) U/L Alkaline Phosphatase (38-126) U/L Ammonia (9-33) umol/L C-React Prot High Sens > 15.00 H (1.00-3.00) mg/L Total Protein (5.8-8.3) g/dL Albumin (3.0-4.8) g/dL Globulin gm/dL Albumin/Globulin Ratio (1.1-1.8) Triglycerides (35-160) mg/dL Cholesterol (130-200) mg/dL LDL Cholesterol Direct (0-129) mg/dL HDL Cholesterol (29-60) mg/dL Procalcitonin (0.19-0.49) NG/ML Free T4 (0.78-2.19) ng/dL TSH 3rd Generation 5.53 H (0.46-4.68) mIU/mL Influenza Typ A,B (EIA) Negative for flu a/b (NEGATIVE) 06/09/18 Range/Units 20:00 WBC (4.5-11.0) 10^3/uL RBC (3.5-6.1) 10^6/uL Hgb (14.0-18.0) g/dL Hct (42.0-52.0) % MCV (80.0-105.0) fl MCH (25.0-35.0) pg MCHC (31.0-37.0) g/dl RDW (11.5-14.5) % Plt Count (120.0-450.0) 10^3/uL MPV (7.0-11.0) fl Neut % (Auto) (50.0-68.0) % Lymph % (Auto) (22.0-35.0) % Wise % (Auto) (1.0-6.0) % Eos % (Auto) (1.5-5.0) % Baso % (Auto) (0.0-3.0) % Lymph # (Auto) (1.2-3.4) Wise # (Auto) (0.1-0.6) Eos # (Auto) (0.0-0.7) Baso # (Auto) (0.0-2.0) K/mm3 Absolute Neuts (auto) (1.4-6.5) ESR (0.00-15.0) mm/hr PT (9.4-12.5) SECONDS INR pCO2 (35-45) mm/Hg pO2 (80-100) mm/Hg HCO3 (21-28) mmol/L ABG pH (7.35-7.45) ABG Total CO2 (22-28) mmol.L ABG O2 Saturation (95-98) % ABG O2 Content (15-23) ML/dl ABG Base Excess (-2.0-3.0) mmol/L ABG Hemoglobin (11.7-17.4) g/dL ABG Carboxyhemoglobin (0.5-1.5) % POC ABG HHb (Measured) (0-5) % ABG Methemoglobin (0.0-3.0) % ABG O2 Capacity (16-24) mL/dl Hgb O2 Saturation (95.0-98.0) % FiO2 % Sodium (132-148) mmol/L Potassium (3.6-5.0) mmol/L Chloride (98-107) mmol/L Carbon Dioxide (21-33) mmol/L Anion Gap (10-20) BUN (7-21) mg/dL Creatinine (0.8-1.5) mg/dl Est GFR ( Amer) Est GFR (Non-Af Amer) Random Glucose (70-110) mg/dL Hemoglobin A1c (4.2-6.5) % Uric Acid (3.5-8.5) mg/dL Calcium (8.4-10.5) mg/dL Magnesium (1.7-2.2) mg/dL Total Bilirubin (0.2-1.3) mg/dL AST (17-59) U/L ALT (7-56) U/L Alkaline Phosphatase (38-126) U/L Ammonia (9-33) umol/L C-React Prot High Sens (1.00-3.00) mg/L Total Protein (5.8-8.3) g/dL Albumin (3.0-4.8) g/dL Globulin gm/dL Albumin/Globulin Ratio (1.1-1.8) Triglycerides (35-160) mg/dL Cholesterol (130-200) mg/dL LDL Cholesterol Direct (0-129) mg/dL HDL Cholesterol (29-60) mg/dL Procalcitonin 0.19 (0.19-0.49) NG/ML Free T4 (0.78-2.19) ng/dL TSH 3rd Generation (0.46-4.68) mIU/mL Influenza Typ A,B (EIA) (NEGATIVE) Laboratory Results - last 24 hr 06/09/18 06/10/18 06/11/18 20:00 14:30 06:00 WBC RBC Hgb Hct MCV MCH MCHC RDW Plt Count MPV Neut % (Auto) Lymph % (Auto) Wise % (Auto) Eos % (Auto) Baso % (Auto) Lymph # (Auto) Wise # (Auto) Eos # (Auto) Baso # (Auto) Absolute Neuts (auto) ESR 45 H PT INR pCO2 pO2 HCO3 ABG pH ABG Total CO2 ABG O2 Saturation ABG O2 Content ABG Base Excess ABG Hemoglobin ABG Carboxyhemoglobin POC ABG HHb (Measured) ABG Methemoglobin ABG O2 Capacity Hgb O2 Saturation FiO2 Sodium Potassium Chloride Carbon Dioxide Anion Gap BUN Creatinine Est GFR ( Amer) Est GFR (Non-Af Amer) Random Glucose Hemoglobin A1c Uric Acid Calcium Magnesium Total Bilirubin AST ALT Alkaline Phosphatase Ammonia C-React Prot High Sens Total Protein Albumin Globulin Albumin/Globulin Ratio Triglycerides Cholesterol LDL Cholesterol Direct HDL Cholesterol Procalcitonin 0.19 Free T4 TSH 3rd Generation Influenza Typ A,B (EIA) Negative for flu a/b 06/11/18 06/11/18 06/11/18 06:00 06:00 06:00 WBC RBC Hgb Hct MCV MCH MCHC RDW Plt Count MPV Neut % (Auto) Lymph % (Auto) Wise % (Auto) Eos % (Auto) Baso % (Auto) Lymph # (Auto) Wise # (Auto) Eos # (Auto) Baso # (Auto) Absolute Neuts (auto) ESR PT INR pCO2 pO2 HCO3 ABG pH ABG Total CO2 ABG O2 Saturation ABG O2 Content ABG Base Excess ABG Hemoglobin ABG Carboxyhemoglobin POC ABG HHb (Measured) ABG Methemoglobin ABG O2 Capacity Hgb O2 Saturation FiO2 Sodium Potassium Chloride Carbon Dioxide Anion Gap BUN Creatinine Est GFR ( Amer) Est GFR (Non-Af Amer) Random Glucose Hemoglobin A1c 6.4 Uric Acid Calcium Magnesium Total Bilirubin AST ALT Alkaline Phosphatase Ammonia C-React Prot High Sens > 15.00 H Total Protein Albumin Globulin Albumin/Globulin Ratio Triglycerides 84 Cholesterol 123 L LDL Cholesterol Direct 84 HDL Cholesterol 18 L Procalcitonin Free T4 TSH 3rd Generation 5.53 H Influenza Typ A,B (EIA) 06/11/18 06/11/18 06/11/18 06:00 08:27 11:30 WBC RBC Hgb Hct MCV MCH MCHC RDW Plt Count MPV Neut % (Auto) Lymph % (Auto) Wise % (Auto) Eos % (Auto) Baso % (Auto) Lymph # (Auto) Wise # (Auto) Eos # (Auto) Baso # (Auto) Absolute Neuts (auto) ESR PT INR pCO2 42 pO2 100.0 HCO3 20.2 L ABG pH 7.29 L ABG Total CO2 21.5 L ABG O2 Saturation 99.3 H ABG O2 Content 18.6 ABG Base Excess -6.1 L ABG Hemoglobin 13.7 ABG Carboxyhemoglobin 2.3 H POC ABG HHb (Measured) 0.7 ABG Methemoglobin 0.8 ABG O2 Capacity 18.7 Hgb O2 Saturation 96.1 FiO2 24.0 Sodium 133 Potassium 4.9 Chloride 98 Carbon Dioxide 22 Anion Gap 17 BUN 48 H Creatinine 2.4 H Est GFR ( Amer) 32 Est GFR (Non-Af Amer) 27 Random Glucose 79 Hemoglobin A1c Uric Acid Calcium 8.7 Magnesium 1.9 Total Bilirubin 1.7 H AST 85 H ALT 46 Alkaline Phosphatase 198 H Ammonia C-React Prot High Sens Total Protein 7.9 Albumin 3.2 Globulin 4.7 Albumin/Globulin Ratio 0.7 L Triglycerides Cholesterol LDL Cholesterol Direct HDL Cholesterol Procalcitonin Free T4 1.58 TSH 3rd Generation Influenza Typ A,B (EIA) 06/11/18 06/11/18 06/11/18 11:30 14:20 14:20 WBC 6.9 RBC 4.30 Hgb 14.3 Hct 41.9 L MCV 97.4 MCH 33.3 MCHC 34.1 RDW 17.0 H Plt Count 333 MPV 9.7 Neut % (Auto) 70.8 H Lymph % (Auto) 15.2 L Wise % (Auto) 12.2 H Eos % (Auto) 1.5 Baso % (Auto) 0.3 Lymph # (Auto) 1.0 L Wise # (Auto) 0.8 H Eos # (Auto) 0.1 Baso # (Auto) 0.02 Absolute Neuts (auto) 4.86 ESR PT 31.9 H INR 2.87 pCO2 pO2 HCO3 ABG pH ABG Total CO2 ABG O2 Saturation ABG O2 Content ABG Base Excess ABG Hemoglobin ABG Carboxyhemoglobin POC ABG HHb (Measured) ABG Methemoglobin ABG O2 Capacity Hgb O2 Saturation FiO2 Sodium Potassium Chloride Carbon Dioxide Anion Gap BUN Creatinine Est GFR ( Amer) Est GFR (Non-Af Amer) Random Glucose Hemoglobin A1c Uric Acid Calcium Magnesium Total Bilirubin AST ALT Alkaline Phosphatase Ammonia 100 H D C-React Prot High Sens Total Protein Albumin Globulin Albumin/Globulin Ratio Triglycerides Cholesterol LDL Cholesterol Direct HDL Cholesterol Procalcitonin Free T4 TSH 3rd Generation Influenza Typ A,B (EIA) 06/11/18 14:20 WBC RBC Hgb Hct MCV MCH MCHC RDW Plt Count MPV Neut % (Auto) Lymph % (Auto) Wise % (Auto) Eos % (Auto) Baso % (Auto) Lymph # (Auto) Wise # (Auto) Eos # (Auto) Baso # (Auto) Absolute Neuts (auto) ESR PT INR pCO2 pO2 HCO3 ABG pH ABG Total CO2 ABG O2 Saturation ABG O2 Content ABG Base Excess ABG Hemoglobin ABG Carboxyhemoglobin POC ABG HHb (Measured) ABG Methemoglobin ABG O2 Capacity Hgb O2 Saturation FiO2 Sodium 132 Potassium 5.1 H Chloride 98 Carbon Dioxide 22 Anion Gap 16 BUN 50 H Creatinine 2.7 H Est GFR ( Amer) 28 Est GFR (Non-Af Amer) 23 Random Glucose 134 H Hemoglobin A1c Uric Acid 7.6 Calcium 8.6 Magnesium Total Bilirubin 1.6 H AST 77 H ALT 44 Alkaline Phosphatase 181 H Ammonia C-React Prot High Sens Total Protein 7.6 Albumin 3.4 Globulin 4.2 Albumin/Globulin Ratio 0.8 L Triglycerides Cholesterol LDL Cholesterol Direct HDL Cholesterol Procalcitonin Free T4 TSH 3rd Generation Influenza Typ A,B (EIA) Review of Systems - Review of Systems Systems not reviewed;Unavailable: Acuity of Condition Critical Care Progress Note - Ventilator Checklist Head of Bed 30 Degrees: Yes DVT Prophylaxis: Yes - Prophylaxis DVT Prophylaxis DVT: Lovenox - Nutrition Nutrition: Nutrition Category Date Time Status Heart Healthy Diet [DIET] Diets 06/09/18 Dinner Active Assessment/Plan - Assessment and Plan (Free Text) Plan: Hypotension \ Hepatic Encephalopathy \ Liver Cirrhosis \ MARIE \ Afib \ Sepsis \ Cellulitis \ PNA \ \ DM 2\ -hemodynamic monitoring to maintain MAP>65 -hold metoprolol and cardizem while pt is hypotensive -cardiology team f\u -o2 supplementation to maintain Spo2 90-92 Pao2>60; currently on NC -ABG and CXR reviewed -continue broad spectrum abx as per ID team; f\u cultures -f\u Bun\Cr and U\o; consider nephrology eval -hold lasix while hypotensive -NPO diet and aspiration precautions -f\u serial LFT, continue lactulose DE for 3 BM per day -GI team f\u -consider switching lovenox to heparin in setting of MARIE -ISS and BGM monitoring -DVT prophylaxis -Palliation team eval to assess goals and directives CCM time 33min
[2018-06-11 14:52] LABS: ARTERIAL BLOOD GAS HCO3 20.7 mmol/L (21-28); ARTERIAL BLOOD GAS O2 SAT 98.9 % (95-98); ARTERIAL BLOOD GAS PCO2 42 mm/Hg (35-45)
[2018-06-11 14:56] LABS: % IRON SATURATION 28 % (20-55); TOTAL IRON BINDING CAPACITY 316 ug/dL (261-462)
--- NOTE | 2018-06-11 15:19 | CP.PCM.PN ---
<Yee Simpson - Last Filed: 06/11/18 16:14> Subjective - Date & Time of Evaluation Date of Evaluation: 06/11/18 Time of Evaluation: 07:00 - Subjective Subjective: HEPATOBILIARY SURGERY PROGRESS NOTE FOR DR. HOFFMAN Patient seen and examined at bedside. Pt denies abdominal pain. Is tolerating diet. Denies nausea or vomiting. Objective - Vital Signs/Intake and Output Vital Signs (last 24 hours): Temp Pulse Resp BP Pulse Ox 98.1 F 68 18 98/63 L 95 06/11/18 14:20 06/11/18 14:20 06/11/18 14:20 06/11/18 14:20 06/11/18 14:20 Intake and Output: 06/11/18 06/11/18 06:59 18:59 Intake Total 480 Output Total 100 Balance 380 - Medications Medications: Current Medications Betamethasone/Clotrimazole (Lotrisone) 0 gm TOP DAILY [facility] Last Admin: 06/11/18 09:32 Dose: 1 tcp Diltiazem HCl (Cardizem) 60 mg PO TID [facility] Last Admin: 06/11/18 13:15 Dose: 60 mg Enoxaparin Sodium (Lovenox) 110 mg SC Q24H [facility]; Protocol Last Admin: 06/11/18 09:42 Dose: 110 mg Folic Acid (Folic Acid) 1 mg PO DAILY [facility] Last Admin: 06/11/18 09:29 Dose: 1 mg Furosemide (Lasix) 40 mg IVP 0800,1400 [facility] Ceftaroline Fosamil 400 mg/ (Sodium Chloride) 100 mls @ 100 mls/hr IVPB Q12 [facility]; Protocol Stop: 06/20/18 11:16 Last Admin: 06/11/18 13:15 Dose: 100 mls/hr Levofloxacin/Dextrose (Levaquin 750mg) 750 mg in 150 mls @ 100 mls/hr IVPB Q48H [facility]; Protocol Stop: 06/18/18 11:16 Lactic Acid (Lac-Hydrin 12% Cream (140 G)) 0 ea TOP DAILY [facility] Last Admin: 06/11/18 09:32 Dose: 1 tcp Lactulose (Enulose) 20 gm PO TID [facility] Last Admin: 06/11/18 13:15 Dose: 20 gm Levalbuterol HCl (Xopenex) 0.63 mg IH TIDRESP [facility] Last Admin: 06/11/18 13:15 Dose: 0.63 mg Levothyroxine Sodium (Synthroid) 25 mcg PO 0600 [facility] Metoprolol Tartrate (Lopressor) 25 mg PO BID [facility] Last Admin: 06/11/18 09:29 Dose: 25 mg Mupirocin (Bactroban Ointment) 0 gm TOP BID [facility] Last Admin: 06/11/18 13:10 Dose: Not Given Rifaximin (Xifaxan) 550 mg PO BID [facility]; Protocol Spironolactone (Aldactone) 25 mg PO BID [facility] Last Admin: 06/11/18 09:30 Dose: 25 mg Thiamine HCl (Vitamin B1 Tab) 100 mg PO DAILY [facility] Last Admin: 06/11/18 09:29 Dose: 100 mg - Labs Labs: 06/11/18 14:20 06/11/18 14:20 PT 31.9 SECONDS (9.4-12.5) H 06/11/18 14:20 INR 2.87 06/11/18 14:20 APTT 45.6 Seconds (26.9-38.3) H 06/09/18 14:05 - Constitutional Appears: Non-toxic, No Acute Distress - Head Exam Head Exam: ATRAUMATIC, NORMAL INSPECTION - Respiratory Exam Respiratory Exam: NORMAL BREATHING PATTERN. absent: Respiratory Distress - Cardiovascular Exam Cardiovascular Exam: +S1, +S2 - GI/Abdominal Exam GI & Abdominal Exam: Distended, Soft. absent: Guarding, Rigid, Tenderness, Rebound - Neurological Exam Neurological Exam: Alert, Awake - Psychiatric Exam Psychiatric exam: Normal Affect, Normal Mood - Skin Skin Exam: Dry, Normal Color Assessment and Plan - Assessment and Plan (Free Text) Assessment: 73yo M with PMHx of ITP s/p splenectomy, etoh abuse presented to the ED as sent by his PMD for lethargy, somnolence leading to falls, weight gain, dyspnea on exertion. 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 - CT Abd/Pelvis = Potential duodenitis. Unremarkable appearing liver. No overt pattern of cirrhosis although cryptogenic cirrhotic pattern is not completely excluded. Trace perihepatic ascites is identified however. Bilateral pleural effusions are mild, right greater than left with limited pericardial thickening or effusion. Questionable anasarca. - No acute hepatic surgical intervention necessary at this time - May follow up with Dr. Hoffman in his office as an outpatient - Discussed plan with Dr. Nam Simpson PGY-4 <Dipesh Hoffman - Last Filed: 06/14/18 17:21> Objective - Vital Signs/Intake and Output Vital Signs (last 24 hours): Temp Pulse Resp BP Pulse Ox 97.7 F 99 H 24 109/57 L 91 L 06/14/18 12:00 06/14/18 16:00 06/14/18 16:00 06/14/18 16:00 06/14/18 16:00 Intake and Output: 06/14/18 06/14/18 06:59 18:59 Intake Total 1100 Output Total 50 Balance 1050 - Medications Medications: Current Medications Arformoterol Tartrate (Brovana) 15 mcg IH [id number] [facility] Last Admin: 06/14/18 08:35 Dose: 15 mcg Betamethasone/Clotrimazole (Lotrisone) 0 gm TOP DAILY [facility] Last Admin: 06/14/18 09:33 Dose: 1 tcp Budesonide (Pulmicort Respules) 0.5 mg IH [id number] [facility] Last Admin: 06/14/18 08:35 Dose: 0.5 mg Diltiazem HCl (Cardizem) 60 mg PO TID [facility] Last Admin: 06/11/18 13:15 Dose: 60 mg Folic Acid (Folic Acid) 1 mg PO DAILY [facility] Last Admin: 06/14/18 09:28 Dose: 1 mg Guaifenesin/Dextromethorphan (Robitussin Dm) 10 ml PO Q4H PRN PRN Reason: Cough Last Admin: 06/13/18 17:20 Dose: 10 ml NOREPINEPHRINE BIT/0.9 % NACL (Levophed 4 Mg/ 250 Ml Ns Premixed) 4 mg in 250 mls @ 7.5 mls/hr IV .Q24H [facility]; Protocol PRN Reason: TITRATE PER MD ORDER Lactic Acid (Lac-Hydrin 12% Cream (140 G)) 0 ea TOP DAILY [facility] Last Admin: 06/14/18 09:34 Dose: 1 tcp Lactulose (Enulose) 20 gm PO BID [facility] Levalbuterol HCl (Xopenex) 0.63 mg IH TIDRESP [facility] Last Admin: 06/14/18 13:37 Dose: 0.63 mg Levothyroxine Sodium (Synthroid) 25 mcg PO 0600 [facility] Last Admin: 06/14/18 05:10 Dose: 25 mcg Methylprednisolone (Solu-Medrol) 40 mg IVP Q6 [facility] Last Admin: 06/14/18 11:59 Dose: 40 mg Metoprolol Tartrate (Lopressor) 25 mg PO BID [facility] Last Admin: 06/11/18 09:29 Dose: 25 mg Mupirocin (Bactroban Ointment) 0 gm TOP BID [facility] Rifaximin (Xifaxan) 550 mg PO Q12 [facility]; Protocol Last Admin: 06/14/18 09:28 Dose: 550 mg Spironolactone (Aldactone) 25 mg PO BID [facility] Last Admin: 06/11/18 09:30 Dose: 25 mg Thiamine HCl (Vitamin B1 Tab) 100 mg PO DAILY [facility] Last Admin: 06/14/18 09:28 Dose: 100 mg - Labs Labs: 06/14/18 05:30 06/14/18 15:50 PT 27.2 SECONDS (9.4-12.5) H 06/14/18 08:30 INR 2.41 06/14/18 08:30 APTT 45.6 Seconds (26.9-38.3) H 06/09/18 14:05 Assessment and Plan - Assessment and Plan (Free Text) Assessment: All medical record entries made by the resident were at my direction. I have reviewed the chart and agree that the record accurately reflects my personal performance of the history, physical exam, and medical decision making.
--- NOTE | 2018-06-11 16:45 | US ---
PROCEDURE: Lower extremity SIMON exam HISTORY: Peripheral vascular disease with pain and ulceration. Previous smoker PHYSICIAN(S): Henry Gomes MD. FINDINGS: The PVR waveforms are limited by artifact The resting SIMON's are moderately abnormal: Right, 0.67 and left, 0.72 The brachial systolic pressures are symmetric. The high thigh pressures are noncompressible. High thigh PVR waveforms are relatively normal and symmetric The calf PVR waveforms augment normally and are relatively symmetric. There is a 42 mm gradient across the right knee and a 59 mm gradient across the left knee. The findings are consistent with bilateral popliteal, trifurcation, and/or tibial disease. The ankle and metatarsal waveforms are moderately blunted, greater on the right than the left IMPRESSION: 1. The exam is limited by artifact. 2. Bilateral popliteal, trifurcation, and/or tibial disease
[2018-06-11 16:52] LABS: HEPATITIS B SURFACE AG Negative (NEGATIVE)
[2018-06-11 16:58] LABS: HEPATITIS A IGM NEGATIVE (NEGATIVE); HEPATITIS B CORE AB NEGATIVE (NEGATIVE)
[2018-06-11 17:09] LABS: HEPATITIS C ANTIBODY NEGATIVE (NEGATIVE)
[2018-06-11] MEDS: Azithromycin 500MG/NS 250ml 500 MG/250 ML BAG IVPB SCH (18:30)
[2018-06-11 20:18] LABS: ALB/GLOB RATIO 0.7 (1.1-1.8); ALBUMIN 3.3 g/dL (3.0-4.8); BILIRUBIN,DIRECT 1.4 mg/dL (0.0-0.4); CALCIUM 8.5 mg/dL (8.4-10.5)
[2018-06-11 20:35] LABS: ACETAMINOPHEN < 10.0 ug/ml (10.0-20.0); SALICYLATE < 1 mg/dL (2.0-20.0)
--- NOTE | 2018-06-11 21:20 | PN ---
DATE: 06/11/2018 SUBJECTIVE: The patient was seen and examined. I do agree with the note of the medical art therapist. I was involved in the plan of care. The patient is admitted to the hospital because of rapid atrial fibrillation. The heart rate is better controlled. He also has a right lower lobe pneumonia, community acquired and causing sepsis. He is receiving IV antibiotics for this. He is being followed by Infectious Disease. The patient has aortic stenosis as well as mitral valve stenosis and tricuspid regurgitation. He also has severe pulmonary hypertension. He had acute kidney injury. The patient had hepatic encephalopathy and was placed on lactulose. Lactulose was increased earlier today by me because of the confusion. He also has a history of alcohol abuse, hypothyroidism, and ITP. The patient has a negative influenza A and B. Cultures have been negative. He is currently on Aldactone to help with his diuresis. He has CHF. The patient is on folic acid and thiamine. Later on the day, the patient had more confusion and was transferred to the ICU. I did speak to Dr. Kramer when the rapid response was done. The patient is on lactulose , he is receiving Lasix daily. He is on Lovenox for anticoagulation. He is on Synthroid for his hypothyroidism. He is on a heart-healthy diet. He is therapeutic with an INR of 2.8. For that reason, I will discontinue the patient's Lovenox. His overall prognosis is guarded. Jonathon Aviles MD
[2018-06-12] MEDS ORDERED: guaiFENesin 200 mg/10 ml Syrup UD PO ONE (01:51)
[2018-06-12 02:23] LABS: URINE BILIRUBIN SMALL (NEGATIVE); URINE BLOOD TRACE-INTACT (NEGATIVE); URINE GLUCOSE (UA) NEGATIVE (NEGATIVE); URINE LEUKOCYTE ESTERASE NEGATIVE Leu/uL (NEGATIVE); URINE PROTEIN 100 mg/dL (<30 mg/dL)
[2018-06-12 02:28] LABS: URINE APPEARANCE SL CLOUDY (CLEAR); URINE COLOR DARK YELLOW (YELLOW)
[2018-06-12 02:41] LABS: URINE BACTERIA FEW /hpf; URINE EPITHELIAL CELLS 0 - 2 /hpf (0-5); URINE WBC 0 - 2 /hpf (0-6)
[2018-06-12 02:42] LABS: URINE AMORPHOUS SEDIMENT FEW /hpf
[2018-06-12] MEDS: Levothyroxine 25 MCG TAB PO SCH (05:29)
[2018-06-12 05:51] LABS: BASO # 0.01 K/mm3 (0.0-2.0); BASO % 0.1 % (0.0-3.0); EOS % 0.4 % (1.5-5.0); HEMOGLOBIN 14.6 g/dL (14.0-18.0); LYMPH # 0.7 (1.2-3.4); LYMPH % 8.4 % (22.0-35.0); MEAN CELL VOLUME 97.5 fl (80.0-105.0); MEAN CORPUSCULAR HGB CONC 33.9 g/dl (31.0-37.0); MEAN PLATELET VOLUME 10.1 fl (7.0-11.0); MONO # 0.8 (0.1-0.6); MONO % 9.8 % (1.0-6.0); RBC 4.42 10^6/uL (3.5-6.1); RED CELL DISTRIBUTION WIDTH 16.6 % (11.5-14.5); WHITE BLOOD COUNT 8.3 10^3/uL (4.5-11.0)
[2018-06-12 06:12] LABS: ALB/GLOB RATIO 0.8 (1.1-1.8); ALBUMIN 3.6 g/dL (3.0-4.8); CALCIUM 8.8 mg/dL (8.4-10.5)
[2018-06-12] MEDS ORDERED: Sodium Chloride 0.9% 1,000 ML IV SCH ×2 (08:00→15:58)
[2018-06-12] MEDS: Levalbuterol 0.63 MG/3 ML Inhal Soln UD IH SCH ×3 (08:03→19:53)
[2018-06-12] MEDS: Mupirocin 2% Ointment 15 GM TUBE TOP SCH ×2 (09:55→18:04)
[2018-06-12] MEDS: Clotrimazole/Betamethasone Cream(15 gm) TOP SCH (09:55)
--- NOTE | 2018-06-12 09:56 | CP.PCM.PN ---
<Amira Umaña - Last Filed: 06/12/18 09:53> Subjective - Date & Time of Evaluation Date of Evaluation: 06/12/18 Time of Evaluation: 09:53 - Subjective Subjective: Podiatry progress note for Dr. Espitia 73 year old male patient, seen and evaluated in the ICU with Dr. Espitia, for bilateral lower extremity xerosis/scaling and right hallucal bruising. Patient complains of pain and discomfort to his LE at this time. Denies any new pedal complaints Patient denies any fever, nausea or vomiting, but complains of shortness of breath. Objective - Vital Signs/Intake and Output Vital Signs (last 24 hours): Temp Pulse Resp BP Pulse Ox 97.6 F 85 22 107/70 96 06/12/18 08:00 06/12/18 07:48 06/12/18 07:47 06/12/18 07:47 06/12/18 07:47 Intake and Output: 06/12/18 06/12/18 06:59 18:59 Intake Total 820 Output Total 470 Balance 350 - Medications Medications: Current Medications Betamethasone/Clotrimazole (Lotrisone) 0 gm TOP DAILY [facility] Last Admin: 06/11/18 09:32 Dose: 1 tcp Diltiazem HCl (Cardizem) 60 mg PO TID [facility] Last Admin: 06/11/18 13:15 Dose: 60 mg Folic Acid (Folic Acid) 1 mg PO DAILY [facility] Last Admin: 06/11/18 09:29 Dose: 1 mg Ceftaroline Fosamil 400 mg/ (Sodium Chloride) 100 mls @ 100 mls/hr IVPB Q12 [facility]; Protocol Stop: 06/20/18 11:16 Last Admin: 06/11/18 21:33 Dose: 100 mls/hr Azithromycin (Zithromax 500mg In Ns) 500 mg in 250 mls @ 167 mls/hr IVPB DAILY [facility]; Protocol Last Admin: 06/11/18 18:30 Dose: 167 mls/hr Sodium Chloride (Sodium Chloride 0.9%) 1,000 mls @ 100 mls/hr IV .Q10H [facility] Stop: 06/12/18 17:59 Last Admin: 06/12/18 08:28 Dose: 100 mls/hr Lactic Acid (Lac-Hydrin 12% Cream (140 G)) 0 ea TOP DAILY [facility] Last Admin: 06/11/18 09:32 Dose: 1 tcp Lactulose (Enulose) 20 gm PO TID [facility] Last Admin: 06/11/18 18:30 Dose: 20 gm Levalbuterol HCl (Xopenex) 0.63 mg IH TIDRESP [facility] Last Admin: 06/12/18 08:03 Dose: 0.63 mg Levothyroxine Sodium (Synthroid) 25 mcg PO 0600 [facility] Last Admin: 06/12/18 05:29 Dose: 25 mcg Metoprolol Tartrate (Lopressor) 25 mg PO BID [facility] Last Admin: 06/11/18 09:29 Dose: 25 mg Mupirocin (Bactroban Ointment) 0 gm TOP BID [facility] Last Admin: 06/11/18 18:49 Dose: Not Given Spironolactone (Aldactone) 25 mg PO BID [facility] Last Admin: 06/11/18 09:30 Dose: 25 mg Thiamine HCl (Vitamin B1 Tab) 100 mg PO DAILY [facility] Last Admin: 06/11/18 09:29 Dose: 100 mg - Labs Labs: 06/12/18 05:00 06/12/18 05:00 PT 31.9 SECONDS (9.4-12.5) H 06/11/18 14:20 INR 2.87 06/11/18 14:20 APTT 45.6 Seconds (26.9-38.3) H 06/09/18 14:05 - Constitutional Appears: Non-toxic, No Acute Distress - Head Exam Head Exam: ATRAUMATIC, NORMOCEPHALIC - Extremities Exam Additional comments: Bilateral Lower Extremity Focused Exam VASC: DP and PT pulses 2/4 bilaterally, CFT less than 3 seconds X 10, non- pitting edema noted to bilateral lower legs DERM: multiple excoriated scabbed wounds with scaling noted of bilateral legs c ircumferentially, positive mild erythema noted to bilateral legs along with the xerosis, minimal ecchymosis noted to the tip of the right hallux likely secondary to cyanosis vs. injury, no drainage, no tracking, no probe to bone, no open lesions NEURO: grossly intact ORTHO: no pain on palpation to the lower extremities, MSK not performed at this time - Neurological Exam Neurological Exam: Alert, Awake, Oriented x3 - Psychiatric Exam Psychiatric exam: Normal Affect, Normal Mood Assessment and Plan - Assessment and Plan (Free Text) Assessment: 73 year old male with bilateral lower extremity xerosis with excoriated lesions Plan: Patient was seen and evaluated with Afebrile, WBC 8.3 SIMON/PVR: R: 0.67, L: 0.72 Lotrisone and LacHydrin applied to B/L LE Patient to be in Multipodus boots at all times when in bed Bactroban and Mepilex to scabs on knee Vasc consult; reccs appreciated Continue management per primary care team Stable from podiatry standpoint, no intervention at this time Podiatry will continue to follow patient while in house <Reji Espitia - Last Filed: 06/15/18 07:54> Objective - Vital Signs/Intake and Output Vital Signs (last 24 hours): Temp Pulse Resp BP Pulse Ox 98.1 F 121 H 28 H 128/88 94 L 06/15/18 06:00 06/15/18 07:16 06/15/18 06:30 06/15/18 06:30 06/15/18 06:30 Intake and Output: 06/15/18 06/15/18 06:59 18:59 Intake Total 230 Output Total 350 Balance -120 - Medications Medications: Current Medications Arformoterol Tartrate (Brovana) 15 mcg IH [id number] [facility] Last Admin: 06/15/18 07:12 Dose: 15 mcg Azithromycin (Zithromax) 250 mg PO DAILY [facility]; Protocol Stop: 06/20/18 10:01 Betamethasone/Clotrimazole (Lotrisone) 0 gm TOP DAILY [facility] Last Admin: 06/14/18 09:33 Dose: 1 tcp Budesonide (Pulmicort Respules) 0.5 mg IH [id number] [facility] Last Admin: 06/15/18 07:12 Dose: 0.5 mg Diltiazem HCl (Cardizem) 60 mg PO TID [facility] Last Admin: 06/11/18 13:15 Dose: 60 mg Folic Acid (Folic Acid) 1 mg PO DAILY [facility] Last Admin: 06/14/18 09:28 Dose: 1 mg Guaifenesin/Dextromethorphan (Robitussin Dm) 10 ml PO Q4H PRN PRN Reason: Cough Last Admin: 06/13/18 17:20 Dose: 10 ml NOREPINEPHRINE BIT/0.9 % NACL (Levophed 4 Mg/ 250 Ml Ns Premixed) 4 mg in 250 mls @ 7.5 mls/hr IV .Q24H [facility]; Protocol PRN Reason: TITRATE PER MD ORDER Last Admin: 06/14/18 17:35 Dose: 2 mcg/min, 7.5 mls/hr Lactic Acid (Lac-Hydrin 12% Cream (140 G)) 0 ea TOP DAILY [facility] Last Admin: 06/14/18 09:34 Dose: 1 tcp Lactulose (Enulose) 20 gm PO DAILY [facility] Levalbuterol HCl (Xopenex) 0.63 mg IH TIDRESP [facility] Last Admin: 06/15/18 07:12 Dose: 0.63 mg Levothyroxine Sodium (Synthroid) 25 mcg PO 0600 [facility] Last Admin: 06/15/18 05:35 Dose: 25 mcg Methylprednisolone (Solu-Medrol) 40 mg IVP Q6 [facility] Last Admin: 06/15/18 07:15 Dose: 40 mg Metoprolol Tartrate (Lopressor) 25 mg PO BID [facility] Last Admin: 06/11/18 09:29 Dose: 25 mg Mupirocin (Bactroban Ointment) 0 gm TOP BID [facility] Last Admin: 06/14/18 17:24 Dose: 1 applic Rifaximin (Xifaxan) 550 mg PO Q12 [facility]; Protocol Last Admin: 06/14/18 22:15 Dose: 550 mg Spironolactone (Aldactone) 25 mg PO BID [facility] Last Admin: 06/11/18 09:30 Dose: 25 mg Thiamine HCl (Vitamin B1 Tab) 100 mg PO DAILY [facility] Last Admin: 06/14/18 09:28 Dose: 100 mg - Labs Labs: 06/15/18 06:20 06/15/18 06:20 PT 27.2 SECONDS (9.4-12.5) H 06/14/18 08:30 INR 2.41 06/14/18 08:30 APTT 45.6 Seconds (26.9-38.3) H 06/09/18 14:05 Attending/Attestation - Attestation I have personally seen and examined this patient.: Yes I have fully participated in the care of the patient.: Yes I have reviewed all pertinent clinical information, including history, physical exam and plan: Yes
[2018-06-12] MEDS: Azithromycin 500MG/NS 250ml 500 MG/250 ML BAG IVPB SCH (10:00)
[2018-06-12] MEDS ORDERED: levoFLOXacin 750 mg in D5W 750 MG/150 ML BAG IVPB SCH ×2 (10:00→11:15)
[2018-06-12] MEDS: Ammonium Lactate 12% Cream (140 g) TOP SCH (10:02)
--- NOTE | 2018-06-12 10:37 | PN ---
DATE: 06/12/2018 SUBJECTIVE: The patient has no complaints of any chest pain or shortness of breath. He is more awake and alert. PHYSICAL EXAMINATION: VITAL SIGNS: Temperature is 97.3, pulse of 85, blood pressure 107/70, respirations are 22. GENERAL: The patient is lying in bed, flat, comfortable. HEENT: No oral lesion. Anicteric sclerae. Moist mucosa. NECK: No JVD, adenopathy, or thyromegaly. CARDIOVASCULAR: S1 and S2, regular. No murmurs, rubs, or gallops. LUNGS: Clear to auscultation bilaterally. No wheeze, rales, or rhonchi. ABDOMEN: Bowel sounds are positive, soft, nontender and nondistended. EXTREMITIES: no cyanosis, clubbing or edema. LABS: White count of 8.3, hemoglobin 14.6, creatinine is 3.2. ASSESSMENT: 1. Hepatic encephalopathy, improving. 2. Community-acquired pneumonia. 3. Sepsis. 4. Aortic stenosis. 5. Mitral valve stenosis. 6. Tricuspid regurge. 7. Alcohol abuse. 8. Hypothyroidism. 9. Idiopathic thrombocytopenic purpura. PLAN: The patient is much more awake and alert. He is in the ICU. He is going to continue on his lactulose. He is on metoprolol, he is on Synthroid for his hypothyroidism, he is receiving ceftaroline for antibiotics. The patient is on thiamine as well. He had leg cultures that shows gram-negative cocci. The patient is being followed by Infectious Disease, Dr. Molina and also Dr. De from Podiatry. He is on a heart-healthy diet, currently comfortable. We will order a.m. labs. This is coverage for Dr. Savage. I am concerned that the pt may be going into hepatorenal syndrome. Will need to follow closely. ATN and Pre-Renal is also a concern. He is on lactulose and has diarrhea and not eating well. Jonathon Aviles MD [facility]
--- NOTE | 2018-06-12 10:48 | PN ---
DATE: 06/12/2018 GUN FITTER NOTE SUBJECTIVE: The patient is awake, more alert today. O2 via nasal cannula. No complaints of respiratory distress. The patient has no complaints of pain. No fever or chills. No nausea or vomiting. He is asking for breakfast this morning. PHYSICAL EXAMINATION VITAL SIGNS: His temperature is 97.3, pulse is 85, respirations are 20 and BP 107/70. SKIN: Warm and dry. HEENT: Head is atraumatic and normocephalic. Eyes; reactive to light. Ear, nose and throat seem to be within normal limits. NECK: Supple. No JVD. No thyroid enlargement. No lymph nodes. HEART: Regular rate and rhythm. Normal S1 and S2. LUNGS: Reveal bilateral rhonchi. ABDOMEN: Soft. Decreased bowel sounds. GENITALIA: Deferred. RECTAL: Deferred. MUSCULOSKELETAL: No joint deformities. EXTREMITIES: Reveal positive lower extremity edema. NEUROLOGICALLY: He seem to be grossly intact. LABORATORY DATA: As far as his laboratories are concerned, white count is 8.3, hemoglobin is 14.6, hematocrit 43.1 with platelet of 351,000. Sodium is 134, potassium 4.9, chloride 98, CO2 of 22 with BUN of 54, creatinine of 3.2 and glucose of 94. IMPRESSION: This patient has hepatic encephalopathy and right lower lobe pneumonia, possible sepsis. He has history of ETOH abuse, and hypothyroidism. The patient presented with atrial fibrillation and congestive heart failure, and is noted to have renal failure as well. PLAN: As far as our plan, we will continue with lactulose, folic acid, IV fluids, Synthroid, ceftaroline, vitamin D1, Xopenex and Zithromax. We will continue to follow closely and treat aggressively along with the other consultants and the primary care doctor. Jerry Ng MD
--- NOTE | 2018-06-12 11:28 | CP.PCM.PN ---
Subjective - Date & Time of Evaluation Date of Evaluation: 06/12/18 Time of Evaluation: 09:00 - Subjective Subjective: Comfortable on a chair, no fevers, not in distress. Objective - Vital Signs/Intake and Output Vital Signs (last 24 hours): Temp Pulse Resp BP Pulse Ox 97.3 F L 83 23 107/70 95 06/12/18 04:00 06/12/18 07:01 06/12/18 07:01 06/12/18 07:01 06/12/18 07:01 Intake and Output: 06/12/18 06/12/18 06:59 18:59 Intake Total 820 Output Total 470 Balance 350 - Medications Medications: Current Medications Betamethasone/Clotrimazole (Lotrisone) 0 gm TOP DAILY [facility] Last Admin: 06/11/18 09:32 Dose: 1 tcp Diltiazem HCl (Cardizem) 60 mg PO TID [facility] Last Admin: 06/11/18 13:15 Dose: 60 mg Folic Acid (Folic Acid) 1 mg PO DAILY [facility] Last Admin: 06/11/18 09:29 Dose: 1 mg Ceftaroline Fosamil 400 mg/ (Sodium Chloride) 100 mls @ 100 mls/hr IVPB Q12 [facility]; Protocol Stop: 06/20/18 11:16 Last Admin: 06/11/18 21:33 Dose: 100 mls/hr Azithromycin (Zithromax 500mg In Ns) 500 mg in 250 mls @ 167 mls/hr IVPB DAILY [facility]; Protocol Last Admin: 06/11/18 18:30 Dose: 167 mls/hr Lactic Acid (Lac-Hydrin 12% Cream (140 G)) 0 ea TOP DAILY [facility] Last Admin: 06/11/18 09:32 Dose: 1 tcp Lactulose (Enulose) 20 gm PO TID [facility] Last Admin: 06/11/18 18:30 Dose: 20 gm Levalbuterol HCl (Xopenex) 0.63 mg IH TIDRESP [facility] Last Admin: 06/11/18 20:10 Dose: 0.63 mg Levothyroxine Sodium (Synthroid) 25 mcg PO 0600 [facility] Last Admin: 06/12/18 05:29 Dose: 25 mcg Metoprolol Tartrate (Lopressor) 25 mg PO BID [facility] Last Admin: 06/11/18 09:29 Dose: 25 mg Mupirocin (Bactroban Ointment) 0 gm TOP BID [facility] Last Admin: 06/11/18 18:49 Dose: Not Given Spironolactone (Aldactone) 25 mg PO BID [facility] Last Admin: 06/11/18 09:30 Dose: 25 mg Thiamine HCl (Vitamin B1 Tab) 100 mg PO DAILY [facility] Last Admin: 06/11/18 09:29 Dose: 100 mg - Labs Labs: 06/12/18 05:00 06/12/18 05:00 PT 31.9 SECONDS (9.4-12.5) H 06/11/18 14:20 INR 2.87 06/11/18 14:20 APTT 45.6 Seconds (26.9-38.3) H 06/09/18 14:05 - Constitutional Appears: Chronically Ill - Head Exam Head Exam: NORMAL INSPECTION - Respiratory Exam Respiratory Exam: Decreased Breath Sounds - Cardiovascular Exam Cardiovascular Exam: +S1, +S2 - GI/Abdominal Exam GI & Abdominal Exam: Soft. 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
--- NOTE | 2018-06-12 13:50 | CP.PCM.PN ---
<Brian Leyva - Last Filed: 06/12/18 13:46> Subjective - Date & Time of Evaluation Date of Evaluation: 06/12/18 Time of Evaluation: 13:46 - Subjective Subjective: Sitting up in chair. His urine output is low, lost urine was last night and was dark. His is having several loose BMs. Objective - Vital Signs/Intake and Output Vital Signs (last 24 hours): Temp Pulse Resp BP Pulse Ox 98 F 87 31 H 105/52 L 91 L 06/12/18 12:00 06/12/18 13:30 06/12/18 13:30 06/12/18 13:00 06/12/18 13:30 Intake and Output: 06/12/18 06/12/18 06:59 18:59 Intake Total 820 650 Output Total 470 Balance 350 650 - Medications Medications: Current Medications Betamethasone/Clotrimazole (Lotrisone) 0 gm TOP DAILY [facility] Last Admin: 06/12/18 09:55 Dose: Not Given Diltiazem HCl (Cardizem) 60 mg PO TID [facility] Last Admin: 06/11/18 13:15 Dose: 60 mg Folic Acid (Folic Acid) 1 mg PO DAILY [facility] Last Admin: 06/12/18 10:01 Dose: 1 mg Ceftaroline Fosamil 400 mg/ (Sodium Chloride) 100 mls @ 100 mls/hr IVPB Q12 [facility]; Protocol Stop: 06/20/18 11:16 Last Admin: 06/12/18 10:22 Dose: 100 mls/hr Azithromycin (Zithromax 500mg In Ns) 500 mg in 250 mls @ 167 mls/hr IVPB DAILY [facility]; Protocol Last Admin: 06/12/18 10:00 Dose: 167 mls/hr Sodium Chloride (Sodium Chloride 0.9%) 1,000 mls @ 100 mls/hr IV .Q10H [facility] Stop: 06/12/18 17:59 Last Admin: 06/12/18 08:28 Dose: 100 mls/hr Lactic Acid (Lac-Hydrin 12% Cream (140 G)) 0 ea TOP DAILY [facility] Last Admin: 06/12/18 10:02 Dose: 1 tcp Lactulose (Enulose) 20 gm PO TID [facility] Last Admin: 06/12/18 10:01 Dose: 20 gm Levalbuterol HCl (Xopenex) 0.63 mg IH TIDRESP [facility] Last Admin: 06/12/18 08:03 Dose: 0.63 mg Levothyroxine Sodium (Synthroid) 25 mcg PO 0600 [facility] Last Admin: 06/12/18 05:29 Dose: 25 mcg Metoprolol Tartrate (Lopressor) 25 mg PO BID [facility] Last Admin: 06/11/18 09:29 Dose: 25 mg Mupirocin (Bactroban Ointment) 0 gm TOP BID [facility] Last Admin: 06/12/18 09:55 Dose: Not Given Spironolactone (Aldactone) 25 mg PO BID [facility] Last Admin: 06/11/18 09:30 Dose: 25 mg Thiamine HCl (Vitamin B1 Tab) 100 mg PO DAILY [facility] Last Admin: 06/12/18 10:01 Dose: 100 mg - Labs Labs: 06/12/18 05:00 06/12/18 05:00 PT 31.9 SECONDS (9.4-12.5) H 06/11/18 14:20 INR 2.87 06/11/18 14:20 APTT 45.6 Seconds (26.9-38.3) H 06/09/18 14:05 - Constitutional Appears: No Acute Distress, Chronically Ill - Eye Exam Eye Exam: EOMI - Respiratory Exam Respiratory Exam: Accessory Muscle Use. absent: NORMAL BREATHING PATTERN - GI/Abdominal Exam GI & Abdominal Exam: Soft, Normal Bowel Sounds. absent: Tenderness - Extremities Exam Extremities Exam: Pedal Edema. 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 Differential includes cardiorenal vs hepatorenal or other. The evidence is stronger for cardiorenal given echocardiogram findings. 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 This may improved kidney failure. If this were Hepatorenal sydrome, patient would need fluids, but this could put significant strain on the heart and lungs and this patient is having a difficult time breathing already. Ultimately we agree with cardiology and diuretics with close monitoring of kidneys. The patient may ultimately need dialysis. Agree prognosis is poor. - Abd pelvis CT: potential duodenitis. liver size unchanged, no overt cirrhotic pattern. trace perihepatic ascites. b/l inguinal LAD. questionable anasarca? Mild b/l pleural effusions, R>L with limited pericardial thickening. - Abd US: mild hepatomegaly, diffuse increased echogenicity of the liver, hepatic steatosis. trace perihepatic ascites. no cholelithiasis or biliary dilatation. Diffuse gallbladder wall thickening. - Echo: EF 66%. Systolic fxn of RV is severely reduced. Mod valvular aortic stenosis, DESMOND 1.13. Mod to severe MV stenosis. Mod to severe TR. Severe pulm HTN (RVSP 79 mmHg). IVC dilated. - Started on lactulose 20 gm tid today per primary team. Will titrate to 2-3 BMs/day. - Started on rifaximin bid - F/u hepatitis panel, HIV. Ordered ceruloplasmin, ferritin, percent saturation, AI hepatitis w/u, immunofixation, hep Bs Ab, hep A total, tylenol, salicylate, direct bilirubin. - Recommend EGD to assess for varices, however severe pulmonary HTN is a concern as well as rising creatinine. - continue with antibiotics as per ID. - Further recs per Dr Issa. Case seen and discussed with Dr Issa. <Marysol Issa V - Last Filed: 06/12/18 16:37> Objective - Vital Signs/Intake and Output Vital Signs (last 24 hours): Temp Pulse Resp BP Pulse Ox 98 F 98 H 24 127/64 80 L 06/12/18 12:00 06/12/18 14:30 06/12/18 14:30 06/12/18 14:01 06/12/18 14:30 Intake and Output: 06/12/18 06/12/18 06:59 18:59 Intake Total 820 970 Output Total 470 Balance 350 970 - Medications Medications: Current Medications Arformoterol Tartrate (Brovana) 15 mcg IH [id number] [facility] Betamethasone/Clotrimazole (Lotrisone) 0 gm TOP DAILY [facility] Last Admin: 06/12/18 09:55 Dose: Not Given Budesonide (Pulmicort Respules) 0.5 mg IH [id number] [facility] Diltiazem HCl (Cardizem) 60 mg PO TID [facility] Last Admin: 06/11/18 13:15 Dose: 60 mg Folic Acid (Folic Acid) 1 mg PO DAILY [facility] Last Admin: 06/12/18 10:01 Dose: 1 mg Guaifenesin/Dextromethorphan (Robitussin Dm) 10 ml PO Q4H PRN PRN Reason: Cough Last Admin: 06/12/18 15:52 Dose: 10 ml Ceftaroline Fosamil 400 mg/ (Sodium Chloride) 100 mls @ 100 mls/hr IVPB Q12 [facility]; Protocol Stop: 06/20/18 11:16 Last Admin: 06/12/18 10:22 Dose: 100 mls/hr Azithromycin (Zithromax 500mg In Ns) 500 mg in 250 mls @ 167 mls/hr IVPB DAILY [facility]; Protocol Last Admin: 06/12/18 10:00 Dose: 167 mls/hr Sodium Chloride (Sodium Chloride 0.9%) 1,000 mls @ 50 mls/hr IV .Q20H [facility] Stop: 06/13/18 03:59 Lactic Acid (Lac-Hydrin 12% Cream (140 G)) 0 ea TOP DAILY [facility] Last Admin: 06/12/18 10:02 Dose: 1 tcp Levalbuterol HCl (Xopenex) 0.63 mg IH TIDRESP [facility] Last Admin: 06/12/18 14:01 Dose: 0.63 mg Levothyroxine Sodium (Synthroid) 25 mcg PO 0600 [facility] Last Admin: 06/12/18 05:29 Dose: 25 mcg Metoprolol Tartrate (Lopressor) 25 mg PO BID [facility] Last Admin: 06/11/18 09:29 Dose: 25 mg Mupirocin (Bactroban Ointment) 0 gm TOP BID [facility] Last Admin: 06/12/18 09:55 Dose: Not Given Rifaximin (Xifaxan) 550 mg PO Q12 [facility]; Protocol Spironolactone (Aldactone) 25 mg PO BID [facility] Last Admin: 06/11/18 09:30 Dose: 25 mg Thiamine HCl (Vitamin B1 Tab) 100 mg PO DAILY [facility] Last Admin: 06/12/18 10:01 Dose: 100 mg - Labs Labs: 06/12/18 05:00 06/12/18 05:00 PT 31.9 SECONDS (9.4-12.5) H 06/11/18 14:20 INR 2.87 06/11/18 14:20 APTT 45.6 Seconds (26.9-38.3) H 06/09/18 14:05 Attending/Attestation - Attestation I have personally seen and examined this patient.: Yes I have fully participated in the care of the patient.: Yes I have reviewed all pertinent clinical information, including history, physical exam and plan: Yes Notes (Text): This patient was seen and evaluated here earlier along with the GI fellow. This is an addendum to the progress note dictated by the GI fellow. Discussed with the ICU resident. This patient has a multiple comorbidities. The significant problem appears to be cardiac in the background of cirrhosis of the liver compounded by renal failure Patient does have mitral stenosis aortic stenosis with a significant pulmonary hypertension predominant right heart failure. This will do have worsened cirrhosis probably secondary to the chronic alcohol use. Patient does have significant pulmonary hypertension ascites elevated JVD and pedal edema. Pleurx rule out sepsis new onset A. fib. History of thrombocytopenia secondary to ITP status post splenectomy in the past Patient does have worsening of the renal function and in this patient it is not typical of hepatorenal however difficult to evaluate given the significant cardiac status.In typical hepatorenal we need to give fluid then albumin challenge to evaluate. In cardiac failure in this patient would benefit from diuretic therapy which can worsen his renal function due to hepatorenal in this patient. Patient does have significant predominant right heart failure with hepatic congestion in the background of cirrhosis which could explain his elevated INR on initial admission 06/12/18 16:28
[2018-06-12] MEDS: guaiFENesin DM 200 mg-20 mg/10 ml UD PO PRN ×2 (15:52→20:43)
[2018-06-12] MEDS: Arformoterol 15 mcg/2 ml Inh Sol IH SCH (19:53)
[2018-06-12] MEDS: Budesonide 0.5 mg/2 ml Inhal Susp UD IH SCH (19:53)
[2018-06-13] MEDS: Levothyroxine 25 MCG TAB PO SCH (05:31)
[2018-06-13 05:42] LABS: HEMOGLOBIN 14.2 g/dL (14.0-18.0); MEAN CELL VOLUME 97.9 fl (80.0-105.0); MEAN CORPUSCULAR HEMOGLOBIN 32.4 pg (25.0-35.0); MEAN CORPUSCULAR HGB CONC 33.1 g/dl (31.0-37.0); MEAN PLATELET VOLUME 10.2 fl (7.0-11.0); RBC 4.38 10^6/uL (3.5-6.1); WHITE BLOOD COUNT 9.6 10^3/uL (4.5-11.0)
[2018-06-13 05:58] LABS: ALB/GLOB RATIO 0.8 (1.1-1.8); ALBUMIN 3.6 g/dL (3.0-4.8); CALCIUM 8.3 mg/dL (8.4-10.5)
[2018-06-13] MEDS: Arformoterol 15 mcg/2 ml Inh Sol IH SCH ×2 (07:48→19:32)
[2018-06-13] MEDS: Levalbuterol 0.63 MG/3 ML Inhal Soln UD IH SCH ×3 (07:48→19:31)
[2018-06-13] MEDS: Budesonide 0.5 mg/2 ml Inhal Susp UD IH SCH ×2 (07:48→19:31)
[2018-06-13] MEDS: guaiFENesin DM 200 mg-20 mg/10 ml UD PO PRN ×2 (09:04→17:20)
[2018-06-13] MEDS ORDERED: MethylPREDNISolone 40 mg Vial IVP STA (09:39)
--- NOTE | 2018-06-13 09:55 | PN ---
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 No complaints of pain. He is on O2 via nasal cannula and is comfortable with his respirations at this time. The patient will be placed out of bed into chair during the day and at this time no complaints of fever, chills, nausea, vomiting. PHYSICAL EXAMINATION VITAL SIGNS: His temperature is 98.4, his pulse is 96, respirations are 19 and BP is 133/69. SKIN: Warm and dry. HEENT: Head is atraumatic and normocephalic. Eyes; reactive to light. Ear, nose and throat seem to be within normal limits. NECK: Supple. No JVD. No thyroid enlargement. No lymph nodes. HEART: Regular rate and rhythm. Normal S1 and S2. LUNGS: Reveal mild rhonchi at the bases. ABDOMEN: Soft. Decreased bowel sounds. GENITALIA: Deferred. RECTAL: Deferred. MUSCULOSKELETAL: No joint deformities. EXTREMITIES: Reveal very erythematous and swollen both lower extremities, may be secondary to cellulitis. LABORATORY DATA: His white count is 9.6, hemoglobin is 14.2, hematocrit 42.9 with platelets of 367,000. The patient's sodium is 134, potassium is 4.9, chloride 98, CO2 of 21 with a BUN of 60, creatinine of 3.8 and glucose of 97. IMPRESSION: This patient has hepatic encephalopathy, which has improved with treatment. He also has right lower lobe pneumonia with possible sepsis. He has a history of EtOH abuse as well as hypothyroidism and presented with atrial fibrillation and congestive heart failure. The patient also has some renal failure as well. PLAN: We will continue to follow closely. The patient is on folic acid, IV fluids, Synthroid, antibiotics as well as vitamin D. He is getting Xopenex and Zithromax as well. We will continue to get the patient out of bed into chair. Continue aggressive pulmonary toilet and follow closely and treat aggressively along with other consultants and primary care doctor. Jerry Ng MD
--- NOTE | 2018-06-13 10:13 | CP.PCM.PN ---
Subjective - Date & Time of Evaluation Date of Evaluation: 06/13/18 Time of Evaluation: 09:00 - Subjective Subjective: Patient is having cough and wheezing this morning, no fevers overnight. Objective - Vital Signs/Intake and Output Vital Signs (last 24 hours): Temp Pulse Resp BP Pulse Ox 97.6 F 92 H 21 105/42 L 94 L 06/12/18 08:00 06/12/18 10:40 06/12/18 10:40 06/12/18 10:00 06/12/18 10:40 Intake and Output: 06/12/18 06/12/18 06:59 18:59 Intake Total 820 650 Output Total 470 Balance 350 650 - Medications Medications: Current Medications Betamethasone/Clotrimazole (Lotrisone) 0 gm TOP DAILY [facility] Last Admin: 06/12/18 09:55 Dose: Not Given Diltiazem HCl (Cardizem) 60 mg PO TID [facility] Last Admin: 06/11/18 13:15 Dose: 60 mg Folic Acid (Folic Acid) 1 mg PO DAILY [facility] Last Admin: 06/12/18 10:01 Dose: 1 mg Ceftaroline Fosamil 400 mg/ (Sodium Chloride) 100 mls @ 100 mls/hr IVPB Q12 [facility]; Protocol Stop: 06/20/18 11:16 Last Admin: 06/12/18 10:22 Dose: 100 mls/hr Azithromycin (Zithromax 500mg In Ns) 500 mg in 250 mls @ 167 mls/hr IVPB DAILY [facility]; Protocol Last Admin: 06/12/18 10:00 Dose: 167 mls/hr Sodium Chloride (Sodium Chloride 0.9%) 1,000 mls @ 100 mls/hr IV .Q10H [facility] Stop: 06/12/18 17:59 Last Admin: 06/12/18 08:28 Dose: 100 mls/hr Lactic Acid (Lac-Hydrin 12% Cream (140 G)) 0 ea TOP DAILY [facility] Last Admin: 06/12/18 10:02 Dose: 1 tcp Lactulose (Enulose) 20 gm PO TID [facility] Last Admin: 06/12/18 10:01 Dose: 20 gm Levalbuterol HCl (Xopenex) 0.63 mg IH TIDRESP [facility] Last Admin: 06/12/18 08:03 Dose: 0.63 mg Levothyroxine Sodium (Synthroid) 25 mcg PO 0600 [facility] Last Admin: 06/12/18 05:29 Dose: 25 mcg Metoprolol Tartrate (Lopressor) 25 mg PO BID [facility] Last Admin: 06/11/18 09:29 Dose: 25 mg Mupirocin (Bactroban Ointment) 0 gm TOP BID [facility] Last Admin: 06/12/18 09:55 Dose: Not Given Spironolactone (Aldactone) 25 mg PO BID [facility] Last Admin: 06/11/18 09:30 Dose: 25 mg Thiamine HCl (Vitamin B1 Tab) 100 mg PO DAILY [facility] Last Admin: 06/12/18 10:01 Dose: 100 mg - Labs Labs: 06/12/18 05:00 06/12/18 05:00 PT 31.9 SECONDS (9.4-12.5) H 06/11/18 14:20 INR 2.87 06/11/18 14:20 APTT 45.6 Seconds (26.9-38.3) H 06/09/18 14:05 - Constitutional Appears: Chronically Ill - Head Exam Head Exam: NORMAL INSPECTION - Neck Exam Neck Exam: absent: Meningismus - Respiratory Exam Respiratory Exam: Decreased Breath Sounds, Wheezes - Cardiovascular Exam Cardiovascular Exam: +S1, +S2 - GI/Abdominal Exam GI & Abdominal Exam: Soft. 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
[2018-06-13] MEDS: Azithromycin 500MG/NS 250ml 500 MG/250 ML BAG IVPB SCH (10:40)
[2018-06-13] MEDS: Ammonium Lactate 12% Cream (140 g) TOP SCH (10:50)
[2018-06-13] MEDS: Clotrimazole/Betamethasone Cream(15 gm) TOP SCH (12:00)
[2018-06-13] MEDS: Mupirocin 2% Ointment 15 GM TUBE TOP SCH (12:00)
--- NOTE | 2018-06-13 14:26 | PN ---
DATE: 06/13/2018 LOCATION: ICU 120, Bed #3. REASON FOR CONSULTATION: Atrial fibrillation, shortness of breath, congestive heart failure, altered mental status. PHYSICAL EXAMINATION: GENERAL: The patient is lying flat in bed without chest pain. Denies palpitations. His breathing is getting better. VITAL SIGNS: Blood pressure 133/69, respirations 19, pulse 96, and temperature 98.4. HEENT: Head: Normocephalic. Eyes: Pupils normal, conjunctivae normal. Nose and throat: Normal. NECK: JVP low. Carotid equal. THORAX: AP diameter is normal. LUNGS: Today shows some wheezing. CARDIOVASCULAR: S1 and S2. No rub. ABDOMEN: Protuberant. Bowel sounds normal. EXTREMITIES: No clubbing. No cyanosis. LABORATORY DATA: WBC 9.6, hemoglobin 14.2, hematocrit 42.9, platelets 367. Sodium 134, potassium 4.9, BUN 16, creatinine 3.8. Bilirubin is 1.5. AST 73, ALT 42, alkaline phosphatase 193. Echocardiogram was done on 06/10/2018 showed ejection fraction 75%, systolic function of RV was fairly reduced. Trace to mild aortic regurgitation. Moderate valvular aortic stenosis, valve area 1.13 cm by planimetry, trace mitral regurgitation, moderate to severe mitral stenosis. Mitral valve 1.3 cm2. Moderate to severe tricuspid regurgitation. Severe pulmonary hypertension. RV systolic pressure 79 mmHg. No pericardial effusion. IMPRESSION: The patient developed altered mental status on the floor and was transferred to the Intensive Care Unit two days ago. The patient still at that time is confused. The patient has a history of heavy alcohol abuse. Still was drinking prior to admission to the hospital. History of splenectomy for idiopathic thrombocytopenic purpura. Since then patient's count has improved. The patient is a smoker, diabetes, hypertension, admitted with shortness of breath, multifactorial secondary to underlying severe valvular disease, moderate aortic stenosis, moderate to severe aortic valve area 1.3 cm2 narrowing, moderate to severe mitral stenosis valve area 1.3 cm2, trace mitral regurgitation, trace to mild aortic regurgitation, moderate to severe tricuspid regurgitation with severe pulmonary hypertension. Right ventricular systolic pressure at 79 mmHg, atrial fibrillation, most likely exacerbation secondary to alcoholic liver disease with severely dilated right ventricle, right atrium, and left atrium. Probably the chances of him remaining in sinus are very low. The patient had right-sided failure mostly. Left ventricular ejection fraction is well above the normal limits. RECOMMENDATION: Dr. Toribio my partner discussed in detail with the patient on 06/11/2018 for cardiac catheterization. The patient was not willing to do at this time; also we think the patient will not be able to lie flat on the table for a little while to do the procedure at this moment because of shortness of breath. The patient states that he will get back to us, he will give a second thought to it whether he wants to do it. We will continue to stabilize him with diuretics. The patient can be a candidate for transcatheter aortic valve replacement but since he has severe mitral stenosis, valve is not good for mitral valvuloplasty and probably with severe pulmonary hypertension, we doubt if he will be a candidate for surgery and finally if they decide to do surgery it will be a high-risk surgery. Anyhow we will discuss with the patient again once he improves whether he is willing to do catheterization. Long-term prognosis is poor. The patient still drinks. The patient was put on medical treatment including diuretics, spironolactone, and Cardizem. We will follow the repeat blood work. I think the patient has now altered mental status, question of hepatic encephalopathy and we will continue spironolactone 25 two times daily, folic acid 1 mg daily, metoprolol 25 two times daily, methylprednisolone 40 mg IV every 6 hourly, levothyroxine 25 mcg daily, Ceftaroline 400 mg IV every 12 hours, thiamine 100 mg daily, Xifaxan, azithromycin 500 mg on 250 mL IV piggyback. We will continue to follow with you closely. Aruna Reid MD
--- NOTE | 2018-06-13 15:52 | CP.PCM.PN ---
<Brian Leyva - Last Filed: 06/13/18 15:46> Subjective - Date & Time of Evaluation Date of Evaluation: 06/13/18 Time of Evaluation: 15:46 - Subjective Subjective: Patient is more confused today. He is on BiPAP for respiratory failure. Objective - Vital Signs/Intake and Output Vital Signs (last 24 hours): Temp Pulse Resp BP Pulse Ox 98.4 F 102 H 19 133/69 91 L 06/13/18 04:00 06/13/18 14:07 06/13/18 02:02 06/13/18 02:02 06/13/18 02:02 Intake and Output: 06/13/18 06/13/18 06:59 18:59 Intake Total 1350 Output Total 200 Balance 1150 - Medications Medications: Current Medications Arformoterol Tartrate (Brovana) 15 mcg IH [id number] [facility] Last Admin: 06/13/18 07:48 Dose: 15 mcg Betamethasone/Clotrimazole (Lotrisone) 0 gm TOP DAILY [facility] Last Admin: 06/12/18 09:55 Dose: Not Given Budesonide (Pulmicort Respules) 0.5 mg IH [id number] [facility] Last Admin: 06/13/18 07:48 Dose: 0.5 mg Diltiazem HCl (Cardizem) 60 mg PO TID [facility] Last Admin: 06/11/18 13:15 Dose: 60 mg Folic Acid (Folic Acid) 1 mg PO DAILY [facility] Last Admin: 06/13/18 10:37 Dose: 1 mg Guaifenesin/Dextromethorphan (Robitussin Dm) 10 ml PO Q4H PRN PRN Reason: Cough Last Admin: 06/13/18 09:04 Dose: 10 ml Azithromycin (Zithromax 500mg In Ns) 500 mg in 250 mls @ 167 mls/hr IVPB DAILY [facility]; Protocol Last Admin: 06/13/18 10:40 Dose: 167 mls/hr Lactic Acid (Lac-Hydrin 12% Cream (140 G)) 0 ea TOP DAILY [facility] Last Admin: 06/13/18 10:50 Dose: 1 tcp Lactulose (Enulose) 20 gm PO Q6 [facility] Levalbuterol HCl (Xopenex) 0.63 mg IH TIDRESP [facility] Last Admin: 06/13/18 13:38 Dose: 0.63 mg Levothyroxine Sodium (Synthroid) 25 mcg PO 0600 [facility] Last Admin: 06/13/18 05:31 Dose: 25 mcg Methylprednisolone (Solu-Medrol) 40 mg IVP Q6 [facility] Metoprolol Tartrate (Lopressor) 25 mg PO BID [facility] Last Admin: 06/11/18 09:29 Dose: 25 mg Mupirocin (Bactroban Ointment) 0 gm TOP BID [facility] Last Admin: 06/12/18 18:04 Dose: 1 applic Rifaximin (Xifaxan) 550 mg PO Q12 [facility]; Protocol Last Admin: 06/13/18 10:38 Dose: 550 mg Spironolactone (Aldactone) 25 mg PO BID [facility] Last Admin: 06/11/18 09:30 Dose: 25 mg Thiamine HCl (Vitamin B1 Tab) 100 mg PO DAILY [facility] Last Admin: 06/13/18 10:38 Dose: 100 mg - Labs Labs: 06/13/18 05:00 06/13/18 05:00 PT 31.9 SECONDS (9.4-12.5) H 06/11/18 14:20 INR 2.87 06/11/18 14:20 APTT 45.6 Seconds (26.9-38.3) H 06/09/18 14:05 - Constitutional Appears: Unkempt, Agitated, Confused - Head Exam Head Exam: ATRAUMATIC, NORMAL INSPECTION - Respiratory Exam Respiratory Exam: Rhonchi, Wheezes. absent: NORMAL BREATHING PATTERN - Cardiovascular Exam Cardiovascular Exam: Tachycardia, +S1, +S2 - GI/Abdominal Exam GI & Abdominal Exam: Soft, Normal Bowel Sounds. absent: Tenderness - Neurological Exam Neurological Exam: Altered. 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 Differential includes cardiorenal vs hepatorenal or other. The evidence is stronger for cardiorenal given echocardiogram findings. See muffler tender consult note recommending diuretics. This may improved kidney failure. If this were Hepatorenal sydrome, patient would need albumin in combination with Telipressin, but this could put significant strain on the heart and lungs and this patient is having a difficult time breathing already. - Recommend nephrology consult to help guide next step of giving fluids or holding course. The patient may ultimately need dialysis. Agree prognosis is poor. - Abd pelvis CT: potential duodenitis. liver size unchanged, no overt cirrhotic pattern. trace perihepatic ascites. b/l inguinal LAD. questionable anasarca? Mild b/l pleural effusions, R>L with limited pericardial thickening. - Abd US: mild hepatomegaly, diffuse increased echogenicity of the liver, hepatic steatosis. trace perihepatic ascites. no cholelithiasis or biliary dilatation. Diffuse gallbladder wall thickening. - Echo: EF 66%. Systolic fxn of RV is severely reduced. Mod valvular aortic stenosis, DESMOND 1.13. Mod to severe MV stenosis. Mod to severe TR. Severe pulm HTN (RVSP 79 mmHg). IVC dilated. - Continue lactulose. Will titrate to 2-3 BMs/day. - Started on rifaximin bid - Recommend EGD to assess for varices, however severe pulmonary HTN is a concern as well as rising creatinine. - continue with antibiotics as per ID. - Further recs per Dr Issa. Case seen and discussed with Dr Issa. <Marysol Issa V - Last Filed: 06/13/18 23:44> Objective - Vital Signs/Intake and Output Vital Signs (last 24 hours): Temp Pulse Resp BP Pulse Ox 97.5 F L 109 H 21 143/82 90 L 06/13/18 20:00 06/13/18 23:11 06/13/18 18:10 06/13/18 17:00 06/13/18 18:10 Intake and Output: 06/13/18 06/14/18 18:59 06:59 Intake Total 650 Output Total 200 Balance 450 - Medications Medications: Current Medications Arformoterol Tartrate (Brovana) 15 mcg IH [id number] [facility] Last Admin: 06/13/18 19:32 Dose: 15 mcg Betamethasone/Clotrimazole (Lotrisone) 0 gm TOP DAILY [facility] Last Admin: 06/13/18 12:00 Dose: 1 tcp Budesonide (Pulmicort Respules) 0.5 mg IH [id number] [facility] Last Admin: 06/13/18 19:31 Dose: 0.5 mg Diltiazem HCl (Cardizem) 60 mg PO TID [facility] Last Admin: 06/11/18 13:15 Dose: 60 mg Folic Acid (Folic Acid) 1 mg PO DAILY [facility] Last Admin: 06/13/18 10:37 Dose: 1 mg Guaifenesin/Dextromethorphan (Robitussin Dm) 10 ml PO Q4H PRN PRN Reason: Cough Last Admin: 06/13/18 17:20 Dose: 10 ml Azithromycin (Zithromax 500mg In Ns) 500 mg in 250 mls @ 167 mls/hr IVPB DAILY [facility]; Protocol Last Admin: 06/13/18 10:40 Dose: 167 mls/hr Sodium Chloride (Sodium Chloride 0.9%) 1,000 mls @ 100 mls/hr IV .Q10H [facility] Lactic Acid (Lac-Hydrin 12% Cream (140 G)) 0 ea TOP DAILY [facility] Last Admin: 06/13/18 10:50 Dose: 1 tcp Lactulose (Enulose) 20 gm PO Q6 [facility] Last Admin: 06/13/18 17:20 Dose: 20 gm Levalbuterol HCl (Xopenex) 0.63 mg IH TIDRESP [facility] Last Admin: 06/13/18 19:31 Dose: 0.63 mg Levothyroxine Sodium (Synthroid) 25 mcg PO 0600 [facility] Last Admin: 06/13/18 05:31 Dose: 25 mcg Methylprednisolone (Solu-Medrol) 40 mg IVP Q6 [facility] Last Admin: 06/13/18 17:20 Dose: 40 mg Metoprolol Tartrate (Lopressor) 25 mg PO BID [facility] Last Admin: 06/11/18 09:29 Dose: 25 mg Mupirocin (Bactroban Ointment) 0 gm TOP BID [facility] Last Admin: 06/13/18 12:00 Dose: 1 applic Rifaximin (Xifaxan) 550 mg PO Q12 [facility]; Protocol Last Admin: 06/13/18 21:52 Dose: 550 mg Spironolactone (Aldactone) 25 mg PO BID [facility] Last Admin: 06/11/18 09:30 Dose: 25 mg Thiamine HCl (Vitamin B1 Tab) 100 mg PO DAILY [facility] Last Admin: 06/13/18 10:38 Dose: 100 mg - Labs Labs: 06/13/18 05:00 06/13/18 05:00 PT 31.9 SECONDS (9.4-12.5) H 06/11/18 14:20 INR 2.87 06/11/18 14:20 APTT 45.6 Seconds (26.9-38.3) H 06/09/18 14:05 Attending/Attestation - Attestation I have personally seen and examined this patient.: Yes I have fully participated in the care of the patient.: Yes I have reviewed all pertinent clinical information, including history, physical exam and plan: Yes Notes (Text): This is an addendum to the GI progress report dictated by the GI fellow. The patient was seen and evaluated with the GI fellow earlier today . I discussed with the ICU team and the resident. This patient is a rather very complex with a significant valvular heart disease pulmonary hypertension and predominant right-sided heart failure cirrhosis acute kidney injury more than less likely hepatorenal however even if hepatorenal in the complexity of the underlying cardiac issue makes fluid management is very challenging. we will discuss with the muffler tender and lever tender regarding this. Presently patient is not on diuretics not on IV fluids. Patient has been on BiPAP. Hepatic encephalopathy, patient was mentally more alert before now becomes slightly more lethargic. We would consider restarting the lactulose along with the Xifaxan.. We will continue to closely follow-up his care and suggest further recommendations based on the clinical course 06/13/18 23:41
[2018-06-13] MEDS: MethylPREDNISolone 40 mg Vial IVP SCH ×2 (17:19→17:20)
[2018-06-13] MEDS: Sodium Chloride 0.9% 1,000 ML IV SCH (22:30)
--- NOTE | 2018-06-14 00:16 | PN ---
DATE: 06/13/2018 SUBJECTIVE: A 73-year-old white male seen in bed 4, ICU. The patient was transferred from the floor when he had lethargy and possibly a change in mental status. The patient was admitted with shortness of breath, increased abdominal girth, increased swelling and infection of lower extremities, change in mental status, confusion, disorientation, narcoleptic episodes of falling asleep. The patient was found to have most likely sleep apnea, liver compromised with elevated ammonium levels and hepatic encephalopathy, still slowly rising BUN and creatinine, infection of both lower extremities with MRSA, ascites, severe pulmonary hypertension, and continued lethargy, confusion and disorientation. The patient was seen in the ICU. PHYSICAL EXAMINATION: GENERAL: He is awake and arousable, but minimally conversant. CHEST: Shows decreased breath sounds. Rales at both bases. HEART: Regular sinus rhythm with systolic ejection murmur, left sternal border, 2/6. ABDOMEN: Obese, but benign. There is less edema of the abdominal wall and less erythema. EXTREMITIES: Show stasis dermatitis with open wounds bilaterally with erythema; however, the wounds are dry at this point and 1 to 2+ pedal and pretibial edema. MENTAL STATUS: Lethargic, but arousable. IMPRESSION: Renal failure, liver failure, chronic obstructive pulmonary disease, bilateral lower leg infections with chronic stasis dermatitis and venous insufficiency, ascites, severe pulmonary hypertension and probable sleep apnea and hepatic encephalopathy. Chadd Savage MD
[2018-06-14] MEDS: MethylPREDNISolone 40 mg Vial IVP SCH ×4 (00:17→17:22)
[2018-06-14] MEDS: Levothyroxine 25 MCG TAB PO SCH (05:10)
[2018-06-14 06:52] LABS: HEMOGLOBIN 13.8 g/dL (14.0-18.0); LYMPH # 0.5 (1.2-3.4); LYMPH % 9.6 % (22.0-35.0); MEAN CELL VOLUME 97.2 fl (80.0-105.0); MEAN CORPUSCULAR HEMOGLOBIN 32.6 pg (25.0-35.0); MEAN CORPUSCULAR HGB CONC 33.6 g/dl (31.0-37.0); MEAN PLATELET VOLUME 9.8 fl (7.0-11.0); MONO # 0.2 (0.1-0.6); RBC 4.23 10^6/uL (3.5-6.1); RED CELL DISTRIBUTION WIDTH 16.9 % (11.5-14.5); WHITE BLOOD COUNT 4.7 10^3/uL (4.5-11.0)
[2018-06-14 07:24] LABS: ALB/GLOB RATIO 0.8 (1.1-1.8); ALBUMIN 3.2 g/dL (3.0-4.8)
[2018-06-14 07:24] LABS: CREATININE,RANDOM URINE 217 mg/dL; TOTAL PROTEIN,RANDOM URINE 97 mg/L
--- NOTE | 2018-06-14 07:57 | CP.CCUPN ---
CCU Subjective - Physician Review Subjective (Free Text): Harry Martínez, PGY1 ICU Progress Note for Dr. Cortez Patient was seen and examined at bedside this morning. He has BiPAP mask in place with current settings: IPAP/EPAP 14/5, RR 12, and FiO2 35%. Patient is AAOx3. He currently denies cp, sob, nausea, vomiting, fever, chills. He had x2 bowel movements overnight. He was agitated overnight and was placed on 1:1 precautions and given haldol x1 time. A full 12 point ROS was conducted and unremarkable except as stated above. CCU Objective - Vital Signs / Intake & Output Vital Signs (Last 4 hours): Vital Signs Temp Pulse Resp BP Pulse Ox 06/14/18 06:00 99 H 22 155/95 H 93 L 06/14/18 05:00 108 H 24 104/39 L 94 L 06/14/18 04:00 98.1 F 100 H 22 127/57 L 93 L Intake and Output (Last 8hrs): Intake & Output 06/13/18 06/14/18 06/14/18 22:59 06:59 14:59 Intake Total 650 1100 Output Total 200 50 Balance 450 1050 Intake: IV 200 900 IVF 0 IVPB 200 Right Wrist 900 Oral 450 200 Output: Urine 200 50 Urine, Voided 200 50 Other: # Bowel Movements 0 - Physical Exam Head: Positive for: Atraumatic, Normocephalic Pupils: Positive for: PERRL Extroacular Muscles: Positive for: EOMI Conjunctiva: Positive for: Normal Mouth: Positive for: Moist Mucous Membranes Nose (External): Positive for: Abrasion (2 abrasions to bridge of nose) Neck: Positive for: Normal Range of Motion Respiratory/Chest: Negative for: Respiratory Distress, Accessory Muscle Use, Wheezes, Rales, Retracting, Rhonchi Cardiovascular: Positive for: Normal S1, S2, Irregular Rhythm. Negative for: Murmurs Abdomen: Positive for: Distention. Negative for: Tenderness, Normal Bowel Sounds (Decreased bowel sounds), Peritoneal Signs Back: Positive for: Normal Inspection Upper Extremity: Positive for: Normal Inspection. Negative for: Cyanosis, Edema Lower Extremity: Positive for: Edema, Other (Chronic venous changes in bilateral lower extremities with bilateral wounds. Dressings in place. ) Neurological: Positive for: CN II-XII Intact, Speech Normal Skin: Positive for: Warm, Dry, Normal Color. Negative for: Rashes Psychiatric: Positive for: Alert, Oriented x 3. Negative for: Normal Insight - Medications Active Medications: Active Medications Generic Name Dose Route Start Last Admin Trade Name Freq PRN Reason Stop Dose Admin Arformoterol Tartrate 15 mcg 06/12/18 20:00 06/13/18 19:32 Brovana IH 15 mcg [id number] [facility] Administration Betamethasone/Clotrimazole 0 gm 06/11/18 10:00 06/13/18 12:00 Lotrisone TOP 1 tcp DAILY [facility] Administration Budesonide 0.5 mg 06/12/18 20:00 06/13/18 19:31 Pulmicort Respules IH 0.5 mg [id number] [facility] Administration Diltiazem HCl 60 mg 06/10/18 10:00 06/11/18 13:15 Cardizem PO 60 mg TID [facility] Administration Folic Acid 1 mg 06/10/18 10:00 06/13/18 10:37 Folic Acid PO 1 mg DAILY [facility] Administration Guaifenesin/Dextromethorphan 10 ml 06/12/18 15:13 06/13/18 17:20 Robitussin Dm PO 10 ml Q4H PRN Administration Cough Azithromycin 500 mg in 250 mls @ 167 mls/hr 06/11/18 16:30 06/13/18 10:40 Zithromax 500mg In Ns IVPB 167 mls/hr DAILY [facility] Administration Protocol Sodium Chloride 1,000 mls @ 100 mls/hr 06/13/18 22:00 06/13/18 22:30 Sodium Chloride 0.9% IV 100 mls/hr .Q10H [facility] Administration Lactic Acid 0 ea 06/11/18 10:00 06/13/18 10:50 Lac-Hydrin 12% Cream (140 G) TOP 1 tcp DAILY [facility] Administration Lactulose 20 gm 06/13/18 18:00 06/14/18 05:10 Enulose PO 20 gm Q6 [facility] Administration Levalbuterol HCl 0.63 mg 06/10/18 14:00 06/13/18 19:31 Xopenex IH 0.63 mg TIDRESP [facility] Administration Levothyroxine Sodium 25 mcg 06/12/18 06:00 06/14/18 05:10 Synthroid PO 25 mcg 0600 [facility] Administration Methylprednisolone 40 mg 06/13/18 12:00 06/14/18 05:10 Solu-Medrol IVP 40 mg Q6 [facility] Administration Metoprolol Tartrate 25 mg 06/10/18 18:00 06/11/18 09:29 Lopressor PO 25 mg BID [facility] Administration Mupirocin 0 gm 06/11/18 10:00 06/13/18 12:00 Bactroban Ointment TOP 1 applic BID [facility] Administration Rifaximin 550 mg 06/12/18 22:00 06/13/18 21:52 Xifaxan PO 550 mg Q12 [facility] Administration Protocol Spironolactone 25 mg 06/11/18 10:00 06/11/18 09:30 Aldactone PO 25 mg BID [facility] Administration Thiamine HCl 100 mg 06/10/18 10:00 06/13/18 10:38 Vitamin B1 Tab PO 100 mg DAILY [facility] Administration - Patient Studies Lab Studies: Microbiology Studies 06/09/18 14:35 Blood Culture - Preliminary Blood-Venous NO GROWTH AFTER 4 DAYS 06/09/18 14:05 Blood Culture - Preliminary Blood-Venous NO GROWTH AFTER 4 DAYS Lab Studies 06/14/18 06/14/18 06/14/18 Range/Units 06:00 05:30 05:30 WBC 4.7 D (4.5-11.0) 10^3/uL RBC 4.23 (3.5-6.1) 10^6/uL Hgb 13.8 L (14.0-18.0) g/dL Hct 41.1 L (42.0-52.0) % MCV 97.2 (80.0-105.0) fl MCH 32.6 (25.0-35.0) pg MCHC 33.6 (31.0-37.0) g/dl RDW 16.9 H (11.5-14.5) % Plt Count 371 (120.0-450.0) 10^3/uL MPV 9.8 (7.0-11.0) fl Neut % (Auto) 86.4 H (50.0-68.0) % Lymph % (Auto) 9.6 L (22.0-35.0) % [place] % (Auto) 4.0 (1.0-6.0) % Eos % (Auto) 0.0 L (1.5-5.0) % Baso % (Auto) 0.0 (0.0-3.0) % Lymph # (Auto) 0.5 L (1.2-3.4) [place] # (Auto) 0.2 (0.1-0.6) Eos # (Auto) 0.0 (0.0-0.7) Baso # (Auto) 0.00 (0.0-2.0) K/mm3 Absolute Neuts (auto) 4.07 (1.4-6.5) Sodium 134 (132-148) mmol/L Potassium 5.6 H* (3.6-5.0) mmol/L Chloride 100 (98-107) mmol/L Carbon Dioxide 17 L (21-33) mmol/L Anion Gap 22 H (10-20) BUN 69 H (7-21) mg/dL Creatinine 4.0 H (0.8-1.5) mg/dl Est GFR ( Amer) 18 Est GFR (Non-Af Amer) 15 Random Glucose 124 H (70-110) mg/dL Calcium 8.0 L (8.4-10.5) mg/dL Total Bilirubin 1.3 (0.2-1.3) mg/dL AST 75 H (17-59) U/L ALT 44 (7-56) U/L Alkaline Phosphatase 194 H (38-126) U/L Total Protein 7.5 (5.8-8.3) g/dL Albumin 3.2 (3.0-4.8) g/dL Globulin 4.3 gm/dL Albumin/Globulin Ratio 0.8 L (1.1-1.8) Ur Random Creatinine 217 mg/dL U Random Total Protein 97 mg/L Ur Random Sodium < 5 meq/L IgG (694-1618) mg/dL IgA (81-463) mg/dL IgM (48-271) mg/dL Hepatitis A Ab Total (NEGATIVE) Hep Bs Antibody (NEGATIVE) 06/11/18 06/11/18 06/11/18 Range/Units 19:57 19:57 19:57 WBC (4.5-11.0) 10^3/uL RBC (3.5-6.1) 10^6/uL Hgb (14.0-18.0) g/dL Hct (42.0-52.0) % MCV (80.0-105.0) fl MCH (25.0-35.0) pg MCHC (31.0-37.0) g/dl RDW (11.5-14.5) % Plt Count (120.0-450.0) 10^3/uL MPV (7.0-11.0) fl Neut % (Auto) (50.0-68.0) % Lymph % (Auto) (22.0-35.0) % [place] % (Auto) (1.0-6.0) % Eos % (Auto) (1.5-5.0) % Baso % (Auto) (0.0-3.0) % Lymph # (Auto) (1.2-3.4) [place] # (Auto) (0.1-0.6) Eos # (Auto) (0.0-0.7) Baso # (Auto) (0.0-2.0) K/mm3 Absolute Neuts (auto) (1.4-6.5) Sodium (132-148) mmol/L Potassium (3.6-5.0) mmol/L Chloride (98-107) mmol/L Carbon Dioxide (21-33) mmol/L Anion Gap (10-20) BUN (7-21) mg/dL Creatinine (0.8-1.5) mg/dl Est GFR ( Amer) Est GFR (Non-Af Amer) Random Glucose (70-110) mg/dL Calcium (8.4-10.5) mg/dL Total Bilirubin (0.2-1.3) mg/dL AST (17-59) U/L ALT (7-56) U/L Alkaline Phosphatase (38-126) U/L Total Protein (5.8-8.3) g/dL Albumin (3.0-4.8) g/dL Globulin gm/dL Albumin/Globulin Ratio (1.1-1.8) Ur Random Creatinine mg/dL U Random Total Protein mg/L Ur Random Sodium meq/L IgG 2176 H (694-1618) mg/dL IgA 565 H (81-463) mg/dL IgM 37 L (48-271) mg/dL Hepatitis A Ab Total Antibody neg (NEGATIVE) Hep Bs Antibody Negative (NEGATIVE) Laboratory Results - last 24 hr 06/11/18 06/11/18 06/11/18 19:57 19:57 19:57 WBC RBC Hgb Hct MCV MCH MCHC RDW Plt Count MPV Neut % (Auto) Lymph % (Auto) [place] % (Auto) Eos % (Auto) Baso % (Auto) Lymph # (Auto) [place] # (Auto) Eos # (Auto) Baso # (Auto) Absolute Neuts (auto) Sodium Potassium Chloride Carbon Dioxide Anion Gap BUN Creatinine Est GFR ( Amer) Est GFR (Non-Af Amer) Random Glucose Calcium Total Bilirubin AST ALT Alkaline Phosphatase Total Protein Albumin Globulin Albumin/Globulin Ratio Ur Random Creatinine U Random Total Protein Ur Random Sodium IgG 2176 H IgA 565 H IgM 37 L Hepatitis A Ab Total Antibody neg Hep Bs Antibody Negative 06/14/18 06/14/18 06/14/18 05:30 05:30 06:00 WBC 4.7 D RBC 4.23 Hgb 13.8 L Hct 41.1 L MCV 97.2 MCH 32.6 MCHC 33.6 RDW 16.9 H Plt Count 371 MPV 9.8 Neut % (Auto) 86.4 H Lymph % (Auto) 9.6 L [place] % (Auto) 4.0 Eos % (Auto) 0.0 L Baso % (Auto) 0.0 Lymph # (Auto) 0.5 L [place] # (Auto) 0.2 Eos # (Auto) 0.0 Baso # (Auto) 0.00 Absolute Neuts (auto) 4.07 Sodium 134 Potassium 5.6 H* Chloride 100 Carbon Dioxide 17 L Anion Gap 22 H BUN 69 H Creatinine 4.0 H Est GFR ( Amer) 18 Est GFR (Non-Af Amer) 15 Random Glucose 124 H Calcium 8.0 L Total Bilirubin 1.3 AST 75 H ALT 44 Alkaline Phosphatase 194 H Total Protein 7.5 Albumin 3.2 Globulin 4.3 Albumin/Globulin Ratio 0.8 L Ur Random Creatinine 217 U Random Total Protein 97 Ur Random Sodium < 5 IgG IgA IgM Hepatitis A Ab Total Hep Bs Antibody Review of Systems - Review of Systems All systems: reviewed and no additional remarkable complaints except (as per HPI.) Critical Care Progress Note - Nutrition Nutrition: Nutrition Category Date Time Status Heart Healthy Diet [DIET] Diets 06/09/18 Dinner Active Assessment/Plan - Assessment and Plan (Free Text) Assessment: Patient is a 77 y/o M with PMHx hepatic encephalopathy, alcoholic cirrhosis, aortic stenosis, s/p splenectomy (ITP), PAD (with ulcerations of the lower extremities), chronic lymphedema, Afib who initially presented to [facility] for x3 weeks AMS/lethargy with increased lower extremity swelling, anasarca, darkening of urine, and some shortness of breath. On CXR, patient was found to have RLL pneumonia and small R-pleural effusion. Patient also has bilateral ulcerations with RLE cellulitis. Patient admitted for severe sepsis 2/2 CAP and RLE cellulitis. He also presented with Afib with RVR in which he was appropriately rate controlled. During hospital course on 06/11, EVAPORATIVE COOLER INSTALLER was called as patient was having worsening confusion, urinary incontinence, and hypotension (resolved); he was subsequently transferred to the ICU. Plan: Neuro: - Hepatic encephalopathy - Currently AAOx3 - ammonia level 100 --> 71 --> 14 - c/w rifaximin 550mg PO q12 and lactulose 20g PO q6 - c/w thiamine and folic acid (Cirrhosis 2/2 EtOH abuse) - 1:1 monitoring due to agitation Cardio: - Afib with RVR - currently rate controlled - CHADVASC score 3; HASBLED score 4 - high risk of bleeding; anticoagulation not indicated at this time - cardizem and metoprolol held at this time given hypotension during [employer]ER INST[employer]ER and patient is currently rate controlled - Cardiorenal syndrome in consideration - Hypotension is now resolved - Echo: EF 66%. Suggests CHF-pEF: severely dilated RV, mod-severe mitral valve stenosis and tricuspid regurgitation. RVSP 79, severe pulmonary hypertension. - Cardio on consult. Recs appreciated. Pulm: - Shortness of Breath 2/2 Type I Pulmonary Hypertension - c/w BiPAP; recent abg (06/14) showed metabolic acidosis - BiPAP settings adjusted. Repeat abg in 2 hours. - c/w brovana, pulmicort - c/w solumedrol 40mg IVP q6 - c/w robitussin for cough - Maintain SaO2 > 92% - Aspiration precautions GI: - AST/ALT 75/44 (transaminitis) most recent; ALP 194 - acute hepatitis panel negative - c/w rifaximin and lactulose - CT A/P: duodenoitis. No overt cirrhotic pattern although cryptogenic cirrhotic pattern not completely excluded. Trace perihepatic ascites. - GI on consult. Recs appreciated. - Diet: HHD Renal: - Hepatorenal syndrome given criteria met: - Cirrhosis w/ ascites, Cr >1.5 with no improvement after diuresis, no shock/nephrotoxic meds, no organic kidney disease - Supplement with albumin 50 cc 25% x4; consider the addition of octreotide and midodrine - Hyperkalemia, K 5.6: administer insulin 10 units with amp D50. Repeat bmp in the afternoon. - Nephrology on consult. Will follow up recs as patient will benefit from HD and for alf may require liver transplant. - Utox negative - BUN/Cr is 69/4.0 (baseline Cr is 0.6) - Ins/out: 1750/250; +1500 net - UA negative for UTI - UCx multiple species: contaminated - c/w bladder scan prn for obstruction - MELD score 32 points; 52% mortality within next 3 months ID: - Severe Sepsis 2/2 CAP/Aspiration PNA vs RLE cellulitis - CXR: RLL PNA (consider aspiration given his mental status change) - currently afebrile with no leukocytosis - currently on azithromycin for CAP as per ID recommendations - L-leg wound cx: +klebsiella, +beta-hemolytic group B strep, +corynebacterium - LE arterial US: R-leg SIMON .67 and L-leg SIMON .72 (Hx PVD) - Blood Cx negative x2 (prelim) after 4 days - MRSA negative - ID on consult. Recs appreciated. - Podiatry on consult. Recs appreciated. - Wound care on board Heme: - Hgb stable at this time with no overt bleeding - INR 2.4 - No indication for transfusion at this time unless Hgb < 7.0 Endo: - Hypothyroidism - c/w levothyroxine 25 mcg daily Dispo: Continue to monitor patient in the ICU. Follow up nephro recs for possible HD. Case was discussed and reviewed with Attending Physician, Dr. Cortez.
[2018-06-14] MEDS: Budesonide 0.5 mg/2 ml Inhal Susp UD IH SCH ×2 (08:35→19:46)
[2018-06-14] MEDS: Levalbuterol 0.63 MG/3 ML Inhal Soln UD IH SCH ×3 (08:35→19:46)
[2018-06-14] MEDS: Arformoterol 15 mcg/2 ml Inh Sol IH SCH ×2 (08:35→19:46)
[2018-06-14 08:45] LABS: INR 2.41; PROTHROMBIN TIME 27.2 SECONDS (9.4-12.5)
--- NOTE | 2018-06-14 08:52 | PN ---
DATE: 06/12/2018 LOCATION: The patient in ICU 120, bed 3. REASON FOR CONSULTATION FOLLOWUP: Atrial fibrillation, shortness of breath, congestive heart failure, cardiac evaluation. SUBJECTIVE: The patient denies any chest pain or palpitation. He says breathing is better, but off and on, he feels like shortness of breath. PHYSICAL EXAMINATION: VITAL SIGNS: Blood pressure 107/70, respirations 22, pulse 85, temperature 97.6. HEENT: Head is normocephalic. Eyes, pupils normal. Conjunctivae normal. Nose and throat normal. NECK: JVP low. Carotids equal. THORAX: AP diameter normal. LUNGS: No significant rales. CARDIOVASCULAR: S1 and S2. ABDOMEN: Protuberant. EXTREMITIES: No clubbing. No cyanosis. LABORATORY DATA: WBC 8.3, hemoglobin 14.6, hematocrit 43.1, platelet 351. Sodium 134, potassium 4.9, BUN 54, creatinine 3.2, calcium 8.8, phosphorus 6.7, magnesium 2. Total bilirubin 1.8, AST 79, ALT 49. DIAGNOSTIC DATA: The patient had echocardiogram on 06/10/2018, which showed ejection fraction of 75%, slightly decreased systolic function of RV, [id number] aortic regurgitation, moderate valvular aortic stenosis, valve area of 1.13 cm2, trace mitral regurgitation, [id number] mitral stenosis, mitral valve area 1.3 cm2, heart rate ____ from regurgitation, ____ pulmonary hypertension. IMPRESSION: The patient is morbidly obese and also heavy alcohol abuse, still continued to do drinking before he went to the hospital, history of splenectomy for idiopathic thrombocytopenic purpura, diabetes, hypertension, shortness of breath which is multifactorial due to underlying severe valvular disease, moderate aortic stenosis, xbtipgxo-[id number] aortic valve area of 1.13 cm2. On echo, the patient has severely dilated right ventricle, right atrium, left atrium most likely is not going to convert from atrial fibrillation. Even if we convert, he is not going to stay in that because of the enlargement of the atria and severe hypokinesis of the right ventricle. PLAN: So the plan to do catheterization on the patient was discussed with the patient, the family and the patient is not willing at this moment to do catheterization as probably he cannot lie flat for catheterization. So, when the patient agrees and he is clinically more better, we can do cardiac catheterization at that time. The patient is not going to do catheterization at this moment as he cannot lie flat at this moment, so we will continue to treat him medically. The patient may be a candidate for transcatheter aortic valve replacement, TAVR, for severe mitral stenosis, valve is not good for mitral valvuloplasty and also with severe pulmonary hypertension. We will continue present therapy and told the patient to give us a call. The patient is on spironolactone 25 mg b.i.d., lactulose 20 g p.o. t.i.d., folic acid 1 mg daily, metoprolol tartrate 25 mg b.i.d., Robitussin 200 mg p.o. once was given and then discontinued, levothyroxine (Synthroid) 25 mcg p.o. daily. I told the patient not to withdrawal ____ alcohol and we will continue respiratory therapy as ordered. We will follow with you. Aruna Reid MD
[2018-06-14] MEDS: Azithromycin 500MG/NS 250ml 500 MG/250 ML BAG IVPB SCH (09:28)
[2018-06-14] MEDS: Clotrimazole/Betamethasone Cream(15 gm) TOP SCH (09:33)
[2018-06-14] MEDS: Ammonium Lactate 12% Cream (140 g) TOP SCH (09:34)
[2018-06-14] MEDS: Mupirocin 2% Ointment 15 GM TUBE TOP SCH ×2 (09:34→17:24)
[2018-06-14] MEDS: Sodium Chloride 0.9% 1,000 ML IV SCH (09:35)
[2018-06-14 09:43] LABS: ARTERIAL BLOOD GAS HCO3 17.6 mmol/L (21-28); ARTERIAL BLOOD GAS O2 SAT 96.9 % (95-98); ARTERIAL BLOOD GAS PCO2 41 mm/Hg (35-45); ARTERIAL BLOOD GAS PH 7.24 (7.35-7.45); ARTERIAL BLOOD GAS TCO2 18.9 mmol.L (22-28)
--- NOTE | 2018-06-14 10:56 | CP.PCM.PN ---
<Vickie Aviles - Last Filed: 06/14/18 18:13> Subjective - Date & Time of Evaluation Date of Evaluation: 06/14/18 Time of Evaluation: 10:54 - Subjective Subjective: Vickie Aviles, PGY2, GI Progress Note for Dr Issa: Patient seen and examined at bedside. Patient confused overnight, given Haldol and patient put on 1:1. Patient reports 3-4 BM since this AM. Patient is more awake, oriented to self, person. Switched from bipap to NC as per ICU team. Denies abdominal pain, nausea, vomiting, fevers, chills. Objective - Vital Signs/Intake and Output Vital Signs (last 24 hours): Temp Pulse Resp BP Pulse Ox 98.1 F 99 H 22 155/95 H 93 L 06/14/18 04:00 06/14/18 06:00 06/14/18 06:00 06/14/18 06:00 06/14/18 06:00 Intake and Output: 06/14/18 06/14/18 06:59 18:59 Intake Total 1100 Output Total 50 Balance 1050 - Medications Medications: Current Medications Arformoterol Tartrate (Brovana) 15 mcg IH [id number] [facility] Last Admin: 06/14/18 08:35 Dose: 15 mcg Betamethasone/Clotrimazole (Lotrisone) 0 gm TOP DAILY [facility] Last Admin: 06/14/18 09:33 Dose: 1 tcp Budesonide (Pulmicort Respules) 0.5 mg IH [id number] [facility] Last Admin: 06/14/18 08:35 Dose: 0.5 mg Diltiazem HCl (Cardizem) 60 mg PO TID [facility] Last Admin: 06/11/18 13:15 Dose: 60 mg Folic Acid (Folic Acid) 1 mg PO DAILY [facility] Last Admin: 06/14/18 09:28 Dose: 1 mg Guaifenesin/Dextromethorphan (Robitussin Dm) 10 ml PO Q4H PRN PRN Reason: Cough Last Admin: 06/13/18 17:20 Dose: 10 ml Azithromycin (Zithromax 500mg In Ns) 500 mg in 250 mls @ 167 mls/hr IVPB DAILY [facility]; Protocol Last Admin: 06/14/18 09:28 Dose: 167 mls/hr Sodium Chloride (Sodium Chloride 0.9%) 1,000 mls @ 100 mls/hr IV .Q10H [facility] Last Admin: 06/14/18 09:35 Dose: 100 mls/hr Lactic Acid (Lac-Hydrin 12% Cream (140 G)) 0 ea TOP DAILY [facility] Last Admin: 06/14/18 09:34 Dose: 1 tcp Lactulose (Enulose) 20 gm PO Q6 [facility] Last Admin: 06/14/18 05:10 Dose: 20 gm Levalbuterol HCl (Xopenex) 0.63 mg IH TIDRESP [facility] Last Admin: 06/14/18 08:35 Dose: 0.63 mg Levothyroxine Sodium (Synthroid) 25 mcg PO 0600 [facility] Last Admin: 06/14/18 05:10 Dose: 25 mcg Methylprednisolone (Solu-Medrol) 40 mg IVP Q6 [facility] Last Admin: 06/14/18 05:10 Dose: 40 mg Metoprolol Tartrate (Lopressor) 25 mg PO BID [facility] Last Admin: 06/11/18 09:29 Dose: 25 mg Mupirocin (Bactroban Ointment) 0 gm TOP BID [facility] Last Admin: 06/14/18 09:34 Dose: 1 applic Rifaximin (Xifaxan) 550 mg PO Q12 [facility]; Protocol Last Admin: 06/14/18 09:28 Dose: 550 mg Spironolactone (Aldactone) 25 mg PO BID [facility] Last Admin: 06/11/18 09:30 Dose: 25 mg Thiamine HCl (Vitamin B1 Tab) 100 mg PO DAILY [facility] Last Admin: 06/14/18 09:28 Dose: 100 mg - Labs Labs: 06/14/18 05:30 06/14/18 05:30 PT 27.2 SECONDS (9.4-12.5) H 06/14/18 08:30 INR 2.41 06/14/18 08:30 APTT 45.6 Seconds (26.9-38.3) H 06/09/18 14:05 - Additional Findings Additional findings: - Constitutional Appears: Confused, Chronically Ill - Head Exam Head Exam: ATRAUMATIC, NORMOCEPHALIC - Eye Exam Eye Exam: EOMI, PERRL. absent: Conjunctival injection, Nystagmus, Scleral icterus Pupil Exam: NORMAL ACCOMODATION, PERRL. absent: Irregular, Miosis, Mydriatic - ENT Exam ENT Exam: Mucous Membranes Dry - Neck Exam Neck exam: Positive for: Full Rom - Respiratory Exam Respiratory Exam: Decreased Breath Sounds - Cardiovascular Exam Cardiovascular Exam: RRR, +S1, +S2. absent: Systolic Murmur - GI/Abdominal Exam GI & Abdominal Exam: Distended, Normal Bowel Sounds. absent: Firm, Guarding, Rebound, Tenderness Additional comments: + anasarca no fluid wave - Extremities Exam Extremities exam: Positive for: pedal edema Additional comments: improving erythema, warmth b/l LE - Neurological Exam Additional comments: awake, oriented to self, time, person - Psychiatric Exam Psychiatric exam: Normal Mood - Skin Skin Exam: Normal Color, Warm Assessment and Plan - Assessment and Plan (Free Text) Assessment: # Alcoholic Cirrhosis, rule out Selvin's disease vs AI hepatitis vs viral hepatitis # Elevated LFTs 2/2 hepatic congestion 2/2 right sided heart failure, rule out tylenol toxicity # AMS 2/2 hepatic encephalopathy # Rapid afib # Severe pulm HTN # Right ventricular heart failure # Bilateral pleural effusions, R>L # Anasarca # MARIE 2/2 pre-renal vs hepatorenal syndrome # Alcohol abuse # ITP s/p splenectomy # Hypothyroidism # Peripheral arterial disease # Hypotension - Abd pelvis CT: potential duodenitis. liver size unchanged, cryptogenic type cirrhotic pattern imposs to exclude, no overt cirrhotic pattern. trace perihepatic ascites. b/l inguinal LAD. questionable anasarca? Mild b/l pleural effusions, R>L with limited pericardial thickening. - Abd US: mild hepatomegaly, diffuse increased echogenicity of the liver, hepatic steatosis. trace perihepatic ascites. no cholelithiasis or biliary dilatation. Diffuse gallbladder wall thickening. - Echo: EF 66%. Systolic fxn of RV is severely reduced. Mod valvular aortic stenosis, DESMOND 1.13. Mod to severe MV stenosis. Mod to severe TR. Severe pulm HTN (RVSP 79 mmHg). IVC dilated. - Head CT neg - LE US: neg for DVT - On Lactulose, will titrate to 2-3 BMs per day. Continue with rifaximin 550 mg PO BID. - Acute hepatitis panel negative, HIV NR. Hep A total negative. - Ferritin 225, percent sat 28%. Tylenol, salicylate negative - Awaiting ceruloplasmin, AI hepatitis w/u, immunofixation. - Awaiting nephrology recs regarding MARIE etiology, on albumin. - In light of hypotension, SOB, holding diuretics for now. - Will monitor mentation, clinical course - Recommend EGD to assess for varices - continue with antibiotics as per ID. - Further recs per Dr Issa. Case seen and discussed with Dr Issa. <Marysol Issa V - Last Filed: 06/14/18 23:21> Objective - Vital Signs/Intake and Output Vital Signs (last 24 hours): Temp Pulse Resp BP Pulse Ox 98.6 F 106 H 23 125/83 92 L 06/14/18 20:00 06/14/18 23:11 06/14/18 22:15 06/14/18 22:15 06/14/18 22:15 Intake and Output: 06/14/18 06/15/18 18:59 06:59 Intake Total 1688 Balance 1688 - Medications Medications: Current Medications Arformoterol Tartrate (Brovana) 15 mcg IH [id number] [facility] Last Admin: 06/14/18 19:46 Dose: 15 mcg Azithromycin (Zithromax) 250 mg PO DAILY [facility]; Protocol Stop: 06/20/18 10:01 Betamethasone/Clotrimazole (Lotrisone) 0 gm TOP DAILY [facility] Last Admin: 06/14/18 09:33 Dose: 1 tcp Budesonide (Pulmicort Respules) 0.5 mg IH [id number] [facility] Last Admin: 06/14/18 19:46 Dose: 0.5 mg Diltiazem HCl (Cardizem) 60 mg PO TID [facility] Last Admin: 06/11/18 13:15 Dose: 60 mg Folic Acid (Folic Acid) 1 mg PO DAILY [facility] Last Admin: 06/14/18 09:28 Dose: 1 mg Guaifenesin/Dextromethorphan (Robitussin Dm) 10 ml PO Q4H PRN PRN Reason: Cough Last Admin: 06/13/18 17:20 Dose: 10 ml NOREPINEPHRINE BIT/0.9 % NACL (Levophed 4 Mg/ 250 Ml Ns Premixed) 4 mg in 250 mls @ 7.5 mls/hr IV .Q24H PRN; Protocol PRN Reason: TITRATE PER MD ORDER Last Admin: 06/14/18 17:35 Dose: 2 mcg/min, 7.5 mls/hr Lactic Acid (Lac-Hydrin 12% Cream (140 G)) 0 ea TOP DAILY [facility] Last Admin: 06/14/18 09:34 Dose: 1 tcp Lactulose (Enulose) 20 gm PO DAILY [facility] Levalbuterol HCl (Xopenex) 0.63 mg IH TIDRESP [facility] Last Admin: 06/14/18 19:46 Dose: 0.63 mg Levothyroxine Sodium (Synthroid) 25 mcg PO 0600 [facility] Last Admin: 06/14/18 05:10 Dose: 25 mcg Methylprednisolone (Solu-Medrol) 40 mg IVP Q6 [facility] Last Admin: 06/14/18 17:22 Dose: 40 mg Metoprolol Tartrate (Lopressor) 25 mg PO BID [facility] Last Admin: 06/11/18 09:29 Dose: 25 mg Mupirocin (Bactroban Ointment) 0 gm TOP BID [facility] Last Admin: 06/14/18 17:24 Dose: 1 applic Rifaximin (Xifaxan) 550 mg PO Q12 [facility]; Protocol Last Admin: 06/14/18 22:15 Dose: 550 mg Spironolactone (Aldactone) 25 mg PO BID [facility] Last Admin: 06/11/18 09:30 Dose: 25 mg Thiamine HCl (Vitamin B1 Tab) 100 mg PO DAILY [facility] Last Admin: 06/14/18 09:28 Dose: 100 mg - Labs Labs: 06/14/18 05:30 06/14/18 15:50 PT 27.2 SECONDS (9.4-12.5) H 06/14/18 08:30 INR 2.41 06/14/18 08:30 APTT 45.6 Seconds (26.9-38.3) H 06/09/18 14:05 Attending/Attestation - Attestation I have personally seen and examined this patient.: Yes I have fully participated in the care of the patient.: Yes I have reviewed all pertinent clinical information, including history, physical exam and plan: Yes Notes (Text): This is an addendum to the GI progress report dictated by the resident. The patient was seen and evaluated with the resident here earlier. Patient is on BiPAP. On IV fluids and albumin. Follow-up of the renal function. No plan for any endoscopy to rule out varices ,patient is high risk. Patient is end-stage renal disease on hemodialysis. Continue Xifaxan we will discontinue lactulose in view of diarrhea. 06/14/18 23:15
[2018-06-14] MEDS ORDERED: Dextrose 50% SYRINGE Inj (50 ml) IVP ONE (11:41)
[2018-06-14] MEDS ORDERED: Insulin Regular 1 UNITS/0.01 ML ML SC ONE (11:42)
--- NOTE | 2018-06-14 13:40 | CP.PCM.PN ---
Subjective - Date & Time of Evaluation Date of Evaluation: 06/14/18 Time of Evaluation: 13:37 - Subjective Subjective: Podiatry progress note for Dr. De 73 year old male patient, seen and evaluated in the ICU, for bilateral lower extremity xerosis/scaling and right hallucal bruising. Patient was sleeping at the visit time. As per chart there was no overnight fever, nausea or vomiting, but complains of shortness of breath. Patient was on Bi-PAP mask at the visit time. Objective - Vital Signs/Intake and Output Vital Signs (last 24 hours): Temp Pulse Resp BP Pulse Ox 97.5 F L 100 H 29 H 131/60 93 L 06/14/18 08:00 06/14/18 11:00 06/14/18 11:00 06/14/18 11:00 06/14/18 11:00 Intake and Output: 06/14/18 06/14/18 06:59 18:59 Intake Total 1100 Output Total 50 Balance 1050 - Medications Medications: Current Medications Arformoterol Tartrate (Brovana) 15 mcg IH [id number] [facility] Last Admin: 06/14/18 08:35 Dose: 15 mcg Betamethasone/Clotrimazole (Lotrisone) 0 gm TOP DAILY [facility] Last Admin: 06/14/18 09:33 Dose: 1 tcp Budesonide (Pulmicort Respules) 0.5 mg IH [id number] [facility] Last Admin: 06/14/18 08:35 Dose: 0.5 mg Diltiazem HCl (Cardizem) 60 mg PO TID [facility] Last Admin: 06/11/18 13:15 Dose: 60 mg Folic Acid (Folic Acid) 1 mg PO DAILY [facility] Last Admin: 06/14/18 09:28 Dose: 1 mg Guaifenesin/Dextromethorphan (Robitussin Dm) 10 ml PO Q4H PRN PRN Reason: Cough Last Admin: 06/13/18 17:20 Dose: 10 ml Azithromycin (Zithromax 500mg In Ns) 500 mg in 250 mls @ 167 mls/hr IVPB DAILY [facility]; Protocol Last Admin: 06/14/18 09:28 Dose: 167 mls/hr Sodium Chloride (Sodium Chloride 0.9%) 1,000 mls @ 100 mls/hr IV .Q10H [facility] Last Admin: 06/14/18 09:35 Dose: 100 mls/hr Albumin Human (Albumin Human 25% (12.5 Gm/50 Ml)) 50 mls @ 1 mls/min IVPB Q1H [facility] Stop: 06/14/18 15:34 Lactic Acid (Lac-Hydrin 12% Cream (140 G)) 0 ea TOP DAILY [facility] Last Admin: 06/14/18 09:34 Dose: 1 tcp Lactulose (Enulose) 20 gm PO Q6 [facility] Last Admin: 06/14/18 12:09 Dose: Not Given Levalbuterol HCl (Xopenex) 0.63 mg IH TIDRESP [facility] Last Admin: 06/14/18 08:35 Dose: 0.63 mg Levothyroxine Sodium (Synthroid) 25 mcg PO 0600 [facility] Last Admin: 06/14/18 05:10 Dose: 25 mcg Methylprednisolone (Solu-Medrol) 40 mg IVP Q6 [facility] Last Admin: 06/14/18 11:59 Dose: 40 mg Metoprolol Tartrate (Lopressor) 25 mg PO BID [facility] Last Admin: 06/11/18 09:29 Dose: 25 mg Mupirocin (Bactroban Ointment) 0 gm TOP BID [facility] Rifaximin (Xifaxan) 550 mg PO Q12 [facility]; Protocol Last Admin: 06/14/18 09:28 Dose: 550 mg Spironolactone (Aldactone) 25 mg PO BID [facility] Last Admin: 06/11/18 09:30 Dose: 25 mg Thiamine HCl (Vitamin B1 Tab) 100 mg PO DAILY [facility] Last Admin: 06/14/18 09:28 Dose: 100 mg - Labs Labs: 06/14/18 05:30 06/14/18 05:30 PT 27.2 SECONDS (9.4-12.5) H 06/14/18 08:30 INR 2.41 06/14/18 08:30 APTT 45.6 Seconds (26.9-38.3) H 06/09/18 14:05 - Constitutional Appears: No Acute Distress - Head Exam Head Exam: ATRAUMATIC - Extremities Exam Additional comments: Bilateral Lower Extremity Focused Exam VASC: DP and PT pulses 2/4 bilaterally, CFT less than 3 seconds X 10, non- pitting edema noted to bilateral lower legs NEURO: Grossly intact b/l. DERM: Multiple excoriated scabbed wounds with scaling noted of bilateral legs circumferentially, positive mild erythema noted to bilateral legs along with the xerosis, minimal ecchymosis noted to the tip of the right hallux likely secondary to cyanosis vs. injury, no drainage, no tracking, no probe to bone, no open lesions MSK: No pain on palpation to the lower extremities, MSK not performed at this time Assessment and Plan - Assessment and Plan (Free Text) Assessment: 73 year old male seen and evaluated for bilateral lower extremity xerosis with excoriated lesions Plan: Patient was seen and evaluated Plan discussed with Dr. De Charts, labs and vitals reviewed; Afebrile, WBC 8.3 SIMON/PVR: R: 0.67, L: 0.72 Lotrisone and LacHydrin applied to B/L LE Patient to be in Multipodus boots at all times when in bed Bactroban and Mepilex applied to scabs on the left knee Vasc consult; reccs appreciated Continue management per primary care team. Stable from podiatry standpoint, no intervention at this time. Podiatry will continue to follow up the patient while in house.
--- NOTE | 2018-06-14 14:03 | PN ---
DATE: 06/14/2018 SUBJECTIVE: A 73-year-old white male seen in the intensive care unit, bed 4. The patient has hepatic encephalopathy, sleep apnea, renal insufficiency, at this point and 4, pulmonary hypertension, ascites, liver compromise, atrial fibrillation, stasis dermatitis with cellulitic changes of both lower extremities. The patient had a poor night, has a one-to-one because of agitation, confusion, disorientation. The patient is being treated with some Xifaxan and lactulose. He has BiPAP. Diuresis is being held because of his renal failure. He possibly will need dialysis in the near-future. Potassium is 5.6 today. He will be treated with lactulose. Hemoglobin is 13.7, current platelet count is 371. The patient has a history of ITP and splenectomy in the past. PHYSICAL EXAMINATION: VITAL SIGNS: Temperature is 98.1, blood pressure 155/95. CHEST: Clear to auscultation. CARDIOPULMONARY: Irregularly irregular with ventricular response. EXTREMITIES: Stasis dermatitis. There is no edema. ASSESSMENT AND PLAN: The patient's prognosis is poor. We discussed the case with the family, possible dialysis later on this week. Chadd Savage MD
--- NOTE | 2018-06-14 15:18 | PN ---
DATE: 06/14/2018 SUBJECTIVE: This patient is seen and examined at bedside. He appears to be comfortable. However, requires intermittent BIPAP. On BiPAP with FiO2 35% IPAP 14 and EPAP 6. The patient has ABG 7.24/41/82. Lactic acid 1.5. IPAP increased to 16/6. The patient mental status appears to be more lucid today. His ammonia level as of yesterday 15. He is on lactulose and rifaximin. On nasal cannula, the patient's oxygen saturation is 88%. PHYSICAL EXAMINATION: VITAL SIGNS: Blood pressure 117/68, oxygen saturation 87% on 2 liters nasal cannula (on 35% FIO2 while on BiPAP) and oxygen saturation is 96%. HEENT: Head and neck atraumatic. LUNGS: Clear to auscultation bilaterally. HEART: Regular rate rhythm. S1, S2 normal. ABDOMEN: Soft, nontender, nondistended. MUSCULOSKELETAL: Trace bilateral pedal and ankle edema. NEUROLOGIC: The patient moves all extremities spontaneously. SKIN: Moist. PSYCHIATRIC: The patient alert, awake and appears to be more oriented today. LABORATORY DATA: WBC 4.7, hemoglobin 13.8, platelet count 371. Sodium 134, potassium 5.6 (insulin and D50 was given), chloride 100, carbon dioxide 17, BUN 69, creatinine of 4.0, glucose 124, AST 75, ALT 44, total bilirubin 1.3, ammonia level 14. ABG 7.24/41/82 on 35% FIO2 INR 2.41. Hepatitis B and C antibodies are negative. Urine for Legionella influenza negative. MEDICATIONS: Albumin, Brovana, budesonide, Cardizem 60 mg p.o. three times day, folic acid, guaifenesin, dextromethorphan p.r.n., insulin IV 10 units and D50, IV lactulose 20 g p.o. every 6 hours, Xopenex, Synthroid, Solu-Medrol 40 mg IV every 6 hours, metoprolol, rifaximine, normal saline 100 mL per hours, thiamine, and azithromycin. ASSESSMENT AND PLAN: This 73-year-old gentleman with a significant metabolic acidosis, acute kidney injury/oliguria in the setting of end-stage liver disease and initially hepatic encephalopathy which appears to be somewhat improved. The patient does not appear to be hypovolemic on physical exam. While the patient did have a diagnosis of community-acquired pneumonia on admission, he has been treated with antibiotics and remained afebrile as well as having no leukocytosis, which make me think that possibility of sepsis related acute tubular necrosis less likely. Hepatorenal syndrome is definitely high on differential diagnosis list. I discussed case with Dr. Aviles, (Nephrology Service). The patient will be started on hyperoncotic albumin; however, dialysis as well as midodrine/octreotide will be postponed until the patient received hyperoncotic albumin todayand re-evaled. The patient does not appear to be in shock and no straightforward nephrotoxic medication exposure at present time evident. If however, patient unable to picking supervisor his urine output soon, we will start octreotide drip as well as midodrine and renal replacement therapy will be considered as well. Meanwhile, discussion with the patient's family which also included primary medical doctor, Dr. Savage, was held to elucidate resuscitative status of the patient. The outcome of this discussion is still pending. Meanwhile, we will continue target euvolemia, euglycemia, normothermia and oxygen saturation more than 90%. We will continue with DVT, GI prophylaxis. The patient's INR is 2.4 which most likely related to synthetic dysfunction of the liver. We will continue with noninvasive positive pressure ventilatory support intermittently, I will continue with trend in ABG. His heart rate is controlled on Cardizem and metoprolol. The patient does have severe right ventricular failure and pulmonary hypertension. Thus we will try to avoid endotracheal intubation out of fear that the positive pressure ventilation may impair severely impaired right ventricular function further. ccm time 40 min Ky Cortez MD MAG[facility]
[2018-06-14 16:19] LABS: ARTERIAL BLOOD GAS HCO3 16.2 mmol/L (21-28); ARTERIAL BLOOD GAS O2 SAT 96.1 % (95-98); ARTERIAL BLOOD GAS PCO2 36 mm/Hg (35-45); ARTERIAL BLOOD GAS PH 7.26 (7.35-7.45); ARTERIAL BLOOD GAS TCO2 17.3 mmol.L (22-28)
[2018-06-14 16:25] LABS: CALCIUM 8.1 mg/dL (8.4-10.5)
--- NOTE | 2018-06-14 16:41 | PN ---
DATE: 06/14/2018 REASON FOR CONSULTATION AND FOLLOWUP: Atrial fibrillation, shortness of breath, congestive heart failure, altered mental status, cirrhosis, decompensated acute liver failure and elevated ammonia level. SUBJECTIVE: The patient still confused, one-to-one. OBJECTIVE: GENERAL: Not in apparent distress. VITAL SIGNS: Temperature afebrile. Heart rate 100 and blood pressure 131/60. HEENT: PERRLA. Extraocular muscles intact. NECK: Supple. No carotid bruit. No thyromegaly. CHEST: Clear to auscultation. HEART: S1 and S2, regular. ABDOMEN: Soft. EXTREMITIES: Clubbing and cyanosis negative. LABORATORY DATA: WBC 4.6, hemoglobin 13.8, hematocrit 41.1 and platelet count 371. Chemistry shows sodium 132, potassium 5.6, chloride 100, carbon dioxide 27, anion gap 22, BUN 16 and creatinine 4. IMPRESSION: A 73-year-old morbidly obese male with history of alcohol related disease and alcohol abuse admitted with atrial fibrillation, altered mental status moved to ICU because altered mental status. Initially the patient admitted with shortness of breath. Now the patient still sometimes confused. Echocardiography shows aortic stenosis, moderate to severe valve area 1.3 cm2 as well as moderate to severe mitral stenosis, mitral regurgitation, pulmonary hypertension, right ventricular systolic pressure 79, acute deterioration of mental status most likely secondary to alcohol related liver disease. The patient has elevated ammonia level. PLAN: Initially plan was to do cardiac catheterization, but given the patient's overall comorbidity, he is not a candidate for open heart surgery because the patient needs aortic as well as mitral valve. So we will try to treat aggressively for now and stabilize the patient. Once the patient is stabilized, will reassess for cardiac catheterization and possible surgery, but for now aggressively treat medically. Keep the electrolytes . The patient continue lactulose to keep ammonia level low. Overall the patient condition critical. Long-term prognosis extremely guarded. We will give Kayexalate for elevated potassium. We will follow with you. Overall the patient condition is critical. Long-term prognosis is extremely guarded and poor. Aruna Montilla MD
[2018-06-14] MEDS ORDERED: Albumin Human 25% (12.5 gm/50 ml) IV ONE (17:02)
[2018-06-14] MEDS ORDERED: Albumin Human 25% (25 gm/100 ml) IV ONE (17:02)
[2018-06-14] MEDS: NOREPINEPHRINE BIT/0.9 % NACL 4 MG/250 ML BAG IV PRN (17:35)
[2018-06-14] MEDS ORDERED: Albumin Human 25% (25gm/100ml)@1ml/min IVPB ONE (17:45)
[2018-06-14 20:10] LABS: VENOUS BLOOD GAS BASE EXCESS -9.3 mmol/L (0.0-2.0); VENOUS BLOOD GAS PO2 77 mm/Hg (30-55); VENOUS BLOOD PH 7.24 (7.32-7.43)
[2018-06-15] MEDS: MethylPREDNISolone 40 mg Vial IVP SCH ×4 (01:00→17:27)
--- NOTE | 2018-06-15 02:04 | CON ---
DATE: 06/14/2018 HISTORY OF PRESENT ILLNESS: The patient was seen and examined. I do agree with the note of the medical imaging tech. The patient has acute kidney injury. He has a wide differential. He has oliguria. His urine indices indicate that he has low sodium. I have been asked by Dr. Savage to evaluate the patient for acute kidney injury. The patient has hyperkalemia as well as hyponatremia. The creatinine was 1.5 when he initially came into the hospital. It has been steadily increasing. He has liver cirrhosis and had encephalopathy that has improved. The patient is still not back to his baseline, but remains confused. He has pulmonary hypertension with right ventricular heart failure. The patient has a history of alcohol abuse. He has been on lactulose and rifaximin for his hepatic encephalopathy. His serology was reviewed. He has a hepatitis panel that has been negative as well as HIV. His abdominal ultrasound shows mild hepatomegaly, hepatic steatosis. The echo that was done shows an EF of 66% with a severe pulmonary hypertension. He also has moderate valvular aortic stenosis with an area of 1.1. The differential is wide. He does not have post-obstructive uropathy. He was given IV fluids and has not had any improvement of his creatinine. The patient is currently not on diuretic therapy. His blood cultures have been negative. The urine cultures shows multiple species. He is currently not on any antibiotics. He most likely has hepatorenal syndrome. His Aldactone has been placed on hold. The patient is going to be given Kayexalate for his hyperkalemia. He is currently on Solu-Medrol. He is on a BiPAP. I have started the patient on norepinephrine and he is going to be given albumin. The patient's overall prognosis is guarded. He does not have underlying ATN as the Urine Na has been extremely low. He is not septic. He was not given any amincoglycoside therapy or radiocontrast agents. His blood pressure has been fairly well controlled. He has multiple criteria for hepatorenal syndrome. He has a progressive rise in his serum creatinine. His calculated urine protein to creatinine ratio shows shows he has about 450 mg of proteinuria/24 h. He has a very low sodium and he is oliguric. The patient has a doubling of his creatinine within 2 weeks, so most likely he has type I hepatorenal syndrome. His urinalysis that was done showed only 1 to 3 rbcs. I will order a urine osmolality, I would expect that to be elevated. We will continue with volume expansion with IV albumin. He will need two consecutive days IV albumin bolus of 100 mg per day. I will hold off on Midodrine and octreotide with albumin as the patient is going to be on norepinephrine and albumin since he is in the ICU and critically ill . If he does not improve, he will most likely need dialysis if he is agreeable. Overall, prognosis is poor with hepatorenal syndrome. Patient may benefit from palliative care evaluation. Jonathon Aviles MD MTDD
--- NOTE | 2018-06-15 02:45 | PN ---
DATE: 06/14/2018 SUBJECTIVE: The patient was seen earlier today, in room 129, bed 4. No fevers have been reported. There are no changes. PHYSICAL EXAMINATION VITAL SIGNS: Temperature of 98, blood pressure is 120/70, respiratory rate of 18, heart rate of 100. HEENT: Unremarkable. NECK: Supple. LUNGS: Decreased breath sounds. HEART: Normal S1 and S2. ABDOMEN: Soft. LABORATORY DATA: Reveals a white count of 4.7, hemoglobin of 13, BUN of 74, creatinine of 4.5. Urinalysis is noted. Toxicology is noted. Immunology is reviewed. Serology is noted. Urine for Legionella is negative. Influenza is negative. HIV is negative. Microbiology reveals a right leg culture with Klebsiella and group B Strep and corynebacterium. MEDICATIONS: Review of orders, the patient is off of antibiotics. 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 The patient has a history of Nancy's gangrene, morbid obesity, body mass index of 35. The patient has a tick related rash by history and was treated with doxycycline in the past. Currently, he has received Ceftaroline and Zithromax day number 5. Unfortunately, the Ceftaroline was discontinued by pharmacy and so was the Zithromax. We will reinitiate the Ceftaroline. We will follow with you. The patient has received Levaquin and ceftriaxone. The Klebsiella is sensitive to ceftriaxone and so is the beta-hemolytic Streptococcus. The patient's last x-ray from the third is reviewed. We will complete with p.o. Zithromax alone. The patient has had adequate Ceftaroline therapy. Karl Molina MD
[2018-06-15] MEDS: Levothyroxine 25 MCG TAB PO SCH (05:35)
[2018-06-15 06:57] LABS: MEAN CELL VOLUME 95.8 fl (80.0-105.0); MEAN CORPUSCULAR HEMOGLOBIN 32.5 pg (25.0-35.0); MEAN CORPUSCULAR HGB CONC 33.9 g/dl (31.0-37.0); MEAN PLATELET VOLUME 9.5 fl (7.0-11.0); RBC 4.31 10^6/uL (3.5-6.1); RED CELL DISTRIBUTION WIDTH 16.8 % (11.5-14.5); WHITE BLOOD COUNT 6.9 10^3/uL (4.5-11.0)
--- NOTE | 2018-06-15 07:02 | CP.CCUPN ---
<Harry Martínez - Last Filed: 06/15/18 11:14> CCU Subjective - Physician Review Subjective (Free Text): Harry Martínez, PGY1 ICU Progress Note for Dr. Garza Patient was seen and examined at bedside this morning. In regards to vitals: afebrile overnight, HR 110, SaO2 91% on BiPAP. BiPAP is currently continuous with the following settings: IPAP/EPAP 16/5, RR 14, FiO2 40%. Patient is currently AAOx3. He denies chest pain, shortness of breath, nausea, vomiting, diarrhea, fever, chills. Spoke to nursing staff - patient had 3 bowel movements last night. Purewick catheter in place. A full 12 point ROS was conducted and unremarkable except as stated above. CCU Objective - Vital Signs / Intake & Output Vital Signs (Last 4 hours): Vital Signs Temp Pulse Resp BP Pulse Ox 06/15/18 06:30 28 H 128/88 94 L 06/15/18 06:15 99 H 29 H 111/91 H 88 L 06/15/18 06:00 110 H 25 H 131/76 89 L 06/15/18 05:45 109 H 22 133/80 89 L 06/15/18 05:30 107 H 48 H 136/80 89 L 06/15/18 05:15 118 H 26 H 130/72 90 L 06/15/18 05:00 40 H 125/78 90 L 06/15/18 04:45 18 132/67 92 L 06/15/18 04:30 118 H 24 106/80 90 L 06/15/18 04:17 111 H 23 126/80 91 L 06/15/18 04:00 98.6 F 109 H 19 137/76 91 L 06/15/18 03:45 115 H 19 153/67 H 91 L 06/15/18 03:30 103 H 21 138/81 91 L 06/15/18 03:15 115 H 23 137/91 H 92 L Intake and Output (Last 8hrs): Intake & Output 06/14/18 06/15/18 06/15/18 22:59 06:59 14:59 Intake Total 1688 Balance 1688 Intake: IV 808 IVF 500 IVPB 300 levophed 8 Oral 480 Albumin 400 Other: # Bowel Movements 3 - Physical Exam Head: Positive for: Atraumatic, Normocephalic Pupils: Positive for: PERRL Extroacular Muscles: Positive for: EOMI Conjunctiva: Positive for: Normal Mouth: Positive for: Moist Mucous Membranes Nose (External): Positive for: Abrasion (2 abrasions to bridge of nose) Neck: Positive for: Normal Range of Motion Respiratory/Chest: Negative for: Respiratory Distress, Accessory Muscle Use, Wheezes, Rales, Retracting, Rhonchi Cardiovascular: Positive for: Normal S1, S2, Irregular Rhythm. Negative for: Murmurs Abdomen: Positive for: Distention, Normal Bowel Sounds. Negative for: Tenderness, Peritoneal Signs, Rebound Back: Positive for: Normal Inspection Upper Extremity: Positive for: Normal Inspection. Negative for: Cyanosis, Edema Lower Extremity: Positive for: Edema, Other (Chronic venous changes in bilateral lower extremities with bilateral wounds. Dressings in place. ) Neurological: Positive for: CN II-XII Intact, Speech Normal Skin: Positive for: Warm, Dry, Normal Color. Negative for: Rashes Psychiatric: Positive for: Alert, Oriented x 3. Negative for: Normal Insight - Medications Active Medications: Active Medications Generic Name Dose Route Start Last Admin Trade Name Freq PRN Reason Stop Dose Admin Arformoterol Tartrate 15 mcg 06/12/18 20:00 06/14/18 19:46 Brovana IH 15 mcg [id number] CASEY Administration Azithromycin 250 mg 06/15/18 10:00 Zithromax PO 06/20/18 10:01 DAILY CASEY Protocol Betamethasone/Clotrimazole 0 gm 06/11/18 10:00 06/14/18 09:33 Lotrisone TOP 1 tcp DAILY CASEY Administration Budesonide 0.5 mg 06/12/18 20:00 06/14/18 19:46 Pulmicort Respules IH 0.5 mg [id number] CASEY Administration Diltiazem HCl 60 mg 06/10/18 10:00 06/11/18 13:15 Cardizem PO 60 mg TID CASEY Administration Folic Acid 1 mg 06/10/18 10:00 06/14/18 09:28 Folic Acid PO 1 mg DAILY CASEY Administration Guaifenesin/Dextromethorphan 10 ml 06/12/18 15:13 06/13/18 17:20 Robitussin Dm PO 10 ml Q4H PRN Administration Cough NOREPINEPHRINE BIT/0.9 % NACL 4 mg in 250 mls @ 7.5 mls/hr 06/14/18 16:59 06/14/18 17:35 Levophed 4 Mg/ 250 Ml Ns Premixed IV 2 mcg/min .Q24H PRN 7.5 mls/hr TITRATE PER MD ORDER Administration Protocol 2 MCG/MIN Lactic Acid 0 ea 06/11/18 10:00 06/14/18 09:34 Lac-Hydrin 12% Cream (140 G) TOP 1 tcp DAILY CASEY Administration Lactulose 20 gm 06/15/18 10:00 Enulose PO DAILY CASEY Levalbuterol HCl 0.63 mg 06/10/18 14:00 06/14/18 19:46 Xopenex IH 0.63 mg TIDRESP CASEY Administration Levothyroxine Sodium 25 mcg 06/12/18 06:00 06/15/18 05:35 Synthroid PO 25 mcg 0600 CASEY Administration Methylprednisolone 40 mg 06/13/18 12:00 06/15/18 01:00 Solu-Medrol IVP 40 mg Q6 CASEY Administration Metoprolol Tartrate 25 mg 06/10/18 18:00 06/11/18 09:29 Lopressor PO 25 mg BID CASEY Administration Mupirocin 0 gm 06/14/18 11:42 06/14/18 17:24 Bactroban Ointment TOP 1 applic BID CASEY Administration Rifaximin 550 mg 06/12/18 22:00 06/14/18 22:15 Xifaxan PO 550 mg Q12 CASEY Administration Protocol Spironolactone 25 mg 06/11/18 10:00 06/11/18 09:30 Aldactone PO 25 mg BID CASEY Administration Thiamine HCl 100 mg 06/10/18 10:00 06/14/18 09:28 Vitamin B1 Tab PO 100 mg DAILY CASEY Administration - Patient Studies Lab Studies: Microbiology Studies 06/09/18 14:35 Blood Culture - Final Blood-Venous NO GROWTH AFTER 5 DAYS 06/09/18 14:05 Blood Culture - Final Blood-Venous NO GROWTH AFTER 5 DAYS Lab Studies 06/14/18 06/14/18 06/14/18 Range/Units 20:00 16:10 15:50 WBC (4.5-11.0) 10^3/uL RBC (3.5-6.1) 10^6/uL Hgb (14.0-18.0) g/dL Hct (42.0-52.0) % MCV (80.0-105.0) fl MCH (25.0-35.0) pg MCHC (31.0-37.0) g/dl RDW (11.5-14.5) % Plt Count (120.0-450.0) 10^3/uL MPV (7.0-11.0) fl Neut % (Auto) (50.0-68.0) % Lymph % (Auto) (22.0-35.0) % Nicol[place] % (Auto) (1.0-6.0) % Eos % (Auto) (1.5-5.0) % Baso % (Auto) (0.0-3.0) % Lymph # (Auto) (1.2-3.4) [place] # (Auto) (0.1-0.6) Eos # (Auto) (0.0-0.7) Baso # (Auto) (0.0-2.0) K/mm3 Absolute Neuts (auto) (1.4-6.5) PT (9.4-12.5) SECONDS INR pCO2 36 (35-45) mm/Hg pO2 77 H 74.0 L (80-100) mm/Hg HCO3 16.2 L (21-28) mmol/L ABG pH 7.26 L (7.35-7.45) ABG Total CO2 17.3 L (22-28) mmol.L ABG O2 Saturation 96.1 (95-98) % ABG Base Excess -10.0 L (-2.0-3.0) mmol/L ABG Potassium 5.2 (3.6-5.2) mmol/L VBG pH 7.24 L (7.32-7.43) VBG pCO2 41.0 (40-60) VBG HCO3 17.6 L (21-28) mmol/l VBG Total CO2 18.9 L (22-28) mmol.L VBG O2 Sat (Calc) 96.3 H (40-65) % VBG Base Excess -9.3 L (0.0-2.0) mmol/L VBG Potassium 5.7 H (3.6-5.2) mmol/L Glucose 138 H 114 H (75-110) mg/dl Lactate 1.8 2.0 (0.7-2.1) mmol/L FiO2 21.0 35.0 % Inspiratory BiPAP Sodium 131.0 L 131.0 L 133 (132-148) mmol/L Potassium 5.6 H* (3.6-5.0) mmol/L Chloride 96.0 L 97.0 L 99 (98-107) mmol/L Carbon Dioxide 17 L (21-33) mmol/L Anion Gap 23 H (10-20) BUN 74 H (7-21) mg/dL Creatinine 4.5 H (0.8-1.5) mg/dl Est GFR ( Amer) 16 Est GFR (Non-Af Amer) 13 Random Glucose 113 H (70-110) mg/dL Calcium 8.1 L (8.4-10.5) mg/dL Total Bilirubin (0.2-1.3) mg/dL AST (17-59) U/L ALT (7-56) U/L Alkaline Phosphatase (38-126) U/L Total Protein (5.8-8.3) g/dL Albumin (3.0-4.8) g/dL Globulin gm/dL Albumin/Globulin Ratio (1.1-1.8) Ceruloplasmin (18-36) mg/dL Arterial Blood Potassium 5.2 (3.6-5.2) mmol/L Venous Blood Potassium 5.7 H (3.6-5.2) mmol/L Urine Eosinophils Ur Random Creatinine mg/dL U Random Total Protein mg/L Ur Random Sodium meq/L 06/14/18 06/14/18 06/14/18 Range/Units 09:35 08:30 06:00 WBC (4.5-11.0) 10^3/uL RBC (3.5-6.1) 10^6/uL Hgb (14.0-18.0) g/dL Hct (42.0-52.0) % MCV (80.0-105.0) fl MCH (25.0-35.0) pg MCHC (31.0-37.0) g/dl RDW (11.5-14.5) % Plt Count (120.0-450.0) 10^3/uL MPV (7.0-11.0) fl Neut % (Auto) (50.0-68.0) % Lymph % (Auto) (22.0-35.0) % Nicollet % (Auto) (1.0-6.0) % Eos % (Auto) (1.5-5.0) % Baso % (Auto) (0.0-3.0) % Lymph # (Auto) (1.2-3.4) Nicol[place] # (Auto) (0.1-0.6) Eos # (Auto) (0.0-0.7) Baso # (Auto) (0.0-2.0) K/mm3 Absolute Neuts (auto) (1.4-6.5) PT 27.2 H (9.4-12.5) SECONDS INR 2.41 pCO2 41 (35-45) mm/Hg pO2 82.0 (80-100) mm/Hg HCO3 17.6 L (21-28) mmol/L ABG pH 7.24 L (7.35-7.45) ABG Total CO2 18.9 L (22-28) mmol.L ABG O2 Saturation 96.9 (95-98) % ABG Base Excess -9.3 L (-2.0-3.0) mmol/L ABG Potassium 5.2 (3.6-5.2) mmol/L VBG pH (7.32-7.43) VBG pCO2 (40-60) VBG HCO3 (21-28) mmol/l VBG Total CO2 (22-28) mmol.L VBG O2 Sat (Calc) (40-65) % VBG Base Excess (0.0-2.0) mmol/L VBG Potassium (3.6-5.2) mmol/L Glucose 140 H (75-110) mg/dl Lactate 1.5 (0.7-2.1) mmol/L FiO2 35.0 % Inspiratory BiPAP 12 Sodium 132.0 (132-148) mmol/L Potassium (3.6-5.0) mmol/L Chloride 100.0 (98-107) mmol/L Carbon Dioxide (21-33) mmol/L Anion Gap (10-20) BUN (7-21) mg/dL Creatinine (0.8-1.5) mg/dl Est GFR ( Amer) Est GFR (Non-Af Amer) Random Glucose (70-110) mg/dL Calcium (8.4-10.5) mg/dL Total Bilirubin (0.2-1.3) mg/dL AST (17-59) U/L ALT (7-56) U/L Alkaline Phosphatase (38-126) U/L Total Protein (5.8-8.3) g/dL Albumin (3.0-4.8) g/dL Globulin gm/dL Albumin/Globulin Ratio (1.1-1.8) Ceruloplasmin (18-36) mg/dL Arterial Blood Potassium 5.2 (3.6-5.2) mmol/L Venous Blood Potassium (3.6-5.2) mmol/L Urine Eosinophils Negative Ur Random Creatinine mg/dL U Random Total Protein mg/L Ur Random Sodium meq/L 06/14/18 06/14/18 06/14/18 Range/Units 06:00 05:30 05:30 WBC 4.7 D (4.5-11.0) 10^3/uL RBC 4.23 (3.5-6.1) 10^6/uL Hgb 13.8 L (14.0-18.0) g/dL Hct 41.1 L (42.0-52.0) % MCV 97.2 (80.0-105.0) fl MCH 32.6 (25.0-35.0) pg MCHC 33.6 (31.0-37.0) g/dl RDW 16.9 H (11.5-14.5) % Plt Count 371 (120.0-450.0) 10^3/uL MPV 9.8 (7.0-11.0) fl Neut % (Auto) 86.4 H (50.0-68.0) % Lymph % (Auto) 9.6 L (22.0-35.0) % Nicollet % (Auto) 4.0 (1.0-6.0) % Eos % (Auto) 0.0 L (1.5-5.0) % Baso % (Auto) 0.0 (0.0-3.0) % Lymph # (Auto) 0.5 L (1.2-3.4) Nicollet # (Auto) 0.2 (0.1-0.6) Eos # (Auto) 0.0 (0.0-0.7) Baso # (Auto) 0.00 (0.0-2.0) K/mm3 Absolute Neuts (auto) 4.07 (1.4-6.5) PT (9.4-12.5) SECONDS INR pCO2 (35-45) mm/Hg pO2 (80-100) mm/Hg HCO3 (21-28) mmol/L ABG pH (7.35-7.45) ABG Total CO2 (22-28) mmol.L ABG O2 Saturation (95-98) % ABG Base Excess (-2.0-3.0) mmol/L ABG Potassium (3.6-5.2) mmol/L VBG pH (7.32-7.43) VBG pCO2 (40-60) VBG HCO3 (21-28) mmol/l VBG Total CO2 (22-28) mmol.L VBG O2 Sat (Calc) (40-65) % VBG Base Excess (0.0-2.0) mmol/L VBG Potassium (3.6-5.2) mmol/L Glucose (75-110) mg/dl Lactate (0.7-2.1) mmol/L FiO2 % Inspiratory BiPAP Sodium 134 (132-148) mmol/L Potassium 5.6 H* (3.6-5.0) mmol/L Chloride 100 (98-107) mmol/L Carbon Dioxide 17 L (21-33) mmol/L Anion Gap 22 H (10-20) BUN 69 H (7-21) mg/dL Creatinine 4.0 H (0.8-1.5) mg/dl Est GFR ( Amer) 18 Est GFR (Non-Af Amer) 15 Random Glucose 124 H (70-110) mg/dL Calcium 8.0 L (8.4-10.5) mg/dL Total Bilirubin 1.3 (0.2-1.3) mg/dL AST 75 H (17-59) U/L ALT 44 (7-56) U/L Alkaline Phosphatase 194 H (38-126) U/L Total Protein 7.5 (5.8-8.3) g/dL Albumin 3.2 (3.0-4.8) g/dL Globulin 4.3 gm/dL Albumin/Globulin Ratio 0.8 L (1.1-1.8) Ceruloplasmin (18-36) mg/dL Arterial Blood Potassium (3.6-5.2) mmol/L Venous Blood Potassium (3.6-5.2) mmol/L Urine Eosinophils Ur Random Creatinine 217 mg/dL U Random Total Protein 97 mg/L Ur Random Sodium < 5 meq/L 06/11/18 Range/Units 19:57 WBC (4.5-11.0) 10^3/uL RBC (3.5-6.1) 10^6/uL Hgb (14.0-18.0) g/dL Hct (42.0-52.0) % MCV (80.0-105.0) fl MCH (25.0-35.0) pg MCHC (31.0-37.0) g/dl RDW (11.5-14.5) % Plt Count (120.0-450.0) 10^3/uL MPV (7.0-11.0) fl Neut % (Auto) (50.0-68.0) % Lymph % (Auto) (22.0-35.0) % Nicollet % (Auto) (1.0-6.0) % Eos % (Auto) (1.5-5.0) % Baso % (Auto) (0.0-3.0) % Lymph # (Auto) (1.2-3.4) [place] # (Auto) (0.1-0.6) Eos # (Auto) (0.0-0.7) Baso # (Auto) (0.0-2.0) K/mm3 Absolute Neuts (auto) (1.4-6.5) PT (9.4-12.5) SECONDS INR pCO2 (35-45) mm/Hg pO2 (80-100) mm/Hg HCO3 (21-28) mmol/L ABG pH (7.35-7.45) ABG Total CO2 (22-28) mmol.L ABG O2 Saturation (95-98) % ABG Base Excess (-2.0-3.0) mmol/L ABG Potassium (3.6-5.2) mmol/L VBG pH (7.32-7.43) VBG pCO2 (40-60) VBG HCO3 (21-28) mmol/l VBG Total CO2 (22-28) mmol.L VBG O2 Sat (Calc) (40-65) % VBG Base Excess (0.0-2.0) mmol/L VBG Potassium (3.6-5.2) mmol/L Glucose (75-110) mg/dl Lactate (0.7-2.1) mmol/L FiO2 % Inspiratory BiPAP Sodium (132-148) mmol/L Potassium (3.6-5.0) mmol/L Chloride (98-107) mmol/L Carbon Dioxide (21-33) mmol/L Anion Gap (10-20) BUN (7-21) mg/dL Creatinine (0.8-1.5) mg/dl Est GFR ( Amer) Est GFR (Non-Af Amer) Random Glucose (70-110) mg/dL Calcium (8.4-10.5) mg/dL Total Bilirubin (0.2-1.3) mg/dL AST (17-59) U/L ALT (7-56) U/L Alkaline Phosphatase (38-126) U/L Total Protein (5.8-8.3) g/dL Albumin (3.0-4.8) g/dL Globulin gm/dL Albumin/Globulin Ratio (1.1-1.8) Ceruloplasmin 53 H (18-36) mg/dL Arterial Blood Potassium (3.6-5.2) mmol/L Venous Blood Potassium (3.6-5.2) mmol/L Urine Eosinophils Ur Random Creatinine mg/dL U Random Total Protein mg/L Ur Random Sodium meq/L Laboratory Results - last 24 hr 06/11/18 06/14/18 06/14/18 19:57 05:30 05:30 WBC 4.7 D RBC 4.23 Hgb 13.8 L Hct 41.1 L MCV 97.2 MCH 32.6 MCHC 33.6 RDW 16.9 H Plt Count 371 MPV 9.8 Neut % (Auto) 86.4 H Lymph % (Auto) 9.6 L Nicollet % (Auto) 4.0 Eos % (Auto) 0.0 L Baso % (Auto) 0.0 Lymph # (Auto) 0.5 L [place] # (Auto) 0.2 Eos # (Auto) 0.0 Baso # (Auto) 0.00 Absolute Neuts (auto) 4.07 PT INR pCO2 pO2 HCO3 ABG pH ABG Total CO2 ABG O2 Saturation ABG Base Excess ABG Potassium VBG pH VBG pCO2 VBG HCO3 VBG Total CO2 VBG O2 Sat (Calc) VBG Base Excess VBG Potassium Glucose Lactate FiO2 Inspiratory BiPAP Sodium 134 Potassium 5.6 H* Chloride 100 Carbon Dioxide 17 L Anion Gap 22 H BUN 69 H Creatinine 4.0 H Est GFR ( Amer) 18 Est GFR (Non-Af Amer) 15 Random Glucose 124 H Calcium 8.0 L Total Bilirubin 1.3 AST 75 H ALT 44 Alkaline Phosphatase 194 H Total Protein 7.5 Albumin 3.2 Globulin 4.3 Albumin/Globulin Ratio 0.8 L Ceruloplasmin 53 H Arterial Blood Potassium Venous Blood Potassium Urine Eosinophils Ur Random Creatinine U Random Total Protein Ur Random Sodium 06/14/18 06/14/18 06/14/18 06:00 06:00 08:30 WBC RBC Hgb Hct MCV MCH MCHC RDW Plt Count MPV Neut % (Auto) Lymph % (Auto) Nicollet % (Auto) Eos % (Auto) Baso % (Auto) Lymph # (Auto) [place] # (Auto) Eos # (Auto) Baso # (Auto) Absolute Neuts (auto) PT 27.2 H INR 2.41 pCO2 pO2 HCO3 ABG pH ABG Total CO2 ABG O2 Saturation ABG Base Excess ABG Potassium VBG pH VBG pCO2 VBG HCO3 VBG Total CO2 VBG O2 Sat (Calc) VBG Base Excess VBG Potassium Glucose Lactate FiO2 Inspiratory BiPAP Sodium Potassium Chloride Carbon Dioxide Anion Gap BUN Creatinine Est GFR ( Amer) Est GFR (Non-Af Amer) Random Glucose Calcium Total Bilirubin AST ALT Alkaline Phosphatase Total Protein Albumin Globulin Albumin/Globulin Ratio Ceruloplasmin Arterial Blood Potassium Venous Blood Potassium Urine Eosinophils Negative Ur Random Creatinine 217 U Random Total Protein 97 Ur Random Sodium < 5 06/14/18 06/14/18 06/14/18 09:35 15:50 16:10 WBC RBC Hgb Hct MCV MCH MCHC RDW Plt Count MPV Neut % (Auto) Lymph % (Auto) Nicollet % (Auto) Eos % (Auto) Baso % (Auto) Lymph # (Auto) [place] # (Auto) Eos # (Auto) Baso # (Auto) Absolute Neuts (auto) PT INR pCO2 41 36 pO2 82.0 74.0 L HCO3 17.6 L 16.2 L ABG pH 7.24 L 7.26 L ABG Total CO2 18.9 L 17.3 L ABG O2 Saturation 96.9 96.1 ABG Base Excess -9.3 L -10.0 L ABG Potassium 5.2 5.2 VBG pH VBG pCO2 VBG HCO3 VBG Total CO2 VBG O2 Sat (Calc) VBG Base Excess VBG Potassium Glucose 140 H 114 H Lactate 1.5 2.0 FiO2 35.0 35.0 Inspiratory BiPAP 12 Sodium 132.0 133 131.0 L Potassium 5.6 H* Chloride 100.0 99 97.0 L Carbon Dioxide 17 L Anion Gap 23 H BUN 74 H Creatinine 4.5 H Est GFR ( Amer) 16 Est GFR (Non-Af Amer) 13 Random Glucose 113 H Calcium 8.1 L Total Bilirubin AST ALT Alkaline Phosphatase Total Protein Albumin Globulin Albumin/Globulin Ratio Ceruloplasmin Arterial Blood Potassium 5.2 5.2 Venous Blood Potassium Urine Eosinophils Ur Random Creatinine U Random Total Protein Ur Random Sodium 06/14/18 20:00 WBC RBC Hgb Hct MCV MCH MCHC RDW Plt Count MPV Neut % (Auto) Lymph % (Auto) Nicollet % (Auto) Eos % (Auto) Baso % (Auto) Lymph # (Auto) [place] # (Auto) Eos # (Auto) Baso # (Auto) Absolute Neuts (auto) PT INR pCO2 pO2 77 H HCO3 ABG pH ABG Total CO2 ABG O2 Saturation ABG Base Excess ABG Potassium VBG pH 7.24 L VBG pCO2 41.0 VBG HCO3 17.6 L VBG Total CO2 18.9 L VBG O2 Sat (Calc) 96.3 H VBG Base Excess -9.3 L VBG Potassium 5.7 H Glucose 138 H Lactate 1.8 FiO2 21.0 Inspiratory BiPAP Sodium 131.0 L Potassium Chloride 96.0 L Carbon Dioxide Anion Gap BUN Creatinine Est GFR ( Amer) Est GFR (Non-Af Amer) Random Glucose Calcium Total Bilirubin AST ALT Alkaline Phosphatase Total Protein Albumin Globulin Albumin/Globulin Ratio Ceruloplasmin Arterial Blood Potassium Venous Blood Potassium 5.7 H Urine Eosinophils Ur Random Creatinine U Random Total Protein Ur Random Sodium Review of Systems - Review of Systems All systems: reviewed and no additional remarkable complaints except (as per HPI) Critical Care Progress Note - Extremities/Vascular Does the Patient have a Central Venous Catheter?: No Does the Patient need a Central Venous Catheter?: No - Nutrition Nutrition: Nutrition Category Date Time Status NPO Diet [DIET] Diets 06/14/18 Breakfast Ordered Assessment/Plan - Assessment and Plan (Free Text) Assessment: Patient is a 77 y/o M with PMHx hepatic encephalopathy, alcoholic cirrhosis, aortic stenosis, s/p splenectomy (ITP), PAD (with ulcerations of the lower extremities), chronic lymphedema, Afib who initially presented to [facility] [place] for x3 weeks AMS/lethargy with increased lower extremity swelling, anasarca, darkening of urine, and some shortness of breath. On CXR, patient was found to have RLL pneumonia and small R-pleural effusion. Patient also has bilateral ulcerations with RLE cellulitis. Patient admitted for severe sepsis 2/2 CAP and RLE cellulitis. He also presented with Afib with RVR in which he was appropriately rate controlled. During hospital course on 06/11, SUPERIOR COURT JUDGE was called as patient was having worsening confusion, urinary incontinence, and hypotension (resolved); he was subsequently transferred to the ICU for management. Patient admitted to the ICU for hepatic encephalopathy, hepatorenal syndrome, pulmonary hypertension type I. Plan: Neuro: - Hepatic encephalopathy - resolved - Currently AAOx3 - ammonia level 100 --> 71 --> 14 (06/12) - c/w rifaximin 550mg PO q12 - Taper down to lactulose 20g PO daily; patient is having 2-3 bowel movements a day - c/w thiamine and folic acid (Cirrhosis 2/2 EtOH abuse) - 1:1 monitoring due to agitation Cardio: - Afib with RVR - HR 110s; hypotension was resolved s/p SUPERIOR COURT JUDGE - CHADVASC score 3; HASBLED score 4 - high risk of bleeding; anticoagulation not indicated at this time - currently on norepinephrine drip - cardizem and metoprolol held at this time - Cardiorenal syndrome - Echo: EF 66%. Suggests CHF-pEF: severely dilated RV, mod-severe mitral valve stenosis and tricuspid regurgitation. RVSP 79, severe pulmonary hypertension. - Cardio on consult. Recs appreciated. Pulm: - Shortness of Breath 2/2 Pulmonary Hypertension from Hepatopulmonary Syndrome - c/w BiPAP on continuous settings. Current settings: IPAP/EPAP 16/5, RR 14, FiO2 40% - ABG on 06/14 showed metabolic acidosis - adjust BiPAP settings as needed - c/w brovana, pulmicort - c/w solumedrol 40mg IVP q6 - c/w robitussin for cough - Maintain SaO2 > 92% - Aspiration precautions GI: - MELD score 32 points; 52% mortality within next 3 months - Palliative Care - AST/ALT downtrending; 67/40, ALP 156 - Acute hepatitis panel negative, HIV negative, Legionella negative - CT A/P: duodenoitis. Cryptogenic cirrhotic pattern not completely excluded. Trace perihepatic ascites. - GI on consult. Recs appreciated. - Diet NPO due to continuous BiPAP Renal: - Type I Hepatorenal syndrome given criteria met: Cirrhosis w/ ascites, Cr >1.5 with no improvement after diuresis, no shock/nephrotoxic meds, no organic kidney disease. Criteria met within 2 weeks duration. - c/w albumin (Day 2). Nephro added norepinephrine drip. - Nephro plans to taper down norepi drip and switch to octreotide and midodrine for treatment of Hepatorenal syndrome. - Hyperkalemia 2/2 Hepatorenal vs Metabolic Acidosis, K 5.4: insulin 10 units with amp D50. - Nephrology on consult. Recs appreciated. - Worsening acute renal failure - BUN/Cr is 83/4.9, uptrending from 69/4.0 (baseline Cr is 0.6) - UA negative for UTI - UCx multiple species: contaminated - bladder scan - no signs of obstruction - Purewick catheter is in place - Ins/out: 1918/350, net +1568 mL ID: - Severe Sepsis 2/2 CAP/Aspiration PNA vs RLE cellulitis - c/w azithromycin for CAP as per ID recommendations (until 06/20) - currently afebrile with no leukocytosis - CXR: RLL PNA (consider aspiration given his mental status change) - L-leg wound cx: +klebsiella, +beta-hemolytic group B strep, +corynebacterium - LE arterial US: R-leg SIMON .67 and L-leg SIMON .72 (Hx PVD) - Blood Cx negative x2 (prelim) after 5 days - MRSA negative - ID on consult. Recs appreciated. - Podiatry on consult. Recs appreciated. - Wound care on board Heme: - Hgb stable at this time with no overt bleeding - INR 2.4 (06/14) - No indication for transfusion at this time unless Hgb < 7.0 Endo: - Hypothyroidism - c/w levothyroxine 25 mcg daily Dispo: Continue to monitor in the ICU at this time. Overall, patient's prognosis is poor. Palliative care was consulted. Follow up further recs from nephrology. Case was discussed and reviewed with Attending Physician, Dr. Gini Garza. <Gini Garza - Last Filed: 06/15/18 17:56> CCU Objective - Vital Signs / Intake & Output Vital Signs (Last 4 hours): Vital Signs Pulse 06/15/18 15:36 116 H Intake and Output (Last 8hrs): Intake & Output 06/15/18 06/15/18 06/15/18 06:59 14:59 22:59 Intake Total 230 250 Output Total 350 Balance -120 250 Intake: IV 230 250 Right Wrist 180 levophed 50 Output: Urine 200 Urine, Voided 200 Stool 150 - Medications Active Medications: Active Medications Generic Name Dose Route Start Last Admin Trade Name Freq PRN Reason Stop Dose Admin Arformoterol Tartrate 15 mcg 06/12/18 20:00 06/15/18 07:12 Brovana IH 15 mcg [id number] CASEY Administration Azithromycin 250 mg 06/15/18 10:00 06/15/18 09:08 Zithromax PO 06/20/18 10:01 250 mg DAILY CASEY Administration Protocol Betamethasone/Clotrimazole 0 gm 06/11/18 10:00 06/15/18 09:11 Lotrisone TOP 1 tcp DAILY CASEY Administration Budesonide 0.5 mg 06/12/18 20:00 06/15/18 07:12 Pulmicort Respules IH 0.5 mg [id number] CASEY Administration Diltiazem HCl 60 mg 06/10/18 10:00 06/11/18 13:15 Cardizem PO 60 mg TID CASEY Administration Folic Acid 1 mg 06/10/18 10:00 06/15/18 09:08 Folic Acid PO 1 mg DAILY CASEY Administration Guaifenesin/Dextromethorphan 10 ml 06/12/18 15:13 06/13/18 17:20 Robitussin Dm PO 10 ml Q4H PRN Administration Cough NOREPINEPHRINE BIT/0.9 % NACL 4 mg in 250 mls @ 7.5 mls/hr 06/14/18 16:59 06/15/18 12:44 Levophed 4 Mg/ 250 Ml Ns Premixed IV 2 mcg/min .Q24H PRN 7.5 mls/hr TITRATE PER MD ORDER Administration Protocol 2 MCG/MIN Lactic Acid 0 ea 06/11/18 10:00 06/15/18 09:09 Lac-Hydrin 12% Cream (140 G) TOP 1 tcp DAILY CASEY Administration Lactulose 20 gm 06/15/18 10:00 06/15/18 09:08 Enulose PO 20 gm DAILY CASEY Administration Levalbuterol HCl 0.63 mg 06/10/18 14:00 06/15/18 13:13 Xopenex IH 0.63 mg TIDRESP CASEY Administration Levothyroxine Sodium 25 mcg 06/12/18 06:00 06/15/18 05:35 Synthroid PO 25 mcg 0600 CASEY Administration Methylprednisolone 40 mg 06/13/18 12:00 06/15/18 17:27 Solu-Medrol IVP 40 mg Q6 CASEY Administration Metoprolol Tartrate 25 mg 06/10/18 18:00 06/11/18 09:29 Lopressor PO 25 mg BID CASEY Administration Mupirocin 0 gm 06/14/18 11:42 06/15/18 17:28 Bactroban Ointment TOP 1 applic BID CASEY Administration Rifaximin 550 mg 06/12/18 22:00 06/15/18 09:08 Xifaxan PO 550 mg Q12 CASEY Administration Protocol Thiamine HCl 100 mg 06/10/18 10:00 06/15/18 09:08 Vitamin B1 Tab PO 100 mg DAILY CASEY Administration - Patient Studies Lab Studies: Microbiology Studies 06/09/18 14:35 Blood Culture - Final Blood-Venous NO GROWTH AFTER 5 DAYS 06/09/18 14:05 Blood Culture - Final Blood-Venous NO GROWTH AFTER 5 DAYS Lab Studies 06/15/18 06/15/18 06/15/18 Range/Units 07:30 06:20 06:20 WBC 6.9 D (4.5-11.0) 10^3/uL RBC 4.31 (3.5-6.1) 10^6/uL Hgb 14.0 (14.0-18.0) g/dL Hct 41.3 L (42.0-52.0) % MCV 95.8 (80.0-105.0) fl MCH 32.5 (25.0-35.0) pg MCHC 33.9 (31.0-37.0) g/dl RDW 16.8 H (11.5-14.5) % Plt Count 345 (120.0-450.0) 10^3/uL MPV 9.5 (7.0-11.0) fl pO2 (30-55) mm/Hg VBG pH (7.32-7.43) VBG pCO2 (40-60) VBG HCO3 (21-28) mmol/l VBG Total CO2 (22-28) mmol.L VBG O2 Sat (Calc) (40-65) % VBG Base Excess (0.0-2.0) mmol/L VBG Potassium (3.6-5.2) mmol/L Sodium 135 (132-148) mmol/L Chloride 100 (98-107) mmol/L Glucose (75-110) mg/dl Lactate (0.7-2.1) mmol/L FiO2 % Potassium 5.4 H (3.6-5.0) mmol/L Carbon Dioxide 17 L (21-33) mmol/L Anion Gap 22 H (10-20) BUN 83 H (7-21) mg/dL Creatinine 4.9 H (0.8-1.5) mg/dl Est GFR ( Amer) 14 Est GFR (Non-Af Amer) 12 POC Glucose (mg/dL) (65-110) mg/dL Random Glucose 122 H (70-110) mg/dL Calcium 7.9 L (8.4-10.5) mg/dL Phosphorus 9.1 H (2.5-4.5) mg/dL Magnesium 2.4 H (1.7-2.2) mg/dL Total Bilirubin 1.6 H (0.2-1.3) mg/dL AST 67 H (17-59) U/L ALT 40 (7-56) U/L Alkaline Phosphatase 156 H (38-126) U/L Total Protein 8.1 (5.8-8.3) g/dL Albumin 4.0 (3.0-4.8) g/dL Globulin 4.1 gm/dL Albumin/Globulin Ratio 1.0 L (1.1-1.8) Ceruloplasmin (18-36) mg/dL Venous Blood Potassium (3.6-5.2) mmol/L Urine Osmolality 480 (300-1000) mosm/kg Serum Immunofixation (Not Detected) GENE Screen (Negative) Anti-Mitochondrial Ab (Negative) Smooth Muscle Ab Titer (()) Anti-Smooth Muscle Ab (Negative) 06/15/18 06/14/18 06/11/18 Range/Units 06:11 20:00 19:57 WBC (4.5-11.0) 10^3/uL RBC (3.5-6.1) 10^6/uL Hgb (14.0-18.0) g/dL Hct (42.0-52.0) % MCV (80.0-105.0) fl MCH (25.0-35.0) pg MCHC (31.0-37.0) g/dl RDW (11.5-14.5) % Plt Count (120.0-450.0) 10^3/uL MPV (7.0-11.0) fl pO2 77 H (30-55) mm/Hg VBG pH 7.24 L (7.32-7.43) VBG pCO2 41.0 (40-60) VBG HCO3 17.6 L (21-28) mmol/l VBG Total CO2 18.9 L (22-28) mmol.L VBG O2 Sat (Calc) 96.3 H (40-65) % VBG Base Excess -9.3 L (0.0-2.0) mmol/L VBG Potassium 5.7 H (3.6-5.2) mmol/L Sodium 131.0 L (132-148) mmol/L Chloride 96.0 L (98-107) mmol/L Glucose 138 H (75-110) mg/dl Lactate 1.8 (0.7-2.1) mmol/L FiO2 21.0 % Potassium (3.6-5.0) mmol/L Carbon Dioxide (21-33) mmol/L Anion Gap (10-20) BUN (7-21) mg/dL Creatinine (0.8-1.5) mg/dl Est GFR ( Amer) Est GFR (Non-Af Amer) POC Glucose (mg/dL) 134 H (65-110) mg/dL Random Glucose (70-110) mg/dL Calcium (8.4-10.5) mg/dL Phosphorus (2.5-4.5) mg/dL Magnesium (1.7-2.2) mg/dL Total Bilirubin (0.2-1.3) mg/dL AST (17-59) U/L ALT (7-56) U/L Alkaline Phosphatase (38-126) U/L Total Protein (5.8-8.3) g/dL Albumin (3.0-4.8) g/dL Globulin gm/dL Albumin/Globulin Ratio (1.1-1.8) Ceruloplasmin (18-36) mg/dL Venous Blood Potassium 5.7 H (3.6-5.2) mmol/L Urine Osmolality (300-1000) mosm/kg Serum Immunofixation Not detected (Not Detected) GENE Screen (Negative) Anti-Mitochondrial Ab (Negative) Smooth Muscle Ab Titer (()) Anti-Smooth Muscle Ab (Negative) 06/11/18 Range/Units 19:57 WBC (4.5-11.0) 10^3/uL RBC (3.5-6.1) 10^6/uL Hgb (14.0-18.0) g/dL Hct (42.0-52.0) % MCV (80.0-105.0) fl MCH (25.0-35.0) pg MCHC (31.0-37.0) g/dl RDW (11.5-14.5) % Plt Count (120.0-450.0) 10^3/uL MPV (7.0-11.0) fl pO2 (30-55) mm/Hg VBG pH (7.32-7.43) VBG pCO2 (40-60) VBG HCO3 (21-28) mmol/l VBG Total CO2 (22-28) mmol.L VBG O2 Sat (Calc) (40-65) % VBG Base Excess (0.0-2.0) mmol/L VBG Potassium (3.6-5.2) mmol/L Sodium (132-148) mmol/L Chloride (98-107) mmol/L Glucose (75-110) mg/dl Lactate (0.7-2.1) mmol/L FiO2 % Potassium (3.6-5.0) mmol/L Carbon Dioxide (21-33) mmol/L Anion Gap (10-20) BUN (7-21) mg/dL Creatinine (0.8-1.5) mg/dl Est GFR ( Amer) Est GFR (Non-Af Amer) POC Glucose (mg/dL) (65-110) mg/dL Random Glucose (70-110) mg/dL Calcium (8.4-10.5) mg/dL Phosphorus (2.5-4.5) mg/dL Magnesium (1.7-2.2) mg/dL Total Bilirubin (0.2-1.3) mg/dL AST (17-59) U/L ALT (7-56) U/L Alkaline Phosphatase (38-126) U/L Total Protein (5.8-8.3) g/dL Albumin (3.0-4.8) g/dL Globulin gm/dL Albumin/Globulin Ratio (1.1-1.8) Ceruloplasmin 53 H (18-36) mg/dL Venous Blood Potassium (3.6-5.2) mmol/L Urine Osmolality (300-1000) mosm/kg Serum Immunofixation (Not Detected) GENE Screen Negative (Negative) Anti-Mitochondrial Ab Negative (Negative) Smooth Muscle Ab Titer (()) Anti-Smooth Muscle Ab Negative (Negative) Laboratory Results - last 24 hr 06/11/18 06/11/18 06/14/18 19:57 19:57 20:00 WBC RBC Hgb Hct MCV MCH MCHC RDW Plt Count MPV pO2 77 H VBG pH 7.24 L VBG pCO2 41.0 VBG HCO3 17.6 L VBG Total CO2 18.9 L VBG O2 Sat (Calc) 96.3 H VBG Base Excess -9.3 L VBG Potassium 5.7 H Sodium 131.0 L Chloride 96.0 L Glucose 138 H Lactate 1.8 FiO2 21.0 Potassium Carbon Dioxide Anion Gap BUN Creatinine Est GFR ( Amer) Est GFR (Non-Af Amer) POC Glucose (mg/dL) Random Glucose Calcium Phosphorus Magnesium Total Bilirubin AST ALT Alkaline Phosphatase Total Protein Albumin Globulin Albumin/Globulin Ratio Ceruloplasmin 53 H Venous Blood Potassium 5.7 H Urine Osmolality Serum Immunofixation Not detected GENE Screen Negative Anti-Mitochondrial Ab Negative Smooth Muscle Ab Titer Anti-Smooth Muscle Ab Negative 06/15/18 06/15/18 06/15/18 06:11 06:20 06:20 WBC 6.9 D RBC 4.31 Hgb 14.0 Hct 41.3 L MCV 95.8 MCH 32.5 MCHC 33.9 RDW 16.8 H Plt Count 345 MPV 9.5 pO2 VBG pH VBG pCO2 VBG HCO3 VBG Total CO2 VBG O2 Sat (Calc) VBG Base Excess VBG Potassium Sodium 135 Chloride 100 Glucose Lactate FiO2 Potassium 5.4 H Carbon Dioxide 17 L Anion Gap 22 H BUN 83 H Creatinine 4.9 H Est GFR ( Amer) 14 Est GFR (Non-Af Amer) 12 POC Glucose (mg/dL) 134 H Random Glucose 122 H Calcium 7.9 L Phosphorus 9.1 H Magnesium 2.4 H Total Bilirubin 1.6 H AST 67 H ALT 40 Alkaline Phosphatase 156 H Total Protein 8.1 Albumin 4.0 Globulin 4.1 Albumin/Globulin Ratio 1.0 L Ceruloplasmin Venous Blood Potassium Urine Osmolality Serum Immunofixation GENE Screen Anti-Mitochondrial Ab Smooth Muscle Ab Titer Anti-Smooth Muscle Ab 06/15/18 07:30 WBC RBC Hgb Hct MCV MCH MCHC RDW Plt Count MPV pO2 VBG pH VBG pCO2 VBG HCO3 VBG Total CO2 VBG O2 Sat (Calc) VBG Base Excess VBG Potassium Sodium Chloride Glucose Lactate FiO2 Potassium Carbon Dioxide Anion Gap BUN Creatinine Est GFR ( Amer) Est GFR (Non-Af Amer) POC Glucose (mg/dL) Random Glucose Calcium Phosphorus Magnesium Total Bilirubin AST ALT Alkaline Phosphatase Total Protein Albumin Globulin Albumin/Globulin Ratio Ceruloplasmin Venous Blood Potassium Urine Osmolality 480 Serum Immunofixation GENE Screen Anti-Mitochondrial Ab Smooth Muscle Ab Titer Anti-Smooth Muscle Ab Critical Care Progress Note - Nutrition Nutrition: Nutrition Category Date Time Status Liquid Diet [DIET] Diets 06/15/18 Breakfast Ordered Addendum Addendum: 06/15/18 17:56 MICU Attending Addendum: Patient seen and examined with housestaff, case discussed on rounds. I agree with resident note above with the following additions/exceptions: 77M with alcoholic cirrhosis, aortic stenosis, s/p splenectomy (ITP), PAD (with ulcerations of the lower extremities), chronic lymphedema, Afib admitted with increased lower extremity swelling, anasarca and severe sepsis 2/2 CAP and RLE cellulitis. Sepsis MARIE on CKD / Anuric Afib RVR CHF Elevated RVSP Hepatorenal syndrome Cirrohsis Overall prognosis is poor given underlying co morbitidites and now complicated by hepatorenal syndrome. Nephro managing HRS, would start octeodride and midodrine at this point. I would push for trial dialysis when needed as a last ditch effort as it may help his pulm and cardio status. Goals of care discussed with [facility] care and Sister Clarice, patient is now DNR DNI I had a 20 minutes disucissoin with the sister as well and answered all questions for now cont bipap, no intubation f/u nephro recs optimize HRS as above condition guarded hep Sq dvt ppx ppi for gi ppx Rest of care as per resident note above Gini Garza MD Attending Pulmonary Critical Care Sleep Medicine
[2018-06-15 07:07] LABS: CALCIUM 7.9 mg/dL (8.4-10.5)
[2018-06-15] MEDS: Levalbuterol 0.63 MG/3 ML Inhal Soln UD IH SCH ×3 (07:12→21:06)
[2018-06-15] MEDS: Arformoterol 15 mcg/2 ml Inh Sol IH SCH ×2 (07:12→21:06)
[2018-06-15] MEDS: Budesonide 0.5 mg/2 ml Inhal Susp UD IH SCH ×2 (07:12→21:06)
[2018-06-15] MEDS: Ammonium Lactate 12% Cream (140 g) TOP SCH (09:09)
[2018-06-15] MEDS: Mupirocin 2% Ointment 15 GM TUBE TOP SCH ×2 (09:10→17:28)
[2018-06-15] MEDS: Clotrimazole/Betamethasone Cream(15 gm) TOP SCH (09:11)
--- NOTE | 2018-06-15 10:46 | CP.PCM.PN ---
<Alfonso Sun - Last Filed: 06/15/18 11:37> Subjective - Date & Time of Evaluation Date of Evaluation: 06/15/18 Time of Evaluation: 10:42 - Subjective Subjective: Luis Fernando Sun PGY2 - Nephrology Progress Note for Dr. Aviles Patient seen and evaluated this AM at bedside. Patient noted to be on BiPAP with norepinephrine gtt running and hemodyncamically stable. Patient is conversant and is able to answer some questioning. He is noted to trail off and loose focus at times during longer answers. He denies chest pain, shortness of breath, abdominal discomfort, nausea, vomiting, fever, chills. He does report confusion and lower extremity discomfort that he contributes to his lower extremity cellulitis. Objective - Vital Signs/Intake and Output Vital Signs (last 24 hours): Temp Pulse Resp BP Pulse Ox 98.1 F 113 H 27 H 119/71 91 L 06/15/18 08:00 06/15/18 09:53 06/15/18 08:15 06/15/18 08:30 06/15/18 08:30 Intake and Output: 06/15/18 06/15/18 06:59 18:59 Intake Total 230 Output Total 350 Balance -120 - Medications Medications: Current Medications Arformoterol Tartrate (Brovana) 15 mcg IH [id number] [facility] Last Admin: 06/15/18 07:12 Dose: 15 mcg Azithromycin (Zithromax) 250 mg PO DAILY [facility]; Protocol Stop: 06/20/18 10:01 Last Admin: 06/15/18 09:08 Dose: 250 mg Betamethasone/Clotrimazole (Lotrisone) 0 gm TOP DAILY [facility] Last Admin: 06/15/18 09:11 Dose: 1 tcp Budesonide (Pulmicort Respules) 0.5 mg IH [id number] [facility] Last Admin: 06/15/18 07:12 Dose: 0.5 mg Diltiazem HCl (Cardizem) 60 mg PO TID [facility] Last Admin: 06/11/18 13:15 Dose: 60 mg Folic Acid (Folic Acid) 1 mg PO DAILY [facility] Last Admin: 06/15/18 09:08 Dose: 1 mg Guaifenesin/Dextromethorphan (Robitussin Dm) 10 ml PO Q4H PRN PRN Reason: Cough Last Admin: 06/13/18 17:20 Dose: 10 ml NOREPINEPHRINE BIT/0.9 % NACL (Levophed 4 Mg/ 250 Ml Ns Premixed) 4 mg in 250 mls @ 7.5 mls/hr IV .Q24H PRN; Protocol PRN Reason: TITRATE PER MD ORDER Last Admin: 06/14/18 17:35 Dose: 2 mcg/min, 7.5 mls/hr Lactic Acid (Lac-Hydrin 12% Cream (140 G)) 0 ea TOP DAILY [facility] Last Admin: 06/15/18 09:09 Dose: 1 tcp Lactulose (Enulose) 20 gm PO DAILY [facility] Last Admin: 06/15/18 09:08 Dose: 20 gm Levalbuterol HCl (Xopenex) 0.63 mg IH TIDRESP [facility] Last Admin: 06/15/18 07:12 Dose: 0.63 mg Levothyroxine Sodium (Synthroid) 25 mcg PO 0600 [facility] Last Admin: 06/15/18 05:35 Dose: 25 mcg Methylprednisolone (Solu-Medrol) 40 mg IVP Q6 [facility] Last Admin: 06/15/18 07:15 Dose: 40 mg Metoprolol Tartrate (Lopressor) 25 mg PO BID [facility] Last Admin: 06/11/18 09:29 Dose: 25 mg Mupirocin (Bactroban Ointment) 0 gm TOP BID [facility] Last Admin: 06/15/18 09:10 Dose: 1 applic Rifaximin (Xifaxan) 550 mg PO Q12 [facility]; Protocol Last Admin: 06/15/18 09:08 Dose: 550 mg Thiamine HCl (Vitamin B1 Tab) 100 mg PO DAILY [facility] Last Admin: 06/15/18 09:08 Dose: 100 mg - Labs Labs: 06/15/18 06:20 06/15/18 06:20 PT 27.2 SECONDS (9.4-12.5) H 06/14/18 08:30 INR 2.41 06/14/18 08:30 APTT 45.6 Seconds (26.9-38.3) H 06/09/18 14:05 - Constitutional Appears: Non-toxic, Confused - Head Exam Head Exam: ATRAUMATIC, NORMOCEPHALIC - Eye Exam Eye Exam: EOMI, PERRL - ENT Exam Additional comments: BiPAP mask in place with good seal - Neck Exam Neck Exam: Full ROM - Respiratory Exam Respiratory Exam: Clear to Ausculation Bilateral, NORMAL BREATHING PATTERN. absent: Rales, Rhonchi - GI/Abdominal Exam GI & Abdominal Exam: Distended, Soft, Hypoactive Bowel Sounds, Organomegaly. absent: Tenderness, Mass, Rebound Additional comments: abdominal exam limited secondaty to body habitus and ascites, minimal fluid wave appreciated - Extremities Exam Extremities Exam: Pedal Edema (trace) Additional comments: bilateral erythema with noted scarring and ulcerations R>L, no active weeping or oozing present from anterior legs - Neurological Exam Neurological Exam: Alert, Awake Additional comments: motor and sensory grossly intact - Psychiatric Exam Additional comments: Confusion with prolonged questioning - Skin Skin Exam: Dry, Erythema (lower extremities b/l), Rash (lower extremities R>L), Warm Assessment and Plan - Assessment and Plan (Free Text) Assessment: 1. Hepatorenal Syndrome Type I 2. Hepatic Encephalopathy 3. Liver Cirrhosis likely multifactorial including ETOH and significant pulmonary HTN with noted Right sided heart failure 4. Sepsis secondary to CAP/Cellulitis 5. Severe Pulmonary HTN 6. Moderate Aortic Stenosis 7. Oliguria 8. Hyperkalemia 9. Hypocalcemia 73 year old male with likely type I Hepatorenal Syndrome with rapid elevation of his Cr within 2 weeks with limited explanation from a renal standpoint. Patient is noted to have hepatic steatosis on abdominal US in the setting of Liver cirrhosis secondary to multifactorial factors such as history of alcohol abuse and pulmonary hypertension with right sided heart failure. Patient UA showing low sodium with minimal RBCs, minimal species and a protein:Cr ratio representing a 450g/24 hour protein. Patient continues to be olgiuric with 250 mL urine voided over past 24 hours. Patient continues to be on lower dose of norepinephrine with stable blood pressure. Will attempt to titrate off norepinephrine today with transition towards midodrine and octreotide for adequate vasoconstriction. Patient will be on day 2 of 2 of albumin 100mg supplementation in an attempt to supplement for low oncotic pressure state. Patient continues to be hyperkalemia on todays labs and will continue kayexalate, Patient aldactone continues to be held today. Rifaximin and lactulose continued in the setting of liver cirrhosis. Patient prognosis is very guarded considering likely type I hepatorenal syndrome. Patient is not candidate for liver transplant secondary to recent alcoholic intake. Patient reporting last drink of ETOH was 8 weeks prior. Will hold off on dialysis for the next 24 hours and monitor patient clinically and renal function. Will speak with ICU team regarding goals of care and getting palliative care team involved considering dialysis is only adjunct therapy. <Jonathon Aviles S - Last Filed: 06/15/18 16:34> Objective - Vital Signs/Intake and Output Vital Signs (last 24 hours): Temp Pulse Resp BP Pulse Ox 97.6 F 116 H 26 H 106/69 86 L 06/15/18 12:00 06/15/18 15:36 06/15/18 13:44 06/15/18 13:45 06/15/18 13:01 Intake and Output: 06/15/18 06/15/18 06:59 18:59 Intake Total 230 250 Output Total 350 Balance -120 250 - Medications Medications: Current Medications Arformoterol Tartrate (Brovana) 15 mcg IH [id number] [facility] Last Admin: 06/15/18 07:12 Dose: 15 mcg Azithromycin (Zithromax) 250 mg PO DAILY [facility]; Protocol Stop: 06/20/18 10:01 Last Admin: 06/15/18 09:08 Dose: 250 mg Betamethasone/Clotrimazole (Lotrisone) 0 gm TOP DAILY [facility] Last Admin: 06/15/18 09:11 Dose: 1 tcp Budesonide (Pulmicort Respules) 0.5 mg IH [id number] [facility] Last Admin: 06/15/18 07:12 Dose: 0.5 mg Diltiazem HCl (Cardizem) 60 mg PO TID [facility] Last Admin: 06/11/18 13:15 Dose: 60 mg Folic Acid (Folic Acid) 1 mg PO DAILY [facility] Last Admin: 06/15/18 09:08 Dose: 1 mg Guaifenesin/Dextromethorphan (Robitussin Dm) 10 ml PO Q4H PRN PRN Reason: Cough Last Admin: 06/13/18 17:20 Dose: 10 ml NOREPINEPHRINE BIT/0.9 % NACL (Levophed 4 Mg/ 250 Ml Ns Premixed) 4 mg in 250 mls @ 7.5 mls/hr IV .Q24H PRN; Protocol PRN Reason: TITRATE PER MD ORDER Last Admin: 06/15/18 12:44 Dose: 2 mcg/min, 7.5 mls/hr Lactic Acid (Lac-Hydrin 12% Cream (140 G)) 0 ea TOP DAILY [facility] Last Admin: 06/15/18 09:09 Dose: 1 tcp Lactulose (Enulose) 20 gm PO DAILY [facility] Last Admin: 06/15/18 09:08 Dose: 20 gm Levalbuterol HCl (Xopenex) 0.63 mg IH TIDRESP [facility] Last Admin: 06/15/18 13:13 Dose: 0.63 mg Levothyroxine Sodium (Synthroid) 25 mcg PO 0600 [facility] Last Admin: 06/15/18 05:35 Dose: 25 mcg Methylprednisolone (Solu-Medrol) 40 mg IVP Q6 [facility] Last Admin: 06/15/18 12:36 Dose: 40 mg Metoprolol Tartrate (Lopressor) 25 mg PO BID [facility] Last Admin: 06/11/18 09:29 Dose: 25 mg Mupirocin (Bactroban Ointment) 0 gm TOP BID [facility] Last Admin: 06/15/18 09:10 Dose: 1 applic Rifaximin (Xifaxan) 550 mg PO Q12 [facility]; Protocol Last Admin: 06/15/18 09:08 Dose: 550 mg Thiamine HCl (Vitamin B1 Tab) 100 mg PO DAILY [facility] Last Admin: 06/15/18 09:08 Dose: 100 mg - Labs Labs: 06/15/18 06:20 06/15/18 06:20 PT 27.2 SECONDS (9.4-12.5) H 06/14/18 08:30 INR 2.41 06/14/18 08:30 APTT 45.6 Seconds (26.9-38.3) H 06/09/18 14:05 Assessment and Plan - Assessment and Plan (Free Text) Assessment: Pt seen and examined by me. I have reviewed the note of the medical record transcriber and I agree with it. I have discussed the assessment and plan with the resident. I have reviewed the medications and the last labs.
[2018-06-15] MEDS ORDERED: Dextrose 50% SYRINGE Inj (50 ml) IVP ONE (10:49)
[2018-06-15] MEDS ORDERED: Insulin Lispro 1 UNITS/0.01 ML SC ONE (10:49)
--- NOTE | 2018-06-15 11:59 | PN ---
DATE: 06/15/2018 SUBJECTIVE: A 73-year-old white male seen in the ICU, on BiPAP, hepatorenal syndrome, hepatic encephalopathy, COPD, history of ITP in the past, cellulitis of both lower extremities with venous insufficiency and stasis dermatitis bilaterally, acute renal failure, BUN and creatinine 83 and 4.9, potassium 5.4. The patient was seen in consultation by Dr. Aviles. The patient is having his with albumin. We will follow the cardiac and renal function. The patient is on IV antibiotics, on BiPAP. PHYSICAL EXAMINATION: GENERAL: At this point, he is more awake and alert today. VITAL SIGNS: Blood pressure is stable at 119/71. The patient is afebrile today. ABDOMEN: His abdomen is obese, but benign. CHEST: Decreased breath sounds bilaterally. HEART: Regular sinus rhythm with systolic ejection murmur at the left sternal border and irregularly irregular rate with apical rate of 110. EXTREMITIES: Without edema. There is resolving cellulitic changes in both lower extremities. ASSESSMENT AND PLAN: Continue volume expansion. Case was discussed with the family. At this point, the patient is more awake, alert, and does not need protection of his airway, does not need to be intubated. We will continue to discuss some long-term care for the patient with the family. Chadd Savage MD
--- NOTE | 2018-06-15 12:03 | CP.PCM.PN ---
Subjective - Date & Time of Evaluation Date of Evaluation: 06/15/18 Time of Evaluation: 11:59 - Subjective Subjective: Podiatry progress note for Dr. De 73 year old male patient, seen and evaluated in the ICU, for bilateral lower extremity xerosis/scaling and right hallucal bruising. Patient was awake at the visit time. He was on Bi-PAP mask at the visit time. As per chart there was no overnight fever, nausea or vomiting, but still having shortness of breath. Objective - Vital Signs/Intake and Output Vital Signs (last 24 hours): Temp Pulse Resp BP Pulse Ox 98.1 F 113 H 27 H 119/71 91 L 06/15/18 08:00 06/15/18 09:53 06/15/18 08:15 06/15/18 08:30 06/15/18 08:30 Intake and Output: 06/15/18 06/15/18 06:59 18:59 Intake Total 230 Output Total 350 Balance -120 - Medications Medications: Current Medications Arformoterol Tartrate (Brovana) 15 mcg IH [id number] [facility] Last Admin: 06/15/18 07:12 Dose: 15 mcg Azithromycin (Zithromax) 250 mg PO DAILY [facility]; Protocol Stop: 06/20/18 10:01 Last Admin: 06/15/18 09:08 Dose: 250 mg Betamethasone/Clotrimazole (Lotrisone) 0 gm TOP DAILY [facility] Last Admin: 06/15/18 09:11 Dose: 1 tcp Budesonide (Pulmicort Respules) 0.5 mg IH [id number] [facility] Last Admin: 06/15/18 07:12 Dose: 0.5 mg Diltiazem HCl (Cardizem) 60 mg PO TID [facility] Last Admin: 06/11/18 13:15 Dose: 60 mg Folic Acid (Folic Acid) 1 mg PO DAILY [facility] Last Admin: 06/15/18 09:08 Dose: 1 mg Guaifenesin/Dextromethorphan (Robitussin Dm) 10 ml PO Q4H PRN PRN Reason: Cough Last Admin: 06/13/18 17:20 Dose: 10 ml NOREPINEPHRINE BIT/0.9 % NACL (Levophed 4 Mg/ 250 Ml Ns Premixed) 4 mg in 250 mls @ 7.5 mls/hr IV .Q24H PRN; Protocol PRN Reason: TITRATE PER MD ORDER Last Admin: 06/14/18 17:35 Dose: 2 mcg/min, 7.5 mls/hr Lactic Acid (Lac-Hydrin 12% Cream (140 G)) 0 ea TOP DAILY [facility] Last Admin: 06/15/18 09:09 Dose: 1 tcp Lactulose (Enulose) 20 gm PO DAILY [facility] Last Admin: 06/15/18 09:08 Dose: 20 gm Levalbuterol HCl (Xopenex) 0.63 mg IH TIDRESP [facility] Last Admin: 06/15/18 07:12 Dose: 0.63 mg Levothyroxine Sodium (Synthroid) 25 mcg PO 0600 [facility] Last Admin: 06/15/18 05:35 Dose: 25 mcg Methylprednisolone (Solu-Medrol) 40 mg IVP Q6 [facility] Last Admin: 06/15/18 07:15 Dose: 40 mg Metoprolol Tartrate (Lopressor) 25 mg PO BID [facility] Last Admin: 06/11/18 09:29 Dose: 25 mg Mupirocin (Bactroban Ointment) 0 gm TOP BID [facility] Last Admin: 06/15/18 09:10 Dose: 1 applic Rifaximin (Xifaxan) 550 mg PO Q12 [facility]; Protocol Last Admin: 06/15/18 09:08 Dose: 550 mg Thiamine HCl (Vitamin B1 Tab) 100 mg PO DAILY [facility] Last Admin: 06/15/18 09:08 Dose: 100 mg - Labs Labs: 06/15/18 06:20 06/15/18 06:20 PT 27.2 SECONDS (9.4-12.5) H 06/14/18 08:30 INR 2.41 06/14/18 08:30 APTT 45.6 Seconds (26.9-38.3) H 06/09/18 14:05 - Constitutional Appears: Non-toxic - Head Exam Head Exam: ATRAUMATIC - Extremities Exam Additional comments: Bilateral Lower Extremity Focused Exam VASC: DP and PT pulses 2/4 bilaterally, Cap refill less than 3 seconds X 10, non-pitting edema noted to bilateral lower legs. NEURO: Grossly intact b/l. DERM: Multiple excoriated scabbed wounds with scaling noted of bilateral legs circumferentially, positive mild erythema noted to bilateral legs along with the xerosis, Minimal ecchymosis noted to the tip of the right hallux, no drainage, no tracking, no probe to bone, no open lesions. MSK: Mild pain on palpation to the lower extremities, MSK not performed at this time - Neurological Exam Neurological Exam: Alert, Awake Assessment and Plan - Assessment and Plan (Free Text) Assessment: 73 year old male seen and evaluated for bilateral lower extremity xerosis with excoriated lesions Plan: Patient was seen and evaluated Plan discussed with Dr. De Charts, labs and vitals reviewed; Afebrile, WBC 6.4. SIMON/PVR: R: 0.67, L: 0.72 Right leg wound cx: Klebsiella oxytoma, Corynibacterium species and B hemolytic strept. Group B. Lotrisone and LacHydrin applied to B/L LE Patient to be in Multipodus boots at all times when in bed Bactroban and Mepilex applied to scabs on the left knee Vasc consult; reccs appreciated Continue management per primary care team. Stable from podiatry standpoint, no intervention at this time. Podiatry will continue to follow up the patient while in house.
--- NOTE | 2018-06-15 12:40 | CP.PCM.CON ---
History of Present Illness - History of Present Illness History of Present Illness: Palliative consult requested by Dr Nguyễn Savage Reason:Goals of care This is a 73 year old male with with hsioty of ITP,thombocytopenia, chronic lymphedema of LE with venous insufficiency,who was sent to ED on 06/09 by PMD because of increasing, weight gain, distended abdomen. Patient's sister also reported falls. Work up revealed sepsis, RLL pneumonia, lower extremity cellulitis, rapid afib, bilateral pleural effusions, anasarca. Imaging showing cirrhosis. Immunology testing showed elevated IGg, IGa,IGm, serology studies are negative. On 06/11 an EXERCISE TEACHER was called due to increased altered mental status. Ammonia level was 100. He was transferred to MICU for hemodyanamic monitoring. His course is complicated by metabolic acidosis, MARIE and end stage liver disease.EHCO showed severely impaired RVF and pulmonary hypertension PMHx: NIDDM, ITP, thrombocytopenia, chronic lymphedema of LE with venous insufficiency,HTN. PSH: splenectomy,tonsillectomy Social History: Former smoker, ETOH abuse, stopped drinking 2 months ago, no illicit drug use. 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 Family History: No inheritable diseases. Advance Care Planning: The patient does not have an Advanced Directive. Review of Systems: As per HPI, patient is altered unable to obtain 12 point ROS Past Patient History - Infectious Disease Hx of Infectious Diseases: None - Tetanus Immunizations Tetanus Immunization: Unknown - Past Medical History & Family History Past Medical History?: Yes - Past Social History Smoking Status: Former Smoker - CARDIAC Hx Cardiac Disorders: Yes Hx Congestive Heart Failure: Yes Hx Pacemaker: No Hx Peripheral Edema: Yes Hx Peripheral Vascular Disease: Yes - PULMONARY Hx Respiratory Disorders: Yes (USED TO SMOKE CIGARETTES 2 PPD QUIT 1972) Hx Pneumonia: Yes (06-09-18) - NEUROLOGICAL Hx Neurological Disorder: No - HEENT Hx HEENT Problems: Yes (TONSILLECTOMY) Other/Comment: upper dentures only - RENAL Hx Chronic Kidney Disease: No - ENDOCRINE/METABOLIC Hx Endocrine Disorders: Yes Hx Diabetes Mellitus Type 2: Yes - HEMATOLOGICAL/ONCOLOGICAL Hx Blood Disorders: Yes Other/Comment: thrombocytopenia - INTEGUMENTARY Hx Dermatological Problems: Yes (GENERALIZED PETECHIAE 01-15-16) Hx Psoriasis: Yes (PT DENIES) Other/Comment: 06-09-18- GENERALIZED SKIN DRYNESS,REDDENED SKIN ALL OVER. BILATE RAL LE GROSS EDEMA MORE TO RIGHT LEG THAN LEFT. WITH MULTIPE DRY SCABBED WOUNDS. TEDS STOCKING WORN. BILATERAL ARMS WITH DRY SCABBED WOUNDS.MORE TO LEFT. NOSE HAS DRY SCABBED WOUND AND ALSO LOWER LIP FROM PREVIOUS FALL PER PT. PT GOES TO WOUND CTR. - MUSCULOSKELETAL/RHEUMATOLOGICAL Hx Musculoskeletal Disorders: Yes Hx Falls: Yes (June) Hx Unsteady Gait: Yes (AT TIMES HE USES A CANE.) - GASTROINTESTINAL Hx Gastrointestinal Disorders: Yes (HEMORRHOID) Other/Comment: RECTAL BLEED 11-06-15 - GENITOURINARY/GYNECOLOGICAL Hx Genitourinary Disorders: Yes Hx Urinary Tract Infection: Yes - PSYCHIATRIC Hx Psychophysiologic Disorder: Yes (SMOKED 2 PPD CIGARETTES QUIT 1972,QUIT DRINKING WINE APR 2018.) Hx Substance Use: No - SURGICAL HISTORY Hx Surgeries: Yes (TONSILLECTOMY) Hx Coronary Stent: (06-09-18) Hx Splenectomy: Yes - ANESTHESIA Hx Anesthesia Reactions: No Hx Malignant Hyperthermia: No Meds Allergies/Adverse Reactions: Allergies Allergy/AdvReac Type Severity Reaction Status Date / Time aspirin Allergy Severe RASH Verified 06/09/18 17:16 doxycycline Allergy Severe LOW Verified 06/09/18 17:16 PLATELETS ibuprofen [From Advil] Allergy Severe RASH Verified 06/09/18 17:16 - Medications Medications: Current Medications Arformoterol Tartrate (Brovana) 15 mcg IH [id number] [facility] Last Admin: 06/15/18 07:12 Dose: 15 mcg Azithromycin (Zithromax) 250 mg PO DAILY [facility]; Protocol Stop: 06/20/18 10:01 Last Admin: 06/15/18 09:08 Dose: 250 mg Betamethasone/Clotrimazole (Lotrisone) 0 gm TOP DAILY [facility] Last Admin: 06/15/18 09:11 Dose: 1 tcp Budesonide (Pulmicort Respules) 0.5 mg IH [id number] [facility] Last Admin: 06/15/18 07:12 Dose: 0.5 mg Diltiazem HCl (Cardizem) 60 mg PO TID [facility] Last Admin: 06/11/18 13:15 Dose: 60 mg Folic Acid (Folic Acid) 1 mg PO DAILY [facility] Last Admin: 06/15/18 09:08 Dose: 1 mg Guaifenesin/Dextromethorphan (Robitussin Dm) 10 ml PO Q4H PRN PRN Reason: Cough Last Admin: 06/13/18 17:20 Dose: 10 ml NOREPINEPHRINE BIT/0.9 % NACL (Levophed 4 Mg/ 250 Ml Ns Premixed) 4 mg in 250 mls @ 7.5 mls/hr IV .Q24H PRN; Protocol PRN Reason: TITRATE PER MD ORDER Last Admin: 06/14/18 17:35 Dose: 2 mcg/min, 7.5 mls/hr Lactic Acid (Lac-Hydrin 12% Cream (140 G)) 0 ea TOP DAILY [facility] Last Admin: 06/15/18 09:09 Dose: 1 tcp Lactulose (Enulose) 20 gm PO DAILY [facility] Last Admin: 06/15/18 09:08 Dose: 20 gm Levalbuterol HCl (Xopenex) 0.63 mg IH TIDRESP [facility] Last Admin: 06/15/18 07:12 Dose: 0.63 mg Levothyroxine Sodium (Synthroid) 25 mcg PO 0600 [facility] Last Admin: 06/15/18 05:35 Dose: 25 mcg Methylprednisolone (Solu-Medrol) 40 mg IVP Q6 [facility] Last Admin: 06/15/18 07:15 Dose: 40 mg Metoprolol Tartrate (Lopressor) 25 mg PO BID [facility] Last Admin: 06/11/18 09:29 Dose: 25 mg Mupirocin (Bactroban Ointment) 0 gm TOP BID [facility] Last Admin: 06/15/18 09:10 Dose: 1 applic Rifaximin (Xifaxan) 550 mg PO Q12 [facility]; Protocol Last Admin: 06/15/18 09:08 Dose: 550 mg Thiamine HCl (Vitamin B1 Tab) 100 mg PO DAILY [facility] Last Admin: 06/15/18 09:08 Dose: 100 mg Physical Exam - Constitutional Appears: Chronically Ill Additional comments: obese - Eye Exam Eye Exam: Normal appearance, PERRL - ENT Exam ENT Exam: Mucous Membranes Moist - Respiratory Exam Respiratory Exam: Decreased Breath Sounds - Cardiovascular Exam Cardiovascular Exam: Tachycardia, +S1, +S2 - GI/Abdominal Exam GI & Abdominal Exam: Distended, Normal Bowel Sounds, Soft - Exam Additional comments: incontinent - Extremities Exam Additional comments: venous stasis of both lower extremities - Neurological Exam Neurological exam: Altered Additional comments: oriented to self, place - Skin Skin Exam: Pallor, Pallor - Additional Findings Additional findings: Palliative performance scale rating 30% Results - Vital Signs Recent Vital Signs: Last Vital Signs Temp 98.1 F 06/15/18 08:00 Pulse 113 H 06/15/18 09:53 Resp 27 H 06/15/18 08:15 BP 119/71 06/15/18 08:30 Pulse Ox 91 L 06/15/18 08:30 - Labs Result Diagrams: 06/15/18 06:20 06/15/18 06:20 Labs: Laboratory Results - last 24 hr 06/11/18 06/14/18 06/14/18 19:57 15:50 16:10 WBC RBC Hgb Hct MCV MCH MCHC RDW Plt Count MPV pCO2 36 pO2 74.0 L HCO3 16.2 L ABG pH 7.26 L ABG Total CO2 17.3 L ABG O2 Saturation 96.1 ABG Base Excess -10.0 L ABG Potassium 5.2 VBG pH VBG pCO2 VBG HCO3 VBG Total CO2 VBG O2 Sat (Calc) VBG Base Excess VBG Potassium Glucose 114 H Lactate 2.0 FiO2 35.0 Sodium 133 131.0 L Potassium 5.6 H* Chloride 99 97.0 L Carbon Dioxide 17 L Anion Gap 23 H BUN 74 H Creatinine 4.5 H Est GFR ( Amer) 16 Est GFR (Non-Af Amer) 13 POC Glucose (mg/dL) Random Glucose 113 H Calcium 8.1 L Phosphorus Magnesium Total Bilirubin AST ALT Alkaline Phosphatase Total Protein Albumin Globulin Albumin/Globulin Ratio Ceruloplasmin 53 H Arterial Blood Potassium 5.2 Venous Blood Potassium Urine Osmolality Anti-Mitochondrial Ab Negative Smooth Muscle Ab Titer Anti-Smooth Muscle Ab Negative 06/14/18 06/15/18 06/15/18 20:00 06:11 06:20 WBC 6.9 D RBC 4.31 Hgb 14.0 Hct 41.3 L MCV 95.8 MCH 32.5 MCHC 33.9 RDW 16.8 H Plt Count 345 MPV 9.5 pCO2 pO2 77 H HCO3 ABG pH ABG Total CO2 ABG O2 Saturation ABG Base Excess ABG Potassium VBG pH 7.24 L VBG pCO2 41.0 VBG HCO3 17.6 L VBG Total CO2 18.9 L VBG O2 Sat (Calc) 96.3 H VBG Base Excess -9.3 L VBG Potassium 5.7 H Glucose 138 H Lactate 1.8 FiO2 21.0 Sodium 131.0 L Potassium Chloride 96.0 L Carbon Dioxide Anion Gap BUN Creatinine Est GFR ( Amer) Est GFR (Non-Af Amer) POC Glucose (mg/dL) 134 H Random Glucose Calcium Phosphorus Magnesium Total Bilirubin AST ALT Alkaline Phosphatase Total Protein Albumin Globulin Albumin/Globulin Ratio Ceruloplasmin Arterial Blood Potassium Venous Blood Potassium 5.7 H Urine Osmolality Anti-Mitochondrial Ab Smooth Muscle Ab Titer Anti-Smooth Muscle Ab 06/15/18 06/15/18 06:20 07:30 WBC RBC Hgb Hct MCV MCH MCHC RDW Plt Count MPV pCO2 pO2 HCO3 ABG pH ABG Total CO2 ABG O2 Saturation ABG Base Excess ABG Potassium VBG pH VBG pCO2 VBG HCO3 VBG Total CO2 VBG O2 Sat (Calc) VBG Base Excess VBG Potassium Glucose Lactate FiO2 Sodium 135 Potassium 5.4 H Chloride 100 Carbon Dioxide 17 L Anion Gap 22 H BUN 83 H Creatinine 4.9 H Est GFR ( Amer) 14 Est GFR (Non-Af Amer) 12 POC Glucose (mg/dL) Random Glucose 122 H Calcium 7.9 L Phosphorus 9.1 H Magnesium 2.4 H Total Bilirubin 1.6 H AST 67 H ALT 40 Alkaline Phosphatase 156 H Total Protein 8.1 Albumin 4.0 Globulin 4.1 Albumin/Globulin Ratio 1.0 L Ceruloplasmin Arterial Blood Potassium Venous Blood Potassium Urine Osmolality 480 Anti-Mitochondrial Ab Smooth Muscle Ab Titer Anti-Smooth Muscle Ab Assessment & Plan - Assessment and Plan (Free Text) Assessment: This is a 77 year old male with history PAD, LE cellulitis, DM,HTN,alcoholism who is admitted with hepatic encephalopathy, alcoholic cirrhosis, aortic stenosis,PAD, lymphedema, A fib with RVR, anasarca, sepsis,RLL pneumonia, R pleural effusion and MARIE. The patient is alert, able to state his name, ,location. He is unable to verb terry reason for this hospitalization nor does understand the complexity of his illness. He is unable to follow command or to make decisions regarding resuscitation wishes. He is able to verbalize that his sister Clarice knows what to do. Clarice and I met to discuss goals of care and advance care planning. Clarice explained that patient never went to a doctor and did not take care of his health. She is aware that he was an alcoholic. She has been updated of his medical condition by the MICU team. I reiterated that he was critically ill and that despite medical interventions his condition could deteriorate to the point of cardiopulmonary arrest. Clarice states that she discussed this with her brother yesterday when his metal status was clearer and he indicated to her that he did not want CPR or intubation. DNR/DNI directive signed by Clarice. We also began to discuss future goals of care. Clarice is aware that patient has liver cirrhosis likely end stage liver disease, right sided heart failure /pulmonary HTN, irregular heart rate, sepsis and MARIE. It was explained these multiple comorbidities make him critically ill and that he may not rebound despite aggressive treatment. It was agreed that all measures would continue and that the palliative would follow in order to support her with decision making regarding future goals of care. Time spent with family in goals of care and advance care planning, 60 minutes Plan: Goals of care and advance care planning, DNR/DNI Hepatic encephalopathy: Ammonia levels decreased. Continue Rixaimin, lactulose being tapered. Afib with RVR, hypotension: Cardizem and metoprolol on hold, on norepinephrine drip. Pulmonary:Continue Bipap, Brovana, Pulmicort, Solumedrol. Maintain SaO2 > 92% Hepatorenal syndrome/MARIE; Nephrology recs reviewed> Continue Albumin,norepinephrine drip. Sepsis; PNA/ RLE cellulitis:ID recs reviewed> Continue Azythromycinn
[2018-06-15] MEDS: NOREPINEPHRINE BIT/0.9 % NACL 4 MG/250 ML BAG IV PRN (12:44)
--- NOTE | 2018-06-15 14:06 | CP.PCM.PN ---
<Vickie Aviles - Last Filed: 06/15/18 14:01> Subjective - Date & Time of Evaluation Date of Evaluation: 06/15/18 Time of Evaluation: 14:01 - Subjective Subjective: Vickie Aviles, PGY2, GI Progress Note for Dr Issa: Patient seen and examined at bedside. No acute events overnight. Patient more alert this morning, reports 3 BMs within past 24 hours. Patient remains on bipap in ICU, started on Levophed at 4 mcg/min yesterday at 5 PM by Nephro for hepatorenal syndrome. Tolerating PO intake well. Denies abdominal pain, nausea, vomiting, fevers, chills. Objective - Vital Signs/Intake and Output Vital Signs (last 24 hours): Temp Pulse Resp BP Pulse Ox 97.6 F 110 H 26 H 106/69 86 L 06/15/18 12:00 06/15/18 13:44 06/15/18 13:44 06/15/18 13:45 06/15/18 13:01 Intake and Output: 06/15/18 06/15/18 06:59 18:59 Intake Total 230 250 Output Total 350 Balance -120 250 - Medications Medications: Current Medications Arformoterol Tartrate (Brovana) 15 mcg IH [id number] [facility] Last Admin: 06/15/18 07:12 Dose: 15 mcg Azithromycin (Zithromax) 250 mg PO DAILY [facility]; Protocol Stop: 06/20/18 10:01 Last Admin: 06/15/18 09:08 Dose: 250 mg Betamethasone/Clotrimazole (Lotrisone) 0 gm TOP DAILY [facility] Last Admin: 06/15/18 09:11 Dose: 1 tcp Budesonide (Pulmicort Respules) 0.5 mg IH [id number] [facility] Last Admin: 06/15/18 07:12 Dose: 0.5 mg Diltiazem HCl (Cardizem) 60 mg PO TID [facility] Last Admin: 06/11/18 13:15 Dose: 60 mg Folic Acid (Folic Acid) 1 mg PO DAILY [facility] Last Admin: 06/15/18 09:08 Dose: 1 mg Guaifenesin/Dextromethorphan (Robitussin Dm) 10 ml PO Q4H PRN PRN Reason: Cough Last Admin: 06/13/18 17:20 Dose: 10 ml NOREPINEPHRINE BIT/0.9 % NACL (Levophed 4 Mg/ 250 Ml Ns Premixed) 4 mg in 250 mls @ 7.5 mls/hr IV .Q24H PRN; Protocol PRN Reason: TITRATE PER MD ORDER Last Admin: 06/15/18 12:44 Dose: 2 mcg/min, 7.5 mls/hr Lactic Acid (Lac-Hydrin 12% Cream (140 G)) 0 ea TOP DAILY [facility] Last Admin: 06/15/18 09:09 Dose: 1 tcp Lactulose (Enulose) 20 gm PO DAILY [facility] Last Admin: 06/15/18 09:08 Dose: 20 gm Levalbuterol HCl (Xopenex) 0.63 mg IH TIDRESP [facility] Last Admin: 06/15/18 13:13 Dose: 0.63 mg Levothyroxine Sodium (Synthroid) 25 mcg PO 0600 [facility] Last Admin: 06/15/18 05:35 Dose: 25 mcg Methylprednisolone (Solu-Medrol) 40 mg IVP Q6 [facility] Last Admin: 06/15/18 12:36 Dose: 40 mg Metoprolol Tartrate (Lopressor) 25 mg PO BID [facility] Last Admin: 06/11/18 09:29 Dose: 25 mg Mupirocin (Bactroban Ointment) 0 gm TOP BID [facility] Last Admin: 06/15/18 09:10 Dose: 1 applic Rifaximin (Xifaxan) 550 mg PO Q12 [facility]; Protocol Last Admin: 06/15/18 09:08 Dose: 550 mg Thiamine HCl (Vitamin B1 Tab) 100 mg PO DAILY [facility] Last Admin: 06/15/18 09:08 Dose: 100 mg - Labs Labs: 06/15/18 06:20 06/15/18 06:20 PT 27.2 SECONDS (9.4-12.5) H 06/14/18 08:30 INR 2.41 06/14/18 08:30 APTT 45.6 Seconds (26.9-38.3) H 06/09/18 14:05 - Additional Findings Additional findings: - Constitutional Appears: Chronically Ill - Head Exam Head Exam: ATRAUMATIC, NORMOCEPHALIC - Eye Exam Eye Exam: EOMI, PERRL. absent: Conjunctival injection, Nystagmus, Scleral icterus Pupil Exam: NORMAL ACCOMODATION, PERRL. absent: Irregular, Miosis, Mydriatic - ENT Exam ENT Exam: Mucous Membranes Dry - Neck Exam Neck exam: Positive for: Full Rom - Respiratory Exam Respiratory Exam: Decreased Breath Sounds - Cardiovascular Exam Cardiovascular Exam: RRR, +S1, +S2. absent: Systolic Murmur - GI/Abdominal Exam GI & Abdominal Exam: Soft, Normal Bowel Sounds. absent: Firm, Guarding, Rebound, Tenderness Additional comments: + asterixis no fluid wave - Extremities Exam Extremities exam: Positive for: improving pedal edema Additional comments: improving erythema b/l LE - Neurological Exam Additional comments: awake, oriented to self, time, person - Psychiatric Exam Psychiatric exam: Normal Mood - Skin Skin Exam: Normal Color, Warm Assessment and Plan - Assessment and Plan (Free Text) Assessment: # Alcoholic Cirrhosis, rule out Selvin's disease vs AI hepatitis vs viral hepatitis # Elevated LFTs 2/2 hepatic congestion 2/2 right sided heart failure, rule out tylenol toxicity # AMS 2/2 likely hepatic encephalopathy # Type 1 hepatorenal syndrome # Rapid afib # Severe pulm HTN # Right ventricular heart failure # Bilateral pleural effusions, R>L # Anasarca # Alcohol abuse # ITP s/p splenectomy # Hypothyroidism # Peripheral arterial disease # Hypotension - Abd pelvis CT: potential duodenitis. liver size unchanged, cryptogenic type cirrhotic pattern imposs to exclude, no overt cirrhotic pattern. trace perihepatic ascites. b/l inguinal LAD. questionable anasarca? Mild b/l pleural effusions, R>L with limited pericardial thickening. - Abd US: mild hepatomegaly, diffuse increased echogenicity of the liver, hepatic steatosis. trace perihepatic ascites. no cholelithiasis or biliary dilatation. Diffuse gallbladder wall thickening. - Echo: EF 66%. Systolic fxn of RV is severely reduced. Mod valvular aortic stenosis, DESMOND 1.13. Mod to severe MV stenosis. Mod to severe TR. Severe pulm HTN (RVSP 79 mmHg). IVC dilated. - Head CT neg - LE US: neg for DVT - On Lactulose, will titrate to 2-3 BMs per day. Continue with rifaximin 550 mg PO BID. - Acute hepatitis panel negative, HIV NR. Hep A total negative. - Ferritin 225, percent sat 28%. Tylenol, salicylate negative - Awaiting ceruloplasmin, AI hepatitis w/u, immunofixation. - Appreciate nephrology recs. Indicating that its likely hepatorenal type 1 syndrome. Patient on albumin and levophed. - Recommend midodrine and octreotide. - patient is a poor candidate for liver transplant. - Diuretics on hold - MELD 32 - Will monitor mentation, clinical course - Recommend EGD to assess for varices - continue with antibiotics as per ID. - Further recs per Dr Issa. Case seen and discussed with Dr Issa. <Marysol Issa V - Last Filed: 06/15/18 22:11> Objective - Vital Signs/Intake and Output Vital Signs (last 24 hours): Temp Pulse Resp BP Pulse Ox 97.5 F L 119 H 24 103/62 88 L 06/15/18 16:00 06/15/18 21:01 06/15/18 21:01 06/15/18 21:02 06/15/18 18:00 Intake and Output: 06/15/18 06/16/18 18:59 06:59 Intake Total 700 Balance 700 - Medications Medications: Current Medications Arformoterol Tartrate (Brovana) 15 mcg IH [id number] [facility] Last Admin: 06/15/18 21:06 Dose: 15 mcg Azithromycin (Zithromax) 250 mg PO DAILY [facility]; Protocol Stop: 06/20/18 10:01 Last Admin: 06/15/18 09:08 Dose: 250 mg Betamethasone/Clotrimazole (Lotrisone) 0 gm TOP DAILY [facility] Last Admin: 06/15/18 09:11 Dose: 1 tcp Budesonide (Pulmicort Respules) 0.5 mg IH [id number] [facility] Last Admin: 06/15/18 21:06 Dose: 0.5 mg Diltiazem HCl (Cardizem) 60 mg PO TID [facility] Last Admin: 06/11/18 13:15 Dose: 60 mg Folic Acid (Folic Acid) 1 mg PO DAILY [facility] Last Admin: 06/15/18 09:08 Dose: 1 mg Guaifenesin/Dextromethorphan (Robitussin Dm) 10 ml PO Q4H PRN PRN Reason: Cough Last Admin: 06/13/18 17:20 Dose: 10 ml NOREPINEPHRINE BIT/0.9 % NACL (Levophed 4 Mg/ 250 Ml Ns Premixed) 4 mg in 250 mls @ 7.5 mls/hr IV .Q24H PRN; Protocol PRN Reason: TITRATE PER MD ORDER Last Admin: 06/15/18 12:44 Dose: 2 mcg/min, 7.5 mls/hr Lactic Acid (Lac-Hydrin 12% Cream (140 G)) 0 ea TOP DAILY [facility] Last Admin: 06/15/18 09:09 Dose: 1 tcp Lactulose (Enulose) 20 gm PO DAILY [facility] Last Admin: 06/15/18 09:08 Dose: 20 gm Levalbuterol HCl (Xopenex) 0.63 mg IH TIDRESP [facility] Last Admin: 06/15/18 21:06 Dose: 0.63 mg Levothyroxine Sodium (Synthroid) 25 mcg PO 0600 [facility] Last Admin: 06/15/18 05:35 Dose: 25 mcg Methylprednisolone (Solu-Medrol) 40 mg IVP Q6 [facility] Last Admin: 06/15/18 17:27 Dose: 40 mg Metoprolol Tartrate (Lopressor) 25 mg PO BID [facility] Last Admin: 06/11/18 09:29 Dose: 25 mg Mupirocin (Bactroban Ointment) 0 gm TOP BID [facility] Last Admin: 06/15/18 17:28 Dose: 1 applic Rifaximin (Xifaxan) 550 mg PO Q12 [facility]; Protocol Last Admin: 06/15/18 09:08 Dose: 550 mg Thiamine HCl (Vitamin B1 Tab) 100 mg PO DAILY [facility] Last Admin: 06/15/18 09:08 Dose: 100 mg - Labs Labs: 06/15/18 06:20 06/15/18 06:20 PT 27.2 SECONDS (9.4-12.5) H 06/14/18 08:30 INR 2.41 06/14/18 08:30 APTT 45.6 Seconds (26.9-38.3) H 06/09/18 14:05 Attending/Attestation - Attestation I have personally seen and examined this patient.: Yes I have fully participated in the care of the patient.: Yes I have reviewed all pertinent clinical information, including history, physical exam and plan: Yes Notes (Text): This is an addendum to the GI progress report dictated by the ophthalmic medical technologist. The patient was seen and evaluated with resident area today. Patient is on BiPAP. Nephrology note reviewed. 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
--- NOTE | 2018-06-15 17:00 | PN ---
DATE: 06/15/2018 SUBJECTIVE: The patient seen in bed, in no acute distress, nontoxic. PHYSICAL EXAMINATION: VITAL SIGNS: Temperature is 98, blood pressure is 119/70, respiratory rate of 18. HEENT: Examination of HEENT is unremarkable. NECK: Supple. LUNGS: Decreased breath sounds. HEART: Normal S1 and S2. ABDOMEN: Soft. EXTREMITIES: Examination of legs are noted. LABORATORY DATA: Reveals a white count of 6.9, hemoglobin of 14, BUN of 83 and creatinine of 4.9. Urinalysis is noted and serology is reviewed. Microbiology reveals Klebsiella strep and corynebacterium. CURRENT MEDICATIONS: Reviewed. The patient is on azithromycin. Dr. Johns progress note is reviewed. No assessment at this time. Dr. Grzegorz Gomez's note is reviewed. ASSESSMENT AND PLAN: This is a 73-year-old male with hepatic encephalopathy, alcoholic cirrhosis, aortic stenosis, history of idiopathic thrombocytopenic purpura, not responding to treatment including steroids and splenectomy and chronic lymphedema, atrial fibrillation, chronic changes at this point and the patient's idiopathic thrombocytopenic purpura refractory to steroids and immunoglobulin treatment. The patient also has a history of Nancy's, tick related rash, was treated with doxycycline in the past. Has to receive ceftaroline ceftriaxone, the legs are of chronic changes at this point. Currently on p.o. Zithromax, day #6. We will discontinue the antibiotics within the next 24 hours. The patient was admitted with severe sepsis with community-acquired pneumonia and right leg cellulitis which has chronic changes at this point. Karl Molina MD
--- NOTE | 2018-06-15 17:19 | PN ---
DATE: 06/15/2018 REASON FOR CONSULTATION AND FOLLOWUP: Atrial fibrillation, shortness of breath, congestive heart failure, altered mental status, cirrhosis, decompensated acute liver failure, and elevated ammonia. SUBJECTIVE: The patient denies any chest pain, shortness of breath, or any palpitation. OBJECTIVE: GENERAL: Not in apparent distress, lying flat in the bed with two-point [place] restraint, he was confused last night. Currently in the ICU. VITAL SIGNS: Temperature afebrile, heart rate 113, and blood pressure 119/71. HEENT: PERRLA. Extraocular muscles intact. NECK: Supple. No carotid bruit. No thyromegaly. CHEST: Clear to auscultation. HEART: S1 and S2, regular. ABDOMEN: Soft. EXTREMITIES: Clubbing and cyanosis negative. LABORATORY DATA: Blood workup as follows; WBC 6.9, hemoglobin 14, hematocrit 41.3, and platelet count 345. Chemistry shows sodium 134, potassium 5.4, chloride 100, carbon dioxide 17, anion gap of 22, BUN 83 and creatinine 4.9, total bilirubin 1.6, AST 67, ALT 40, alkaline phosphatase 156. INR 2.41. IMPRESSION: A 73-year-old morbidly obese male with past medical history significant for heavy alcohol abuse, admitted with atrial fibrillation, altered mental status moved to intensive care unit. Initially, the patient was admitted to the floor with shortness of breath. Echocardiography dated 06/10/2018 showed ejection fraction of 60% to 65%, right ventricular severely reduced and dilated moderate to severe valvular aortic stenosis, valve area 1.13 cm2; moderate to severe mitral stenosis, valve area 1.3 cm2; whereas moderate to severe aortic valve area 1.13 cm2 by planimetry; trace mitral regurgitation, trace to mild aortic regurgitation, moderate to severe tricuspid regurgitation, severe pulmonary hypertension, right ventricular systolic pressure 79 mmHg, elevated potassium, elevated anticoagulation acute liver failure, altered mental status, elevated ammonia level. RECOMMENDATIONS: Continue lactulose. Yesterday ammonia was 14 and day before, today it is not available. Give the Kayexalate. Continue beta-sesar, anticoagulated by itself, spironolactone is on hold because of hyperkalemia. The patient needs Kayexalate to lower the potassium. Continue diuretics. Continue lactulose. We will give one dose of Kayexalate. Overall, the patient's condition is critical. The long-term prognosis is guarded. Continue levothyroxine. Continue Cardizem if it is needed for control of the heart rate. Currently, on beta-sesar 25 p.o. twice a day. We will follow with you. Since the blood pressure is low, Cardizem is on hold. We will give Kayexalate 30 g p.o. now. We will repeat the lab in the morning. Aruna Montilla MD
--- NOTE | 2018-06-15 21:29 | PN ---
DATE: 06/15/2018 SUBJECTIVE: The patient was seen and examined. I do agree with the note of the medical artist. I was involved in the plan of care. The patient remains critically ill. He has underlying hepatorenal syndrome. He is on Levophed and albumin. His urine output and his creatinine have not made significant improvement. The patient has hepatic encephalopathy and has been given lactulose daily. He has hypokalemia. He has been given Kayexalate. The patient has aortic stenosis, which was seen on echo. The patient remains oliguric. I did inform Dr. Savage that the patient has hepatorenal syndrome and overall prognosis is poor. The patient is being seen by Eboni Saini from palliative care. There was a discussion with Clarice, who is the patient's sister, I gave information about the patient's current prognosis. The prognosis is poor. He is currently DNR/DNI at this point. We need to discuss with the family regarding the goal of care in terms of further intervention like dialysis. He is currently on steroids. He is going to continue with Synthroid for his hypothyroidism. We will repeat his blood work. He is currently hypophosphatemic and hypomagnesemic. He will have repeat blood work again tomorrow. Jonathon Aviles MD
[2018-06-16] MEDS: MethylPREDNISolone 40 mg Vial IVP SCH ×4 (00:05→18:17)
[2018-06-16 06:33] LABS: HEMOGLOBIN 14.8 g/dL (14.0-18.0); MEAN CELL VOLUME 95.6 fl (80.0-105.0); MEAN CORPUSCULAR HEMOGLOBIN 32.7 pg (25.0-35.0); MEAN CORPUSCULAR HGB CONC 34.3 g/dl (31.0-37.0); MEAN PLATELET VOLUME 9.6 fl (7.0-11.0); RBC 4.52 10^6/uL (3.5-6.1); RED CELL DISTRIBUTION WIDTH 17.2 % (11.5-14.5)
[2018-06-16] MEDS: Levothyroxine 25 MCG TAB PO SCH (06:47)
[2018-06-16 07:06] LABS: ALBUMIN 4.2 g/dL (3.0-4.8); CALCIUM 7.7 mg/dL (8.4-10.5)
--- NOTE | 2018-06-16 07:22 | CP.PCM.PN ---
<Vickie Aviles - Last Filed: 06/16/18 16:35> Subjective - Date & Time of Evaluation Date of Evaluation: 06/16/18 Time of Evaluation: 07:22 - Subjective Subjective: Vickie Aviles, PGY2, GI Progress Note for Dr Issa: Patient seen and examined at bedside. No acute events overnight. Patient awake, but sleepy this AM. Patient remains on bipap. Palliative nurse saw patient yesterday, made DNR/DNI in setting of the comorbid conditions. Had 1 large BM yesterday. Tolerating PO intake well. Denies abdominal pain, nausea, vomiting, fevers, chills. As per bedside nurse, patient was incontinent overnight, thus no urine output document in the past 24 hrs. Asked nurse to maintain strict Is and Os. Patient went for RIJ dialysis cath insertion with Dr Gomes, to go for dialysis in AM tomorrow. Objective - Vital Signs/Intake and Output Vital Signs (last 24 hours): Temp Pulse Resp BP Pulse Ox 97.1 F L 95 H 23 123/78 92 L 06/16/18 04:00 06/16/18 05:27 06/16/18 05:00 06/16/18 05:00 06/16/18 05:00 - Medications Medications: Current Medications Arformoterol Tartrate (Brovana) 15 mcg IH [id number] [facility] Last Admin: 06/15/18 21:06 Dose: 15 mcg Azithromycin (Zithromax) 250 mg PO DAILY [facility]; Protocol Stop: 06/20/18 10:01 Last Admin: 06/15/18 09:08 Dose: 250 mg Betamethasone/Clotrimazole (Lotrisone) 0 gm TOP DAILY [facility] Last Admin: 06/15/18 09:11 Dose: 1 tcp Budesonide (Pulmicort Respules) 0.5 mg IH [id number] [facility] Last Admin: 06/15/18 21:06 Dose: 0.5 mg Diltiazem HCl (Cardizem) 60 mg PO TID [facility] Last Admin: 06/11/18 13:15 Dose: 60 mg Folic Acid (Folic Acid) 1 mg PO DAILY [facility] Last Admin: 06/15/18 09:08 Dose: 1 mg Guaifenesin/Dextromethorphan (Robitussin Dm) 10 ml PO Q4H PRN PRN Reason: Cough Last Admin: 06/13/18 17:20 Dose: 10 ml NOREPINEPHRINE BIT/0.9 % NACL (Levophed 4 Mg/ 250 Ml Ns Premixed) 4 mg in 250 mls @ 7.5 mls/hr IV .Q24H PRN; Protocol PRN Reason: TITRATE PER MD ORDER Last Admin: 06/15/18 12:44 Dose: 2 mcg/min, 7.5 mls/hr Lactic Acid (Lac-Hydrin 12% Cream (140 G)) 0 ea TOP DAILY [facility] Last Admin: 06/15/18 09:09 Dose: 1 tcp Lactulose (Enulose) 20 gm PO DAILY [facility] Last Admin: 06/15/18 09:08 Dose: 20 gm Levalbuterol HCl (Xopenex) 0.63 mg IH TIDRESP [facility] Last Admin: 06/15/18 21:06 Dose: 0.63 mg Levothyroxine Sodium (Synthroid) 25 mcg PO 0600 [facility] Last Admin: 06/16/18 06:47 Dose: 25 mcg Methylprednisolone (Solu-Medrol) 40 mg IVP Q6 [facility] Last Admin: 06/16/18 06:47 Dose: 40 mg Metoprolol Tartrate (Lopressor) 25 mg PO BID [facility] Last Admin: 06/11/18 09:29 Dose: 25 mg Mupirocin (Bactroban Ointment) 0 gm TOP BID [facility] Last Admin: 06/15/18 17:28 Dose: 1 applic Rifaximin (Xifaxan) 550 mg PO Q12 [facility]; Protocol Last Admin: 06/15/18 09:08 Dose: 550 mg Thiamine HCl (Vitamin B1 Tab) 100 mg PO DAILY [facility] Last Admin: 06/15/18 09:08 Dose: 100 mg - Labs Labs: 06/16/18 05:30 06/16/18 05:30 PT 27.2 SECONDS (9.4-12.5) H 06/14/18 08:30 INR 2.41 06/14/18 08:30 APTT 45.6 Seconds (26.9-38.3) H 06/09/18 14:05 - Additional Findings Additional findings: - Constitutional Appears: Chronically Ill - Head Exam Head Exam: ATRAUMATIC, NORMOCEPHALIC R IJ dialysis cath in. - Eye Exam Eye Exam: EOMI, PERRL. absent: Conjunctival injection, Nystagmus, Scleral icterus Pupil Exam: NORMAL ACCOMODATION, PERRL. absent: Irregular, Miosis, Mydriatic - ENT Exam ENT Exam: Mucous Membranes Dry - Neck Exam Neck exam: Positive for: Full Rom - Respiratory Exam Respiratory Exam: Decreased Breath Sounds - Cardiovascular Exam Cardiovascular Exam: RRR, +S1, +S2. absent: Systolic Murmur - GI/Abdominal Exam GI & Abdominal Exam: Soft, Normal Bowel Sounds. 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 liver size unchanged, cryptogenic type cirrhotic pattern imposs to exclude, no overt cirrhotic pattern. trace perihepatic ascites. b/l inguinal LAD. questionable anasarca? Mild b/l pleural effusions, R>L with limited pericardial thickening. - Abd US: mild hepatomegaly, diffuse increased echogenicity of the liver, hepatic steatosis. trace perihepatic ascites. no cholelithiasis or biliary dilatation. Diffuse gallbladder wall thickening. - Echo: EF 66%. Systolic fxn of RV is severely reduced. Mod valvular aortic stenosis, DESMOND 1.13. Mod to severe MV stenosis. Mod to severe TR. Severe pulm HTN (RVSP 79 mmHg). IVC dilated. - Head CT neg - LE US: neg for DVT - On Lactulose, will titrate to 2-3 BMs per day. Continue with rifaximin 550 mg PO BID. - Acute hepatitis panel negative, HIV NR. Hep A total negative. - Ferritin 225, percent sat 28%. Tylenol, salicylate negative - Awaiting ceruloplasmin, AI hepatitis w/u. immunofixation studies negative. - Appreciate nephrology recs. Patient to go for dialysis tomorrow AM as per Nephro. - s/p albumin and levophed for 48 hours with minimal improvement in his Cr levels. - patient is a poor candidate for liver transplant. - MELD 31 - Will monitor mentation, clinical course - Recommend EGD to assess for varices - Patient DNR/DNI now, palliative on board. Poor prognosis. - Further recs per Dr Issa. Case will be seen and discussed with Dr Issa. <Marysol Issa V - Last Filed: 06/16/18 20:43> Objective - Vital Signs/Intake and Output Vital Signs (last 24 hours): Temp Pulse Resp BP Pulse Ox 98.1 F 100 H 20 119/51 L 93 L 06/16/18 16:00 06/16/18 18:00 06/16/18 18:00 06/16/18 18:00 06/16/18 18:00 Intake and Output: 06/16/18 06/17/18 18:59 06:59 Intake Total 120 Output Total 175 Balance -55 - Medications Medications: Current Medications Arformoterol Tartrate (Brovana) 15 mcg IH [id number] [facility] Last Admin: 06/16/18 08:09 Dose: 15 mcg Betamethasone/Clotrimazole (Lotrisone) 0 gm TOP DAILY [facility] Last Admin: 06/16/18 09:02 Dose: 1 tcp Budesonide (Pulmicort Respules) 0.5 mg IH [id number] [facility] Last Admin: 06/16/18 08:09 Dose: 0.5 mg Diltiazem HCl (Cardizem) 60 mg PO TID [facility] Last Admin: 06/11/18 13:15 Dose: 60 mg Folic Acid (Folic Acid) 1 mg PO DAILY [facility] Last Admin: 06/16/18 09:01 Dose: 1 mg Guaifenesin/Dextromethorphan (Robitussin Dm) 10 ml PO Q4H PRN PRN Reason: Cough Last Admin: 06/13/18 17:20 Dose: 10 ml Lactic Acid (Lac-Hydrin 12% Cream (140 G)) 0 ea TOP DAILY [facility] Last Admin: 06/16/18 09:02 Dose: 1 tcp Lactulose (Enulose) 20 gm PO BID [facility] Last Admin: 06/16/18 18:17 Dose: Not Given Levalbuterol HCl (Xopenex) 0.63 mg IH TIDRESP [facility] Last Admin: 06/16/18 13:07 Dose: Not Given Levothyroxine Sodium (Synthroid) 25 mcg PO 0600 [facility] Last Admin: 06/16/18 06:47 Dose: 25 mcg Methylprednisolone (Solu-Medrol) 40 mg IVP Q6 [facility] Last Admin: 06/16/18 18:17 Dose: 40 mg Metoprolol Tartrate (Lopressor) 25 mg PO BID [facility] Last Admin: 06/11/18 09:29 Dose: 25 mg Mupirocin (Bactroban Ointment) 0 gm TOP BID [facility] Last Admin: 06/16/18 18:17 Dose: 1 applic Rifaximin (Xifaxan) 550 mg PO Q12 [facility]; Protocol Last Admin: 06/16/18 09:02 Dose: 550 mg Thiamine HCl (Vitamin B1 Tab) 100 mg PO DAILY [facility] Last Admin: 06/16/18 09:02 Dose: 100 mg - Labs Labs: 06/16/18 05:30 06/16/18 05:30 PT 35.0 SECONDS (9.4-12.5) H 06/16/18 11:05 INR 3.10 06/16/18 11:05 APTT 45.6 Seconds (26.9-38.3) H 06/09/18 14:05 Attending/Attestation - Attestation I have personally seen and examined this patient.: Yes I have fully participated in the care of the patient.: Yes I have reviewed all pertinent clinical information, including history, physical exam and plan: Yes Notes (Text): This patient was seen and evaluated here earlier along with the medical office clerk. This is an addendum to the GI progress note dictated by the resident. Patient is now off Levophed. Worsening of the renal functionhepatorenal syndrome. Patient is presently DNR DNI Sepsis continue the antibiotics as per ID. Patient is presently on BiPAP. Patient does have severe right ventricular dysfunction COPD valvular heart disease. Overall prognosis of the patient is poor in view of the multiorgan failure. 04/10/19 20:41
[2018-06-16] MEDS: Budesonide 0.5 mg/2 ml Inhal Susp UD IH SCH ×2 (08:09→20:52)
[2018-06-16] MEDS: Arformoterol 15 mcg/2 ml Inh Sol IH SCH ×2 (08:09→20:51)
[2018-06-16] MEDS: Levalbuterol 0.63 MG/3 ML Inhal Soln UD IH SCH ×3 (08:10→20:59)
[2018-06-16] MEDS: Mupirocin 2% Ointment 15 GM TUBE TOP SCH ×2 (09:00→18:17)
[2018-06-16] MEDS: Clotrimazole/Betamethasone Cream(15 gm) TOP SCH (09:02)
[2018-06-16] MEDS: Ammonium Lactate 12% Cream (140 g) TOP SCH (09:02)
--- NOTE | 2018-06-16 10:39 | PN ---
DATE: 06/16/2018 SUBJECTIVE: The patient is in bed in no acute distress, nontoxic. The patient was seen earlier on 04/06/2018. No fevers or chills. PHYSICAL EXAMINATION: VITAL SIGNS: Temperature is 97, blood pressure is 120/70, respiratory rate of 18, heart rate of . HEENT: Unremarkable. NECK: Supple. LUNGS: Decreased breath sounds. HEART: Normal S1, S2. ABDOMEN: Soft, nontender. LABORATORY DATA: Reveals a white count of 8000, hemoglobin of 14. Chemistries reveals a BUN of 100, creatinine of 5.4. Urinalysis is noted. Serology is noted. Microbiology is noted. ASSESSMENT AND PLAN: This is a 73-year-old with hepatic encephalopathy, alcoholic cirrhosis, aortic stenosis, history of idiopathic thrombocytopenic purpura not responding to steroids, had splenectomy. He has chronic lymphedema, atrial fibrillation in this patient with a history of Nancy's; and today is day # 7 for Zithromax for community-acquired pneumonia and just chronic changes of the lower extremities not requiring any antibiotics. Review of orders revealed the patient is on p.o. Zithromax and Eboni Saini's note is reviewed, and Dr. Vickie Aviles's note is reviewed who discontinued the Zithromax. The patient has had adequate antibiotic therapy. We will follow with you. The patient is at risk for developing nosocomial infections. Karl Molina MD
--- NOTE | 2018-06-16 10:43 | PN ---
DATE: 06/16/2018 SUBJECTIVE: A 73-year-old white male seen in the ICU, bed 4. A 73-year-old white male admitted with hepatic encephalopathy, hepatorenal syndrome, new onset of atrial fibrillation, exacerbation of COPD, ascites, peripheral edema, sepsis from cellulitis to the lower extremities. The patient was made DNR/DNI by the family. We are talking to avoid dialysis. The patient has been seen in consultation by Dr. Aviles for hypomagnesemia, hypophosphatemia and worsening hepatorenal syndrome. At this point his latest BUN and creatinine are 100 and 5.4. His hemoglobin is 14.8. He is afebrile. His heart rate is 103. His blood pressure is 132/116. Prognosis is poor. I will continue Levophed and albumin and close monitoring. Chadd Savage MD
[2018-06-16 11:19] LABS: INR 3.1
--- NOTE | 2018-06-16 11:55 | CP.PCM.PN ---
<Refugio Cantu - Last Filed: 06/16/18 11:53> Subjective - Date & Time of Evaluation Date of Evaluation: 06/16/18 Time of Evaluation: 11:53 - Subjective Subjective: Podiatry progress note for Dr. De 73 year old male patient, seen and evaluated in the ICU, for bilateral lower extremity xerosis/scaling and right hallucal bruising. Patient was awake at the visit time. He was on Bi-PAP mask at the visit time. As per chart there was no overnight fever, nausea or vomiting, but still having shortness of breath. Objective - Vital Signs/Intake and Output Vital Signs (last 24 hours): Temp Pulse Resp BP Pulse Ox 98.9 F 109 H 19 105/71 91 L 06/16/18 08:00 06/16/18 10:05 06/16/18 10:00 06/16/18 10:00 06/16/18 10:00 Intake and Output: 06/16/18 06/16/18 06:59 18:59 Intake Total 10 120 Balance 10 120 - Medications Medications: Current Medications Arformoterol Tartrate (Brovana) 15 mcg IH [id number] [facility] Last Admin: 06/16/18 08:09 Dose: 15 mcg Betamethasone/Clotrimazole (Lotrisone) 0 gm TOP DAILY [facility] Last Admin: 06/16/18 09:02 Dose: 1 tcp Budesonide (Pulmicort Respules) 0.5 mg IH [id number] [facility] Last Admin: 06/16/18 08:09 Dose: 0.5 mg Diltiazem HCl (Cardizem) 60 mg PO TID [facility] Last Admin: 06/11/18 13:15 Dose: 60 mg Folic Acid (Folic Acid) 1 mg PO DAILY [facility] Last Admin: 06/16/18 09:01 Dose: 1 mg Guaifenesin/Dextromethorphan (Robitussin Dm) 10 ml PO Q4H PRN PRN Reason: Cough Last Admin: 06/13/18 17:20 Dose: 10 ml NOREPINEPHRINE BIT/0.9 % NACL (Levophed 4 Mg/ 250 Ml Ns Premixed) 4 mg in 250 mls @ 7.5 mls/hr IV .Q24H PRN; Protocol PRN Reason: TITRATE PER MD ORDER Last Titration: 06/16/18 06:00 Dose: 0 mcg/min, 0 mls/hr Lactic Acid (Lac-Hydrin 12% Cream (140 G)) 0 ea TOP DAILY [facility] Last Admin: 06/16/18 09:02 Dose: 1 tcp Lactulose (Enulose) 20 gm PO BID [facility] Levalbuterol HCl (Xopenex) 0.63 mg IH TIDRESP [facility] Last Admin: 06/16/18 08:10 Dose: 0.63 mg Levothyroxine Sodium (Synthroid) 25 mcg PO 0600 [facility] Last Admin: 06/16/18 06:47 Dose: 25 mcg Methylprednisolone (Solu-Medrol) 40 mg IVP Q6 [facility] Last Admin: 06/16/18 06:47 Dose: 40 mg Metoprolol Tartrate (Lopressor) 25 mg PO BID [facility] Last Admin: 06/11/18 09:29 Dose: 25 mg Mupirocin (Bactroban Ointment) 0 gm TOP BID [facility] Last Admin: 06/16/18 09:00 Dose: 1 applic Rifaximin (Xifaxan) 550 mg PO Q12 [facility]; Protocol Last Admin: 06/16/18 09:02 Dose: 550 mg Thiamine HCl (Vitamin B1 Tab) 100 mg PO DAILY [facility] Last Admin: 06/16/18 09:02 Dose: 100 mg - Labs Labs: 06/16/18 05:30 06/16/18 05:30 PT 35.0 SECONDS (9.4-12.5) H 06/16/18 11:05 INR 3.10 06/16/18 11:05 APTT 45.6 Seconds (26.9-38.3) H 06/09/18 14:05 - Constitutional Appears: Non-toxic - Head Exam Head Exam: ATRAUMATIC - Extremities Exam Additional comments: Bilateral Lower Extremity Focused Exam VASC: DP and PT pulses 2/4 bilaterally, Cap refill less than 3 seconds X 10, non-pitting edema noted to bilateral lower legs. NEURO: Grossly intact b/l. DERM: Multiple excoriated scabbed wounds with scaling noted of bilateral legs circumferentially, positive mild erythema noted to bilateral legs along with the xerosis, Minimal ecchymosis noted to the tip of the right hallux, no drainage, no tracking, no probe to bone, no open lesions. MSK: Mild pain on palpation to the lower extremities, MSK not performed at this time - Neurological Exam Neurological Exam: Alert, Awake Assessment and Plan - Assessment and Plan (Free Text) Assessment: 73 year old male seen and evaluated for bilateral lower extremity xerosis with excoriated lesions Plan: Patient was seen and evaluated Plan discussed with Dr. Espitia Charts, labs and vitals reviewed; Afebrile, WBC 8.0. SIMON/PVR: R: 0.67, L: 0.72 Right leg wound cx: Klebsiella oxytoma, Corynibacterium species and B hemolytic strept. Group B. Lotrisone and LacHydrin applied to B/L LE Patient to be in Multipodus boots at all times when in bed Bactroban and Mepilex applied to scabs on the left knee Vasc consult; reccs appreciated Continue management per primary care team. Stable from podiatry standpoint, no intervention at this time. Podiatry will continue to follow up the patient while in house. <Reji Espitia - Last Filed: 06/17/18 15:21> Objective - Vital Signs/Intake and Output Vital Signs (last 24 hours): Temp Pulse Resp BP Pulse Ox 97.4 F L 102 H 9 L 132/98 H 90 L 06/17/18 08:00 06/17/18 13:20 06/17/18 11:45 06/17/18 11:45 06/17/18 11:45 Intake and Output: 06/17/18 06/17/18 06:59 18:59 Output Total 1000 Balance -1000 - Medications Medications: Current Medications Arformoterol Tartrate (Brovana) 15 mcg IH [id number] [facility] Last Admin: 06/17/18 08:21 Dose: 15 mcg Betamethasone/Clotrimazole (Lotrisone) 0 gm TOP DAILY [facility] Last Admin: 06/17/18 14:34 Dose: 2 tcp Budesonide (Pulmicort Respules) 0.5 mg IH [id number] [facility] Last Admin: 06/17/18 08:21 Dose: 0.5 mg Diltiazem HCl (Cardizem) 60 mg PO TID [facility] Last Admin: 06/11/18 13:15 Dose: 60 mg Folic Acid (Folic Acid) 1 mg PO DAILY [facility] Last Admin: 06/17/18 14:01 Dose: 1 mg Guaifenesin/Dextromethorphan (Robitussin Dm) 10 ml PO Q4H PRN PRN Reason: Cough Last Admin: 06/13/18 17:20 Dose: 10 ml Heparin Sodium (Porcine) (Heparin) 5,000 units SC Q8 [facility]; Protocol Last Admin: 06/17/18 14:02 Dose: 5,000 units Lactic Acid (Lac-Hydrin 12% Cream (140 G)) 0 ea TOP DAILY [facility] Last Admin: 06/16/18 09:02 Dose: 1 tcp Lactulose (Enulose) 20 gm PO Q8 [facility] Last Admin: 06/17/18 14:01 Dose: 20 gm Levalbuterol HCl (Xopenex) 0.63 mg IH TIDRESP [facility] Last Admin: 06/17/18 13:19 Dose: 0.63 mg Levothyroxine Sodium (Synthroid) 25 mcg PO 0600 [facility] Last Admin: 06/17/18 06:11 Dose: 25 mcg Methylprednisolone (Solu-Medrol) 40 mg IVP Q12H [facility] Last Admin: 06/17/18 14:02 Dose: 40 mg Metoprolol Tartrate (Lopressor) 25 mg PO BID [facility] Last Admin: 06/11/18 09:29 Dose: 25 mg Mupirocin (Bactroban Ointment) 0 gm TOP BID [facility] Last Admin: 06/17/18 10:50 Dose: 2 applic Rifaximin (Xifaxan) 550 mg PO Q12 [facility]; Protocol Last Admin: 06/17/18 13:01 Dose: Not Given Thiamine HCl (Vitamin B1 Tab) 100 mg PO DAILY [facility] Last Admin: 06/17/18 14:00 Dose: 100 mg - Labs Labs: 06/17/18 05:30 06/17/18 05:30 PT 30.7 SECONDS (9.4-12.5) H 06/17/18 11:25 INR 2.72 06/17/18 11:25 APTT 45.6 Seconds (26.9-38.3) H 06/09/18 14:05 Attending/Attestation - Attestation I have personally seen and examined this patient.: Yes I have fully participated in the care of the patient.: Yes I have reviewed all pertinent clinical information, including history, physical exam and plan: Yes
[2018-06-16] MEDS ORDERED: Lidocaine PF 2% (5 ml) Inj (For Cardiac Arrhy) ONE (12:00)
[2018-06-16] MEDS ORDERED: Midazolam 2 MG/2 ML VIAL ONE (13:47)
--- NOTE | 2018-06-16 13:59 | CP.CCUPN ---
<Harry Martínez - Last Filed: 06/16/18 14:05> CCU Subjective - Physician Review Subjective (Free Text): Harry Martínez, PGY1 ICU Progress Note for Dr. Gini Graza Patient was seen and examined at bedside this morning. Vital signs stable at this time. BiPAP settings: IPAP/EPAP 16/5, RR 14, FiO2 40%. Patient is currently AAOx3. He denies chest pain, shortness of breath, nausea, vomiting, diarrhea, fever, chills. Rosario catheter is in place. Yesterday, patient's family was here (Clarice, sister) and patient was made DNR/DNI. Nephro was present and had discussion with family in regards to patient's poor prognosis and need for hemodialysis. A full 12 point ROS was conducted and unremarkable except as stated above. CCU Objective - Vital Signs / Intake & Output Vital Signs (Last 4 hours): Vital Signs Temp Pulse Resp BP Pulse Ox 06/16/18 12:01 104 H 46 H 112/70 91 L 06/16/18 12:00 97.9 F 108 H 56 H 92 L 06/16/18 11:01 98 H 25 H 112/71 92 L 06/16/18 11:00 111 H 19 93 L 06/16/18 10:05 109 H 06/16/18 10:00 118 H 19 105/71 91 L Intake and Output (Last 8hrs): Intake & Output 06/15/18 06/16/18 06/16/18 22:59 06:59 14:59 Intake Total 10 120 Balance 10 120 Intake: IV 10 Oral 120 - Physical Exam Head: Positive for: Atraumatic, Normocephalic Pupils: Positive for: PERRL Extroacular Muscles: Positive for: EOMI Conjunctiva: Positive for: Normal Mouth: Positive for: Moist Mucous Membranes Nose (External): Positive for: Abrasion (2 abrasions to bridge of nose) Neck: Positive for: Normal Range of Motion Respiratory/Chest: Negative for: Respiratory Distress, Accessory Muscle Use, Wheezes, Rales, Retracting, Rhonchi Cardiovascular: Positive for: Normal S1, S2, Irregular Rhythm. Negative for: Murmurs Abdomen: Positive for: Distention, Normal Bowel Sounds. Negative for: Tenderness, Peritoneal Signs, Rebound Back: Positive for: Normal Inspection Upper Extremity: Positive for: Normal Inspection. Negative for: Cyanosis, Edema Lower Extremity: Positive for: Edema, Other (Chronic venous changes in bilateral lower extremities with bilateral wounds. Dressings in place. ) Neurological: Positive for: CN II-XII Intact, Speech Normal Skin: Positive for: Warm, Dry, Normal Color. Negative for: Rashes Psychiatric: Positive for: Alert, Oriented x 3. Negative for: Normal Insight - Medications Active Medications: Active Medications Generic Name Dose Route Start Last Admin Trade Name Freq PRN Reason Stop Dose Admin Arformoterol Tartrate 15 mcg 06/12/18 20:00 06/16/18 08:09 Brovana IH 15 mcg [id number] CASEY Administration Betamethasone/Clotrimazole 0 gm 06/11/18 10:00 06/16/18 09:02 Lotrisone TOP 1 tcp DAILY CASEY Administration Budesonide 0.5 mg 06/12/18 20:00 06/16/18 08:09 Pulmicort Respules IH 0.5 mg [id number] CASEY Administration Diltiazem HCl 60 mg 06/10/18 10:00 06/11/18 13:15 Cardizem PO 60 mg TID CASEY Administration Folic Acid 1 mg 06/10/18 10:00 06/16/18 09:01 Folic Acid PO 1 mg DAILY CASEY Administration Guaifenesin/Dextromethorphan 10 ml 06/12/18 15:13 06/13/18 17:20 Robitussin Dm PO 10 ml Q4H PRN Administration Cough NOREPINEPHRINE BIT/0.9 % NACL 4 mg in 250 mls @ 7.5 mls/hr 06/14/18 16:59 06/16/18 06:00 Levophed 4 Mg/ 250 Ml Ns Premixed IV 0 mcg/min .Q24H PRN 0 mls/hr TITRATE PER MD ORDER Titration Protocol 2 MCG/MIN Lactic Acid 0 ea 06/11/18 10:00 06/16/18 09:02 Lac-Hydrin 12% Cream (140 G) TOP 1 tcp DAILY CASEY Administration Lactulose 20 gm 06/16/18 18:00 Enulose PO BID CASEY Levalbuterol HCl 0.63 mg 06/10/18 14:00 06/16/18 13:07 Xopenex IH Not Given TIDRESP CASYE Levothyroxine Sodium 25 mcg 06/12/18 06:00 06/16/18 06:47 Synthroid PO 25 mcg 0600 CASEY Administration Methylprednisolone 40 mg 06/13/18 12:00 06/16/18 06:47 Solu-Medrol IVP 40 mg Q6 CASEY Administration Metoprolol Tartrate 25 mg 06/10/18 18:00 06/11/18 09:29 Lopressor PO 25 mg BID CASEY Administration Mupirocin 0 gm 06/14/18 11:42 06/16/18 09:00 Bactroban Ointment TOP 1 applic BID CASEY Administration Rifaximin 550 mg 06/12/18 22:00 06/16/18 09:02 Xifaxan PO 550 mg Q12 CASEY Administration Protocol Thiamine HCl 100 mg 06/10/18 10:00 06/16/18 09:02 Vitamin B1 Tab PO 100 mg DAILY CASEY Administration - Patient Studies Lab Studies: Lab Studies 06/16/18 06/16/18 06/16/18 Range/Units 11:05 05:30 05:30 WBC 8.0 (4.5-11.0) 10^3/uL RBC 4.52 (3.5-6.1) 10^6/uL Hgb 14.8 (14.0-18.0) g/dL Hct 43.2 (42.0-52.0) % MCV 95.6 (80.0-105.0) fl MCH 32.7 (25.0-35.0) pg MCHC 34.3 (31.0-37.0) g/dl RDW 17.2 H (11.5-14.5) % Plt Count 332 (120.0-450.0) 10^3/uL MPV 9.6 (7.0-11.0) fl PT 35.0 H (9.4-12.5) SECONDS INR 3.10 Sodium 138 (132-148) mmol/L Potassium 4.9 (3.6-5.0) mmol/L Chloride 101 (98-107) mmol/L Carbon Dioxide 16 L (21-33) mmol/L Anion Gap 25 H (10-20) BUN 100 H (7-21) mg/dL Creatinine 5.4 H (0.8-1.5) mg/dl Est GFR ( Amer) 13 Est GFR (Non-Af Amer) 11 Random Glucose 122 H (70-110) mg/dL Calcium 7.7 L (8.4-10.5) mg/dL Total Bilirubin 1.6 H (0.2-1.3) mg/dL AST 75 H (17-59) U/L ALT 49 (7-56) U/L Alkaline Phosphatase 157 H (38-126) U/L Total Protein 8.2 (5.8-8.3) g/dL Albumin 4.2 (3.0-4.8) g/dL Globulin 4.0 gm/dL Albumin/Globulin Ratio 1.0 L (1.1-1.8) Serum Immunofixation (Not Detected) GENE Screen (Negative) 06/11/18 06/11/18 Range/Units 19:57 19:57 WBC (4.5-11.0) 10^3/uL RBC (3.5-6.1) 10^6/uL Hgb (14.0-18.0) g/dL Hct (42.0-52.0) % MCV (80.0-105.0) fl MCH (25.0-35.0) pg MCHC (31.0-37.0) g/dl RDW (11.5-14.5) % Plt Count (120.0-450.0) 10^3/uL MPV (7.0-11.0) fl PT (9.4-12.5) SECONDS INR Sodium (132-148) mmol/L Potassium (3.6-5.0) mmol/L Chloride (98-107) mmol/L Carbon Dioxide (21-33) mmol/L Anion Gap (10-20) BUN (7-21) mg/dL Creatinine (0.8-1.5) mg/dl Est GFR ( Amer) Est GFR (Non-Af Amer) Random Glucose (70-110) mg/dL Calcium (8.4-10.5) mg/dL Total Bilirubin (0.2-1.3) mg/dL AST (17-59) U/L ALT (7-56) U/L Alkaline Phosphatase (38-126) U/L Total Protein (5.8-8.3) g/dL Albumin (3.0-4.8) g/dL Globulin gm/dL Albumin/Globulin Ratio (1.1-1.8) Serum Immunofixation Not detected (Not Detected) GENE Screen Negative (Negative) Laboratory Results - last 24 hr 06/11/18 06/11/18 06/16/18 19:57 19:57 05:30 WBC 8.0 RBC 4.52 Hgb 14.8 Hct 43.2 MCV 95.6 MCH 32.7 MCHC 34.3 RDW 17.2 H Plt Count 332 MPV 9.6 PT INR Sodium Potassium Chloride Carbon Dioxide Anion Gap BUN Creatinine Est GFR ( Amer) Est GFR (Non-Af Amer) Random Glucose Calcium Total Bilirubin AST ALT Alkaline Phosphatase Total Protein Albumin Globulin Albumin/Globulin Ratio Serum Immunofixation Not detected GENE Screen Negative 06/16/18 06/16/18 05:30 11:05 WBC RBC Hgb Hct MCV MCH MCHC RDW Plt Count MPV PT 35.0 H INR 3.10 Sodium 138 Potassium 4.9 Chloride 101 Carbon Dioxide 16 L Anion Gap 25 H BUN 100 H Creatinine 5.4 H Est GFR ( Amer) 13 Est GFR (Non-Af Amer) 11 Random Glucose 122 H Calcium 7.7 L Total Bilirubin 1.6 H AST 75 H ALT 49 Alkaline Phosphatase 157 H Total Protein 8.2 Albumin 4.2 Globulin 4.0 Albumin/Globulin Ratio 1.0 L Serum Immunofixation GENE Screen Review of Systems - Review of Systems All systems: reviewed and no additional remarkable complaints except (as per HPI) Critical Care Progress Note - Nutrition Nutrition: Nutrition Category Date Time Status Liquid Diet [DIET] Diets 06/15/18 Breakfast Ordered Assessment/Plan - Assessment and Plan (Free Text) Assessment: Patient is a 73 y/o M with PMHx hepatic encephalopathy, alcoholic cirrhosis, aortic stenosis, s/p splenectomy (ITP), PAD (with ulcerations of the lower extremities), chronic lymphedema, Afib who initially presented to [facility] [place] for x3 weeks AMS/lethargy with increased lower extremity swelling, anasarca, darkening of urine, and some shortness of breath. On CXR, patient was found to have RLL pneumonia and small R-pleural effusion. Patient also has bilateral ulcerations with RLE cellulitis. Patient admitted for severe sepsis 2/2 CAP and RLE lydia lulitis. He also presented with Afib with RVR in which he was appropriately rate controlled. During hospital course on 06/11, LABELING SPECIALIST was called as patient was having worsening confusion, urinary incontinence, and hypotension (resolved); he was subsequently transferred to the ICU for management. Patient admitted to the ICU for hepatic encephalopathy, hepatorenal syndrome, and hepatopulmonary syndrome. Plan: Neuro: - Hepatic encephalopathy - resolved - Currently AAOx3 - ammonia level 100 --> 71 --> 14 (06/12) - c/w rifaximin 550mg PO q12 - c/w lactulose 20g PO daily; patient is having 2-3 bowel movements a day - c/w thiamine and folic acid (Cirrhosis 2/2 EtOH abuse) Cardio: - Afib with RVR - rate controlled - CHADVASC score 3; HASBLED score 4 - high risk of bleeding; anticoagulation not indicated at this time - Cardiorenal syndrome - cardizem and metoprolol held - Echo: EF 66%. Suggests CHF-pEF: severely dilated RV, mod-severe mitral valve stenosis and tricuspid regurgitation. RVSP 79, severe pulmonary hypertension. - Cardio on consult. Recs appreciated. Pulm: - Shortness of Breath 2/2 Pulmonary Hypertension from Hepatopulmonary Syndrome - c/w BiPAP: IPAP/EPAP 16/5, RR 14, FiO2 40% - c/w brovana, pulmicort - c/w solumedrol 40mg IVP q6 - c/w robitussin for cough - Maintain SaO2 > 92% - Aspiration precautions GI: - MELD score 32 points; 52% mortality within next 3 months - Palliative Care on board - patient is DNR/DNI - AST/ALT downtrending - CT A/P: duodenoitis. Cryptogenic cirrhotic pattern not completely excluded. Trace perihepatic ascites. - GI on consult. Recs appreciated. - Liquid diet - breaks from continuous BiPAP Renal: - Type I Hepatorenal syndrome - Worsening acute renal failure - BUN/Cr is 100/5.4 from previous 83/4.9 (baseline Cr is 0.6) - IR on consult for trialysis catheter placement today; likely HD tomorrow - Patient is off norepinephrine drip (discontinued) - Hyperkalemia 2/2 Hepatorenal vs Metabolic Acidosis - improved - Continue to monitor labs - Nephrology on consult. Recs appreciated. - UA negative for UTI - UCx multiple species: contaminated - Rosario in place - monitor ins/outs ID: - Severe Sepsis 2/2 CAP/Aspiration PNA vs RLE cellulitis - c/w azithromycin for CAP as per ID recommendations (until 06/20) - currently afebrile with no leukocytosis - CXR: RLL PNA (consider aspiration given his mental status change) - L-leg wound cx: +klebsiella, +beta-hemolytic group B strep, +corynebacterium - LE arterial US: R-leg SIMON .67 and L-leg SIMON .72 (Hx PVD) - Blood Cx negative x2 after 5 days - MRSA negative - ID on consult. Recs appreciated. - Podiatry on consult. Recs appreciated. - Wound care on board Heme: - Hgb stable at this time with no overt bleeding - INR 2.4 (06/14) - No indication for transfusion at this time unless Hgb < 7.0 Endo: - Hypothyroidism - c/w levothyroxine 25 mcg daily Dispo: Continue to monitor in the ICU at this time. Pending trialysis catheter placement by IR today. Patient will need dialysis as discussed with family. Case was discussed and reviewed with Attending Physician, Dr. Gini Garza. <Gini Garza - Last Filed: 06/16/18 17:52> CCU Objective - Vital Signs / Intake & Output Vital Signs (Last 4 hours): Vital Signs Temp Pulse Resp BP Pulse Ox 06/16/18 16:37 101 H 18 94/79 L 93 L 06/16/18 16:30 104 H 06/16/18 16:00 98.1 F 103 H 14 77/29 L 97 06/16/18 15:30 99 H 15 121/69 93 L 06/16/18 15:15 113 H 19 120/75 93 L 06/16/18 15:00 105 H 15 107/72 92 L 06/16/18 14:45 102 H 15 116/67 91 L 06/16/18 14:34 103 H 15 108/69 89 L 06/16/18 14:30 101 H 06/16/18 14:27 103 H 10 L Intake and Output (Last 8hrs): Intake & Output 06/16/18 06/16/18 06/16/18 06:59 14:59 22:59 Intake Total 10 120 Output Total 175 Balance 10 120 -175 Intake: IV 10 Oral 120 Output: Urine 175 Urine, Voided 175 - Medications Active Medications: Active Medications Generic Name Dose Route Start Last Admin Trade Name Freq PRN Reason Stop Dose Admin Arformoterol Tartrate 15 mcg 06/12/18 20:00 06/16/18 08:09 Brovana IH 15 mcg [id number] CASEY Administration Betamethasone/Clotrimazole 0 gm 06/11/18 10:00 06/16/18 09:02 Lotrisone TOP 1 tcp DAILY CASEY Administration Budesonide 0.5 mg 06/12/18 20:00 06/16/18 08:09 Pulmicort Respules IH 0.5 mg [id number] CASEY Administration Diltiazem HCl 60 mg 06/10/18 10:00 06/11/18 13:15 Cardizem PO 60 mg TID CASEY Administration Folic Acid 1 mg 06/10/18 10:00 06/16/18 09:01 Folic Acid PO 1 mg DAILY CASEY Administration Guaifenesin/Dextromethorphan 10 ml 06/12/18 15:13 06/13/18 17:20 Robitussin Dm PO 10 ml Q4H PRN Administration Cough Lactic Acid 0 ea 06/11/18 10:00 06/16/18 09:02 Lac-Hydrin 12% Cream (140 G) TOP 1 tcp DAILY CASEY Administration Lactulose 20 gm 06/16/18 18:00 Enulose PO BID [facility] Levalbuterol HCl 0.63 mg 06/10/18 14:00 06/16/18 13:07 Xopenex IH Not Given TIDRESP [facility] Levothyroxine Sodium 25 mcg 06/12/18 06:00 06/16/18 06:47 Synthroid PO 25 mcg 0600 CASEY Administration Methylprednisolone 40 mg 06/13/18 12:00 06/16/18 15:43 Solu-Medrol IVP 40 mg Q6 CASEY Administration Metoprolol Tartrate 25 mg 06/10/18 18:00 06/11/18 09:29 Lopressor PO 25 mg BID CASEY Administration Mupirocin 0 gm 06/14/18 11:42 06/16/18 09:00 Bactroban Ointment TOP 1 applic BID CASEY Administration Rifaximin 550 mg 06/12/18 22:00 06/16/18 09:02 Xifaxan PO 550 mg Q12 CASEY Administration Protocol Thiamine HCl 100 mg 06/10/18 10:00 06/16/18 09:02 Vitamin B1 Tab PO 100 mg DAILY CASEY Administration - Patient Studies Lab Studies: Lab Studies 06/16/18 06/16/18 06/16/18 Range/Units 11:05 05:30 05:30 WBC 8.0 (4.5-11.0) 10^3/uL RBC 4.52 (3.5-6.1) 10^6/uL Hgb 14.8 (14.0-18.0) g/dL Hct 43.2 (42.0-52.0) % MCV 95.6 (80.0-105.0) fl MCH 32.7 (25.0-35.0) pg MCHC 34.3 (31.0-37.0) g/dl RDW 17.2 H (11.5-14.5) % Plt Count 332 (120.0-450.0) 10^3/uL MPV 9.6 (7.0-11.0) fl PT 35.0 H (9.4-12.5) SECONDS INR 3.10 Sodium 138 (132-148) mmol/L Potassium 4.9 (3.6-5.0) mmol/L Chloride 101 (98-107) mmol/L Carbon Dioxide 16 L (21-33) mmol/L Anion Gap 25 H (10-20) BUN 100 H (7-21) mg/dL Creatinine 5.4 H (0.8-1.5) mg/dl Est GFR ( Amer) 13 Est GFR (Non-Af Amer) 11 Random Glucose 122 H (70-110) mg/dL Calcium 7.7 L (8.4-10.5) mg/dL Total Bilirubin 1.6 H (0.2-1.3) mg/dL AST 75 H (17-59) U/L ALT 49 (7-56) U/L Alkaline Phosphatase 157 H (38-126) U/L Total Protein 8.2 (5.8-8.3) g/dL Albumin 4.2 (3.0-4.8) g/dL Globulin 4.0 gm/dL Albumin/Globulin Ratio 1.0 L (1.1-1.8) Laboratory Results - last 24 hr 06/16/18 06/16/18 06/16/18 05:30 05:30 11:05 WBC 8.0 RBC 4.52 Hgb 14.8 Hct 43.2 MCV 95.6 MCH 32.7 MCHC 34.3 RDW 17.2 H Plt Count 332 MPV 9.6 PT 35.0 H INR 3.10 Sodium 138 Potassium 4.9 Chloride 101 Carbon Dioxide 16 L Anion Gap 25 H BUN 100 H Creatinine 5.4 H Est GFR ( Amer) 13 Est GFR (Non-Af Amer) 11 Random Glucose 122 H Calcium 7.7 L Total Bilirubin 1.6 H AST 75 H ALT 49 Alkaline Phosphatase 157 H Total Protein 8.2 Albumin 4.2 Globulin 4.0 Albumin/Globulin Ratio 1.0 L Critical Care Progress Note - Nutrition Nutrition: Nutrition Category Date Time Status Liquid Diet [DIET] Diets 06/15/18 Breakfast Ordered Addendum Addendum: 06/16/18 17:51 MICU Attending Addendum: Patient seen and examined with housestaff, case discussed on rounds. I agree wit h resident note above with the following additions/exceptions: 77M with alcoholic cirrhosis, aortic stenosis, s/p splenectomy (ITP), PAD (with ulcerations of the lower extremities), chronic lymphedema, Afib admitted with increased lower extremity swelling, anasarca and severe sepsis 2/2 CAP and RLE cellulitis. Sepsis MARIE on CKD / Anuric Afib RVR CHF Elevated RVSP Hepatorenal syndrome Cirrohsis Overall prognosis is poor given underlying co morbitidites and now complicated by hepatorenal syndrome. Nephro managing HRS, At this point I beleive that patient should have a trial of dialysis as a last effort to provide some quality of life d/w Nephro agree with HD, access placed by IR today Goals of care discussed with [facility] and Sister Clarice, patient is now DNR DNI for now cont bipap, no intubation f/u nephro recs optimize HRS as above condition guarded hep Sq dvt ppx ppi for gi ppx Rest of care as per resident note above Gini Garza MD Attending Pulmonary Critical Care Sleep Medicine
--- NOTE | 2018-06-16 14:13 | CP.PCM.PN ---
Subjective - Date & Time of Evaluation Date of Evaluation: 06/16/18 Time of Evaluation: 10:00 - Subjective Subjective: Patient is more alert today, able to follow some simple commands Objective - Vital Signs/Intake and Output Vital Signs (last 24 hours): Temp Pulse Resp BP Pulse Ox 97.9 F 104 H 46 H 112/70 91 L 06/16/18 12:00 06/16/18 12:01 06/16/18 12:01 06/16/18 12:01 06/16/18 12:01 Intake and Output: 06/16/18 06/16/18 06:59 18:59 Intake Total 10 120 Balance 10 120 - Medications Medications: Current Medications Arformoterol Tartrate (Brovana) 15 mcg IH [id number] [facility] Last Admin: 06/16/18 08:09 Dose: 15 mcg Betamethasone/Clotrimazole (Lotrisone) 0 gm TOP DAILY [facility] Last Admin: 06/16/18 09:02 Dose: 1 tcp Budesonide (Pulmicort Respules) 0.5 mg IH [id number] [facility] Last Admin: 06/16/18 08:09 Dose: 0.5 mg Diltiazem HCl (Cardizem) 60 mg PO TID [facility] Last Admin: 06/11/18 13:15 Dose: 60 mg Folic Acid (Folic Acid) 1 mg PO DAILY [facility] Last Admin: 06/16/18 09:01 Dose: 1 mg Guaifenesin/Dextromethorphan (Robitussin Dm) 10 ml PO Q4H PRN PRN Reason: Cough Last Admin: 06/13/18 17:20 Dose: 10 ml NOREPINEPHRINE BIT/0.9 % NACL (Levophed 4 Mg/ 250 Ml Ns Premixed) 4 mg in 250 mls @ 7.5 mls/hr IV .Q24H PRN; Protocol PRN Reason: TITRATE PER MD ORDER Last Titration: 06/16/18 06:00 Dose: 0 mcg/min, 0 mls/hr Lactic Acid (Lac-Hydrin 12% Cream (140 G)) 0 ea TOP DAILY [facility] Last Admin: 06/16/18 09:02 Dose: 1 tcp Lactulose (Enulose) 20 gm PO BID [facility] Levalbuterol HCl (Xopenex) 0.63 mg IH TIDRESP [facility] Last Admin: 06/16/18 13:07 Dose: Not Given Levothyroxine Sodium (Synthroid) 25 mcg PO 0600 [facility] Last Admin: 06/16/18 06:47 Dose: 25 mcg Methylprednisolone (Solu-Medrol) 40 mg IVP Q6 [facility] Last Admin: 06/16/18 06:47 Dose: 40 mg Metoprolol Tartrate (Lopressor) 25 mg PO BID [facility] Last Admin: 06/11/18 09:29 Dose: 25 mg Mupirocin (Bactroban Ointment) 0 gm TOP BID [facility] Last Admin: 06/16/18 09:00 Dose: 1 applic Rifaximin (Xifaxan) 550 mg PO Q12 [facility]; Protocol Last Admin: 06/16/18 09:02 Dose: 550 mg Thiamine HCl (Vitamin B1 Tab) 100 mg PO DAILY [facility] Last Admin: 06/16/18 09:02 Dose: 100 mg - Labs Labs: 06/16/18 05:30 06/16/18 05:30 PT 35.0 SECONDS (9.4-12.5) H 06/16/18 11:05 INR 3.10 06/16/18 11:05 APTT 45.6 Seconds (26.9-38.3) H 06/09/18 14:05 - Constitutional Appears: Chronically Ill - Eye Exam Eye Exam: Normal appearance, PERRL - Respiratory Exam Respiratory Exam: Decreased Breath Sounds, Rhonchi Additional comments: BiPap - Cardiovascular Exam Cardiovascular Exam: Tachycardia, +S1, +S2 - GI/Abdominal Exam GI & Abdominal Exam: Distended, Soft, Hypoactive Bowel Sounds - Extremities Exam Additional comments: PVD, ulcer of both lower extremities - Neurological Exam Neurological Exam: Alert - Skin Skin Exam: Dry, Pallor Assessment and Plan - Assessment and Plan (Free Text) Assessment: This is a 77 year old male with history PAD, LE cellulitis, DM,HTN,alcoholism who is admitted with hepatic encephalopathy, alcoholic cirrhosis, aortic stenosis,PAD, lymphedema, A fib with RVR, anasarca, sepsis,RLL pneumonia, R pleural effusion and MARIE. I spoke with patient's sister Clarice via phone. Clarice aware that patient's kidney function continues to decline and that dialysis should be considered. Benefits and burdens of dialysis in the setting of existing cormorbidities explained. Questions answered. Clarice verbalizes understanding of our conversation. She is agreeable to dialysis treatment at this time. Plan: Goals of care Hepatic encephalopathy: Ammonia levels decreased. Continue Rixaimin, lactulose being tapered. Afib with RVR,: Continue Cardizem,metoprolol. Pulmonary:Continue Bipap, Brovana, Pulmicort, Solumedrol. Maintain SaO2 > 92% Hepatorenal syndrome/MARIE; Patient scheduled for dialysis cath placement
--- NOTE | 2018-06-16 14:15 | PN ---
DATE: 06/16/2018 REASON FOR CONSULTATION: Atrial fibrillation, shortness of breath, congestive heart failure, altered mental status, cirrhosis, decompensated congestive heart failure, elevated ammonia level, and two-point restraint. The patient remains on two-point restraint, confused. PHYSICAL EXAMINATION: As follows: VITAL SIGNS: Temperature afebrile, heart rate 103, blood pressure 132/116. HEENT: PERRLA. Extraocular muscles intact. NECK: Supple. No carotid bruit or thyromegaly. CHEST: Clear to auscultation. HEART: S1, S2 regular. ABDOMEN: Soft. EXTREMITIES: Clubbing and cyanosis negative. LABORATORY DATA: Blood workup as follow; WBC 8, hemoglobin 14.8, hematocrit 43.2, platelet count 332. Chemistry shows sodium 130, potassium 4.9, chloride 101, CO2 of 26, anion gap of 25, BUN 100, and creatinine 5.4. IMPRESSION: This is a 73-year-old male with past medical history significant for morbid obesity, heavy alcohol abuse admitted with atrial fibrillation, altered mental status; moved to intensive care unit because of altered mental status. Initially, the patient was on the floor with shortness of breath. Echo dated 06/10/2018 shows ejection fraction 60-65% of right ventricle, severely reduced and dilated. Pfehaeqn-vt-yhzpir valvular aortic stenosis, valve area 1.13 cm2, also [id number]-bv-vrmkoq mitral stenosis, valve area 1.3 cm2. Trace mitral regurgitation, vgzfh-ey-praa aortic regurgitation, kpffejqw-zn-drgjix tricuspid regurgitation, severe pulmonary hypertension, right ventricular systolic pressure 79 mmHg, elevated potassium, elevated BUN and creatinine, multiorgan dysfunction, hyperkalemic, confused, altered mental status secondary to underlying metabolic disorder. RECOMMENDATIONS: Continue supportive care. Overall, the patient's condition is critical. Long-term prognosis is guarded. Continue lactulose to lower potassium. Continue Cardizem as tolerated. Continue beta-sesar. Overall, the patient's critical long-term prognosis is extremely poor. Continue supportive care. I discussed with Dr. Savage this morning. Aruna Montilla MD
--- NOTE | 2018-06-16 15:10 | CP.PCM.PN ---
<Alfonso Sun - Last Filed: 06/17/18 14:03> Subjective - Date & Time of Evaluation Date of Evaluation: 06/16/18 Time of Evaluation: 07:10 - Subjective Subjective: Luis Fernando Sun PGY2 - Nephrology Progress Note for Dr. Aviles Patient was seen and examined. No acute events were reported overnight. Patient continues to be conversant and some what confused. Discussion regarding future management of his worsening renal function. He denies chest pain, shortness of breath, abdominal discomfort, fever, nausea, chills. Objective - Vital Signs/Intake and Output Vital Signs (last 24 hours): Temp Pulse Resp BP Pulse Ox 97.9 F 101 H 46 H 112/70 91 L 06/16/18 12:00 06/16/18 14:30 06/16/18 12:01 06/16/18 12:01 06/16/18 12:01 Intake and Output: 06/16/18 06/16/18 06:59 18:59 Intake Total 10 120 Balance 10 120 - Medications Medications: Current Medications Arformoterol Tartrate (Brovana) 15 mcg IH [id number] [facility] Last Admin: 06/16/18 08:09 Dose: 15 mcg Betamethasone/Clotrimazole (Lotrisone) 0 gm TOP DAILY [facility] Last Admin: 06/16/18 09:02 Dose: 1 tcp Budesonide (Pulmicort Respules) 0.5 mg IH [id number] [facility] Last Admin: 06/16/18 08:09 Dose: 0.5 mg Diltiazem HCl (Cardizem) 60 mg PO TID [facility] Last Admin: 06/11/18 13:15 Dose: 60 mg Folic Acid (Folic Acid) 1 mg PO DAILY [facility] Last Admin: 06/16/18 09:01 Dose: 1 mg Guaifenesin/Dextromethorphan (Robitussin Dm) 10 ml PO Q4H PRN PRN Reason: Cough Last Admin: 06/13/18 17:20 Dose: 10 ml Lactic Acid (Lac-Hydrin 12% Cream (140 G)) 0 ea TOP DAILY [facility] Last Admin: 06/16/18 09:02 Dose: 1 tcp Lactulose (Enulose) 20 gm PO BID [facility] Levalbuterol HCl (Xopenex) 0.63 mg IH TIDRESP [facility] Last Admin: 06/16/18 13:07 Dose: Not Given Levothyroxine Sodium (Synthroid) 25 mcg PO 0600 [facility] Last Admin: 06/16/18 06:47 Dose: 25 mcg Methylprednisolone (Solu-Medrol) 40 mg IVP Q6 [facility] Last Admin: 06/16/18 06:47 Dose: 40 mg Metoprolol Tartrate (Lopressor) 25 mg PO BID [facility] Last Admin: 06/11/18 09:29 Dose: 25 mg Mupirocin (Bactroban Ointment) 0 gm TOP BID [facility] Last Admin: 06/16/18 09:00 Dose: 1 applic Rifaximin (Xifaxan) 550 mg PO Q12 [facility]; Protocol Last Admin: 06/16/18 09:02 Dose: 550 mg Thiamine HCl (Vitamin B1 Tab) 100 mg PO DAILY [facility] Last Admin: 06/16/18 09:02 Dose: 100 mg - Labs Labs: 06/16/18 05:30 06/16/18 05:30 PT 35.0 SECONDS (9.4-12.5) H 06/16/18 11:05 INR 3.10 06/16/18 11:05 APTT 45.6 Seconds (26.9-38.3) H 06/09/18 14:05 Assessment and Plan - Assessment and Plan (Free Text) Assessment: 1. Hepatorenal Syndrome Type I 2. Hepatic Encephalopathy 3. Liver Cirrhosis likely multifactorial including ETOH and significant pulmonary HTN with noted Right sided heart failure 4. Sepsis secondary to CAP/Cellulitis 5. Severe Pulmonary HTN 6. Moderate Aortic Stenosis 7. Oliguria 8. Hyperkalemia 9. Hypocalcemia 73 year old male with likely type I Hepatorenal Syndrome with rapid elevation of his Cr within 2 weeks with limited explanation from a renal standpoint. Patient is noted to have hepatic steatosis on abdominal US in the setting of Liver cirrhosis secondary to multifactorial factors such as history of alcohol abuse and pulmonary hypertension with right sided heart failure. Patient was able to be titrated off norepinephrine. Patient renal function continues to be poor secondary to hepatorenal syndrome. Urinary output continues to be oliguric. Patient with poor RV function in the setting of severe pulmonary hypertension. Patient would benefit from dialysis as option to relieve RV strain as well as stabilize renal function. Will continue to have converstation with family for dialysis as sustaining measure for patient as patient himself continues to be encephalopathic and altered mentation/confusion. Patient continues to be hyperkalemia with continued kayexalate. Patient prognosis is gaurded and further conversations between ICU team, palliative care team and family to be ongoing. Patient case and plan discussed with attending, Dr. Aviles <Jonathon Aviles S - Last Filed: 06/17/18 20:30> Objective - Vital Signs/Intake and Output Vital Signs (last 24 hours): Temp Pulse Resp BP Pulse Ox 97.9 F 113 H 19 120/75 93 L 06/16/18 12:00 06/16/18 15:15 06/16/18 15:15 06/16/18 15:15 06/16/18 15:15 Intake and Output: 06/16/18 06/16/18 06:59 18:59 Intake Total 10 120 Balance 10 120 - Medications Medications: Current Medications Arformoterol Tartrate (Brovana) 15 mcg IH [id number] [facility] Last Admin: 06/16/18 08:09 Dose: 15 mcg Betamethasone/Clotrimazole (Lotrisone) 0 gm TOP DAILY [facility] Last Admin: 06/16/18 09:02 Dose: 1 tcp Budesonide (Pulmicort Respules) 0.5 mg IH [id number] [facility] Last Admin: 06/16/18 08:09 Dose: 0.5 mg Diltiazem HCl (Cardizem) 60 mg PO TID [facility] Last Admin: 06/11/18 13:15 Dose: 60 mg Folic Acid (Folic Acid) 1 mg PO DAILY [facility] Last Admin: 06/16/18 09:01 Dose: 1 mg Guaifenesin/Dextromethorphan (Robitussin Dm) 10 ml PO Q4H PRN PRN Reason: Cough Last Admin: 06/13/18 17:20 Dose: 10 ml Lactic Acid (Lac-Hydrin 12% Cream (140 G)) 0 ea TOP DAILY [facility] Last Admin: 06/16/18 09:02 Dose: 1 tcp Lactulose (Enulose) 20 gm PO BID [facility] Levalbuterol HCl (Xopenex) 0.63 mg IH TIDRESP [facility] Last Admin: 06/16/18 13:07 Dose: Not Given Levothyroxine Sodium (Synthroid) 25 mcg PO 0600 [facility] Last Admin: 06/16/18 06:47 Dose: 25 mcg Methylprednisolone (Solu-Medrol) 40 mg IVP Q6 [facility] Last Admin: 06/16/18 15:43 Dose: 40 mg Metoprolol Tartrate (Lopressor) 25 mg PO BID [facility] Last Admin: 06/11/18 09:29 Dose: 25 mg Mupirocin (Bactroban Ointment) 0 gm TOP BID [facility] Last Admin: 06/16/18 09:00 Dose: 1 applic Rifaximin (Xifaxan) 550 mg PO Q12 [facility]; Protocol Last Admin: 06/16/18 09:02 Dose: 550 mg Thiamine HCl (Vitamin B1 Tab) 100 mg PO DAILY [facility] Last Admin: 06/16/18 09:02 Dose: 100 mg - Labs Labs: 06/16/18 05:30 06/16/18 05:30 PT 35.0 SECONDS (9.4-12.5) H 06/16/18 11:05 INR 3.10 06/16/18 11:05 APTT 45.6 Seconds (26.9-38.3) H 06/09/18 14:05 Assessment and Plan - Assessment and Plan (Free Text) Assessment: Pt seen and examined by me. I have reviewed the note of the medical typist and I agree with it. I have discussed the assessment and plan with the resident. I have reviewed the medications and the last labs. Pt with hepatorenal syndrome and Cr continues to worsen. Pt has metabolic acidosis and is using BIPAP. I spoke to the pt's sister this morning and she is agreeable to HD. I updated her on his condition and told her that the HD will not fix the liver issue. His prognosis remains poor. The Levophen and Alb did not improve his kidney function. Spoke to the ICU team. Will plan on HD in the am. His hyperkalemia is better. A permcath will be placed.
[2018-06-17] MEDS: MethylPREDNISolone 40 mg Vial IVP SCH ×4 (00:10→21:40)
[2018-06-17] MEDS: Levothyroxine 25 MCG TAB PO SCH (06:11)
--- NOTE | 2018-06-17 06:46 | CP.PCM.PN ---
Subjective - Date & Time of Evaluation Date of Evaluation: 06/17/18 Time of Evaluation: 06:46 Objective - Vital Signs/Intake and Output Vital Signs (last 24 hours): Temp Pulse Resp BP Pulse Ox 98.9 F 107 H 24 134/94 H 93 L 06/17/18 00:00 06/17/18 05:30 06/17/18 01:00 06/17/18 01:00 06/17/18 01:00 Intake and Output: 06/16/18 06/17/18 18:59 06:59 Intake Total 120 Output Total 175 Balance -55 - Medications Medications: Current Medications Arformoterol Tartrate (Brovana) 15 mcg IH [id number] [facility] Last Admin: 06/16/18 20:51 Dose: 15 mcg Betamethasone/Clotrimazole (Lotrisone) 0 gm TOP DAILY [facility] Last Admin: 06/16/18 09:02 Dose: 1 tcp Budesonide (Pulmicort Respules) 0.5 mg IH [id number] [facility] Last Admin: 06/16/18 20:52 Dose: 0.5 mg Diltiazem HCl (Cardizem) 60 mg PO TID [facility] Last Admin: 06/11/18 13:15 Dose: 60 mg Folic Acid (Folic Acid) 1 mg PO DAILY [facility] Last Admin: 06/16/18 09:01 Dose: 1 mg Guaifenesin/Dextromethorphan (Robitussin Dm) 10 ml PO Q4H PRN PRN Reason: Cough Last Admin: 06/13/18 17:20 Dose: 10 ml Lactic Acid (Lac-Hydrin 12% Cream (140 G)) 0 ea TOP DAILY [facility] Last Admin: 06/16/18 09:02 Dose: 1 tcp Lactulose (Enulose) 20 gm PO BID [facility] Last Admin: 06/16/18 18:17 Dose: Not Given Levalbuterol HCl (Xopenex) 0.63 mg IH TIDRESP [facility] Last Admin: 06/16/18 20:59 Dose: 0.63 mg Levothyroxine Sodium (Synthroid) 25 mcg PO 0600 [facility] Last Admin: 06/17/18 06:11 Dose: 25 mcg Methylprednisolone (Solu-Medrol) 40 mg IVP Q6 [facility] Last Admin: 06/17/18 06:12 Dose: 40 mg Metoprolol Tartrate (Lopressor) 25 mg PO BID [facility] Last Admin: 06/11/18 09:29 Dose: 25 mg Mupirocin (Bactroban Ointment) 0 gm TOP BID [facility] Last Admin: 06/16/18 18:17 Dose: 1 applic Rifaximin (Xifaxan) 550 mg PO Q12 [facility]; Protocol Last Admin: 06/16/18 22:08 Dose: 550 mg Thiamine HCl (Vitamin B1 Tab) 100 mg PO DAILY [facility] Last Admin: 06/16/18 09:02 Dose: 100 mg - Labs Labs: 06/16/18 05:30 06/16/18 05:30 PT 35.0 SECONDS (9.4-12.5) H 06/16/18 11:05 INR 3.10 06/16/18 11:05 APTT 45.6 Seconds (26.9-38.3) H 06/09/18 14:05
[2018-06-17] MEDS ORDERED: Lactulose 10 gm/15 ml (Rectal Use) PR ONE (06:49)
[2018-06-17 06:50] LABS: HEMOGLOBIN 14.9 g/dL (14.0-18.0); MEAN CELL VOLUME 95.2 fl (80.0-105.0); MEAN CORPUSCULAR HEMOGLOBIN 32.5 pg (25.0-35.0); MEAN CORPUSCULAR HGB CONC 34.1 g/dl (31.0-37.0); MEAN PLATELET VOLUME 9.8 fl (7.0-11.0); RBC 4.59 10^6/uL (3.5-6.1); RED CELL DISTRIBUTION WIDTH 17.5 % (11.5-14.5); WHITE BLOOD COUNT 8.5 10^3/uL (4.5-11.0)
[2018-06-17 07:36] LABS: ALB/GLOB RATIO 0.9 (1.1-1.8); ALBUMIN 3.9 g/dL (3.0-4.8); CALCIUM 7.6 mg/dL (8.4-10.5)
[2018-06-17] MEDS: Arformoterol 15 mcg/2 ml Inh Sol IH SCH ×2 (08:21→19:44)
[2018-06-17] MEDS: Budesonide 0.5 mg/2 ml Inhal Susp UD IH SCH ×2 (08:21→19:44)
[2018-06-17] MEDS: Levalbuterol 0.63 MG/3 ML Inhal Soln UD IH SCH ×3 (08:22→19:44)
--- NOTE | 2018-06-17 09:20 | CP.CCUPN ---
<Harry Martínez - Last Filed: 06/17/18 12:37> CCU Subjective - Physician Review Subjective (Free Text): Harry Martínez, PGY1 ICU Progress Note for Dr. Cortez Patient was seen and examined at bedside this morning. Vital signs stable during time of interview. Overnight, patient had tachypnea, RR 30-40. Continuous BiPAP settings: IPAP/EPAP 16/5, RR 16, FiO2 60%. Patient is currently AAOx3. He denies chest pain, shortness of breath, nausea, vomiting, diarrhea, fever, chills. Overnight, patient had 1 bowel movement. Rosario catheter is in place with 60cc output noted. Yesterday, patient had permacath placed. He was getting hemodialysis during time of interview. A full 12 point ROS was conducted and unremarkable except as stated above. CCU Objective - Vital Signs / Intake & Output Vital Signs (Last 4 hours): Vital Signs Pulse 06/17/18 08:00 102 H 06/17/18 05:30 107 H Intake and Output (Last 8hrs): Intake & Output 06/16/18 06/17/18 06/17/18 22:59 06:59 14:59 Output Total 175 Balance -175 Output: Urine 175 Urine, Voided 175 - Physical Exam Head: Positive for: Atraumatic, Normocephalic Pupils: Positive for: PERRL Extroacular Muscles: Positive for: EOMI Conjunctiva: Positive for: Normal Mouth: Positive for: Moist Mucous Membranes Nose (External): Positive for: Abrasion (2 abrasions to bridge of nose) Neck: Positive for: Normal Range of Motion Respiratory/Chest: Negative for: Respiratory Distress, Accessory Muscle Use, Wheezes, Rales, Retracting, Rhonchi Cardiovascular: Positive for: Normal S1, S2, Irregular Rhythm. Negative for: Murmurs Abdomen: Positive for: Distention, Normal Bowel Sounds. Negative for: Tenderness, Peritoneal Signs, Rebound Back: Positive for: Normal Inspection Upper Extremity: Positive for: Normal Inspection. Negative for: Cyanosis, Edema Lower Extremity: Positive for: Edema, Other (Chronic venous changes in bilateral lower extremities with bilateral wounds. Dressings in place. ) Neurological: Positive for: CN II-XII Intact, Speech Normal Skin: Positive for: Warm, Dry, Normal Color. Negative for: Rashes Psychiatric: Positive for: Alert, Oriented x 3. Negative for: Normal Insight Other physical findings (Free Text): R-permacath in place. - Medications Active Medications: Active Medications Generic Name Dose Route Start Last Admin Trade Name Freq PRN Reason Stop Dose Admin Arformoterol Tartrate 15 mcg 06/12/18 20:00 06/17/18 08:21 Brovana IH 15 mcg [id number] CASEY Administration Betamethasone/Clotrimazole 0 gm 06/11/18 10:00 06/16/18 09:02 Lotrisone TOP 1 tcp DAILY CASEY Administration Budesonide 0.5 mg 06/12/18 20:00 06/17/18 08:21 Pulmicort Respules IH 0.5 mg [id number] CASEY Administration Diltiazem HCl 60 mg 06/10/18 10:00 06/11/18 13:15 Cardizem PO 60 mg TID CASEY Administration Folic Acid 1 mg 06/10/18 10:00 06/16/18 09:01 Folic Acid PO 1 mg DAILY CASEY Administration Guaifenesin/Dextromethorphan 10 ml 06/12/18 15:13 06/13/18 17:20 Robitussin Dm PO 10 ml Q4H PRN Administration Cough Heparin Sodium (Porcine) 5,000 units 06/17/18 14:00 Heparin SC Q8 [facility] Protocol Lactic Acid 0 ea 06/11/18 10:00 06/16/18 09:02 Lac-Hydrin 12% Cream (140 G) TOP 1 tcp DAILY CASEY Administration Lactulose 20 gm 06/16/18 18:00 06/16/18 18:17 Enulose PO Not Given BID [facility] Levalbuterol HCl 0.63 mg 06/10/18 14:00 06/17/18 08:22 Xopenex IH 0.63 mg TIDRESP CASEY Administration Levothyroxine Sodium 25 mcg 06/12/18 06:00 06/17/18 06:11 Synthroid PO 25 mcg 0600 CASEY Administration Methylprednisolone 40 mg 06/13/18 12:00 06/17/18 06:12 Solu-Medrol IVP 40 mg Q6 CASEY Administration Metoprolol Tartrate 25 mg 06/10/18 18:00 06/11/18 09:29 Lopressor PO 25 mg BID CASEY Administration Mupirocin 0 gm 06/14/18 11:42 06/16/18 18:17 Bactroban Ointment TOP 1 applic BID CASEY Administration Pantoprazole Sodium 40 mg 06/18/18 06:00 Protonix Ec Tab PO 0600 CASEY Rifaximin 550 mg 06/12/18 22:00 06/16/18 22:08 Xifaxan PO 550 mg Q12 CASEY Administration Protocol Thiamine HCl 100 mg 06/10/18 10:00 06/16/18 09:02 Vitamin B1 Tab PO 100 mg DAILY CASEY Administration - Patient Studies Lab Studies: Lab Studies 06/17/18 06/17/18 06/16/18 Range/Units 05:30 05:30 18:15 WBC 8.5 (4.5-11.0) 10^3/uL RBC 4.59 (3.5-6.1) 10^6/uL Hgb 14.9 (14.0-18.0) g/dL Hct 43.7 (42.0-52.0) % MCV 95.2 (80.0-105.0) fl MCH 32.5 (25.0-35.0) pg MCHC 34.1 (31.0-37.0) g/dl RDW 17.5 H (11.5-14.5) % Plt Count 311 (120.0-450.0) 10^3/uL MPV 9.8 (7.0-11.0) fl PT (9.4-12.5) SECONDS INR Sodium 138 (132-148) mmol/L Potassium 4.8 (3.6-5.0) mmol/L Chloride 102 (98-107) mmol/L Carbon Dioxide 20 L (21-33) mmol/L Anion Gap 21 H (10-20) BUN 116 H (7-21) mg/dL Creatinine 5.9 H (0.8-1.5) mg/dl Est GFR ( Amer) 11 Est GFR (Non-Af Amer) 9 Random Glucose 128 H (70-110) mg/dL Calcium 7.6 L (8.4-10.5) mg/dL Total Bilirubin 1.5 H (0.2-1.3) mg/dL AST 73 H (17-59) U/L ALT 53 (7-56) U/L Alkaline Phosphatase 145 H (38-126) U/L Ammonia 77 H D (9-33) umol/L Total Protein 7.9 (5.8-8.3) g/dL Albumin 3.9 (3.0-4.8) g/dL Globulin 4.1 gm/dL Albumin/Globulin Ratio 0.9 L (1.1-1.8) 06/16/18 Range/Units 11:05 WBC (4.5-11.0) 10^3/uL RBC (3.5-6.1) 10^6/uL Hgb (14.0-18.0) g/dL Hct (42.0-52.0) % MCV (80.0-105.0) fl MCH (25.0-35.0) pg MCHC (31.0-37.0) g/dl RDW (11.5-14.5) % Plt Count (120.0-450.0) 10^3/uL MPV (7.0-11.0) fl PT 35.0 H (9.4-12.5) SECONDS INR 3.10 Sodium (132-148) mmol/L Potassium (3.6-5.0) mmol/L Chloride (98-107) mmol/L Carbon Dioxide (21-33) mmol/L Anion Gap (10-20) BUN (7-21) mg/dL Creatinine (0.8-1.5) mg/dl Est GFR ( Amer) Est GFR (Non-Af Amer) Random Glucose (70-110) mg/dL Calcium (8.4-10.5) mg/dL Total Bilirubin (0.2-1.3) mg/dL AST (17-59) U/L ALT (7-56) U/L Alkaline Phosphatase (38-126) U/L Ammonia (9-33) umol/L Total Protein (5.8-8.3) g/dL Albumin (3.0-4.8) g/dL Globulin gm/dL Albumin/Globulin Ratio (1.1-1.8) Laboratory Results - last 24 hr 06/16/18 06/16/18 06/17/18 11:05 18:15 05:30 WBC 8.5 RBC 4.59 Hgb 14.9 Hct 43.7 MCV 95.2 MCH 32.5 MCHC 34.1 RDW 17.5 H Plt Count 311 MPV 9.8 PT 35.0 H INR 3.10 Sodium Potassium Chloride Carbon Dioxide Anion Gap BUN Creatinine Est GFR ( Amer) Est GFR (Non-Af Amer) Random Glucose Calcium Total Bilirubin AST ALT Alkaline Phosphatase Ammonia 77 H D Total Protein Albumin Globulin Albumin/Globulin Ratio 06/17/18 05:30 WBC RBC Hgb Hct MCV MCH MCHC RDW Plt Count MPV PT INR Sodium 138 Potassium 4.8 Chloride 102 Carbon Dioxide 20 L Anion Gap 21 H BUN 116 H Creatinine 5.9 H Est GFR ( Amer) 11 Est GFR (Non-Af Amer) 9 Random Glucose 128 H Calcium 7.6 L Total Bilirubin 1.5 H AST 73 H ALT 53 Alkaline Phosphatase 145 H Ammonia Total Protein 7.9 Albumin 3.9 Globulin 4.1 Albumin/Globulin Ratio 0.9 L Review of Systems - Review of Systems All systems: reviewed and no additional remarkable complaints except (as per HPI) Critical Care Progress Note - Extremities/Vascular Does the Patient have a Central Venous Catheter?: No Does the Patient need a Central Venous Catheter?: No Does the Patient have a Rosario Catheter?: Yes Does the Patient need a Rosario Catheter?: Yes - Restraints Justification for Restraints: High risk for removing IV access - Prophylaxis GI Prophylaxis GI: PPI - Prophylaxis DVT Prophylaxis DVT: Heparin SQ - Nutrition Nutrition: Nutrition Category Date Time Status Liquid Diet [DIET] Diets 06/15/18 Breakfast Ordered Assessment/Plan - Assessment and Plan (Free Text) Assessment: Patient is a 73 y/o M with PMHx hepatic encephalopathy, alcoholic cirrhosis, aortic stenosis, s/p splenectomy (ITP), PAD (with ulcerations of the lower extremities), chronic lymphedema, Afib who [place] [facility] [place]/lethargy with increased lower extremity swelling, anasarca, darkening of urine, and shortness of breath. Patient was admitted for severe sepsis 2/2 CAP and RLE cellulitis and also Afib with RVR - now rate controlled. During hos pital course on 06/11, [employer] was called as patient was having worsening confusion, urinary incontinence, and hypotension (resolved); he was subsequently transferred to the ICU for management. Patient admitted to the ICU for hepatic encephalopathy (now resolved), hepatorenal syndrome, and severe pulmonary hypertension. Plan: Neuro: - AMS 2/2 Hepatic encephalopathy vs Uremia - ammonia level 100 --> 71 --> 14 --> 77 (06/16) - Given that ammonia level has increased; increased to lactulose 20g PO q8 and Rifaximin 550mg PO q12 as per GI recs; goal 2-3 bowel movements a day - c/w thiamine and folic acid (Cirrhosis 2/2 EtOH abuse) Cardio: - Afib with RVR - rate controlled; not a candidate for anticoagulation (CHADVASC score 3; HASBLED score 4); cardizem and metoprolol held - Severe pulmonary hypertension - Echo: EF 66%. Suggests CHF-pEF: severely dilated RV, mod-severe mitral valve stenosis and tricuspid regurgitation. RVSP 79, severe pulmonary hypertension. - Cardio on consult. Recs appreciated. Pulm: - Shortness of Breath 2/2 Severe Pulmonary Hypertension (Hepatopulmonary Syndrome) - Patient still has metabolic acidosis evident on ABG; will obtain abg after HD session - c/w continuous BiPAP: IPAP/EPAP 16/5, RR 16, FiO2 60% - tapered steroids to solumedrol 40mg IVP q12 - c/w brovana, pulmicort - c/w robitussin prn for cough - Maintain SaO2 > 92% - c/w aspiration precautions and head of bed elevation GI: - MELD score 32 points; 52% mortality within next 3 months - Palliative Care is following the case - patient is DNR/DNI - Mild transaminitis - CT A/P: duodenoitis. Cryptogenic cirrhotic pattern and trace ascites. - GI on consult. Recs appreciated. - Liquid diet - breaks from continuous BiPAP Renal: - Type I Hepatorenal syndrome - Worsening acute renal failure - BUN/Cr is 116/5.9, increased from 100/5.4 ( baseline Cr is 0.6) - Patient had placement of permacath for HD (06/17) - HD today - continue to monitor labs - Hyperkalemia 2/2 Hepatorenal vs Metabolic Acidosis - improved - Nephrology on consult - Ins/outs: 120/175: net -55 mL - UA negative for UTI - UCx multiple species: contaminated - Rosario in place ID: - Severe Sepsis 2/2 CAP/Aspiration PNA (RLL) vs RLE cellulitis - improved - completed azithromycin course for CAP - currently afebrile with no leukocytosis - Blood Cx negative x2 after 5 days - MRSA negative - L-leg wound cx: +klebsiella, +beta-hemolytic group B strep, +corynebacterium - ID on consult. Recs appreciated. - Podiatry on consult. Recs appreciated. - Wound care on board Heme: - Hgb stable at this time with no overt bleeding - INR 3.10 - No indication for transfusion at this time unless Hgb < 7.0 Endo: - Hypothyroidism - c/w levothyroxine 25 mcg daily DVT ppx: hep sc GI ppx: ptx Code Status: DNR/DNI Palliative Care on consult. Dispo: Patient has poor prognosis. Continue to monitor patient in the ICU. Pending abg results after HD session today. Patient is not a liver transplant candidate. Case was discussed and reviewed with Attending Physician, Dr. Cortez. <Ky Cortez - Last Filed: 06/17/18 16:12> CCU Objective - Vital Signs / Intake & Output Vital Signs (Last 4 hours): Vital Signs Pulse Resp BP Pulse Ox 06/17/18 15:15 106 H 19 119/90 94 L 06/17/18 15:00 111 H 18 94/65 L 94 L 06/17/18 14:45 108 H 25 H 120/58 L 95 06/17/18 14:30 110 H 23 102/63 93 L 06/17/18 14:19 103 H 18 95/63 L 89 L 06/17/18 14:00 99 H 13 136/72 95 06/17/18 13:45 101 H 27 H 123/89 94 L 06/17/18 13:30 102 H 5 L 116/73 94 L 06/17/18 13:20 102 H 06/17/18 13:15 102 H 9 L 113/65 93 L 06/17/18 13:00 112 H 14 125/74 94 L 06/17/18 12:45 110 H 11 L 144/85 93 L 06/17/18 12:30 104 H 22 132/79 93 L 06/17/18 12:15 103 H 130/80 94 L Intake and Output (Last 8hrs): Intake & Output 06/17/18 06/17/18 06/17/18 06:59 14:59 22:59 Output Total 1000 Balance -1000 Output: Other 1000 - Medications Active Medications: Active Medications Generic Name Dose Route Start Last Admin Trade Name Freq PRN Reason Stop Dose Admin Arformoterol Tartrate 15 mcg 06/12/18 20:00 06/17/18 08:21 Brovana IH 15 mcg [id number] CASEY Administration Betamethasone/Clotrimazole 0 gm 06/11/18 10:00 06/17/18 14:34 Lotrisone TOP 2 tcp DAILY CASEY Administration Budesonide 0.5 mg 06/12/18 20:00 06/17/18 08:21 Pulmicort Respules IH 0.5 mg [id number] CASEY Administration Diltiazem HCl 60 mg 06/10/18 10:00 06/11/18 13:15 Cardizem PO 60 mg TID CASEY Administration Folic Acid 1 mg 06/10/18 10:00 06/17/18 14:01 Folic Acid PO 1 mg DAILY CASEY Administration Guaifenesin/Dextromethorphan 10 ml 06/12/18 15:13 06/13/18 17:20 Robitussin Dm PO 10 ml Q4H PRN Administration Cough Heparin Sodium (Porcine) 5,000 units 06/17/18 14:00 06/17/18 14:02 Heparin SC 5,000 units Q8 CASEY Administration Protocol Lactic Acid 0 ea 06/11/18 10:00 06/17/18 16:03 Lac-Hydrin 12% Cream (140 G) TOP 3 tcp DAILY CASEY Administration Lactulose 20 gm 06/17/18 14:00 06/17/18 14:01 Enulose PO 20 gm Q8 CASEY Administration Levalbuterol HCl 0.63 mg 06/10/18 14:00 06/17/18 13:19 Xopenex IH 0.63 mg TIDRESP CASEY Administration Levothyroxine Sodium 25 mcg 06/12/18 06:00 06/17/18 06:11 Synthroid PO 25 mcg 0600 CASEY Administration Methylprednisolone 40 mg 06/17/18 09:30 06/17/18 14:02 Solu-Medrol IVP 40 mg Q12H CASEY Administration Metoprolol Tartrate 25 mg 06/10/18 18:00 06/11/18 09:29 Lopressor PO 25 mg BID CASEY Administration Mupirocin 0 gm 06/14/18 11:42 06/17/18 10:50 Bactroban Ointment TOP 2 applic BID CASEY Administration Rifaximin 550 mg 06/12/18 22:00 06/17/18 13:01 Xifaxan PO Not Given Q12 [facility] Protocol Thiamine HCl 100 mg 06/10/18 10:00 06/17/18 14:00 Vitamin B1 Tab PO 100 mg DAILY CASEY Administration - Patient Studies Lab Studies: Lab Studies 06/17/18 06/17/18 06/17/18 Range/Units 12:45 11:25 05:30 WBC (4.5-11.0) 10^3/uL RBC (3.5-6.1) 10^6/uL Hgb (14.0-18.0) g/dL Hct (42.0-52.0) % MCV (80.0-105.0) fl MCH (25.0-35.0) pg MCHC (31.0-37.0) g/dl RDW (11.5-14.5) % Plt Count (120.0-450.0) 10^3/uL MPV (7.0-11.0) fl PT 30.7 H (9.4-12.5) SECONDS INR 2.72 pCO2 52 H (35-45) mm/Hg pO2 85.0 (80-100) mm/Hg HCO3 22.8 (21-28) mmol/L ABG pH 7.25 L (7.35-7.45) ABG Total CO2 24.4 (22-28) mmol.L ABG O2 Saturation 97.7 (95-98) % ABG O2 Content 20.1 (15-23) ML/dl ABG Base Excess -5.0 L (-2.0-3.0) mmol/L ABG Hemoglobin 15.0 (11.7-17.4) g/dL ABG Carboxyhemoglobin 1.8 H (0.5-1.5) % POC ABG HHb (Measured) 2.2 (0-5) % ABG Methemoglobin 1.0 (0.0-3.0) % ABG O2 Capacity 20.6 (16-24) mL/dl Hgb O2 Saturation 95.0 (95.0-98.0) % FiO2 60.0 % Sodium 138 (132-148) mmol/L Potassium 4.8 (3.6-5.0) mmol/L Chloride 102 (98-107) mmol/L Carbon Dioxide 20 L (21-33) mmol/L Anion Gap 21 H (10-20) BUN 116 H (7-21) mg/dL Creatinine 5.9 H (0.8-1.5) mg/dl Est GFR ( Amer) 11 Est GFR (Non-Af Amer) 9 Random Glucose 128 H (70-110) mg/dL Calcium 7.6 L (8.4-10.5) mg/dL Total Bilirubin 1.5 H (0.2-1.3) mg/dL AST 73 H (17-59) U/L ALT 53 (7-56) U/L Alkaline Phosphatase 145 H (38-126) U/L Ammonia (9-33) umol/L Total Protein 7.9 (5.8-8.3) g/dL Albumin 3.9 (3.0-4.8) g/dL Globulin 4.1 gm/dL Albumin/Globulin Ratio 0.9 L (1.1-1.8) 06/17/18 06/16/18 Range/Units 05:30 18:15 WBC 8.5 (4.5-11.0) 10^3/uL RBC 4.59 (3.5-6.1) 10^6/uL Hgb 14.9 (14.0-18.0) g/dL Hct 43.7 (42.0-52.0) % MCV 95.2 (80.0-105.0) fl MCH 32.5 (25.0-35.0) pg MCHC 34.1 (31.0-37.0) g/dl RDW 17.5 H (11.5-14.5) % Plt Count 311 (120.0-450.0) 10^3/uL MPV 9.8 (7.0-11.0) fl PT (9.4-12.5) SECONDS INR pCO2 (35-45) mm/Hg pO2 (80-100) mm/Hg HCO3 (21-28) mmol/L ABG pH (7.35-7.45) ABG Total CO2 (22-28) mmol.L ABG O2 Saturation (95-98) % ABG O2 Content (15-23) ML/dl ABG Base Excess (-2.0-3.0) mmol/L ABG Hemoglobin (11.7-17.4) g/dL ABG Carboxyhemoglobin (0.5-1.5) % POC ABG HHb (Measured) (0-5) % ABG Methemoglobin (0.0-3.0) % ABG O2 Capacity (16-24) mL/dl Hgb O2 Saturation (95.0-98.0) % FiO2 % Sodium (132-148) mmol/L Potassium (3.6-5.0) mmol/L Chloride (98-107) mmol/L Carbon Dioxide (21-33) mmol/L Anion Gap (10-20) BUN (7-21) mg/dL Creatinine (0.8-1.5) mg/dl Est GFR ( Amer) Est GFR (Non-Af Amer) Random Glucose (70-110) mg/dL Calcium (8.4-10.5) mg/dL Total Bilirubin (0.2-1.3) mg/dL AST (17-59) U/L ALT (7-56) U/L Alkaline Phosphatase (38-126) U/L Ammonia 77 H D (9-33) umol/L Total Protein (5.8-8.3) g/dL Albumin (3.0-4.8) g/dL Globulin gm/dL Albumin/Globulin Ratio (1.1-1.8) Laboratory Results - last 24 hr 06/16/18 06/17/18 06/17/18 18:15 05:30 05:30 WBC 8.5 RBC 4.59 Hgb 14.9 Hct 43.7 MCV 95.2 MCH 32.5 MCHC 34.1 RDW 17.5 H Plt Count 311 MPV 9.8 PT INR pCO2 pO2 HCO3 ABG pH ABG Total CO2 ABG O2 Saturation ABG O2 Content ABG Base Excess ABG Hemoglobin ABG Carboxyhemoglobin POC ABG HHb (Measured) ABG Methemoglobin ABG O2 Capacity Hgb O2 Saturation FiO2 Sodium 138 Potassium 4.8 Chloride 102 Carbon Dioxide 20 L Anion Gap 21 H BUN 116 H Creatinine 5.9 H Est GFR ( Amer) 11 Est GFR (Non-Af Amer) 9 Random Glucose 128 H Calcium 7.6 L Total Bilirubin 1.5 H AST 73 H ALT 53 Alkaline Phosphatase 145 H Ammonia 77 H D Total Protein 7.9 Albumin 3.9 Globulin 4.1 Albumin/Globulin Ratio 0.9 L 06/17/18 06/17/18 11:25 12:45 WBC RBC Hgb Hct MCV MCH MCHC RDW Plt Count MPV PT 30.7 H INR 2.72 pCO2 52 H pO2 85.0 HCO3 22.8 ABG pH 7.25 L ABG Total CO2 24.4 ABG O2 Saturation 97.7 ABG O2 Content 20.1 ABG Base Excess -5.0 L ABG Hemoglobin 15.0 ABG Carboxyhemoglobin 1.8 H POC ABG HHb (Measured) 2.2 ABG Methemoglobin 1.0 ABG O2 Capacity 20.6 Hgb O2 Saturation 95.0 FiO2 60.0 Sodium Potassium Chloride Carbon Dioxide Anion Gap BUN Creatinine Est GFR ( Amer) Est GFR (Non-Af Amer) Random Glucose Calcium Total Bilirubin AST ALT Alkaline Phosphatase Ammonia Total Protein Albumin Globulin Albumin/Globulin Ratio Critical Care Progress Note - Nutrition Nutrition: Nutrition Category Date Time Status Liquid Diet [DIET] Diets 06/15/18 Breakfast Ordered Attending/Attestation - Attestation I have personally seen and examined this patient.: Yes I have fully participated in the care of the patient.: Yes I have reviewed all pertinent clinical information: Yes Notes (Text): 06/17/18 16:[address] Cortez note
--- NOTE | 2018-06-17 09:35 | CP.PCM.PN ---
<Alfonso Sun - Last Filed: 06/17/18 14:06> Subjective - Date & Time of Evaluation Date of Evaluation: 06/17/18 Time of Evaluation: 09:22 - Subjective Subjective: Luis Fernando Sun PGY2 - Nephrology Progress Note for Dr. Aviles Patient seen and examined this AM. No acute events reported overnight. Patient continues to appear more alert and conversant. He is cooperative with questioning and exam this AM. He denies chest pain, shortness of breath, abdominal pain, nausea, vomiting, fever, chills. He wanted to know when his sister would be coming to the hospital. Patient to undergo dialysis this AM. Objective - Vital Signs/Intake and Output Vital Signs (last 24 hours): Temp Pulse Resp BP Pulse Ox 98.9 F 102 H 24 134/94 H 93 L 06/17/18 00:00 06/17/18 08:00 06/17/18 01:00 06/17/18 01:00 06/17/18 01:00 - Medications Medications: Current Medications Arformoterol Tartrate (Brovana) 15 mcg IH [id number] [facility] Last Admin: 06/17/18 08:21 Dose: 15 mcg Betamethasone/Clotrimazole (Lotrisone) 0 gm TOP DAILY [facility] Last Admin: 06/16/18 09:02 Dose: 1 tcp Budesonide (Pulmicort Respules) 0.5 mg IH [id number] [facility] Last Admin: 06/17/18 08:21 Dose: 0.5 mg Diltiazem HCl (Cardizem) 60 mg PO TID [facility] Last Admin: 06/11/18 13:15 Dose: 60 mg Folic Acid (Folic Acid) 1 mg PO DAILY [facility] Last Admin: 06/16/18 09:01 Dose: 1 mg Guaifenesin/Dextromethorphan (Robitussin Dm) 10 ml PO Q4H PRN PRN Reason: Cough Last Admin: 06/13/18 17:20 Dose: 10 ml Heparin Sodium (Porcine) (Heparin) 5,000 units SC Q8 [facility]; Protocol Lactic Acid (Lac-Hydrin 12% Cream (140 G)) 0 ea TOP DAILY [facility] Last Admin: 06/16/18 09:02 Dose: 1 tcp Lactulose (Enulose) 20 gm PO Q8 [facility] Levalbuterol HCl (Xopenex) 0.63 mg IH TIDRESP [facility] Last Admin: 06/17/18 08:22 Dose: 0.63 mg Levothyroxine Sodium (Synthroid) 25 mcg PO 0600 [facility] Last Admin: 06/17/18 06:11 Dose: 25 mcg Methylprednisolone (Solu-Medrol) 40 mg IVP Q6 [facility] Last Admin: 06/17/18 06:12 Dose: 40 mg Metoprolol Tartrate (Lopressor) 25 mg PO BID [facility] Last Admin: 06/11/18 09:29 Dose: 25 mg Mupirocin (Bactroban Ointment) 0 gm TOP BID [facility] Last Admin: 06/16/18 18:17 Dose: 1 applic Pantoprazole Sodium (Protonix Ec Tab) 40 mg PO 0600 [facility] Rifaximin (Xifaxan) 550 mg PO Q12 [facility]; Protocol Last Admin: 06/16/18 22:08 Dose: 550 mg Thiamine HCl (Vitamin B1 Tab) 100 mg PO DAILY [facility] Last Admin: 06/16/18 09:02 Dose: 100 mg - Labs Labs: 06/17/18 05:30 06/17/18 05:30 PT 35.0 SECONDS (9.4-12.5) H 06/16/18 11:05 INR 3.10 06/16/18 11:05 APTT 45.6 Seconds (26.9-38.3) H 06/09/18 14:05 - Head Exam Head Exam: ATRAUMATIC, NORMOCEPHALIC - Eye Exam Eye Exam: EOMI, PERRL - ENT Exam Additional comments: bipap mask on with good seal - Respiratory Exam Respiratory Exam: Clear to Ausculation Bilateral, NORMAL BREATHING PATTERN - Cardiovascular Exam Cardiovascular Exam: REGULAR RHYTHM, +S1, +S2 - GI/Abdominal Exam GI & Abdominal Exam: Soft. absent: Guarding, Rigid, Tenderness - Extremities Exam Additional comments: trace edema, rash and ulcerations with sins of healing present bilaterally R>L - Neurological Exam Neurological Exam: Alert, Awake Additional comments: motor and sensory grossly intact - Psychiatric Exam Additional comments: confusion at times, alert and oriented to person and place - Skin Skin Exam: Dry, Warm Assessment and Plan - Assessment and Plan (Free Text) Assessment: 1. Hepatorenal Syndrome Type I 2. Hepatic Encephalopathy 3. Liver Cirrhosis likely multifactorial including ETOH and significant pul monary HTN with noted Right sided heart failure 4. Sepsis secondary to CAP/Cellulitis 5. Severe Pulmonary HTN 6. Moderate Aortic Stenosis 7. Oliguria 8. Hyperkalemia 9. Hypocalcemia 73 year old male with likely type I Hepatorenal Syndrome with rapid elevation of his Cr within 2 weeks with limited explanation from a renal standpoint. Patient renal function continues to worsen likely in relation to his hepatorenal syndrome. Urinary output continues to be oliguric. Patient established port access yesterday with Dr. Henry Gomes. Patient will under go limited dialysis this AM with close monitoring in the ICU. Will continue to monitor his renal function in the AM and electrolytes post dialysis. Patient case and plan discussed with attending, Dr. Aviles <Jonathon Aviles S - Last Filed: 06/17/18 20:29> Objective - Vital Signs/Intake and Output Vital Signs (last 24 hours): Temp Pulse Resp BP Pulse Ox 9.4 F L 102 H 12 115/68 97 06/17/18 20:00 06/17/18 19:52 06/17/18 18:00 06/17/18 18:13 06/17/18 18:00 Intake and Output: 06/17/18 06/18/18 18:59 06:59 Intake Total 300 Output Total 1150 Balance -850 - Medications Medications: Current Medications Arformoterol Tartrate (Brovana) 15 mcg IH [id number] [facility] Last Admin: 06/17/18 19:44 Dose: 15 mcg Betamethasone/Clotrimazole (Lotrisone) 0 gm TOP DAILY [facility] Last Admin: 06/17/18 14:34 Dose: 2 tcp Budesonide (Pulmicort Respules) 0.5 mg IH [id number] [facility] Last Admin: 06/17/18 19:44 Dose: 0.5 mg Diltiazem HCl (Cardizem) 60 mg PO TID [facility] Last Admin: 06/11/18 13:15 Dose: 60 mg Folic Acid (Folic Acid) 1 mg PO DAILY [facility] Last Admin: 06/17/18 14:01 Dose: 1 mg Guaifenesin/Dextromethorphan (Robitussin Dm) 10 ml PO Q4H PRN PRN Reason: Cough Last Admin: 06/13/18 17:20 Dose: 10 ml Heparin Sodium (Porcine) (Heparin) 5,000 units SC Q8 [facility]; Protocol Last Admin: 06/17/18 14:02 Dose: 5,000 units Lactic Acid (Lac-Hydrin 12% Cream (140 G)) 0 ea TOP DAILY [facility] Last Admin: 06/17/18 16:03 Dose: 3 tcp Lactulose (Enulose) 20 gm PO Q8 [facility] Last Admin: 06/17/18 14:01 Dose: 20 gm Levalbuterol HCl (Xopenex) 0.63 mg IH TIDRESP [facility] Last Admin: 06/17/18 19:44 Dose: 0.63 mg Levothyroxine Sodium (Synthroid) 25 mcg PO 0600 [facility] Last Admin: 06/17/18 06:11 Dose: 25 mcg Methylprednisolone (Solu-Medrol) 40 mg IVP Q12H [facility] Last Admin: 06/17/18 14:02 Dose: 40 mg Metoprolol Tartrate (Lopressor) 25 mg PO BID [facility] Last Admin: 06/17/18 18:13 Dose: 25 mg Mupirocin (Bactroban Ointment) 0 gm TOP BID [facility] Last Admin: 06/17/18 18:17 Dose: 2 applic Rifaximin (Xifaxan) 550 mg PO Q12 [facility]; Protocol Last Admin: 06/17/18 13:01 Dose: Not Given Thiamine HCl (Vitamin B1 Tab) 100 mg PO DAILY [facility] Last Admin: 06/17/18 14:00 Dose: 100 mg - Labs Labs: 06/17/18 05:30 06/17/18 05:30 PT 30.7 SECONDS (9.4-12.5) H 06/17/18 11:25 INR 2.72 06/17/18 11:25 APTT 45.6 Seconds (26.9-38.3) H 06/09/18 14:05 Assessment and Plan - Assessment and Plan (Free Text) Assessment: Pt seen and examined by me. I have reviewed the note of the medical education specialist and I agree with it. I have discussed the assessment and plan with the resident. I have reviewed the medications and the last labs.
[2018-06-17] MEDS: Mupirocin 2% Ointment 15 GM TUBE TOP SCH ×2 (10:50→18:17)
--- NOTE | 2018-06-17 11:44 | CP.PCM.PN ---
<Vickie Aviles - Last Filed: 06/17/18 11:38> Subjective - Date & Time of Evaluation Date of Evaluation: 06/17/18 Time of Evaluation: 11:38 - Subjective Subjective: Vickie Aviles, PGY2, GI Progress Note for Dr Issa: Patient seen and examined at bedside. No acute events overnight. Patient lethargic in the evening, but awake during night time, as per bedside nurse. Reports 1 BM within apst 24 hrs. Tolerating PO intake well. Denies abdominal pain, nausea, vomiting, fevers, chills. Patient to for dilaysis this AM as per nephro. Objective - Vital Signs/Intake and Output Vital Signs (last 24 hours): Temp Pulse Resp BP Pulse Ox 98.9 F 97 H 24 134/94 H 93 L 06/17/18 00:00 06/17/18 09:50 06/17/18 01:00 06/17/18 01:00 06/17/18 01:00 - Medications Medications: Current Medications Arformoterol Tartrate (Brovana) 15 mcg IH [id number] [facility] Last Admin: 06/17/18 08:21 Dose: 15 mcg Betamethasone/Clotrimazole (Lotrisone) 0 gm TOP DAILY [facility] Last Admin: 06/16/18 09:02 Dose: 1 tcp Budesonide (Pulmicort Respules) 0.5 mg IH [id number] [facility] Last Admin: 06/17/18 08:21 Dose: 0.5 mg Diltiazem HCl (Cardizem) 60 mg PO TID [facility] Last Admin: 06/11/18 13:15 Dose: 60 mg Folic Acid (Folic Acid) 1 mg PO DAILY [facility] Last Admin: 06/16/18 09:01 Dose: 1 mg Guaifenesin/Dextromethorphan (Robitussin Dm) 10 ml PO Q4H PRN PRN Reason: Cough Last Admin: 06/13/18 17:20 Dose: 10 ml Heparin Sodium (Porcine) (Heparin) 5,000 units SC Q8 [facility]; Protocol Lactic Acid (Lac-Hydrin 12% Cream (140 G)) 0 ea TOP DAILY [facility] Last Admin: 06/16/18 09:02 Dose: 1 tcp Lactulose (Enulose) 20 gm PO Q8 [facility] Levalbuterol HCl (Xopenex) 0.63 mg IH TIDRESP [facility] Last Admin: 06/17/18 08:22 Dose: 0.63 mg Levothyroxine Sodium (Synthroid) 25 mcg PO 0600 [facility] Last Admin: 06/17/18 06:11 Dose: 25 mcg Methylprednisolone (Solu-Medrol) 40 mg IVP Q12H [facility] Metoprolol Tartrate (Lopressor) 25 mg PO BID [facility] Last Admin: 06/11/18 09:29 Dose: 25 mg Mupirocin (Bactroban Ointment) 0 gm TOP BID [facility] Last Admin: 06/17/18 10:50 Dose: 2 applic Pantoprazole Sodium (Protonix Ec Tab) 40 mg PO 0600 [facility] Rifaximin (Xifaxan) 550 mg PO Q12 [facility]; Protocol Last Admin: 06/16/18 22:08 Dose: 550 mg Thiamine HCl (Vitamin B1 Tab) 100 mg PO DAILY [facility] Last Admin: 06/16/18 09:02 Dose: 100 mg - Labs Labs: 06/17/18 05:30 06/17/18 05:30 PT 35.0 SECONDS (9.4-12.5) H 06/16/18 11:05 INR 3.10 06/16/18 11:05 APTT 45.6 Seconds (26.9-38.3) H 06/09/18 14:05 - Additional Findings Additional findings: - Constitutional Appears: Chronically Ill - Head Exam Head Exam: ATRAUMATIC, NORMOCEPHALIC R IJ dialysis cath. - Eye Exam Eye Exam: EOMI, PERRL. absent: Conjunctival injection, Nystagmus, Scleral icterus Pupil Exam: NORMAL ACCOMODATION, PERRL. absent: Irregular, Miosis, Mydriatic - ENT Exam ENT Exam: Mucous Membranes Dry - Neck Exam Neck exam: Positive for: Full Rom - Respiratory Exam Respiratory Exam: Decreased Breath Sounds - Cardiovascular Exam Cardiovascular Exam: RRR, +S1, +S2. absent: Systolic Murmur - GI/Abdominal Exam GI & Abdominal Exam: Soft, Normal Bowel Sounds. absent: Firm, Guarding, Rebound, Tenderness Additional comments: + asterixis no fluid wave - Extremities Exam Extremities exam: Normal Additional comments: improving erythema b/l LE - Neurological Exam Additional comments: awake, oriented to self, time, person - Psychiatric Exam Psychiatric exam: Normal Mood - Skin Skin Exam: Normal Color, Warm Assessment and Plan - Assessment and Plan (Free Text) Assessment: # Decompensated Alcoholic Cirrhosis, rule out Selvin's disease vs AI hepatitis vs viral hepatitis # Elevated LFTs 2/2 hepatic congestion 2/2 right sided heart failure, rule out tylenol toxicity # AMS 2/2 likely hepatic encephalopathy # Type 1 hepatorenal syndrome s/p 48hrs albumin and levophed, RIJ dialysis cath # Rapid afib # Severe pulm HTN # Right ventricular heart failure # Bilateral pleural effusions, R>L # Anasarca # Alcohol abuse # ITP s/p splenectomy # Hypothyroidism # Peripheral arterial disease - Abd pelvis CT: potential duodenitis. liver size unchanged, cryptogenic type cirrhotic pattern imposs to exclude, no overt cirrhotic pattern. trace perihepatic ascites. b/l inguinal LAD. questionable anasarca? Mild b/l pleural effusions, R>L with limited pericardial thickening. - Abd US: mild hepatomegaly, diffuse increased echogenicity of the liver, hepatic steatosis. trace perihepatic ascites. no cholelithiasis or biliary dilatation. Diffuse gallbladder wall thickening. - Echo: EF 66%. Systolic fxn of RV is severely reduced. Mod valvular aortic stenosis, DESMOND 1.13. Mod to severe MV stenosis. Mod to severe TR. Severe pulm HTN (RVSP 79 mmHg). IVC dilated. - Head CT neg - LE US: neg for DVT - Will increase his Lactulose to 20 gm q8h. Continue with rifaximin 550 mg PO BID. Ammonia level 77. - Acute hepatitis panel negative, HIV NR. Hep A total negative. - Ferritin 225, percent sat 28%. Tylenol, salicylate negative - Awaiting ceruloplasmin, AI hepatitis w/u. immunofixation studies negative. - Appreciate nephrology recs. Patient to go for dialysis tomorrow AM as per Nephro. - s/p albumin and levophed for 48 hours with minimal improvement in his Cr levels. - patient is a poor candidate for liver transplant. - MELD 34 - Will monitor mentation, clinical course - Recommend EGD to assess for varices - Patient DNR/DNI now, palliative on board. Poor prognosis. - Further recs per Dr Issa. Case will be seen and discussed with Dr Issa. <Marysol Issa V - Last Filed: 06/18/18 00:31> Objective - Vital Signs/Intake and Output Vital Signs (last 24 hours): Temp Pulse Resp BP Pulse Ox 97.8 F 104 H 17 97/64 L 97 06/18/18 00:00 06/18/18 00:00 06/18/18 00:00 06/18/18 00:00 06/18/18 00:00 Intake and Output: 06/17/18 06/18/18 18:59 06:59 Intake Total 300 Output Total 1150 Balance -850 - Medications Medications: Current Medications Arformoterol Tartrate (Brovana) 15 mcg IH [id number] [facility] Last Admin: 06/17/18 19:44 Dose: 15 mcg Betamethasone/Clotrimazole (Lotrisone) 0 gm TOP DAILY [facility] Last Admin: 06/17/18 14:34 Dose: 2 tcp Budesonide (Pulmicort Respules) 0.5 mg IH [id number] [facility] Last Admin: 06/17/18 19:44 Dose: 0.5 mg Diltiazem HCl (Cardizem) 60 mg PO TID [facility] Last Admin: 06/11/18 13:15 Dose: 60 mg Folic Acid (Folic Acid) 1 mg PO DAILY [facility] Last Admin: 06/17/18 14:01 Dose: 1 mg Guaifenesin/Dextromethorphan (Robitussin Dm) 10 ml PO Q4H PRN PRN Reason: Cough Last Admin: 06/13/18 17:20 Dose: 10 ml Heparin Sodium (Porcine) (Heparin) 5,000 units SC Q8 [facility]; Protocol Last Admin: 06/17/18 21:39 Dose: 5,000 units Lactic Acid (Lac-Hydrin 12% Cream (140 G)) 0 ea TOP DAILY [facility] Last Admin: 06/17/18 16:03 Dose: 3 tcp Lactulose (Enulose) 20 gm PO Q8 [facility] Last Admin: 06/17/18 21:39 Dose: 20 gm Levalbuterol HCl (Xopenex) 0.63 mg IH TIDRESP [facility] Last Admin: 06/17/18 19:44 Dose: 0.63 mg Levothyroxine Sodium (Synthroid) 25 mcg PO 0600 [facility] Last Admin: 06/17/18 06:11 Dose: 25 mcg Methylprednisolone (Solu-Medrol) 40 mg IVP Q12H [facility] Last Admin: 06/17/18 21:40 Dose: 40 mg Metoprolol Tartrate (Lopressor) 25 mg PO BID [facility] Last Admin: 06/17/18 18:13 Dose: 25 mg Mupirocin (Bactroban Ointment) 0 gm TOP BID [facility] Last Admin: 06/17/18 18:17 Dose: 2 applic Rifaximin (Xifaxan) 550 mg PO Q12 [facility]; Protocol Last Admin: 06/17/18 13:01 Dose: Not Given Thiamine HCl (Vitamin B1 Tab) 100 mg PO DAILY [facility] Last Admin: 06/17/18 14:00 Dose: 100 mg - Labs Labs: 06/17/18 05:30 06/17/18 05:30 PT 30.7 SECONDS (9.4-12.5) H 06/17/18 11:25 INR 2.72 06/17/18 11:25 APTT 45.6 Seconds (26.9-38.3) H 06/09/18 14:05 Attending/Attestation - Attestation I have personally seen and examined this patient.: Yes I have fully participated in the care of the patient.: Yes I have reviewed all pertinent clinical information, including history, physical exam and plan: Yes Notes (Text): This is an addendum to the GI progress report dictated by the medical director of hospice. This patient was seen and evaluated along with the resident earlier today. This patient has hepatorenal syndrome type I on hemodialysis now. Severe pulmonary hypertension.. Patient has valvular heart disease. This patient has right- sided heart failure predominantly with the significant pulmonary hypertension. This patient has significant multiple comorbidities. The concern is for severe pulmonary hypertension 06/18/18 00:25
[2018-06-17 11:45] LABS: INR 2.72; PROTHROMBIN TIME 30.7 SECONDS (9.4-12.5)
[2018-06-17 12:53] LABS: ARTERIAL BLOOD GAS HCO3 22.8 mmol/L (21-28); ARTERIAL BLOOD GAS O2 CAPACITY 20.6 mL/dl (16-24); ARTERIAL BLOOD GAS O2 CONTENT 20.1 ML/dl (15-23); ARTERIAL BLOOD GAS O2 SAT 97.7 % (95-98); ARTERIAL BLOOD GAS PCO2 52 mm/Hg (35-45); ARTERIAL BLOOD GAS PH 7.25 (7.35-7.45); ARTERIAL BLOOD GAS TCO2 24.4 mmol.L (22-28)
--- NOTE | 2018-06-17 13:47 | PN ---
DATE: 06/17/2018 LOCATION: Seen in bed 4 ICU. SUBJECTIVE: The patient is having his first dialysis treatment today. He is more awake and alert. He is still using BiPAP. He has resolving cellulitis of lower extremities, resolving swelling of lower extremities. He is tolerating his diet well. He does have progressive renal failure, to start hemodialysis. He is at 116 and 5.9, the BUN and creatinine. His potassium is 4.8, bicarb is 20. His sugar is 128. His H and H are 14.9 and 43.7. He is afebrile. He is in atrial fibrillation with controlled ventricular response and blood pressure 134/94. PLAN: Hemodialysis and diuresis. Continue to follow his hepatorenal syndrome. Continue BiPAP for advanced COPD and . Chadd Savage MD
[2018-06-17] MEDS: Clotrimazole/Betamethasone Cream(15 gm) TOP SCH (14:34)
--- NOTE | 2018-06-17 14:53 | PN ---
DATE: 06/17/2018 SUBJECTIVE: The patient is seen and examined at bedside. He is on BiPAP,IPAP 16 and EPAP 5, FIO2 60%. pulls 400 tidal volume, rate 18. PHYSICAL EXAMINATION: GENERAL: The patient is undergoing hemodialysis. VITAL SIGNS: Blood pressure 121/73, heart rate 102, oxygen saturation 92 (on 60% FIO2). ENT: Head and neck atraumatic. LUNGS: Clear to auscultation bilaterally. HEART: Regular rate and rhythm. S1 and S2 normal. ABDOMEN: Soft, nontender, nondistended. MUSCULOSKELETAL: Trace bilateral pedal and ankle edema rather chronic changes (cellulitic) on both lower extremities. SKIN: Moist. PSYCH: Patient is alert, awake, and following commands. LABORATORY DATA: Sodium 138, potassium 4.8, chloride 102, carbon dioxide 20, BUN 116, creatinine 5.9, glucose 128, bilirubin 1.5, AST 73, ALT 53, alkaline phosphatase 145, WBC 8.5, hemoglobin 14.9, platelet count 311. MEDICATIONS: Ammonium lactate, Brovana, budesonide, Cardizem 60 mg p.o. t.i.d., folic acid, heparin 5000 subcu every 8 hours, lactulose 20 g p.o. every 8 hours, Xopenex three times a day, Synthroid, Solu-Medrol 40 mg IV every 6 hours (tapered down to every 12 hours), metoprolol 25 mg p.o. b.i.d. Protonix, rifaximin, and thiamine. ASSESSMENT AND PLAN: This is a 73-year-old gentleman with significant metabolic acidosis likely due to MARIE/HRS with oliguria and inability to compensate due to underlying lungs disease. The patient is receiving first session of hemodialysis today. Provided nature of his MARIE's etiology (HRS) as well as end-stage liver disease, conversation between palliative care services and the family is ongoing. DNR/DNI status noted. The patient is weaned off of Levophed. We will continue target euvolemia, euglycemia, normothermia, and oxygen saturation more than 90%. We will continue with deep venous thrombosis, gastrointestinal prophylaxis. We will continue with head of bed elevated to more than 35 degrees. Hopefully with resolution of metabolic acidosis and improved fluid balance with hemodialysis, his respiratory status will improve as well. We will continue tapering steroids. The patient is off antibiotics as per ID service as he completed Zithromax for community-acquired pneumonia course and b/l leg's skin changes appear to be chronic as per ID service assessment. ccm time 40 min Inflammatory changes in both lower extremities were deemed chronic by ID service. Ky Cortez MD [facility]
[2018-06-17] MEDS: Ammonium Lactate 12% Cream (140 g) TOP SCH (16:03)
--- NOTE | 2018-06-17 16:10 | PN ---
DATE: 06/17/2018 REASON FOR CONSULTATION: Followup atrial fibrillation, shortness of breath, congestive heart failure, altered mental status, cirrhosis, decompensated congestive heart failure, elevated ammonia, liver failure, and two-point Josiah restraint, confused, on non-invasive ventilator. PHYSICAL EXAMINATION: VITAL SIGNS: Temperature afebrile. Heart rate 108, blood pressure 117/70. HEENT: PERRLA. Extraocular muscles intact. NECK: Supple. No carotid bruits. No thyromegaly. CHEST: Clear to auscultation. HEAT: S1 and S2 regular. ABDOMEN: Soft. EXTREMITIES: Clubbing and cyanosis negative. LABORATORY DATA: WBC 8.5, hemoglobin 14.9, hematocrit 43.7 and platelet count 311. Chemistry shows sodium 130, potassium 4.0, chloride 102, carbon dioxide 20, anion gap of 21, BUN 116, creatinine 5.9. IMPRESSION: A 73-year-old morbidly obese male with past medical history significant for heavy alcohol abuse, admitted with atrial fibrillation, altered mental status, moved to ICU because altered mental status. Initially the patient was in the floor with shortness of breath. Echo dated 06/10/2018, shows ejection fraction 60-65%, severely reduced right ventricle function, mmofouik-pr-luoeap valvular aortic stenosis 1.13 cm2, cnxghyik-lk-tmfmwp mitral stenosis, trace mitral regurgitation, pwwiqarq-[id number]-apckml tricuspid regurgitation, severe pulmonary hypertension, right ventricular systolic pressure 79 mmHg. The patient with acute liver failure, acute kidney injury, hyperkalemia, altered mental status, two-point restraint, impending respiratory failure, now the patient is DO NOT RESUSCITATE/DO NOT INTUBATE, being managed on non-invasive ventilator. RECOMMENDATIONS: Overall, the patient's condition is critical. Long-term prognosis is guarded. Continue supportive are. Continue lactulose to lower potassium. Continue beta-sesar. Overall, the patient's condition is critical. Long-term prognosis is extremely poor. Continue Nikitazem. Discussed with Dr. Savage. Thank you, Dr. Savage, for providing us the opportunity in taking care of the patient, Dm Carrasco. Aruna Montilla MD [facility] # [id number]
--- NOTE | 2018-06-17 20:26 | PN ---
DATE: 06/17/2018 SUBJECTIVE: The patient is seen earlier this morning. No fevers. No chills. PHYSICAL EXAMINATION: GENERAL: He appears weak. VITAL SIGNS: With a temperature of 97, blood pressure is 119/90, respiratory rate of 20, heart rate of 111. HEENT: Unremarkable. NECK: Supple. LUNGS: Decreased breath sounds. HEART: Normal S1 and S2. ABDOMEN: Soft. EXTREMITIES: The patient's legs are unchanged. LABORATORY EXAMINATION: Reveals a white count of 8.5, hemoglobin of 14, platelets of 311. Chemistries reveal a BUN of 116, creatinine of 5.9. Urinalysis is noted. Microbiology is reviewed. Review of orders reveals the patient is off of antibiotics. ASSESSMENT AND PLAN: This is a 73-year-old male with hepatic encephalopathy, alcoholic cirrhosis, aortic stenosis, history of idiopathic thrombocytopenic purpura, not respond to steroids, had splenectomy. Has chronic lymphedema, atrial fibrillation, history of Nancy's. He has completed treatment for community-acquired pneumonia. Currently off of antibiotics. Afebrile. Dr. Savage's progress note from today is reviewed and states that the patient dialysis today. Still using bilevel positive airway pressure. Cellulitis is resolved. Overall prognosis is quite poor. Karl Molina MD
--- NOTE | 2018-06-17 23:31 | PN ---
DATE: 06/17/2018 HOSPITAL COURSE: The patient was seen and examined. I do agree with the note of the bio medical technician. I was involved in the plan of the care. The patient has type 1 hepatorenal syndrome. He was dialyzed today, I was present during the dialysis treatment. The patient was continuing on his BiPAP. He has severe pulmonary hypertension. He is going to continue in the ICU. He did well with his dialysis treatment today. He is going to get another treatment tomorrow. Jonathon Aviles MD
[2018-06-18] MEDS: Levothyroxine 25 MCG TAB PO SCH (05:33)
[2018-06-18] MEDS ORDERED: Pantoprazole 40 mg EC Tab PO SCH (06:00)
[2018-06-18 06:56] LABS: HEMOGLOBIN 15.2 g/dL (14.0-18.0); MEAN CELL VOLUME 96.1 fl (80.0-105.0); MEAN CORPUSCULAR HGB CONC 34.3 g/dl (31.0-37.0); MEAN PLATELET VOLUME 9.6 fl (7.0-11.0); RBC 4.61 10^6/uL (3.5-6.1); RED CELL DISTRIBUTION WIDTH 17.5 % (11.5-14.5); WHITE BLOOD COUNT 12.7 10^3/uL (4.5-11.0)
[2018-06-18 07:08] LABS: ALBUMIN 3.9 g/dL (3.0-4.8); CALCIUM 7.9 mg/dL (8.4-10.5)
[2018-06-18] MEDS: Arformoterol 15 mcg/2 ml Inh Sol IH SCH ×2 (07:41→20:00)
[2018-06-18] MEDS: Levalbuterol 0.63 MG/3 ML Inhal Soln UD IH SCH ×3 (07:41→20:00)
[2018-06-18] MEDS: Budesonide 0.5 mg/2 ml Inhal Susp UD IH SCH ×2 (07:41→20:00)
--- NOTE | 2018-06-18 08:13 | CP.PCM.PN ---
<Alfonso Sun - Last Filed: 06/18/18 10:49> Subjective - Date & Time of Evaluation Date of Evaluation: 06/18/18 Time of Evaluation: 08:12 - Subjective Subjective: Luis Fernando Sun PGY2 - Nephrology Progress Note for Dr. Aviles Patient seen and examined this AM. No acute events reported overnight. Patient appears to be speaking to himself upon entering the room. Patient appears to be more confused this morning. He has no complaints, rather he has many questions regarding his care. He denies chest pain, shortness of breath, abdominal discomfort, nausea, vomiting, fever, chills. Objective - Vital Signs/Intake and Output Vital Signs (last 24 hours): Temp Pulse Resp BP Pulse Ox 97.8 F 100 H 20 120/62 97 06/18/18 04:00 06/18/18 07:43 06/18/18 06:00 06/18/18 06:00 06/18/18 06:00 Intake and Output: 06/18/18 06/18/18 06:59 18:59 Intake Total 250 Output Total 200 Balance 50 - Medications Medications: Current Medications Arformoterol Tartrate (Brovana) 15 mcg IH [id number] [facility] Last Admin: 06/18/18 07:41 Dose: 15 mcg Betamethasone/Clotrimazole (Lotrisone) 0 gm TOP DAILY [facility] Last Admin: 06/17/18 14:34 Dose: 2 tcp Budesonide (Pulmicort Respules) 0.5 mg IH [id number] [facility] Last Admin: 06/18/18 07:41 Dose: 0.5 mg Diltiazem HCl (Cardizem) 60 mg PO TID [facility] Last Admin: 06/11/18 13:15 Dose: 60 mg Folic Acid (Folic Acid) 1 mg PO DAILY [facility] Last Admin: 06/17/18 14:01 Dose: 1 mg Guaifenesin/Dextromethorphan (Robitussin Dm) 10 ml PO Q4H PRN PRN Reason: Cough Last Admin: 06/13/18 17:20 Dose: 10 ml Heparin Sodium (Porcine) (Heparin) 5,000 units SC Q8 [facility]; Protocol Last Admin: 06/18/18 05:33 Dose: 5,000 units Lactic Acid (Lac-Hydrin 12% Cream (140 G)) 0 ea TOP DAILY [facility] Last Admin: 06/17/18 16:03 Dose: 3 tcp Lactulose (Enulose) 20 gm PO Q8 [facility] Last Admin: 06/18/18 05:32 Dose: 20 gm Levalbuterol HCl (Xopenex) 0.63 mg IH TIDRESP [facility] Last Admin: 06/18/18 07:41 Dose: 0.63 mg Levothyroxine Sodium (Synthroid) 25 mcg PO 0600 [facility] Last Admin: 06/18/18 05:33 Dose: 25 mcg Methylprednisolone (Solu-Medrol) 40 mg IVP Q12H [facility] Last Admin: 06/17/18 21:40 Dose: 40 mg Metoprolol Tartrate (Lopressor) 25 mg PO BID [facility] Last Admin: 06/17/18 18:13 Dose: 25 mg Mupirocin (Bactroban Ointment) 0 gm TOP BID [facility] Last Admin: 06/17/18 18:17 Dose: 2 applic Rifaximin (Xifaxan) 550 mg PO Q12 [facility]; Protocol Last Admin: 06/17/18 22:00 Dose: Not Given Thiamine HCl (Vitamin B1 Tab) 100 mg PO DAILY [facility] Last Admin: 06/17/18 14:00 Dose: 100 mg - Labs Labs: 06/18/18 05:30 06/18/18 05:30 PT 30.7 SECONDS (9.4-12.5) H 06/17/18 11:25 INR 2.72 06/17/18 11:25 APTT 45.6 Seconds (26.9-38.3) H 06/09/18 14:05 - Constitutional Appears: No Acute Distress, Confused - Head Exam Head Exam: ATRAUMATIC, NORMOCEPHALIC - Eye Exam Eye Exam: EOMI, PERRL - ENT Exam Additional comments: bipap mask in place with good seal - Respiratory Exam Respiratory Exam: Clear to Ausculation Bilateral, NORMAL BREATHING PATTERN. absent: Rhonchi, Wheezes - Cardiovascular Exam Cardiovascular Exam: REGULAR RHYTHM, +S1, +S2 - GI/Abdominal Exam GI & Abdominal Exam: Soft, Normal Bowel Sounds. absent: Guarding, Rigid Additional comments: abdominal distention secondary to body habitus - Extremities Exam Additional comments: minimal lower ext edema bilaterally, erythema and ulceration bilaterally lower ext - Neurological Exam Neurological Exam: Alert, Awake Additional comments: motor and sensory grossly intact - Psychiatric Exam Psychiatric exam: Normal Affect Additional comments: confusion appears at baseline - Skin Skin Exam: Dry, Warm Assessment and Plan - Assessment and Plan (Free Text) Assessment: #Hepatorenal Syndrome Type I # Hepatic Encephalopathy # Liver Cirrhosis likely multifactorial including ETOH and significant pulmonary HTN with noted Right sided heart failure # Severe Pulmonary HTN # Moderate Aortic Stenosis # Oliguria # Hyperkalemia # Hypocalcemia 73 year old male with likely type I Hepatorenal Syndrome with rapid elevation of his Cr within 2 weeks with limited explanation from a renal standpoint. Patient renal function continues to worsen likely in relation to his hepatorenal syndrome. Urinary output continues to be oliguric over the past 24 hours. Patient underwent dialysis yesterday and will undergo short dialysis again today with ultrafiltration of 1000mL. Continue to monitor electrolytes, avoid nephrotoxic medications, encourage euvolemia. Continue pulmicort, xopenex, and brovana for pulmonary hypertension and COPD. Continue rifaximin and lactulose for liver cirrhosis. Continue synthroid for hypothyroidism. Patient prognosis continues to be guarded. Patient case and plan discussed with attending, Dr. Aviles <Jonathon Aviles S - Last Filed: 06/18/18 12:05> Objective - Vital Signs/Intake and Output Vital Signs (last 24 hours): Temp Pulse Resp BP Pulse Ox 97.4 F L 104 H 15 110/78 91 L 06/18/18 08:00 06/18/18 10:00 06/18/18 10:00 06/18/18 10:00 06/18/18 10:00 Intake and Output: 06/18/18 06/18/18 06:59 18:59 Intake Total 250 Output Total 200 Balance 50 - Medications Medications: Current Medications Arformoterol Tartrate (Brovana) 15 mcg IH [id number] [facility] Last Admin: 06/18/18 07:41 Dose: 15 mcg Betamethasone/Clotrimazole (Lotrisone) 0 gm TOP DAILY [facility] Last Admin: 06/18/18 09:02 Dose: 2 tcp Budesonide (Pulmicort Respules) 0.5 mg IH [id number] [facility] Last Admin: 06/18/18 07:41 Dose: 0.5 mg Diltiazem HCl (Cardizem) 60 mg PO TID [facility] Last Admin: 06/11/18 13:15 Dose: 60 mg Folic Acid (Folic Acid) 1 mg PO DAILY [facility] Last Admin: 06/18/18 09:01 Dose: 1 mg Guaifenesin/Dextromethorphan (Robitussin Dm) 10 ml PO Q4H PRN PRN Reason: Cough Last Admin: 06/13/18 17:20 Dose: 10 ml Heparin Sodium (Porcine) (Heparin) 5,000 units SC Q8 [facility]; Protocol Last Admin: 06/18/18 05:33 Dose: 5,000 units Lactic Acid (Lac-Hydrin 12% Cream (140 G)) 0 ea TOP DAILY [facility] Last Admin: 06/18/18 09:02 Dose: 2 tcp Lactulose (Enulose) 20 gm PO Q8 [facility] Last Admin: 06/18/18 05:32 Dose: 20 gm Levalbuterol HCl (Xopenex) 0.63 mg IH TIDRESP [facility] Last Admin: 06/18/18 07:41 Dose: 0.63 mg Levothyroxine Sodium (Synthroid) 25 mcg PO 0600 [facility] Last Admin: 06/18/18 05:33 Dose: 25 mcg Methylprednisolone (Solu-Medrol) 40 mg IVP DAILY [facility] Metoprolol Tartrate (Lopressor) 25 mg PO BID [facility] Last Admin: 06/17/18 18:13 Dose: 25 mg Mupirocin (Bactroban Ointment) 0 gm TOP BID [facility] Last Admin: 06/17/18 18:17 Dose: 2 applic Rifaximin (Xifaxan) 550 mg PO Q12 [facility]; Protocol Last Admin: 06/18/18 09:01 Dose: 550 mg Thiamine HCl (Vitamin B1 Tab) 100 mg PO DAILY [facility] Last Admin: 06/18/18 09:01 Dose: 100 mg - Labs Labs: 06/18/18 09:55 06/18/18 05:30 PT 29.3 SECONDS (9.4-12.5) H 06/18/18 09:55 INR 2.59 06/18/18 09:55 APTT 45.6 Seconds (26.9-38.3) H 06/09/18 14:05 Assessment and Plan - Assessment and Plan (Free Text) Assessment: Patient was seen and examined by me. I have reviewed the note of the medical records manager and have gone over the plan of care. I agree with the note. I have reviewed the medications and the last labs.
[2018-06-18] MEDS: Ammonium Lactate 12% Cream (140 g) TOP SCH (09:02)
[2018-06-18] MEDS: Clotrimazole/Betamethasone Cream(15 gm) TOP SCH (09:02)
--- NOTE | 2018-06-18 09:51 | CP.CCUPN ---
CCU Subjective - Physician Review Subjective (Free Text): Harry Martínez, PGY1 ICU Progress Note for Dr. Cortez Patient was seen and examined at bedside this morning. Patient did have episodes of hypotension overnight - BP 55/28, 76/32, 84/39. Vital signs are stable during time of interview with most recent BP 120/62. Patient is currently off continuous BiPAP, now intermittent (settings unchanged; IPAP/EPAP 16/5, RR 16, FiO2 60%). Rosario is in place and draining appropriately. R-permacath in place. Patient reviewing HD during time of interview. He had HD yesterday as well for 2.5 hours, tolerated well. Patient had x2 bowel movements overnight. Currently, patient is AAOx3 however he is confused at times; he did not remember receiving HD yesterday and did not recall the newswriter visiting the patient yesterday morning. Otherwise, he denies cp, sob, n/v/d, fever, chills. A full 12 point ROS was conducted and unremarkable except as stated above. CCU Objective - Vital Signs / Intake & Output Vital Signs (Last 4 hours): Vital Signs Pulse Resp BP Pulse Ox 06/18/18 07:43 100 H 06/18/18 06:00 111 H 20 120/62 97 Intake and Output (Last 8hrs): Intake & Output 06/17/18 06/18/18 06/18/18 22:59 06:59 14:59 Intake Total 300 250 Output Total 150 200 Balance 150 50 Weight 102.33 kg Intake: Oral 300 250 Output: Urine 150 200 Urethral (Rosario) 150 200 Other: # Bowel Movements 0 2 - Physical Exam Head: Positive for: Atraumatic, Normocephalic Pupils: Positive for: PERRL Extroacular Muscles: Positive for: EOMI Conjunctiva: Positive for: Normal Mouth: Positive for: Moist Mucous Membranes Nose (External): Positive for: Abrasion (2 abrasions to bridge of nose) Neck: Positive for: Normal Range of Motion Respiratory/Chest: Negative for: Respiratory Distress, Accessory Muscle Use, Wheezes, Rales, Retracting, Rhonchi Cardiovascular: Positive for: Normal S1, S2, Irregular Rhythm. Negative for: Murmurs Abdomen: Positive for: Distention, Normal Bowel Sounds. Negative for: Tenderness, Peritoneal Signs, Rebound Back: Positive for: Normal Inspection Upper Extremity: Positive for: Normal Inspection. Negative for: Cyanosis, Edema Lower Extremity: Positive for: Edema, Other (Chronic venous changes in bilateral lower extremities with bilateral wounds. Dressings in place. ) Neurological: Positive for: CN II-XII Intact, Speech Normal Skin: Positive for: Warm, Dry, Normal Color. Negative for: Rashes Psychiatric: Positive for: Alert, Oriented x 3. Negative for: Normal Insight - Medications Active Medications: Active Medications Generic Name Dose Route Start Last Admin Trade Name Freq PRN Reason Stop Dose Admin Arformoterol Tartrate 15 mcg 06/12/18 20:00 06/18/18 07:41 Brovana IH 15 mcg [id number] [facility] Administration Betamethasone/Clotrimazole 0 gm 06/11/18 10:00 06/18/18 09:02 Lotrisone TOP 2 tcp DAILY [facility] Administration Budesonide 0.5 mg 06/12/18 20:00 06/18/18 07:41 Pulmicort Respules IH 0.5 mg [id number] [facility] Administration Diltiazem HCl 60 mg 06/10/18 10:00 06/11/18 13:15 Cardizem PO 60 mg TID [facility] Administration Folic Acid 1 mg 06/10/18 10:00 06/18/18 09:01 Folic Acid PO 1 mg DAILY [facility] Administration Guaifenesin/Dextromethorphan 10 ml 06/12/18 15:13 06/13/18 17:20 Robitussin Dm PO 10 ml Q4H PRN Administration Cough Heparin Sodium (Porcine) 5,000 units 06/17/18 14:00 06/18/18 05:33 Heparin SC 5,000 units Q8 [facility]SAEY Administration Protocol Lactic Acid 0 ea 06/11/18 10:00 06/18/18 09:02 Lac-Hydrin 12% Cream (140 G) TOP 2 tcp DAILY [facility] Administration Lactulose 20 gm 06/17/18 14:00 06/18/18 05:32 Enulose PO 20 gm Q8 [facility] Administration Levalbuterol HCl 0.63 mg 06/10/18 14:00 06/18/18 07:41 Xopenex IH 0.63 mg TIDRESP [facility] Administration Levothyroxine Sodium 25 mcg 06/12/18 06:00 06/18/18 05:33 Synthroid PO 25 mcg 0600 [facility] Administration Methylprednisolone 40 mg 06/17/18 09:30 06/17/18 21:40 Solu-Medrol IVP 40 mg Q12H [facility] Administration Metoprolol Tartrate 25 mg 06/10/18 18:00 06/17/18 18:13 Lopressor PO 25 mg BID [facility] Administration Mupirocin 0 gm 06/14/18 11:42 06/17/18 18:17 Bactroban Ointment TOP 2 applic BID [facility] Administration Rifaximin 550 mg 06/12/18 22:00 06/18/18 09:01 Xifaxan PO 550 mg Q12 [facility] Administration Protocol Thiamine HCl 100 mg 06/10/18 10:00 06/18/18 09:01 Vitamin B1 Tab PO 100 mg DAILY [facility] Administration - Patient Studies Lab Studies: Lab Studies 06/18/18 06/18/18 06/17/18 Range/Units 05:30 05:30 12:45 WBC 12.7 H D (4.5-11.0) 10^3/uL RBC 4.61 (3.5-6.1) 10^6/uL Hgb 15.2 (14.0-18.0) g/dL Hct 44.3 (42.0-52.0) % MCV 96.1 (80.0-105.0) fl MCH 33.0 (25.0-35.0) pg MCHC 34.3 (31.0-37.0) g/dl RDW 17.5 H (11.5-14.5) % Plt Count 235 (120.0-450.0) 10^3/uL MPV 9.6 (7.0-11.0) fl PT (9.4-12.5) SECONDS INR pCO2 52 H (35-45) mm/Hg pO2 85.0 (80-100) mm/Hg HCO3 22.8 (21-28) mmol/L ABG pH 7.25 L (7.35-7.45) ABG Total CO2 24.4 (22-28) mmol.L ABG O2 Saturation 97.7 (95-98) % ABG O2 Content 20.1 (15-23) ML/dl ABG Base Excess -5.0 L (-2.0-3.0) mmol/L ABG Hemoglobin 15.0 (11.7-17.4) g/dL ABG Carboxyhemoglobin 1.8 H (0.5-1.5) % POC ABG HHb (Measured) 2.2 (0-5) % ABG Methemoglobin 1.0 (0.0-3.0) % ABG O2 Capacity 20.6 (16-24) mL/dl Hgb O2 Saturation 95.0 (95.0-98.0) % FiO2 60.0 % Sodium 142 (132-148) mmol/L Potassium 4.6 (3.6-5.0) mmol/L Chloride 102 (98-107) mmol/L Carbon Dioxide 24 (21-33) mmol/L Anion Gap 20 (10-20) BUN 97 H (7-21) mg/dL Creatinine 4.9 H (0.8-1.5) mg/dl Est GFR ( Amer) 14 Est GFR (Non-Af Amer) 12 Random Glucose 112 H (70-110) mg/dL Calcium 7.9 L (8.4-10.5) mg/dL Total Bilirubin 1.8 H (0.2-1.3) mg/dL AST 75 H (17-59) U/L ALT 53 (7-56) U/L Alkaline Phosphatase 147 H (38-126) U/L Total Protein 8.0 (5.8-8.3) g/dL Albumin 3.9 (3.0-4.8) g/dL Globulin 4.1 gm/dL Albumin/Globulin Ratio 1.0 L (1.1-1.8) 06/17/18 Range/Units 11:25 WBC (4.5-11.0) 10^3/uL RBC (3.5-6.1) 10^6/uL Hgb (14.0-18.0) g/dL Hct (42.0-52.0) % MCV (80.0-105.0) fl MCH (25.0-35.0) pg MCHC (31.0-37.0) g/dl RDW (11.5-14.5) % Plt Count (120.0-450.0) 10^3/uL MPV (7.0-11.0) fl PT 30.7 H (9.4-12.5) SECONDS INR 2.72 pCO2 (35-45) mm/Hg pO2 (80-100) mm/Hg HCO3 (21-28) mmol/L ABG pH (7.35-7.45) ABG Total CO2 (22-28) mmol.L ABG O2 Saturation (95-98) % ABG O2 Content (15-23) ML/dl ABG Base Excess (-2.0-3.0) mmol/L ABG Hemoglobin (11.7-17.4) g/dL ABG Carboxyhemoglobin (0.5-1.5) % POC ABG HHb (Measured) (0-5) % ABG Methemoglobin (0.0-3.0) % ABG O2 Capacity (16-24) mL/dl Hgb O2 Saturation (95.0-98.0) % FiO2 % Sodium (132-148) mmol/L Potassium (3.6-5.0) mmol/L Chloride (98-107) mmol/L Carbon Dioxide (21-33) mmol/L Anion Gap (10-20) BUN (7-21) mg/dL Creatinine (0.8-1.5) mg/dl Est GFR ( Amer) Est GFR (Non-Af Amer) Random Glucose (70-110) mg/dL Calcium (8.4-10.5) mg/dL Total Bilirubin (0.2-1.3) mg/dL AST (17-59) U/L ALT (7-56) U/L Alkaline Phosphatase (38-126) U/L Total Protein (5.8-8.3) g/dL Albumin (3.0-4.8) g/dL Globulin gm/dL Albumin/Globulin Ratio (1.1-1.8) Laboratory Results - last 24 hr 06/17/18 06/17/18 06/18/18 11:25 12:45 05:30 WBC 12.7 H D RBC 4.61 Hgb 15.2 Hct 44.3 MCV 96.1 MCH 33.0 MCHC 34.3 RDW 17.5 H Plt Count 235 MPV 9.6 PT 30.7 H INR 2.72 pCO2 52 H pO2 85.0 HCO3 22.8 ABG pH 7.25 L ABG Total CO2 24.4 ABG O2 Saturation 97.7 ABG O2 Content 20.1 ABG Base Excess -5.0 L ABG Hemoglobin 15.0 ABG Carboxyhemoglobin 1.8 H POC ABG HHb (Measured) 2.2 ABG Methemoglobin 1.0 ABG O2 Capacity 20.6 Hgb O2 Saturation 95.0 FiO2 60.0 Sodium Potassium Chloride Carbon Dioxide Anion Gap BUN Creatinine Est GFR ( Amer) Est GFR (Non-Af Amer) Random Glucose Calcium Total Bilirubin AST ALT Alkaline Phosphatase Total Protein Albumin Globulin Albumin/Globulin Ratio 06/18/18 05:30 WBC RBC Hgb Hct MCV MCH MCHC RDW Plt Count MPV PT INR pCO2 pO2 HCO3 ABG pH ABG Total CO2 ABG O2 Saturation ABG O2 Content ABG Base Excess ABG Hemoglobin ABG Carboxyhemoglobin POC ABG HHb (Measured) ABG Methemoglobin ABG O2 Capacity Hgb O2 Saturation FiO2 Sodium 142 Potassium 4.6 Chloride 102 Carbon Dioxide 24 Anion Gap 20 BUN 97 H Creatinine 4.9 H Est GFR ( Amer) 14 Est GFR (Non-Af Amer) 12 Random Glucose 112 H Calcium 7.9 L Total Bilirubin 1.8 H AST 75 H ALT 53 Alkaline Phosphatase 147 H Total Protein 8.0 Albumin 3.9 Globulin 4.1 Albumin/Globulin Ratio 1.0 L Review of Systems - Review of Systems All systems: reviewed and no additional remarkable complaints except (as per HPI.) Critical Care Progress Note - Prophylaxis GI Prophylaxis GI: PPI - Prophylaxis DVT Prophylaxis DVT: Heparin SQ - Nutrition Nutrition: Nutrition Category Date Time Status Dysphagia/Modified Consistency Diet [DIET] Diets 06/17/18 Breakfast Ordered Assessment/Plan - Assessment and Plan (Free Text) Assessment: Patient is a 73 y/o M with PMHx hepatic encephalopathy, alcoholic cirrhosis, aortic stenosis, s/p splenectomy (ITP), PAD (with ulcerations of the lower extremities), chronic lymphedema, Afib who initially presented to [facility] [facility] for x3 weeks AMS/lethargy with increased lower extremity swelling, anasarca, darkening of urine, and shortness of breath. Patient was admitted for severe sepsis 2/2 CAP and RLE cellulitis and also Afib with RVR - now rate controlled. During hospital course on 06/11, TERMINAL GAUGER SUPERVISOR was called as patient was having worsening confusion, urinary incontinence, and hypotension (resolved); he was subsequently transferred to the ICU for management. Patient admitted to the ICU for Hepatorenal Syndrome, now ESRD on HD, complicated by hypercapnic respiratory failure. Patient is not a candidate for liver transplant. Plan: Neuro: - AMS 2/2 Hepatic encephalopathy vs Uremia - ammonia level 100 --> 71 --> 14 --> 77 (06/16); repeat ammonia level - c/w lactulose 20g PO q8 and Rifaximin 550mg PO q12; goal 2-3 bowel movements a day - c/w thiamine and folic acid (Cirrhosis 2/2 EtOH abuse) Cardio: - Afib with RVR - rate controlled; not a candidate for anticoagulation (CHADVASC score 3; HASBLED score 4); cardizem and metoprolol held - Severe pulmonary hypertension - Echo: EF 66%. Suggests CHF-pEF: severely dilated RV, mod-severe mitral valve stenosis and tricuspid regurgitation. RVSP 79, severe pulmonary hypertension. - Cardio on consult. Recs appreciated. Pulm: - Shortness of Breath 2/2 Severe Pulmonary Hypertension complicated by Hypercapnic Respiratory Failure - ABG (06/18): 7.24/49/70/21 - tapered steroids to solumedrol 40mg IVP daily - Intermittent BiPAP (settings: IPAP/EPAP 16/5, RR 16, FiO2 60%) - c/w brovana, pulmicort, xopenex, and robitussin prn - Maintain SaO2 > 92% - c/w aspiration precautions and head of bed elevation GI: - Type I Hepatorenal Syndrome 2/2 EtOH Cirrhosis - MELD score 32 points; 52% mortality within next 3 months. Patient is not a liver transplant candidate. - Palliative Care is following - patient is DNR/DNI - Mild transaminitis - GI on consult. Recs appreciated. - Dysphagia diet - finely chopped, nectar thick Renal: - Acute renal failure 2/2 Type I Hepatorenal Syndrome - now ESRD on HD; BUN/Cr is 97/4.9 (downtrending) - HD today (had HD yesterday 2.5 hrs with 1 Liter ultrafiltration) - R-permacath placed for HD (06/17) - Hyperkalemia - resolved - continue to monitor labs - Nephrology on consult - Ins/outs: net -800 mL past 24 hours - UA negative for UTI - UCx multiple species: contaminated - Rosario in place and draining ID: - Severe Sepsis 2/2 CAP/Aspiration PNA (RLL) vs RLE cellulitis - improved - completed azithromycin course for CAP - currently afebrile; mild leukocytosis - Blood Cx negative x2 - MRSA negative - L-leg wound cx: +klebsiella, +beta-hemolytic group B strep, +corynebacterium - ID on consult. Recs appreciated. - Podiatry on consult. Recs appreciated. - Wound care on board Heme: - Hgb stable at this time with no overt bleeding - No indication for transfusion at this time unless Hgb < 7.0 Endo: - Hypothyroidism - c/w levothyroxine 25 mcg PO daily DVT ppx: hep sc GI ppx: ptx Diet: Dysphagia Code Status: DNR/DNI Palliative Care on consult. Dispo: Continue to monitor patient in the ICU at this time. Overall prognosis is poor. Patient will likely need placement for LTACH facility.
[2018-06-18 10:02] LABS: ARTERIAL BLOOD GAS HEMOGLOBIN 14.2 g/dL (11.7-17.4); ARTERIAL BLOOD GAS O2 CAPACITY 19.4 mL/dl (16-24); ARTERIAL BLOOD GAS O2 CONTENT 18.5 ML/dl (15-23); ARTERIAL BLOOD GAS O2 SAT 95.2 % (95-98); ARTERIAL BLOOD GAS PCO2 49 mm/Hg (35-45); ARTERIAL BLOOD GAS PH 7.24 (7.35-7.45); ARTERIAL BLOOD GAS TCO2 22.5 mmol.L (22-28)
[2018-06-18 10:05] LABS: HEMOGLOBIN 15.1 g/dL (14.0-18.0); MEAN CELL VOLUME 95.4 fl (80.0-105.0); MEAN CORPUSCULAR HEMOGLOBIN 32.9 pg (25.0-35.0); MEAN CORPUSCULAR HGB CONC 34.5 g/dl (31.0-37.0); MEAN PLATELET VOLUME 10.2 fl (7.0-11.0); RBC 4.59 10^6/uL (3.5-6.1); RED CELL DISTRIBUTION WIDTH 17.4 % (11.5-14.5); WHITE BLOOD COUNT 11.8 10^3/uL (4.5-11.0)
--- NOTE | 2018-06-18 10:15 | CP.PCM.PN ---
<Vickie Aviles - Last Filed: 06/18/18 16:29> Subjective - Date & Time of Evaluation Date of Evaluation: 06/18/18 Time of Evaluation: 10:10 - Subjective Subjective: Vickie Aviles, PGY2, GI Progress Note for Dr Issa: Patient seen and examined at bedside. No acute events overnight. Patient had 2 BMs, moderate to large within past 24 hrs. Patient awake, alert, oriented to place, self and situations. As per bedside nurse, he does get confused at times. Tolerating PO intake well. Denies abdominal pain, nausea, vomiting, fevers, chills. Patient had dialysis session yesterday, had another session scheduled today. Objective - Vital Signs/Intake and Output Vital Signs (last 24 hours): Temp Pulse Resp BP Pulse Ox 97.8 F 100 H 20 120/62 97 06/18/18 04:00 06/18/18 07:43 06/18/18 06:00 06/18/18 06:00 06/18/18 06:00 Intake and Output: 06/18/18 06/18/18 06:59 18:59 Intake Total 250 Output Total 200 Balance 50 - Medications Medications: Current Medications Arformoterol Tartrate (Brovana) 15 mcg IH [id number] [facility] Last Admin: 06/18/18 07:41 Dose: 15 mcg Betamethasone/Clotrimazole (Lotrisone) 0 gm TOP DAILY [facility] Last Admin: 06/18/18 09:02 Dose: 2 tcp Budesonide (Pulmicort Respules) 0.5 mg IH [id number] [facility] Last Admin: 06/18/18 07:41 Dose: 0.5 mg Diltiazem HCl (Cardizem) 60 mg PO TID [facility] Last Admin: 06/11/18 13:15 Dose: 60 mg Folic Acid (Folic Acid) 1 mg PO DAILY [facility] Last Admin: 06/18/18 09:01 Dose: 1 mg Guaifenesin/Dextromethorphan (Robitussin Dm) 10 ml PO Q4H PRN PRN Reason: Cough Last Admin: 06/13/18 17:20 Dose: 10 ml Heparin Sodium (Porcine) (Heparin) 5,000 units SC Q8 [facility]; Protocol Last Admin: 06/18/18 05:33 Dose: 5,000 units Lactic Acid (Lac-Hydrin 12% Cream (140 G)) 0 ea TOP DAILY [facility] Last Admin: 06/18/18 09:02 Dose: 2 tcp Lactulose (Enulose) 20 gm PO Q8 [facility] Last Admin: 06/18/18 05:32 Dose: 20 gm Levalbuterol HCl (Xopenex) 0.63 mg IH TIDRESP [facility] Last Admin: 06/18/18 07:41 Dose: 0.63 mg Levothyroxine Sodium (Synthroid) 25 mcg PO 0600 [facility] Last Admin: 06/18/18 05:33 Dose: 25 mcg Methylprednisolone (Solu-Medrol) 40 mg IVP Q12H [facility] Last Admin: 06/17/18 21:40 Dose: 40 mg Metoprolol Tartrate (Lopressor) 25 mg PO BID [facility] Last Admin: 06/17/18 18:13 Dose: 25 mg Mupirocin (Bactroban Ointment) 0 gm TOP BID [facility] Last Admin: 06/17/18 18:17 Dose: 2 applic Rifaximin (Xifaxan) 550 mg PO Q12 [facility]; Protocol Last Admin: 06/18/18 09:01 Dose: 550 mg Thiamine HCl (Vitamin B1 Tab) 100 mg PO DAILY [facility] Last Admin: 06/18/18 09:01 Dose: 100 mg - Labs Labs: 06/18/18 09:55 06/18/18 05:30 PT 30.7 SECONDS (9.4-12.5) H 06/17/18 11:25 INR 2.72 06/17/18 11:25 APTT 45.6 Seconds (26.9-38.3) H 06/09/18 14:05 - Additional Findings Additional findings: - Constitutional Appears: Chronically Ill - Head Exam Head Exam: ATRAUMATIC, NORMOCEPHALIC R IJ dialysis cath. - Eye Exam Eye Exam: EOMI, PERRL. absent: Conjunctival injection, Nystagmus, Scleral icterus Pupil Exam: NORMAL ACCOMODATION, PERRL. absent: Irregular, Miosis, Mydriatic - ENT Exam ENT Exam: Mucous Membranes Moist - Neck Exam Neck exam: Positive for: Full Rom - Respiratory Exam Respiratory Exam: Decreased Breath Sounds - Cardiovascular Exam Cardiovascular Exam: RRR, +S1, +S2. absent: Systolic Murmur - GI/Abdominal Exam GI & Abdominal Exam: Soft, Normal Bowel Sounds. absent: Firm, Guarding, Rebound, Tenderness Additional comments: + asterixis no fluid wave - Extremities Exam Extremities exam: Normal Additional comments: improving erythema b/l LE - Neurological Exam Additional comments: awake, oriented to self, time, person - Psychiatric Exam Psychiatric exam: Normal Mood - Skin Skin Exam: Normal Color, Warm Assessment and Plan - Assessment and Plan (Free Text) Assessment: # Decompensated Alcoholic Cirrhosis, ruled out Selvin's disease, AI hepatitis, viral hepatitis # Elevated LFTs 2/2 hepatic congestion 2/2 right sided heart failure, rule out tylenol toxicity # AMS 2/2 likely hepatic encephalopathy # Type 1 hepatorenal syndrome s/p 48hrs albumin and levophed, dialysis sessions # Rapid afib # Severe pulm HTN # Right ventricular heart failure # Bilateral pleural effusions, R>L # Anasarca # Alcohol abuse # ITP s/p splenectomy # Hypothyroidism # Peripheral arterial disease - Abd pelvis CT: potential duodenitis. liver size unchanged, cryptogenic type cirrhotic pattern imposs to exclude, no overt cirrhotic pattern. trace perihepatic ascites. b/l inguinal LAD. questionable anasarca? Mild b/l pleural effusions, R>L with limited pericardial thickening. - Abd US: mild hepatomegaly, diffuse increased echogenicity of the liver, hepatic steatosis. trace perihepatic ascites. no cholelithiasis or biliary dilatation. Diffuse gallbladder wall thickening. - Echo: EF 66%. Systolic fxn of RV is severely reduced. Mod valvular aortic stenosis, DESMOND 1.13. Mod to severe MV stenosis. Mod to severe TR. Severe pulm HTN (RVSP 79 mmHg). IVC dilated. - Head CT neg - LE US: neg for DVT - Continue with his Lactulose to 20 gm q8h. Will titrate to 2-3 BMs per day. Continue with rifaximin 550 mg PO BID. Ammonia level 77. - Acute hepatitis panel negative, HIV NR. Hep A total negative. - Ferritin 225, percent sat 28%. Tylenol, salicylate negative, ceruloplasmin 53 elevated. immunofixation studies negative. - Appreciate nephrology recs. Patient to go for dialysis tomorrow AM as per Nephro. - s/p albumin and levophed for 48 hours with minimal improvement in his Cr levels. - patient is a poor candidate for liver transplant. - MELD 33 - Will monitor mentation, clinical course - Recommend EGD to assess for varices - Patient DNR/DNI now, palliative on board. Poor prognosis. - Further recs per Dr Issa. Case seen and discussed with Dr Issa. <Marysol Issa V - Last Filed: 06/18/18 23:24> Objective - Vital Signs/Intake and Output Vital Signs (last 24 hours): Temp Pulse Resp BP Pulse Ox 97.4 F L 90 18 106/69 100 06/18/18 20:00 06/18/18 21:59 06/18/18 21:59 06/18/18 22:00 06/18/18 21:59 Intake and Output: 06/18/18 06/19/18 18:59 06:59 Intake Total 200 Output Total 150 Balance 50 - Medications Medications: Current Medications Arformoterol Tartrate (Brovana) 15 mcg IH [id number] [facility] Last Admin: 06/18/18 20:00 Dose: 15 mcg Betamethasone/Clotrimazole (Lotrisone) 0 gm TOP DAILY [facility] Last Admin: 06/18/18 09:02 Dose: 2 tcp Budesonide (Pulmicort Respules) 0.5 mg IH [id number] [facility] Last Admin: 06/18/18 20:00 Dose: 0.5 mg Diltiazem HCl (Cardizem) 60 mg PO TID [facility] Last Admin: 06/11/18 13:15 Dose: 60 mg Folic Acid (Folic Acid) 1 mg PO DAILY [facility] Last Admin: 06/18/18 09:01 Dose: 1 mg Guaifenesin/Dextromethorphan (Robitussin Dm) 10 ml PO Q4H PRN PRN Reason: Cough Last Admin: 06/13/18 17:20 Dose: 10 ml Heparin Sodium (Porcine) (Heparin) 5,000 units SC Q8 [facility]; Protocol Last Admin: 06/18/18 21:50 Dose: 5,000 units Lactic Acid (Lac-Hydrin 12% Cream (140 G)) 0 ea TOP DAILY [facility] Last Admin: 06/18/18 09:02 Dose: 2 tcp Lactulose (Enulose) 20 gm PO Q8 [facility] Last Admin: 06/18/18 21:49 Dose: 20 gm Levalbuterol HCl (Xopenex) 0.63 mg IH TIDRESP [facility] Last Admin: 06/18/18 20:00 Dose: 0.63 mg Levothyroxine Sodium (Synthroid) 25 mcg PO 0600 [facility] Last Admin: 06/18/18 05:33 Dose: 25 mcg Methylprednisolone (Solu-Medrol) 40 mg IVP DAILY [facility] Metoprolol Tartrate (Lopressor) 25 mg PO BID [facility] Last Admin: 06/18/18 17:32 Dose: 25 mg Mupirocin (Bactroban Ointment) 0 gm TOP BID [facility] Last Admin: 06/18/18 17:30 Dose: 2 applic Rifaximin (Xifaxan) 550 mg PO Q12 [facility]; Protocol Last Admin: 06/18/18 21:50 Dose: 550 mg Thiamine HCl (Vitamin B1 Tab) 100 mg PO DAILY [facility] Last Admin: 06/18/18 09:01 Dose: 100 mg - Labs Labs: 06/18/18 09:55 06/18/18 05:30 PT 29.3 SECONDS (9.4-12.5) H 06/18/18 09:55 INR 2.59 06/18/18 09:55 APTT 45.6 Seconds (26.9-38.3) H 06/09/18 14:05 Attending/Attestation - Attestation I have personally seen and examined this patient.: Yes I have fully participated in the care of the patient.: Yes I have reviewed all pertinent clinical information, including history, physical exam and plan: Yes Notes (Text): p 06/18/18 23:23
[2018-06-18 10:16] LABS: INR 2.59; PROTHROMBIN TIME 29.3 SECONDS (9.4-12.5)
[2018-06-18] MEDS: Mupirocin 2% Ointment 15 GM TUBE TOP SCH ×2 (10:31→17:30)
--- NOTE | 2018-06-18 12:25 | CP.PCM.PN ---
<Refugio Cantu - Last Filed: 06/18/18 12:22> Subjective - Date & Time of Evaluation Date of Evaluation: 06/18/18 Time of Evaluation: 12:22 - Subjective Subjective: Podiatry progress note for Dr. De 73 year old male patient, seen and evaluated in the ICU, for bilateral lower extremity xerosis/scaling and right hallucal bruising. Patient was awake at the visit time. He was on O2 through nasal cannula at the visit time. Patient states that he doesn't have pain in his lower extremity now. As per chart there was no overnight fever, nausea or vomiting. Objective - Vital Signs/Intake and Output Vital Signs (last 24 hours): Temp Pulse Resp BP Pulse Ox 97.4 F L 104 H 15 110/78 91 L 06/18/18 08:00 06/18/18 10:00 06/18/18 10:00 06/18/18 10:00 06/18/18 10:00 Intake and Output: 06/18/18 06/18/18 06:59 18:59 Intake Total 250 Output Total 200 Balance 50 - Medications Medications: Current Medications Arformoterol Tartrate (Brovana) 15 mcg IH [id number] [facility] Last Admin: 06/18/18 07:41 Dose: 15 mcg Betamethasone/Clotrimazole (Lotrisone) 0 gm TOP DAILY [facility] Last Admin: 06/18/18 09:02 Dose: 2 tcp Budesonide (Pulmicort Respules) 0.5 mg IH [id number] [facility] Last Admin: 06/18/18 07:41 Dose: 0.5 mg Diltiazem HCl (Cardizem) 60 mg PO TID [facility] Last Admin: 06/11/18 13:15 Dose: 60 mg Folic Acid (Folic Acid) 1 mg PO DAILY [facility] Last Admin: 06/18/18 09:01 Dose: 1 mg Guaifenesin/Dextromethorphan (Robitussin Dm) 10 ml PO Q4H PRN PRN Reason: Cough Last Admin: 06/13/18 17:20 Dose: 10 ml Heparin Sodium (Porcine) (Heparin) 5,000 units SC Q8 [facility]; Protocol Last Admin: 06/18/18 05:33 Dose: 5,000 units Lactic Acid (Lac-Hydrin 12% Cream (140 G)) 0 ea TOP DAILY [facility] Last Admin: 06/18/18 09:02 Dose: 2 tcp Lactulose (Enulose) 20 gm PO Q8 [facility] Last Admin: 06/18/18 05:32 Dose: 20 gm Levalbuterol HCl (Xopenex) 0.63 mg IH TIDRESP [facility] Last Admin: 06/18/18 07:41 Dose: 0.63 mg Levothyroxine Sodium (Synthroid) 25 mcg PO 0600 [facility] Last Admin: 06/18/18 05:33 Dose: 25 mcg Methylprednisolone (Solu-Medrol) 40 mg IVP DAILY [facility] Metoprolol Tartrate (Lopressor) 25 mg PO BID [facility] Last Admin: 06/17/18 18:13 Dose: 25 mg Mupirocin (Bactroban Ointment) 0 gm TOP BID [facility] Last Admin: 06/17/18 18:17 Dose: 2 applic Rifaximin (Xifaxan) 550 mg PO Q12 [facility]; Protocol Last Admin: 06/18/18 09:01 Dose: 550 mg Thiamine HCl (Vitamin B1 Tab) 100 mg PO DAILY [facility] Last Admin: 06/18/18 09:01 Dose: 100 mg - Labs Labs: 06/18/18 09:55 06/18/18 05:30 PT 29.3 SECONDS (9.4-12.5) H 06/18/18 09:55 INR 2.59 06/18/18 09:55 APTT 45.6 Seconds (26.9-38.3) H 06/09/18 14:05 - Constitutional Appears: Non-toxic - Head Exam Head Exam: ATRAUMATIC - Extremities Exam Additional comments: Bilateral Lower Extremity Focused Exam VASC: DP and PT pulses 2/4 bilaterally, Cap refill less than 3 seconds X 10, non-pitting edema noted to bilateral lower legs. NEURO: Grossly intact b/l. DERM: Multiple excoriated scabbed wounds with scaling noted of bilateral legs circumferentially, Healed. Mild erythema noted to bilateral legs along with the xerosis, Minimal ecchymosis noted to the tip of the right hallux, no drainage, no tracking, no probe to bone, no open lesions. MSK: Mild pain on palpation to the lower extremities, MSK not performed at this time - Neurological Exam Neurological Exam: Alert, Awake Assessment and Plan - Assessment and Plan (Free Text) Assessment: 73 year old male seen and evaluated for bilateral lower extremity xerosis with excoriated lesions Plan: Patient was seen and evaluated Plan discussed with Dr. Espitia Charts, labs and vitals reviewed; Afebrile, WBC 11.8. SIMON/PVR: R: 0.67, L: 0.72 Right leg wound cx: Klebsiella oxytoma, Corynibacterium species and B hemolytic strept. Group B. Lotrisone and LacHydrin applied to B/L LE Patient to be in Multipodus boots at all times when in bed Bactroban and Mepilex applied to scabs on the left knee Vasc consult; reccs appreciated Continue management per primary care team. Stable from podiatry standpoint, no intervention at this time. Podiatry will sign off the patient <Reji Espitia - Last Filed: 06/18/18 16:44> Objective - Vital Signs/Intake and Output Vital Signs (last 24 hours): Temp Pulse Resp BP Pulse Ox 97.4 F L 104 H 15 110/78 91 L 06/18/18 08:00 06/18/18 10:00 06/18/18 10:00 06/18/18 10:00 06/18/18 10:00 Intake and Output: 06/18/18 06/18/18 06:59 18:59 Intake Total 250 Output Total 200 Balance 50 - Medications Medications: Current Medications Arformoterol Tartrate (Brovana) 15 mcg IH [id number] [facility] Last Admin: 06/18/18 07:41 Dose: 15 mcg Betamethasone/Clotrimazole (Lotrisone) 0 gm TOP DAILY [facility] Last Admin: 06/18/18 09:02 Dose: 2 tcp Budesonide (Pulmicort Respules) 0.5 mg IH [id number] [facility] Last Admin: 06/18/18 07:41 Dose: 0.5 mg Diltiazem HCl (Cardizem) 60 mg PO TID [facility] Last Admin: 06/11/18 13:15 Dose: 60 mg Folic Acid (Folic Acid) 1 mg PO DAILY [facility] Last Admin: 06/18/18 09:01 Dose: 1 mg Guaifenesin/Dextromethorphan (Robitussin Dm) 10 ml PO Q4H PRN PRN Reason: Cough Last Admin: 04/07/19 17:20 Dose: 10 ml Heparin Sodium (Porcine) (Heparin) 5,000 units SC Q8 [facility]; Protocol Last Admin: 06/18/18 13:49 Dose: 5,000 units Lactic Acid (Lac-Hydrin 12% Cream (140 G)) 0 ea TOP DAILY [facility] Last Admin: 06/18/18 09:02 Dose: 2 tcp Lactulose (Enulose) 20 gm PO Q8 [facility] Last Admin: 06/18/18 13:49 Dose: 20 gm Levalbuterol HCl (Xopenex) 0.63 mg IH TIDRESP [facility] Last Admin: 06/18/18 14:16 Dose: 0.63 mg Levothyroxine Sodium (Synthroid) 25 mcg PO 0600 [facility] Last Admin: 06/18/18 05:33 Dose: 25 mcg Methylprednisolone (Solu-Medrol) 40 mg IVP DAILY [facility] Metoprolol Tartrate (Lopressor) 25 mg PO BID [facility] Last Admin: 06/18/18 10:32 Dose: Not Given Mupirocin (Bactroban Ointment) 0 gm TOP BID [facility] Last Admin: 06/18/18 10:31 Dose: 2 applic Rifaximin (Xifaxan) 550 mg PO Q12 [facility]; Protocol Last Admin: 06/18/18 09:01 Dose: 550 mg Thiamine HCl (Vitamin B1 Tab) 100 mg PO DAILY [facility] Last Admin: 06/18/18 09:01 Dose: 100 mg - Labs Labs: 06/18/18 09:55 06/18/18 05:30 PT 29.3 SECONDS (9.4-12.5) H 06/18/18 09:55 INR 2.59 06/18/18 09:55 APTT 45.6 Seconds (26.9-38.3) H 06/09/18 14:05 Attending/Attestation - Attestation I have personally seen and examined this patient.: Yes I have fully participated in the care of the patient.: Yes I have reviewed all pertinent clinical information, including history, physical exam and plan: Yes
--- NOTE | 2018-06-18 12:57 | PN ---
DATE: 06/18/2018 SUBJECTIVE: A 73-year-old white male in intensive care unit, bed 4, having a third hemodialysis today. The patient is more awake, alert, and less encephalopathic than previously noted. He has less metabolic acidosis, but slightly increased respiratory acidosis from yesterday. PHYSICAL EXAMINATION: VITAL SIGNS: Stable today. The patient is afebrile. CHEST: Shows decreased breath sounds bilaterally. HEART: Controlled atrial fibrillation. ABDOMEN: Obese . EXTREMITIES: Without cyanosis, clubbing, edema. IMPRESSION: Resolving hepatic encephalopathy, hepatorenal failure, chronic obstructive pulmonary disease, peripheral edema, stasis dermatitis and cellulitis, resolving slowly. Chadd Savage MD
--- NOTE | 2018-06-18 14:00 | PN ---
DATE: 06/18/2018 SUBJECTIVE: The patient is in bed, in no acute distress. The patient is seen earlier this morning. PHYSICAL EXAMINATION: VITAL SIGNS: Temperature is 98, blood pressure is 110/70, respiratory rate of 18, and heart rate of 101. HEENT: Unremarkable. NECK: Supple. LUNGS: Decreased breath sounds. HEART: Normal S1 and S2. ABDOMEN: Soft. LABORATORY DATA: Laboratory examination reveals a white count of 11,800 and hemoglobin of 15. Chemistry reveals a BUN of 97 and creatinine of 4.9. Urinalysis is noted and toxicology is noted. Immunology is noted and serology is reviewed. Microbiology is reviewed. ASSESSMENT AND PLAN: A 73-year-old male with hepatic encephalopathy, alcoholic cirrhosis, aortic stenosis, idiopathic thrombocytopenic purpura, not responding to steroids, has splenectomy, chronic lymphedema, atrial fibrillation, and history of Nancy's. Completed treatment for community-acquired pneumonia. Currently off of antibiotics and status post dialysis. We will follow with you. The patient has very high risk for developing nosocomial infections and the patient with moderate aortic stenosis and severe pulmonary hypertension. Karl Molina MD
--- NOTE | 2018-06-18 14:33 | PN ---
DATE: 06/18/2018 SUBJECTIVE: The patient was seen and examined. I do agree with the notes of the senior medical technologist. I was involved in the plan of care. The patient has type I hepatorenal syndrome. The patient had his first dialysis treatment yesterday. He will have second dialysis treatment today. The patient has liver cirrhosis. He has significant pulmonary hypertension. He has aortic stenosis. The patient's hypokalemia has improved. The patient has hypothyroidism, that is improved. I did speak to the patient's sister, Clarice to give her an update on the patient's diagnosis and plan of care. The patient continues to have episodes of confusion. His acidosis is better. He did have a fluid that was removed. This will prevent the requirements of the BiPAP that he was using. He continues to be on lactulose for his hepatic encephalopathy. He is DNR/DNI. He is on Solu-Medrol. He is on Xopenex treatments. He is on a renal diet. Overall prognosis is poor given that he has liver disease as well as renal failure. Jonathon Aviles MD
--- NOTE | 2018-06-18 22:43 | PN ---
DATE: 06/18/2018 SUBJECTIVE: The patient is seen and examined at bedside. He is comfortable. He went 46 hours without BiPAP. His ABG off of BiPAP showed 7.24/49/17 on FiO2 of 40%. He is currently on BiPAP though. He tolerated it well. PHYSICAL EXAMINATION: VITAL SIGNS: Has 16/5 with FiO2 of 60%, respiratory rate 20, tidal volume 400 to 500, blood pressure 110/71, heart rate 105. Ears, Nose and Throat: Head and neck atraumatic. LUNGS: Clear to auscultation bilaterally. HEART: Regular rate and rhythm. S1 and S2 are normal. ABDOMEN: Soft, nontender, nondistended. MUSCULOSKELETAL: Trace bilateral pedal and ankle edema, chronic erythema. SKIN: Moist. PSYCHIATRIC: The patient is alert, awake and oriented. LABORATORY DATA: WBC 11.8, hemoglobin 15.1, platelet count 249. Sodium 142, potassium 4.6, chloride 102, carbon dioxide 24, BUN 97, creatinine 4.9 (the patient received two sessions of hemodialysis so far). Total bilirubin 1.8, AST 75, ALT 53, alkaline phosphatase 147. MEDICATIONS: Brovana, budesonide, Cardizem 60 mg p.o. t.i.d., folic acid, heparin subcu, lactulose, Xopenex, Synthroid, Solu-Medrol 40 mg IV daily, metoprolol, rifaximin, thiamine. ASSESSMENT AND PLAN: This is a 73-year-old gentleman with hepatorenal syndrome, requiring dialysis. The patient is not a candidate for liver transplant. He is unable to compensate for his acid base abnormalities with his current respiratory status and requiring bilevel positive airway pressure. He denied Do Not Intubate and will not be intubated. At the present time, we will continue with bilevel positive airway pressure. We will continue target euvolemia, euglycemia, normothermia and oxygen saturation more than 90%. We will continue with deep venous thrombosis and gastrointestinal prophylaxis. Ky Cortez MD
--- NOTE | 2018-06-18 23:42 | PN ---
DATE: 06/18/2018 REASON FOR CONSULTATION AND FOLLOWUP: Atrial fibrillation, shortness of breath, congestive heart failure, altered mental status, cirrhosis, decompensated congestive heart failure, elevated ammonia level, liver failure, on two-point Josiah restraint, on non-invasive ventilator. SUBJECTIVE: The patient is weak and alert. Denies any chest pain, shortness of breath, or any palpitation. PHYSICAL EXAMINATION: GENERAL: Not in apparent distress. VITAL SIGNS: Temperature afebrile, heart rate 104, blood pressure 110/78. HEENT: PERRLA. Extraocular muscles intact. NECK: Supple. No carotid bruit. No thyromegaly. CHEST: Clear to auscultation. HEART: S1, S2. Regular. ABDOMEN: Soft. EXTREMITIES: Clubbing and cyanosis negative. LABORATORY DATA: Blood workup: WBC 11.8, hemoglobin 15, hematocrit 43.8, platelet count 249. Chemistry shows sodium 140, potassium 4.3, chloride 102, carbon dioxide 24, anion gap of 25, BUN 97, creatinine 4.9. IMPRESSION: A 73-year-old morbidly obese male with past medical history significant for heavy alcohol abuse, admitted with atrial fibrillation, altered mental status, moved to Intensive Care Unit because of altered mental status. Initially, the patient was in the floor with shortness of breath and new onset of atrial fibrillation. Echo dated 06/10/2018, shows ejection fraction 65%, severely reduced right ventricle function, [id number] valvular aortic stenosis, valve area of 1.13 cm2, [id number] mitral stenosis, valve area 1.3 cm2, trace mitral regurgitation, [id number] tricuspid regurgitation, severe pulmonary hypertension, multiorgan dysfunction, severe thrombocytopenia, hyperkalemia, acute kidney injury. Though the patient is in congestive heart failure secondary to multifactorial secondary to valvular heart disease as well as renal insufficiency and diastolic dysfunction, though the patient is also in atrial fibrillation but not a candidate for anticoagulation because of hepatic insufficiency. The patient has baseline elevated INR. anticoagulation does not need anticoagulation and not a candidate as well for anticoagulation. Thank you, Dr. Savage, for providing us the opportunity in taking care of the patient, Danilo Chaidez. Overall, the patient's condition is critical. Long-term prognosis is guarded. We will follow with you. Aruna Montilla MD
[2018-06-19] MEDS: Levothyroxine 25 MCG TAB PO SCH (05:39)
[2018-06-19] MEDS: Arformoterol 15 mcg/2 ml Inh Sol IH SCH ×2 (08:09→21:05)
[2018-06-19] MEDS: Budesonide 0.5 mg/2 ml Inhal Susp UD IH SCH ×2 (08:10→21:05)
[2018-06-19] MEDS: Levalbuterol 0.63 MG/3 ML Inhal Soln UD IH SCH ×3 (08:10→21:07)
--- NOTE | 2018-06-19 09:33 | CP.PCM.PN ---
Subjective - Date & Time of Evaluation Date of Evaluation: 06/18/18 Time of Evaluation: 12:00 - Subjective Subjective: Alert, confused. Not on BiPaP, Dialysis in progress Objective - Vital Signs/Intake and Output Vital Signs (last 24 hours): Temp Pulse Resp BP Pulse Ox 97.6 F 97 H 15 126/64 93 L 06/19/18 04:00 06/19/18 07:53 06/19/18 07:00 06/19/18 07:00 06/19/18 07:00 Intake and Output: 06/19/18 06/19/18 06:59 18:59 Intake Total 200 Output Total 100 Balance 100 - Medications Medications: Current Medications Arformoterol Tartrate (Brovana) 15 mcg IH [id number] [facility] Last Admin: 06/19/18 08:09 Dose: 15 mcg Betamethasone/Clotrimazole (Lotrisone) 0 gm TOP DAILY [facility] Last Admin: 06/18/18 09:02 Dose: 2 tcp Budesonide (Pulmicort Respules) 0.5 mg IH [id number] [facility] Last Admin: 06/19/18 08:10 Dose: 0.5 mg Diltiazem HCl (Cardizem) 60 mg PO TID [facility] Last Admin: 06/11/18 13:15 Dose: 60 mg Folic Acid (Folic Acid) 1 mg PO DAILY [facility] Last Admin: 06/18/18 09:01 Dose: 1 mg Guaifenesin/Dextromethorphan (Robitussin Dm) 10 ml PO Q4H PRN PRN Reason: Cough Last Admin: 06/13/18 17:20 Dose: 10 ml Heparin Sodium (Porcine) (Heparin) 5,000 units SC Q8 [facility]; Protocol Last Admin: 06/19/18 05:38 Dose: 5,000 units Lactic Acid (Lac-Hydrin 12% Cream (140 G)) 0 ea TOP DAILY [facility] Last Admin: 06/18/18 09:02 Dose: 2 tcp Lactulose (Enulose) 20 gm PO Q8 [facility] Last Admin: 06/19/18 05:37 Dose: 20 gm Levalbuterol HCl (Xopenex) 0.63 mg IH TIDRESP [facility] Last Admin: 06/19/18 08:10 Dose: 0.63 mg Levothyroxine Sodium (Synthroid) 25 mcg PO 0600 [facility] Last Admin: 06/19/18 05:39 Dose: 25 mcg Methylprednisolone (Solu-Medrol) 40 mg IVP DAILY [facility] Metoprolol Tartrate (Lopressor) 25 mg PO BID [facility] Last Admin: 06/18/18 17:32 Dose: 25 mg Mupirocin (Bactroban Ointment) 0 gm TOP BID [facility] Last Admin: 06/18/18 17:30 Dose: 2 applic Rifaximin (Xifaxan) 550 mg PO Q12 [facility]; Protocol Last Admin: 06/18/18 21:50 Dose: 550 mg Thiamine HCl (Vitamin B1 Tab) 100 mg PO DAILY [facility] Last Admin: 06/18/18 09:01 Dose: 100 mg - Labs Labs: 06/18/18 09:55 06/18/18 05:30 PT 29.3 SECONDS (9.4-12.5) H 06/18/18 09:55 INR 2.59 06/18/18 09:55 APTT 45.6 Seconds (26.9-38.3) H 06/09/18 14:05 - Constitutional Appears: Confused, Chronically Ill - Eye Exam Eye Exam: Normal appearance, PERRL - ENT Exam ENT Exam: Mucous Membranes Moist - Respiratory Exam Respiratory Exam: Decreased Breath Sounds, Wheezes - Cardiovascular Exam Cardiovascular Exam: Irregular Rhythm, +S1, +S2 - GI/Abdominal Exam GI & Abdominal Exam: Soft, Hypoactive Bowel Sounds - Extremities Exam Additional comments: 2+ LE edema - Neurological Exam Neurological Exam: Altered - Psychiatric Exam Psychiatric exam: Anxious - Skin Skin Exam: Dry, Pallor Assessment and Plan - Assessment and Plan (Free Text) Assessment: This is a 77 year old male with history PAD, LE cellulitis, DM,HTN,alcoholism who is admitted with hepatic encephalopathy, alcoholic cirrhosis, aortic stenosis,PAD, lymphedema, A fib with RVR, anasarca, sepsis,RLL pneumonia, R pleural effusion and MARIE on dialysis. The patient is alert, answers questions but lacks insight. He is able to follow simple command. He states h e is "terrible" but can not tell me why I tried to orient him to situation. He went on to say doesn't want anything but then a few minutes later states "do what ever you need to do". He asked for his sister Clarice, states he hasn't seen her in a while. Nursing staff report Clarice is here daily, and was here earlier Plan: Multiple consultants following, notes/rec's reviewed Goals of are, will follow and assist as needed AK: Dialysis in progress AMS/cirrhosis/ Continue Lactulose, Rifaximin,Thiamine and Folic acid. Monitor O2 sats, BipAP as needed,continue Brovana, Xopenex, nebulizers, Solumedrol Sepsis resolved, heath cultures negative
[2018-06-19] MEDS: MethylPREDNISolone 40 mg Vial IVP SCH (09:56)
[2018-06-19] MEDS: Ammonium Lactate 12% Cream (140 g) TOP SCH (10:03)
[2018-06-19] MEDS: Clotrimazole/Betamethasone Cream(15 gm) TOP SCH (10:04)
[2018-06-19] MEDS: Mupirocin 2% Ointment 15 GM TUBE TOP SCH ×2 (10:04→18:41)
--- NOTE | 2018-06-19 10:29 | PN ---
DATE: 06/19/2018 SUBJECTIVE: The patient is on BiPAP. He is confused. PHYSICAL EXAMINATION: VITAL SIGNS: Temperature is 97.6, pulse of 97, blood pressure 126/64 and respiration is 15. GENERAL: The patient is lying in bed, flat, comfortable. HEENT: No oral lesion. Anicteric sclerae. Moist mucosa. NECK: No JVD, adenopathy, or thyromegaly. CARDIOVASCULAR: S1 and S2, regular. No murmurs, rubs, or gallops. LUNGS: Clear to auscultation bilaterally. No wheeze, rales, or rhonchi. ABDOMEN: Bowel sounds are positive, soft, nontender and nondistended. EXTREMITIES: Upper extremity 1+ edema. Anasarca. LABORATORY DATA: The labs have been reviewed. The patient's white count of 11.8. Creatinine is 4.9 and ammonium is 66. hemoglobin 15.1. ASSESSMENT: 1. Hepatorenal syndrome type I. 2. Hepatic encephalopathy. 3. Liver cirrhosis. 4. Severe pulmonary hypertension. 5. Aortic stenosis. 6. Hyperkalemia, improved. PLAN: The patient had dialysis yesterday, tolerated procedure well. He is on lactulose for his encephalopathy. The patient is on heparin for DVT prophylaxis. He is on metoprolol, this will continued. He has Solu-Medrol that is being continued. He is on Synthroid for hypothyroidism. The patient will need another treatment of dialysis today. I did speak to dialysis nurse, we will try to increase the fluid removal. We will try to attempt about 3-1/2 liters of fluid removal over the 3-1/2 hours. Overall prognosis is guarded. I did speak to the patient's sister yesterday, Clairce to give her an update. The patient in the ICU in condition. Jonathon Aviles MD
--- NOTE | 2018-06-19 10:35 | CP.PCM.PN ---
Subjective - Date & Time of Evaluation Date of Evaluation: 06/19/18 Time of Evaluation: 07:30 - Subjective Subjective: Pt seen and examined on rounds. Pt remains on BIPAP, somewhat responsive, which is unchanged from prior exam, as per documentation. Objective - Vital Signs/Intake and Output Vital Signs (last 24 hours): Temp Pulse Resp BP Pulse Ox 97.6 F 95 H 15 128/71 93 L 06/19/18 04:00 06/19/18 09:56 06/19/18 07:00 06/19/18 09:56 06/19/18 07:00 Intake and Output: 06/19/18 06/19/18 06:59 18:59 Intake Total 200 Output Total 100 Balance 100 - Medications Medications: Current Medications Arformoterol Tartrate (Brovana) 15 mcg IH [id number] [facility] Last Admin: 06/19/18 08:09 Dose: 15 mcg Betamethasone/Clotrimazole (Lotrisone) 0 gm TOP DAILY [facility] Last Admin: 06/19/18 10:04 Dose: 1 tcp Budesonide (Pulmicort Respules) 0.5 mg IH [id number] [facility] Last Admin: 06/19/18 08:10 Dose: 0.5 mg Diltiazem HCl (Cardizem) 60 mg PO TID [facility] Last Admin: 06/11/18 13:15 Dose: 60 mg Folic Acid (Folic Acid) 1 mg PO DAILY [facility] Last Admin: 06/19/18 09:56 Dose: 1 mg Guaifenesin/Dextromethorphan (Robitussin Dm) 10 ml PO Q4H PRN PRN Reason: Cough Last Admin: 06/13/18 17:20 Dose: 10 ml Heparin Sodium (Porcine) (Heparin) 5,000 units SC Q8 [facility]; Protocol Last Admin: 06/19/18 05:38 Dose: 5,000 units Lactic Acid (Lac-Hydrin 12% Cream (140 G)) 0 ea TOP DAILY [facility] Last Admin: 06/19/18 10:03 Dose: 1 tcp Lactulose (Enulose) 20 gm PO Q8 [facility] Last Admin: 06/19/18 05:37 Dose: 20 gm Levalbuterol HCl (Xopenex) 0.63 mg IH TIDRESP [facility] Last Admin: 06/19/18 08:10 Dose: 0.63 mg Levothyroxine Sodium (Synthroid) 25 mcg PO 0600 [facility] Last Admin: 06/19/18 05:39 Dose: 25 mcg Methylprednisolone (Solu-Medrol) 40 mg IVP DAILY [facility] Last Admin: 06/19/18 09:56 Dose: 40 mg Metoprolol Tartrate (Lopressor) 25 mg PO BID [facility] Last Admin: 06/19/18 09:56 Dose: 25 mg Mupirocin (Bactroban Ointment) 0 gm TOP BID [facility] Last Admin: 06/19/18 10:04 Dose: 1 applic Rifaximin (Xifaxan) 550 mg PO Q12 [facility]; Protocol Last Admin: 06/19/18 09:56 Dose: 550 mg Thiamine HCl (Vitamin B1 Tab) 100 mg PO DAILY [facility] Last Admin: 06/19/18 09:57 Dose: 100 mg - Labs Labs: 06/18/18 09:55 06/18/18 05:30 PT 29.3 SECONDS (9.4-12.5) H 06/18/18 09:55 INR 2.59 06/18/18 09:55 APTT 45.6 Seconds (26.9-38.3) H 06/09/18 14:05 - Constitutional Appears: Toxic, Older Than Stated Age, Confused, Chronically Ill - Head Exam Head Exam: NORMAL INSPECTION - ENT Exam ENT Exam: Mucous Membranes Dry - Respiratory Exam Respiratory Exam: Clear to Ausculation Bilateral, NORMAL BREATHING PATTERN - Cardiovascular Exam Cardiovascular Exam: REGULAR RHYTHM, +S1, +S2 - GI/Abdominal Exam GI & Abdominal Exam: Soft, Normal Bowel Sounds - Extremities Exam Extremities Exam: Pedal Edema - Neurological Exam Neurological Exam: Altered - Skin Skin Exam: Normal Color, Warm Assessment and Plan - Assessment and Plan (Free Text) Assessment: Patient is 73yo male with HRS, requiring HD, and Hepatic encephalopathy. 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
--- NOTE | 2018-06-19 10:36 | PN ---
DATE: 06/19/2018 SUBJECTIVE: The patient seen in room 129, bed 4. No changes. No events overnight. He had no fevers and chills. PHYSICAL EXAMINATION: VITAL SIGNS: Temperature is 97, blood pressure 126/60, respiratory rate 18 and heart rate 97. HEENT: Unremarkable. NECK: Supple. LUNGS: Have decreased breath sounds. HEART: Normal S1 and S2. ABDOMEN: Soft and nontender. EXTREMITIES: Lower extremities has chronic changes. MEDICATIONS: Include the patient to be on prednisone. LABORATORY DATA: Reveals a white count of 11,800. Chemistry reveals creatinine of 4.9 and serology is noted. Nares MRSA is negative x2 and cultures are negative. ASSESSMENT AND PLAN: This is a 73-year-old male with hepatic encephalopathy, alcoholic cirrhosis, aortic stenosis, idiopathic thrombocytopenic purpura, to steroids, has splenectomy, has chronic lymphedema, atrial fibrillation, history of Nancy's, status post incision . Admitted on this admission with community-acquired pneumonia has completed the antibiotic therapy, currently now on dialysis and the patient does had echo on 06/10/2018 with a ejection fraction of 65% with severely reduced right ventricular function, moderate to severe valvular aortic stenosis and mitral stenosis, mitral regurgitation, severe pulmonary hypertension and kidney disease and congestive heart failure. The patient is at very high risk of developing nosocomial infections. Overall prognosis is quite poor. Karl Molina MD
--- NOTE | 2018-06-19 13:16 | CP.PCM.PN ---
<Maksim Avilez - Last Filed: 06/19/18 13:13> Subjective - Date & Time of Evaluation Date of Evaluation: 06/19/18 Time of Evaluation: 07:00 - Subjective Subjective: PGY5 GI Follow-up Pt seen and examine bedside no acute events overnight still altered ROS: 12 point ROS conducted, neg other than above Objective - Vital Signs/Intake and Output Vital Signs (last 24 hours): Temp Pulse Resp BP Pulse Ox 98.2 F 93 H 26 H 123/74 100 06/19/18 08:00 06/19/18 11:00 06/19/18 09:59 06/19/18 11:00 06/19/18 11:00 Intake and Output: 06/19/18 06/19/18 06:59 18:59 Intake Total 200 Output Total 100 Balance 100 - Medications Medications: Current Medications Arformoterol Tartrate (Brovana) 15 mcg IH [id number] [facility] Last Admin: 06/19/18 08:09 Dose: 15 mcg Betamethasone/Clotrimazole (Lotrisone) 0 gm TOP DAILY [facility] Last Admin: 06/19/18 10:04 Dose: 1 tcp Budesonide (Pulmicort Respules) 0.5 mg IH [id number] [facility] Last Admin: 06/19/18 08:10 Dose: 0.5 mg Diltiazem HCl (Cardizem) 60 mg PO TID [facility] Last Admin: 06/11/18 13:15 Dose: 60 mg Folic Acid (Folic Acid) 1 mg PO DAILY [facility] Last Admin: 06/19/18 09:56 Dose: 1 mg Guaifenesin/Dextromethorphan (Robitussin Dm) 10 ml PO Q4H PRN PRN Reason: Cough Last Admin: 06/13/18 17:20 Dose: 10 ml Heparin Sodium (Porcine) (Heparin) 5,000 units SC Q8 [facility]; Protocol Last Admin: 06/19/18 05:38 Dose: 5,000 units Lactic Acid (Lac-Hydrin 12% Cream (140 G)) 0 ea TOP DAILY [facility] Last Admin: 06/19/18 10:03 Dose: 1 tcp Lactulose (Enulose) 20 gm PO Q8 [facility] Last Admin: 06/19/18 05:37 Dose: 20 gm Levalbuterol HCl (Xopenex) 0.63 mg IH TIDRESP [facility] Last Admin: 06/19/18 08:10 Dose: 0.63 mg Levothyroxine Sodium (Synthroid) 25 mcg PO 0600 [facility] Last Admin: 06/19/18 05:39 Dose: 25 mcg Methylprednisolone (Solu-Medrol) 40 mg IVP DAILY [facility] Last Admin: 06/19/18 09:56 Dose: 40 mg Metoprolol Tartrate (Lopressor) 25 mg PO BID [facility] Last Admin: 06/19/18 09:56 Dose: 25 mg Mupirocin (Bactroban Ointment) 0 gm TOP BID [facility] Last Admin: 06/19/18 10:04 Dose: 1 applic Rifaximin (Xifaxan) 550 mg PO Q12 [facility]; Protocol Last Admin: 06/19/18 09:56 Dose: 550 mg Thiamine HCl (Vitamin B1 Tab) 100 mg PO DAILY [facility] Last Admin: 06/19/18 09:57 Dose: 100 mg - Labs Labs: 06/18/18 09:55 06/18/18 05:30 PT 29.3 SECONDS (9.4-12.5) H 06/18/18 09:55 INR 2.59 06/18/18 09:55 APTT 45.6 Seconds (26.9-38.3) H 06/09/18 14:05 - Constitutional Appears: No Acute Distress, Chronically Ill - Head Exam Head Exam: ATRAUMATIC, NORMOCEPHALIC - Eye Exam Eye Exam: Normal appearance - ENT Exam ENT Exam: Mucous Membranes Moist - Neck Exam Neck Exam: Normal Inspection - Respiratory Exam Respiratory Exam: Prolonged Expiratory Phase, Rales, Rhonchi - Cardiovascular Exam Cardiovascular Exam: REGULAR RHYTHM, +S1, +S2 - GI/Abdominal Exam GI & Abdominal Exam: Distended, Soft, Normal Bowel Sounds. absent: Firm, Guarding, Rigid, Tenderness, Organomegaly, Pulsatile Mass, Rebound - Extremities Exam Extremities Exam: Pedal Edema - Neurological Exam Neurological Exam: Altered - Psychiatric Exam Additional comments: cannot assess - Skin Skin Exam: Dry, Intact, Normal Color, Warm Assessment and Plan - Assessment and Plan (Free Text) Assessment: # Decompensated Alcoholic Cirrhosis, ruled out Selvin's disease, AI hepatitis, viral hepatitis # Elevated LFTs 2/2 hepatic congestion 2/2 right sided heart failure, rule out tylenol toxicity # AMS 2/2 likely hepatic encephalopathy # Type 1 hepatorenal syndrome s/p 48hrs albumin and levophed, dialysis sessions # Rapid afib # Severe pulm HTN # Right ventricular heart failure # Bilateral pleural effusions, R>L # Anasarca # Alcohol abuse # ITP s/p splenectomy # Hypothyroidism # Peripheral arterial disease - Continue with his Lactulose to 20 gm q8h. titrate to 2-3 BMs per day. Continue with rifaximin 550 mg PO BID - s/p albumin and levophed for 48 hours with minimal improvement in his Cr levels. - patient is a poor candidate for liver transplant. - MELD 33 06/18/18 - Patient DNR/DNI now, palliative on board. Poor prognosis. - awaiting transfer to LTAC Case seen and discussed with Dr Issa. <Marysol Issa V - Last Filed: 06/19/18 23:54> Objective - Vital Signs/Intake and Output Vital Signs (last 24 hours): Temp Pulse Resp BP Pulse Ox 98.1 F 104 H 17 90/61 L 98 06/19/18 20:00 06/19/18 23:00 06/19/18 23:00 06/19/18 23:01 06/19/18 22:00 Intake and Output: 06/19/18 06/20/18 18:59 06:59 Output Total 3600 Balance -3600 - Medications Medications: Current Medications Arformoterol Tartrate (Brovana) 15 mcg IH [id number] [facility] Last Admin: 06/19/18 21:05 Dose: 15 mcg Betamethasone/Clotrimazole (Lotrisone) 0 gm TOP DAILY [facility] Last Admin: 06/19/18 10:04 Dose: 1 tcp Budesonide (Pulmicort Respules) 0.5 mg IH [id number] [facility] Last Admin: 06/19/18 21:05 Dose: 0.5 mg Diltiazem HCl (Cardizem) 60 mg PO TID [facility] Last Admin: 06/11/18 13:15 Dose: 60 mg Folic Acid (Folic Acid) 1 mg PO DAILY [facility] Last Admin: 06/19/18 09:56 Dose: 1 mg Guaifenesin/Dextromethorphan (Robitussin Dm) 10 ml PO Q4H PRN PRN Reason: Cough Last Admin: 06/13/18 17:20 Dose: 10 ml Heparin Sodium (Porcine) (Heparin) 5,000 units SC Q8 [facility]; Protocol Last Admin: 06/19/18 21:13 Dose: 5,000 units Lactic Acid (Lac-Hydrin 12% Cream (140 G)) 0 ea TOP DAILY [facility] Last Admin: 06/19/18 10:03 Dose: 1 tcp Lactulose (Enulose) 20 gm PO Q8 [facility] Last Admin: 06/19/18 21:14 Dose: 20 gm Levalbuterol HCl (Xopenex) 0.63 mg IH TIDRESP [facility] Last Admin: 06/19/18 21:07 Dose: 0.63 mg Levothyroxine Sodium (Synthroid) 25 mcg PO 0600 [facility] Last Admin: 06/19/18 05:39 Dose: 25 mcg Methylprednisolone (Solu-Medrol) 40 mg IVP DAILY [facility] Last Admin: 06/19/18 09:56 Dose: 40 mg Metoprolol Tartrate (Lopressor) 25 mg PO BID [facility] Last Admin: 06/19/18 09:56 Dose: 25 mg Mupirocin (Bactroban Ointment) 0 gm TOP BID [facility] Last Admin: 06/19/18 18:41 Dose: 1 applic Rifaximin (Xifaxan) 550 mg PO Q12 [facility]; Protocol Last Admin: 06/19/18 21:12 Dose: 550 mg Thiamine HCl (Vitamin B1 Tab) 100 mg PO DAILY [facility] Last Admin: 06/19/18 09:57 Dose: 100 mg - Labs Labs: 06/19/18 13:45 06/19/18 13:45 PT 29.3 SECONDS (9.4-12.5) H 06/18/18 09:55 INR 2.59 06/18/18 09:55 APTT 45.6 Seconds (26.9-38.3) H 06/09/18 14:05 Attending/Attestation - Attestation I have personally seen and examined this patient.: Yes I have fully participated in the care of the patient.: Yes I have reviewed all pertinent clinical information, including history, physical exam and plan: Yes Notes (Text): p 06/19/18 23:54
[2018-06-19 14:05] LABS: BASO # 0.01 K/mm3 (0.0-2.0); BASO % 0.1 % (0.0-3.0); MEAN CELL VOLUME 95.9 fl (80.0-105.0); MEAN CORPUSCULAR HEMOGLOBIN 32.7 pg (25.0-35.0); MEAN CORPUSCULAR HGB CONC 34.1 g/dl (31.0-37.0); MEAN PLATELET VOLUME 10.1 fl (7.0-11.0); MONO # 0.5 (0.1-0.6); MONO % 3.8 % (1.0-6.0); PLATELET COUNT 187 10^3/uL (120.0-450.0); RBC 4.89 10^6/uL (3.5-6.1); RED CELL DISTRIBUTION WIDTH 17.3 % (11.5-14.5)
[2018-06-19 14:17] LABS: ALB/GLOB RATIO 0.9 (1.1-1.8); ALBUMIN 3.3 g/dL (3.0-4.8); CALCIUM 7.6 mg/dL (8.4-10.5)
--- NOTE | 2018-06-19 14:27 | PN ---
DATE: 06/19/2018 SUBJECTIVE: A 73-year-old white male, seen in bed 4 ICU. The patient was on BiPAP, had dialysis yesterday. He is being preferred possible transfer to LTAC once the mood disorder has been . The patient is a little bit more encephalopathic today and more obtunded. LABORATORY DATA: His BUN and creatinine were 97 and 4.9. His potassium is 4.6. His white count is 11,000 and hemoglobin is 15. PHYSICAL EXAMINATION: GENERAL: He is afebrile. VITAL SIGNS: Blood pressure is 126/64. He does have rate controlled atrial fibrillation. EXTREMITIES: Without cyanosis, clubbing, or edema. ASSESSMENT AND PLAN: He is afebrile today. He is going to continue antibiotics. Plan is for continued hemodialysis, long-term acute care evaluation, and bilevel positive airway pressure at night. Chadd Savage MD
[2018-06-19 18:23] LABS: ARTERIAL BLOOD GAS HEMOGLOBIN 17.3 g/dL (11.7-17.4); ARTERIAL BLOOD GAS O2 CAPACITY 23.6 mL/dl (16-24); ARTERIAL BLOOD GAS O2 CONTENT 23.1 ML/dl (15-23); ARTERIAL BLOOD GAS O2 SAT 97.8 % (95-98); ARTERIAL BLOOD GAS PCO2 50 mm/Hg (35-45); ARTERIAL BLOOD GAS PH 7.29 (7.35-7.45); ARTERIAL BLOOD GAS TCO2 25.5 mmol.L (22-28)
[2018-06-20] MEDS: Levothyroxine 25 MCG TAB PO SCH (06:15)
[2018-06-20 06:32] LABS: HEMOGLOBIN 15.5 g/dL (14.0-18.0); LYMPH # 0.8 (1.2-3.4); LYMPH % 6.5 % (22.0-35.0); MEAN CORPUSCULAR HEMOGLOBIN 32.4 pg (25.0-35.0); MEAN CORPUSCULAR HGB CONC 34.1 g/dl (31.0-37.0); MEAN PLATELET VOLUME 10.3 fl (7.0-11.0); MONO # 0.7 (0.1-0.6); MONO % 5.6 % (1.0-6.0); PLATELET COUNT 170 10^3/uL (120.0-450.0); RBC 4.78 10^6/uL (3.5-6.1); RED CELL DISTRIBUTION WIDTH 17.1 % (11.5-14.5)
[2018-06-20 06:36] LABS: ALB/GLOB RATIO 0.9 (1.1-1.8); ALBUMIN 3.2 g/dL (3.0-4.8); CALCIUM 7.4 mg/dL (8.4-10.5)
[2018-06-20] MEDS: Levalbuterol 0.63 MG/3 ML Inhal Soln UD IH SCH ×3 (09:41→20:25)
[2018-06-20] MEDS: Budesonide 0.5 mg/2 ml Inhal Susp UD IH SCH ×2 (09:41→20:30)
[2018-06-20] MEDS: Arformoterol 15 mcg/2 ml Inh Sol IH SCH ×2 (09:41→20:30)
[2018-06-20] MEDS: MethylPREDNISolone 40 mg Vial IVP SCH (10:27)
[2018-06-20] MEDS: Ammonium Lactate 12% Cream (140 g) TOP SCH (10:29)
--- NOTE | 2018-06-20 10:44 | CP.PCM.PN ---
Subjective - Date & Time of Evaluation Date of Evaluation: 06/20/18 Time of Evaluation: 07:30 - Subjective Subjective: Patient seen and examined, more awake, alert today. OFF bipap. Objective - Vital Signs/Intake and Output Vital Signs (last 24 hours): Temp Pulse Resp BP Pulse Ox 98.4 F 101 H 18 107/65 96 06/20/18 04:00 06/20/18 10:27 06/20/18 06:00 06/20/18 10:27 06/20/18 06:00 Intake and Output: 06/20/18 06/20/18 06:59 18:59 Intake Total 60 Output Total 30 Balance 30 - Medications Medications: Current Medications Arformoterol Tartrate (Brovana) 15 mcg IH [id number] [facility] Last Admin: 06/20/18 09:41 Dose: 15 mcg Betamethasone/Clotrimazole (Lotrisone) 0 gm TOP DAILY [facility] Last Admin: 06/19/18 10:04 Dose: 1 tcp Budesonide (Pulmicort Respules) 0.5 mg IH [id number] [facility] Last Admin: 06/20/18 09:41 Dose: 0.5 mg Diltiazem HCl (Cardizem) 60 mg PO TID [facility] Last Admin: 06/11/18 13:15 Dose: 60 mg Folic Acid (Folic Acid) 1 mg PO DAILY [facility] Last Admin: 06/20/18 10:27 Dose: 1 mg Guaifenesin/Dextromethorphan (Robitussin Dm) 10 ml PO Q4H PRN PRN Reason: Cough Last Admin: 06/13/18 17:20 Dose: 10 ml Heparin Sodium (Porcine) (Heparin) 5,000 units SC Q8 [facility]; Protocol Last Admin: 06/20/18 06:15 Dose: 5,000 units Lactic Acid (Lac-Hydrin 12% Cream (140 G)) 0 ea TOP DAILY [facility] Last Admin: 06/20/18 10:29 Dose: 1 tcp Lactulose (Enulose) 20 gm PO Q8 [facility] Last Admin: 06/20/18 06:16 Dose: 20 gm Levalbuterol HCl (Xopenex) 0.63 mg IH TIDRESP [facility] Last Admin: 06/20/18 09:41 Dose: 0.63 mg Levothyroxine Sodium (Synthroid) 25 mcg PO 0600 [facility] Last Admin: 06/20/18 06:15 Dose: 25 mcg Methylprednisolone (Solu-Medrol) 40 mg IVP DAILY [facility] Last Admin: 06/20/18 10:27 Dose: 40 mg Metoprolol Tartrate (Lopressor) 25 mg PO BID [facility] Last Admin: 06/20/18 10:27 Dose: 25 mg Mupirocin (Bactroban Ointment) 0 gm TOP BID [facility] Last Admin: 06/19/18 18:41 Dose: 1 applic Rifaximin (Xifaxan) 550 mg PO Q12 [facility]; Protocol Last Admin: 06/20/18 10:27 Dose: 550 mg Thiamine HCl (Vitamin B1 Tab) 100 mg PO DAILY [facility] Last Admin: 06/20/18 10:27 Dose: 100 mg - Labs Labs: 06/20/18 05:40 06/20/18 05:40 PT 29.3 SECONDS (9.4-12.5) H 06/18/18 09:55 INR 2.59 06/18/18 09:55 APTT 45.6 Seconds (26.9-38.3) H 06/09/18 14:05 - Constitutional Appears: No Acute Distress, Older Than Stated Age, Chronically Ill - Head Exam Head Exam: NORMAL INSPECTION - Eye Exam Eye Exam: Normal appearance - ENT Exam ENT Exam: Mucous Membranes Dry - Respiratory Exam Respiratory Exam: Clear to Ausculation Bilateral, NORMAL BREATHING PATTERN - Cardiovascular Exam Cardiovascular Exam: REGULAR RHYTHM, +S1, +S2 - GI/Abdominal Exam GI & Abdominal Exam: Soft, Normal Bowel Sounds - Extremities Exam Extremities Exam: Pedal Edema - Neurological Exam Neurological Exam: Alert, Awake - Skin Skin Exam: Normal Color, Warm Assessment and Plan - Assessment and Plan (Free Text) Assessment: Patient is 73yo male with HRS, requiring HD, and Hepatic encephalopathy. 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
[2018-06-20] MEDS: Mupirocin 2% Ointment 15 GM TUBE TOP SCH ×2 (11:24→17:41)
[2018-06-20] MEDS: Clotrimazole/Betamethasone Cream(15 gm) TOP SCH (11:24)
--- NOTE | 2018-06-20 13:04 | PN ---
DATE: 06/20/2018 SUBJECTIVE: A 73-year-old white male seen in bed 4 in the ICU. The patient is on BiPAP. He is also receiving dialysis treatment for hepatorenal syndrome. He is afebrile today. He is also encephalopathic on and off. He seems a little bit more confused and disoriented today. PHYSICAL EXAMINATION: VITAL SIGNS: Stable. He is afebrile, blood pressure is 115/66. He has no temperature. HEART: He does have controlled rate atrial fibrillation. LABORATORY DATA: Hemoglobin is stable at 15.5, white count is 13,000. ASSESSMENT AND PLAN: Plan is to repeat his ammonium, continue dialysis, continue bilevel positive airway pressure and treatment of underlying infection. Chadd Savage MD
--- NOTE | 2018-06-20 13:06 | CP.PCM.PN ---
<Maksim Avilez - Last Filed: 06/20/18 13:21> Subjective - Date & Time of Evaluation Date of Evaluation: 06/20/18 Time of Evaluation: 07:00 - Subjective Subjective: PGY5 GI Follow-up Pt seen and examined bedside off of bipap awake but not any meaning communication verbal no other overnight event ROS: 12 point ROS conducted, neg other than above Objective - Vital Signs/Intake and Output Vital Signs (last 24 hours): Temp Pulse Resp BP Pulse Ox 98.4 F 101 H 18 107/65 96 06/20/18 04:00 06/20/18 10:27 06/20/18 06:00 06/20/18 10:27 06/20/18 06:00 Intake and Output: 06/20/18 06/20/18 06:59 18:59 Intake Total 60 Output Total 30 Balance 30 - Medications Medications: Current Medications Arformoterol Tartrate (Brovana) 15 mcg IH [id number] [facility] Last Admin: 06/20/18 09:41 Dose: 15 mcg Betamethasone/Clotrimazole (Lotrisone) 0 gm TOP DAILY [facility] Last Admin: 06/20/18 11:24 Dose: 1 tcp Budesonide (Pulmicort Respules) 0.5 mg IH [id number] [facility] Last Admin: 06/20/18 09:41 Dose: 0.5 mg Diltiazem HCl (Cardizem) 60 mg PO TID [facility] Last Admin: 06/11/18 13:15 Dose: 60 mg Folic Acid (Folic Acid) 1 mg PO DAILY [facility] Last Admin: 06/20/18 10:27 Dose: 1 mg Guaifenesin/Dextromethorphan (Robitussin Dm) 10 ml PO Q4H PRN PRN Reason: Cough Last Admin: 06/13/18 17:20 Dose: 10 ml Heparin Sodium (Porcine) (Heparin) 5,000 units SC Q8 [facility]; Protocol Last Admin: 06/20/18 06:15 Dose: 5,000 units Lactic Acid (Lac-Hydrin 12% Cream (140 G)) 0 ea TOP DAILY [facility] Last Admin: 06/20/18 10:29 Dose: 1 tcp Lactulose (Enulose) 20 gm PO Q8 [facility] Last Admin: 06/20/18 06:16 Dose: 20 gm Levalbuterol HCl (Xopenex) 0.63 mg IH TIDRESP [facility] Last Admin: 06/20/18 09:41 Dose: 0.63 mg Levothyroxine Sodium (Synthroid) 25 mcg PO 0600 [facility] Last Admin: 06/20/18 06:15 Dose: 25 mcg Methylprednisolone (Solu-Medrol) 40 mg IVP DAILY [facility] Last Admin: 06/20/18 10:27 Dose: 40 mg Metoprolol Tartrate (Lopressor) 25 mg PO BID [facility] Last Admin: 06/20/18 10:27 Dose: 25 mg Mupirocin (Bactroban Ointment) 0 gm TOP BID [facility] Last Admin: 06/20/18 11:24 Dose: 1 applic Rifaximin (Xifaxan) 550 mg PO Q12 [facility]; Protocol Last Admin: 06/20/18 10:27 Dose: 550 mg Thiamine HCl (Vitamin B1 Tab) 100 mg PO DAILY [facility] Last Admin: 06/20/18 10:27 Dose: 100 mg - Labs Labs: 06/20/18 05:40 06/20/18 05:40 PT 29.3 SECONDS (9.4-12.5) H 06/18/18 09:55 INR 2.59 06/18/18 09:55 APTT 45.6 Seconds (26.9-38.3) H 06/09/18 14:05 - Constitutional Appears: No Acute Distress, Chronically Ill - Head Exam Head Exam: ATRAUMATIC, NORMOCEPHALIC - Eye Exam Eye Exam: Normal appearance - ENT Exam ENT Exam: Mucous Membranes Moist - Neck Exam Neck Exam: Normal Inspection - Respiratory Exam Respiratory Exam: Rales, Rhonchi, Wheezes - Cardiovascular Exam Cardiovascular Exam: REGULAR RHYTHM, +S1, +S2 - GI/Abdominal Exam GI & Abdominal Exam: Soft, Normal Bowel Sounds. absent: Distended, Firm, Rigid, Tenderness, Organomegaly - Extremities Exam Extremities Exam: absent: Joint Swelling, Pedal Edema - Neurological Exam Neurological Exam: Altered - Psychiatric Exam Additional comments: cannot assess 2/2 mental status - Skin Skin Exam: Dry, Intact, Normal Color, Warm Assessment and Plan - Assessment and Plan (Free Text) Assessment: # Decompensated Alcoholic Cirrhosis, ruled out Sevlin's disease, AI hepatitis, viral hepatitis # Elevated LFTs 2/2 hepatic congestion 2/2 right sided heart failure, rule out tylenol toxicity # AMS 2/2 likely hepatic encephalopathy # Type 1 hepatorenal syndrome s/p 48hrs albumin and levophed, dialysis sessions # Rapid afib # Severe pulm HTN # Right ventricular heart failure # Bilateral pleural effusions, R>L # Anasarca # Alcohol abuse # ITP s/p splenectomy # Hypothyroidism # Peripheral arterial disease - Continue with his Lactulose to 20 gm q8h. titrate to 2-3 BMs per day. Continue with rifaximin 550 mg PO BID - s/p albumin and levophed for 48 hours with minimal improvement in his Cr levels. - patient is a poor candidate for liver transplant. - MELD 33 06/18/18 - Patient DNR/DNI now, palliative on board. Poor prognosis. - awaiting transfer to [facility] <Marysol Issa V - Last Filed: 06/20/18 23:59> Objective - Vital Signs/Intake and Output Vital Signs (last 24 hours): Temp Pulse Resp BP Pulse Ox 97.4 F L 96 H 17 127/75 100 06/20/18 20:00 06/20/18 21:00 06/20/18 21:00 06/20/18 21:00 06/20/18 21:00 - Medications Medications: Current Medications Arformoterol Tartrate (Brovana) 15 mcg IH [id number] [facility] Last Admin: 06/20/18 20:30 Dose: 15 mcg Betamethasone/Clotrimazole (Lotrisone) 0 gm TOP DAILY [facility] Last Admin: 06/20/18 11:24 Dose: 1 tcp Budesonide (Pulmicort Respules) 0.5 mg IH [id number] [facility] Last Admin: 06/20/18 20:30 Dose: 0.5 mg Diltiazem HCl (Cardizem) 60 mg PO TID [facility] Last Admin: 06/11/18 13:15 Dose: 60 mg Folic Acid (Folic Acid) 1 mg PO DAILY [facility] Last Admin: 06/20/18 10:27 Dose: 1 mg Guaifenesin/Dextromethorphan (Robitussin Dm) 10 ml PO Q4H PRN PRN Reason: Cough Last Admin: 06/13/18 17:20 Dose: 10 ml Heparin Sodium (Porcine) (Heparin) 5,000 units SC Q8 [facility]; Protocol Last Admin: 06/20/18 22:02 Dose: 5,000 units Lactic Acid (Lac-Hydrin 12% Cream (140 G)) 0 ea TOP DAILY [facility] Last Admin: 06/20/18 10:29 Dose: 1 tcp Lactulose (Enulose) 20 gm PO Q8 [facility] Last Admin: 06/20/18 22:03 Dose: 20 gm Levalbuterol HCl (Xopenex) 0.63 mg IH TIDRESP [facility] Last Admin: 06/20/18 20:25 Dose: 0.63 mg Levothyroxine Sodium (Synthroid) 25 mcg PO 0600 [facility] Last Admin: 06/20/18 06:15 Dose: 25 mcg Methylprednisolone (Solu-Medrol) 40 mg IVP DAILY [facility] Last Admin: 06/20/18 10:27 Dose: 40 mg Metoprolol Tartrate (Lopressor) 25 mg PO BID [facility] Last Admin: 06/20/18 17:40 Dose: Not Given Mupirocin (Bactroban Ointment) 0 gm TOP BID [facility] Last Admin: 06/20/18 17:41 Dose: 1 applic Rifaximin (Xifaxan) 550 mg PO Q12 [facility]; Protocol Last Admin: 06/20/18 22:01 Dose: 550 mg Thiamine HCl (Vitamin B1 Tab) 100 mg PO DAILY [facility] Last Admin: 06/20/18 10:27 Dose: 100 mg - Labs Labs: 06/20/18 05:40 06/20/18 05:40 PT 29.3 SECONDS (9.4-12.5) H 06/18/18 09:55 INR 2.59 06/18/18 09:55 APTT 45.6 Seconds (26.9-38.3) H 06/09/18 14:05 Attending/Attestation - Attestation I have personally seen and examined this patient.: Yes I have fully participated in the care of the patient.: Yes I have reviewed all pertinent clinical information, including history, physical exam and plan: Yes Notes (Text): p 06/20/18 23:59
--- NOTE | 2018-06-20 13:24 | PN ---
DATE: 06/20/2018 SUBJECTIVE: The patient has no complaints. The patient is on BiPAP. He is confused. PHYSICAL EXAMINATION VITAL SIGNS: Temperature is 98.4, pulse of 101, blood pressure 107/65, and respirations 18. GENERAL: The patient is lying in bed, flat, comfortable. HEENT: No oral lesion. Anicteric sclerae. Moist mucosa. NECK: No JVD, adenopathy, or thyromegaly. CARDIOVASCULAR: S1 and S2, regular. No murmurs, rubs, or gallops. LUNGS: Clear to auscultation bilaterally. No wheeze, rales, or rhonchi. ABDOMEN: Bowel sounds are positive, soft, nontender and nondistended. EXTREMITIES: No cyanosis, clubbing or edema. LABORATORY DATA: White count 13 and hemoglobin 15. Creatinine is 4.0. ASSESSMENT: 1. Hepatorenal syndrome, type I. 2. Hepatic encephalopathy. 3. Liver cirrhosis. 4. Pulmonary hypertension. 5. Aortic stenosis. 6. Hyperkalemia, improved. PLAN: The patient had full treatment of dialysis yesterday. He had 3.5 liters that will taken off. The patient's overall prognosis is poor. The patient will get his next treatment tomorrow. He is on lactulose for his encephalopathy. He is on heparin for DVT prophylaxis. He is going to continue with metoprolol. He is on Solu-Medrol. He is on Synthroid for hypothyroidism. Jonathon Aviles MD
[2018-06-20 14:23] LABS: ATYPICAL LYMPHOCYTE 1 % (0.0-0.0); BAND 2 % (0-2); LYMPHOCYTE 4 % (22.0-35.0); NEUTROPHIL 82 % (50.0-70.0)
[2018-06-20 14:24] LABS: ANISOCYTOSIS SLIGHT; CORRECTED WBC 12.3 K/mm3 (4.5-11.0); MONOCYTE 11 % (1.0-6.0); NUCLEATED RED BLOOD CELL 6 %; PLATELET ESTIMATE NORMAL (NORMAL); POIKILOCYTOSIS SLIGHT; TARGET CELLS SLIGHT
[2018-06-20 14:25] LABS: BURR CELLS 2+; TEAR DROP CELLS SLIGHT
[2018-06-21] MEDS: Levothyroxine 25 MCG TAB PO SCH (06:11)
[2018-06-21 06:57] LABS: HEMOGLOBIN 15.5 g/dL (14.0-18.0); MEAN CORPUSCULAR HEMOGLOBIN 32.2 pg (25.0-35.0); MEAN CORPUSCULAR HGB CONC 33.9 g/dl (31.0-37.0); MEAN PLATELET VOLUME 10.3 fl (7.0-11.0); PLATELET COUNT 166 10^3/uL (120.0-450.0); RBC 4.81 10^6/uL (3.5-6.1); RED CELL DISTRIBUTION WIDTH 17.2 % (11.5-14.5); WHITE BLOOD COUNT 13.4 10^3/uL (4.5-11.0)
[2018-06-21 07:00] LABS: INR 2.66; PARTIAL THROMBOPLASTIN TIME 43.1 Seconds (26.9-38.3); PROTHROMBIN TIME 30.1 SECONDS (9.4-12.5)
[2018-06-21 07:08] LABS: ALBUMIN 3.6 g/dL (3.0-4.8); CALCIUM 8.1 mg/dL (8.4-10.5)
[2018-06-21] MEDS: Levalbuterol 0.63 MG/3 ML Inhal Soln UD IH SCH ×3 (07:38→20:00)
[2018-06-21] MEDS: Budesonide 0.5 mg/2 ml Inhal Susp UD IH SCH ×2 (07:38→20:00)
[2018-06-21] MEDS: Arformoterol 15 mcg/2 ml Inh Sol IH SCH ×2 (07:38→20:00)
--- NOTE | 2018-06-21 07:59 | CP.PCM.PN ---
<Alfonso Sun - Last Filed: 06/21/18 13:50> Subjective - Date & Time of Evaluation Date of Evaluation: 06/21/18 Time of Evaluation: 07:58 - Subjective Subjective: Luis Fernando Sun PGY2 IM - Nephrology Progress Note for Dr. Aviles Patient seen and examined this AM. No acute events reported overnight. Patient continues to exhibit confusion and mumbled speech. Patient appears more confused today. Review of systems is limited. Patient with 200 mL of urinary output overnight and continues to be BiPAP dependent. Objective - Vital Signs/Intake and Output Vital Signs (last 24 hours): Temp Pulse Resp BP Pulse Ox 98.5 F 98 H 12 87/51 L 100 06/21/18 04:00 06/21/18 07:30 06/21/18 07:00 06/21/18 07:00 06/21/18 07:00 Intake and Output: 06/21/18 06/21/18 06:59 18:59 Intake Total 100 Output Total 200 Balance -100 - Medications Medications: Current Medications Arformoterol Tartrate (Brovana) 15 mcg IH [id number] [facility] Last Admin: 06/21/18 07:38 Dose: 15 mcg Betamethasone/Clotrimazole (Lotrisone) 0 gm TOP DAILY [facility] Last Admin: 06/20/18 11:24 Dose: 1 tcp Budesonide (Pulmicort Respules) 0.5 mg IH [id number] [facility] Last Admin: 06/21/18 07:38 Dose: 0.5 mg Diltiazem HCl (Cardizem) 60 mg PO TID [facility] Last Admin: 06/11/18 13:15 Dose: 60 mg Folic Acid (Folic Acid) 1 mg PO DAILY [facility] Last Admin: 06/20/18 10:27 Dose: 1 mg Guaifenesin/Dextromethorphan (Robitussin Dm) 10 ml PO Q4H PRN PRN Reason: Cough Last Admin: 06/13/18 17:20 Dose: 10 ml Heparin Sodium (Porcine) (Heparin) 5,000 units SC Q8 [facility]; Protocol Last Admin: 06/21/18 06:10 Dose: 5,000 units Lactic Acid (Lac-Hydrin 12% Cream (140 G)) 0 ea TOP DAILY [facility] Last Admin: 06/20/18 10:29 Dose: 1 tcp Lactulose (Enulose) 20 gm PO Q8 [facility] Last Admin: 06/21/18 06:09 Dose: 20 gm Levalbuterol HCl (Xopenex) 0.63 mg IH TIDRESP [facility] Last Admin: 06/21/18 07:38 Dose: 0.63 mg Levothyroxine Sodium (Synthroid) 25 mcg PO 0600 [facility] Last Admin: 06/21/18 06:11 Dose: 25 mcg Methylprednisolone (Solu-Medrol) 40 mg IVP DAILY [facility] Last Admin: 06/20/18 10:27 Dose: 40 mg Metoprolol Tartrate (Lopressor) 25 mg PO BID [facility] Last Admin: 06/20/18 17:40 Dose: Not Given Mupirocin (Bactroban Ointment) 0 gm TOP BID [facility] Last Admin: 06/20/18 17:41 Dose: 1 applic Rifaximin (Xifaxan) 550 mg PO Q12 [facility]; Protocol Last Admin: 06/20/18 22:01 Dose: 550 mg Thiamine HCl (Vitamin B1 Tab) 100 mg PO DAILY [facility] Last Admin: 06/20/18 10:27 Dose: 100 mg - Labs Labs: 06/21/18 06:35 06/21/18 06:35 PT 30.1 SECONDS (9.4-12.5) H 06/21/18 06:35 INR 2.66 06/21/18 06:35 APTT 43.1 Seconds (26.9-38.3) H 06/21/18 06:35 - Constitutional Appears: Confused - Head Exam Head Exam: ATRAUMATIC, NORMOCEPHALIC - Eye Exam Eye Exam: PERRL - ENT Exam Additional comments: BiPAP mask in place, good seal - Respiratory Exam Respiratory Exam: Clear to Ausculation Bilateral, NORMAL BREATHING PATTERN - Cardiovascular Exam Cardiovascular Exam: Tachycardia, REGULAR RHYTHM, +S1, +S2 - GI/Abdominal Exam GI & Abdominal Exam: Distended, Soft, Hypoactive Bowel Sounds. absent: Firm, Guarding, Rigid, Tenderness - Extremities Exam Additional comments: 1+ edema bilatearlly, erythema present, chronic ulcers present - Neurological Exam Neurological Exam: Alert, Awake Additional comments: motor and sensory grossly intact, patient moving all four extremities spontaneously - Psychiatric Exam Additional comments: confusion, cooperative with physical exam - Skin Skin Exam: Dry, Warm Assessment and Plan - Assessment and Plan (Free Text) Assessment: # Hepatorenal Syndrome Type I # Hepatic Encephalopathy # Liver Cirrhosis likely multifactorial # Severe Pulmonary HTN # Moderate Aortic Stenosis # Oliguria # Hyperkalemia # Hypocalcemia Patient renal function has appeared to be stable while undergoing dialysis. Patient likely HD dependent likely in relation to his hepatorenal syndrome. Urinary output over past 24 hours is minimal. Patient will undergo dialysis today with potential removal of 2500mL fluid. Patient blood pressure noted to be hypotensive likely secondary to underling pathology. Will continue to monitor, as BP lowers will have to take into account for possibility of not being able to preform HD as a result. Continue to monitor electrolytes, avoid nephrotoxic medications, encourage euvolemia. Continue pulmicort, xopenex, and brovana for pulmonary hypertension and COPD. Continue rifaximin and lactulose for liver cirrhosis. Continue synthroid for hypothyroidism. Patient prognosis continues to be guarded. Patient case and plan discussed with attending, Dr. Aviles <Jonathon Aviles S - Last Filed: 06/21/18 15:12> Objective - Vital Signs/Intake and Output Vital Signs (last 24 hours): Temp Pulse Resp BP Pulse Ox 97.4 F L 95 H 15 95/56 L 92 L 06/21/18 08:00 06/21/18 13:44 06/21/18 13:44 06/21/18 13:44 06/21/18 13:44 Intake and Output: 06/21/18 06/21/18 06:59 18:59 Intake Total 100 Output Total 200 Balance -100 - Medications Medications: Current Medications Arformoterol Tartrate (Brovana) 15 mcg IH [id number] [facility] Last Admin: 06/21/18 07:38 Dose: 15 mcg Betamethasone/Clotrimazole (Lotrisone) 0 gm TOP DAILY [facility] Last Admin: 06/21/18 10:00 Dose: 1 tcp Budesonide (Pulmicort Respules) 0.5 mg IH [id number] [facility] Last Admin: 06/21/18 07:38 Dose: 0.5 mg Diltiazem HCl (Cardizem) 60 mg PO TID [facility] Last Admin: 06/11/18 13:15 Dose: 60 mg Folic Acid (Folic Acid) 1 mg PO DAILY [facility] Last Admin: 06/21/18 11:00 Dose: 1 mg Guaifenesin/Dextromethorphan (Robitussin Dm) 10 ml PO Q4H PRN PRN Reason: Cough Last Admin: 06/13/18 17:20 Dose: 10 ml Heparin Sodium (Porcine) (Heparin) 5,000 units SC Q8 [facility]; Protocol Last Admin: 06/21/18 13:56 Dose: 5,000 units Lactic Acid (Lac-Hydrin 12% Cream (140 G)) 0 ea TOP DAILY [facility] Last Admin: 06/21/18 10:00 Dose: 1 tcp Lactulose (Enulose) 20 gm PO Q8 [facility] Last Admin: 06/21/18 13:56 Dose: 20 gm Levalbuterol HCl (Xopenex) 0.63 mg IH TIDRESP [facility] Last Admin: 06/21/18 13:01 Dose: 0.63 mg Levothyroxine Sodium (Synthroid) 25 mcg PO 0600 [facility] Last Admin: 06/21/18 06:11 Dose: 25 mcg Methylprednisolone (Solu-Medrol) 40 mg IVP DAILY [facility] Last Admin: 06/21/18 11:00 Dose: 40 mg Metoprolol Tartrate (Lopressor) 25 mg PO BID [facility] Last Admin: 06/21/18 12:38 Dose: 25 mg Mupirocin (Bactroban Ointment) 0 gm TOP BID [facility] Last Admin: 06/21/18 10:00 Dose: 1 applic Rifaximin (Xifaxan) 550 mg PO Q12 [facility]; Protocol Last Admin: 06/21/18 11:00 Dose: 550 mg Thiamine HCl (Vitamin B1 Tab) 100 mg PO DAILY [facility] Last Admin: 06/21/18 11:00 Dose: 100 mg - Labs Labs: 06/21/18 06:35 06/21/18 06:35 PT 30.1 SECONDS (9.4-12.5) H 06/21/18 06:35 INR 2.66 06/21/18 06:35 APTT 43.1 Seconds (26.9-38.3) H 06/21/18 06:35 Assessment and Plan - Assessment and Plan (Free Text) Assessment: Pt seen and examined by me. I have reviewed the note of the medical office manager and I agree with it. I have discussed the assessment and plan with the resident. I have reviewed the medications and the last labs.
--- NOTE | 2018-06-21 08:33 | PN ---
DATE: 06/20/2018 SUBJECTIVE: The patient is in bed, in no acute distress, nontoxic. PHYSICAL EXAMINATION: VITAL SIGNS: Temperature is 98, blood pressure is 115/60, respiratory rate of 18, heart rate of 99. HEENT: Unremarkable. NECK: Supple. LUNGS: Have decreased breath sounds. HEART: Normal S1, S2. ABDOMEN: Soft, nontender. LABORATORY DATA: Laboratory examination reveals the white count is 13,000 today, hemoglobin of 15, platelets noted. BUN of 70, creatinine of 4. Review of orders reveals the patient is off of antibiotics at this point, is completing antibiotic therapy. The patient is on Solu-Medrol and methylprednisolone. 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 The patient has had a splenectomy. The patient with chronic lymphedema, atrial fibrillation, history of Nancy's, status post incision and drainage. On this admission, the patient was admitted with community-acquired pneumonia, has completed therapy, currently on dialysis. The patient has ejection fraction of 65% with severely reduced right ventricular function, [id number] valvular aortic stenosis and mitral stenosis with mitral regurgitation and severe pulmonary hypertension and acute kidney disease in face of diastolic congestive heart failure. The patient is at very high risk of developing nosocomial infections and we will follow along with you. Karl Molina MD
[2018-06-21] MEDS: Ammonium Lactate 12% Cream (140 g) TOP SCH (10:00)
[2018-06-21] MEDS: Mupirocin 2% Ointment 15 GM TUBE TOP SCH ×2 (10:00→17:11)
[2018-06-21] MEDS: Clotrimazole/Betamethasone Cream(15 gm) TOP SCH (10:00)
[2018-06-21 10:37] LABS: CORRECTED WBC 12.8 K/mm3 (4.5-11.0); LYMPHOCYTE 2 % (22.0-35.0); MONOCYTE 2 % (1.0-6.0); NEUTROPHIL 96 % (50.0-70.0); NUCLEATED RED BLOOD CELL 5 %; PLATELET ESTIMATE NORMAL (NORMAL)
--- NOTE | 2018-06-21 10:39 | CP.CCUPN ---
<Harry Martínez - Last Filed: 06/21/18 10:36> CCU Subjective - Physician Review Subjective (Free Text): Harry Martínez, PGY1 ICU Progress Note for Dr. Blackwell Patient was seen and examined at bedside this morning. Afebrile overnight and vital signs stable. Most recent BP 132/93. Patient remains on BiPAP. He appears to be more confused this morning. Patient is not answering questions appropriately. He is awake and alert however. He moves all extremities. Overnight, patient did not have a bowel movement but he did have multiple bowel movements over the weekend. Last HD session was on 06/19 and he is pending HD today. About 30 cc noted in kumar. ROS limited given mental status. CCU Objective - Vital Signs / Intake & Output Vital Signs (Last 4 hours): Vital Signs Pulse Resp BP Pulse Ox 06/21/18 07:30 98 H 06/21/18 07:00 100 H 12 87/51 L 100 Intake and Output (Last 8hrs): Intake & Output 06/20/18 06/21/18 06/21/18 22:59 06:59 14:59 Intake Total 100 Output Total 200 Balance -100 Weight 108.227 kg Intake: IV 0 Left Forearm 0 Oral 100 Output: Urine 200 Urethral (Kumar) 200 Other: # Bowel Movements 1 - Physical Exam Head: Positive for: Atraumatic, Normocephalic Pupils: Positive for: PERRL Extroacular Muscles: Positive for: EOMI Conjunctiva: Positive for: Normal Mouth: Positive for: Moist Mucous Membranes Nose (External): Positive for: Abrasion (2 abrasions to bridge of nose) Neck: Positive for: Normal Range of Motion Respiratory/Chest: Negative for: Respiratory Distress, Accessory Muscle Use, Wheezes, Rales, Retracting, Rhonchi Cardiovascular: Positive for: Normal S1, S2, Irregular Rhythm (Afib - rate controlled ). Negative for: Murmurs Abdomen: Positive for: Distention, Normal Bowel Sounds. Negative for: Tenderness, Peritoneal Signs, Rebound Back: Positive for: Normal Inspection Upper Extremity: Positive for: Normal Inspection. Negative for: Cyanosis, Edema Lower Extremity: Positive for: Edema, Other (Chronic venous changes in bilateral lower extremities with bilateral wounds. Dressings in place. ) Neurological: Positive for: CN II-XII Intact, Speech Normal Skin: Positive for: Warm, Dry, Normal Color. Negative for: Rashes Psychiatric: Positive for: Alert. Negative for: Normal Insight - Medications Active Medications: Active Medications Generic Name Dose Route Start Last Admin Trade Name Freq PRN Reason Stop Dose Admin Arformoterol Tartrate 15 mcg 06/12/18 20:00 06/21/18 07:38 Brovana IH 15 mcg [id number] CASEY Administration Betamethasone/Clotrimazole 0 gm 06/11/18 10:00 06/20/18 11:24 Lotrisone TOP 1 tcp DAILY CASEY Administration Budesonide 0.5 mg 06/12/18 20:00 06/21/18 07:38 Pulmicort Respules IH 0.5 mg [id number] CASEY Administration Diltiazem HCl 60 mg 06/10/18 10:00 06/11/18 13:15 Cardizem PO 60 mg TID CASEY Administration Folic Acid 1 mg 06/10/18 10:00 06/20/18 10:27 Folic Acid PO 1 mg DAILY CASEY Administration Guaifenesin/Dextromethorphan 10 ml 06/12/18 15:13 06/13/18 17:20 Robitussin Dm PO 10 ml Q4H PRN Administration Cough Heparin Sodium (Porcine) 5,000 units 06/17/18 14:00 06/21/18 06:10 Heparin SC 5,000 units Q8 CASEY Administration Protocol Lactic Acid 0 ea 06/11/18 10:00 06/20/18 10:29 Lac-Hydrin 12% Cream (140 G) TOP 1 tcp DAILY CASEY Administration Lactulose 20 gm 06/17/18 14:00 06/21/18 06:09 Enulose PO 20 gm Q8 CASEY Administration Levalbuterol HCl 0.63 mg 06/10/18 14:00 06/21/18 07:38 Xopenex IH 0.63 mg TIDRESP CASEY Administration Levothyroxine Sodium 25 mcg 06/12/18 06:00 06/21/18 06:11 Synthroid PO 25 mcg 0600 CASEY Administration Methylprednisolone 40 mg 06/19/18 10:00 06/20/18 10:27 Solu-Medrol IVP 40 mg DAILY CASEY Administration Metoprolol Tartrate 25 mg 06/10/18 18:00 06/20/18 17:40 Lopressor PO Not Given BID [facility] Mupirocin 0 gm 06/14/18 11:42 06/20/18 17:41 Bactroban Ointment TOP 1 applic BID CASEY Administration Rifaximin 550 mg 06/12/18 22:00 06/20/18 22:01 Xifaxan PO 550 mg Q12 CASEY Administration Protocol Thiamine HCl 100 mg 06/10/18 10:00 06/20/18 10:27 Vitamin B1 Tab PO 100 mg DAILY CASEY Administration - Patient Studies Lab Studies: Lab Studies 06/21/18 06/21/18 06/21/18 Range/Units 06:35 06:35 06:35 WBC (4.5-11.0) 10^3/uL RBC (3.5-6.1) 10^6/uL Hgb (14.0-18.0) g/dL Hct (42.0-52.0) % MCV (80.0-105.0) fl MCH (25.0-35.0) pg MCHC (31.0-37.0) g/dl RDW (11.5-14.5) % Plt Count (120.0-450.0) 10^3/uL MPV (7.0-11.0) fl Corrected WBC (Man) (4.5-11.0) K/mm3 Neutrophils % (Manual) (50.0-70.0) % Band Neutrophils % (0-2) % Lymphocytes % (Manual) (22.0-35.0) % Atypical Lymphs % (0.0-0.0) % Monocytes % (Manual) (1.0-6.0) % Nucleated RBC % % Platelet Evaluation (NORMAL) Poikilocytosis (manual Anisocytosis (manual) Target Cells Tear Drop Cells Marilyn Cells PT 30.1 H (9.4-12.5) SECONDS INR 2.66 APTT 43.1 H (26.9-38.3) Seconds Sodium 142 (132-148) mmol/L Potassium 4.7 (3.6-5.0) mmol/L Chloride 103 (98-107) mmol/L Carbon Dioxide 24 (21-33) mmol/L Anion Gap 20 (10-20) BUN 88 H (7-21) mg/dL Creatinine 4.7 H (0.8-1.5) mg/dl Est GFR ( Amer) 15 Est GFR (Non-Af Amer) 12 Random Glucose 117 H (70-110) mg/dL Calcium 8.1 L (8.4-10.5) mg/dL Phosphorus 7.4 H (2.5-4.5) mg/dL Magnesium 2.7 H (1.7-2.2) mg/dL Total Bilirubin 2.3 H (0.2-1.3) mg/dL AST 74 H (17-59) U/L ALT 47 (7-56) U/L Alkaline Phosphatase 136 H (38-126) U/L Ammonia 14 D (9-33) umol/L Total Protein 7.3 (5.8-8.3) g/dL Albumin 3.6 (3.0-4.8) g/dL Globulin 3.7 gm/dL Albumin/Globulin Ratio 1.0 L (1.1-1.8) Stool Occult Blood (NEGATIVE) 06/21/18 06/20/18 06/20/18 Range/Units 06:35 16:46 05:40 WBC 13.4 H (4.5-11.0) 10^3/uL RBC 4.81 (3.5-6.1) 10^6/uL Hgb 15.5 (14.0-18.0) g/dL Hct 45.7 (42.0-52.0) % MCV 95.0 (80.0-105.0) fl MCH 32.2 (25.0-35.0) pg MCHC 33.9 (31.0-37.0) g/dl RDW 17.2 H (11.5-14.5) % Plt Count 166 (120.0-450.0) 10^3/uL MPV 10.3 (7.0-11.0) fl Corrected WBC (Man) 12.3 H (4.5-11.0) K/mm3 Neutrophils % (Manual) 82 H (50.0-70.0) % Band Neutrophils % 2 (0-2) % Lymphocytes % (Manual) 4 L (22.0-35.0) % Atypical Lymphs % 1 H (0.0-0.0) % Monocytes % (Manual) 11 H (1.0-6.0) % Nucleated RBC % 6 % Platelet Evaluation Normal (NORMAL) Poikilocytosis (manual Slight Anisocytosis (manual) Slight Target Cells Slight Tear Drop Cells Slight Marilyn Cells 2+ PT (9.4-12.5) SECONDS INR APTT (26.9-38.3) Seconds Sodium (132-148) mmol/L Potassium (3.6-5.0) mmol/L Chloride (98-107) mmol/L Carbon Dioxide (21-33) mmol/L Anion Gap (10-20) BUN (7-21) mg/dL Creatinine (0.8-1.5) mg/dl Est GFR ( Amer) Est GFR (Non-Af Amer) Random Glucose (70-110) mg/dL Calcium (8.4-10.5) mg/dL Phosphorus (2.5-4.5) mg/dL Magnesium (1.7-2.2) mg/dL Total Bilirubin (0.2-1.3) mg/dL AST (17-59) U/L ALT (7-56) U/L Alkaline Phosphatase (38-126) U/L Ammonia (9-33) umol/L Total Protein (5.8-8.3) g/dL Albumin (3.0-4.8) g/dL Globulin gm/dL Albumin/Globulin Ratio (1.1-1.8) Stool Occult Blood Positive H (NEGATIVE) Laboratory Results - last 24 hr 06/20/18 06/20/18 06/21/18 05:40 16:46 06:35 WBC 13.4 H RBC 4.81 Hgb 15.5 Hct 45.7 MCV 95.0 MCH 32.2 MCHC 33.9 RDW 17.2 H Plt Count 166 MPV 10.3 Corrected WBC (Man) 12.3 H Neutrophils % (Manual) 82 H Band Neutrophils % 2 Lymphocytes % (Manual) 4 L Atypical Lymphs % 1 H Monocytes % (Manual) 11 H Nucleated RBC % 6 Platelet Evaluation Normal Poikilocytosis (manual Slight Anisocytosis (manual) Slight Target Cells Slight Tear Drop Cells Slight Marilyn Cells 2+ PT INR APTT Sodium Potassium Chloride Carbon Dioxide Anion Gap BUN Creatinine Est GFR ( Amer) Est GFR (Non-Af Amer) Random Glucose Calcium Phosphorus Magnesium Total Bilirubin AST ALT Alkaline Phosphatase Ammonia Total Protein Albumin Globulin Albumin/Globulin Ratio Stool Occult Blood Positive H 06/21/18 06/21/18 06/21/18 06:35 06:35 06:35 WBC RBC Hgb Hct MCV MCH MCHC RDW Plt Count MPV Corrected WBC (Man) Neutrophils % (Manual) Band Neutrophils % Lymphocytes % (Manual) Atypical Lymphs % Monocytes % (Manual) Nucleated RBC % Platelet Evaluation Poikilocytosis (manual Anisocytosis (manual) Target Cells Tear Drop Cells Marilyn Cells PT 30.1 H INR 2.66 APTT 43.1 H Sodium 142 Potassium 4.7 Chloride 103 Carbon Dioxide 24 Anion Gap 20 BUN 88 H Creatinine 4.7 H Est GFR ( Amer) 15 Est GFR (Non-Af Amer) 12 Random Glucose 117 H Calcium 8.1 L Phosphorus 7.4 H Magnesium 2.7 H Total Bilirubin 2.3 H AST 74 H ALT 47 Alkaline Phosphatase 136 H Ammonia 14 D Total Protein 7.3 Albumin 3.6 Globulin 3.7 Albumin/Globulin Ratio 1.0 L Stool Occult Blood Review of Systems - Review of Systems Systems not reviewed;Unavailable: Other (Confusion) Critical Care Progress Note - Extremities/Vascular Does the Patient have a Kumar Catheter?: Yes Does the Patient need a Kumar Catheter?: Yes Catheter Insertion Criteria: Need for accurate measurement of output in critically ill patient - Prophylaxis GI Prophylaxis GI: PPI - Prophylaxis DVT Prophylaxis DVT: Heparin SQ - Nutrition Nutrition: Nutrition Category Date Time Status Renal Diet [DIET] Diets 06/18/18 Lunch Ordered Assessment/Plan - Assessment and Plan (Free Text) Assessment: Patient is a 73 y/o M with PMHx hepatic encephalopathy, alcoholic cirrhosis, aortic stenosis, s/p splenectomy (ITP), PAD (with ulcerations of the lower extremities), chronic lymphedema, Afib who initially presented to [facility] for x3 weeks AMS/lethargy with increased lower extremity swelling, anasarca, darkening of urine, and shortness of breath. Patient was admitted for severe sepsis 2/2 CAP and RLE cellulitis and also Afib with RVR - now rate controlled. During hospital course on 06/11, SUSTAINABILITY PROJECT COORDINATOR was called as patient was having worsening confusion, urinary incontinence, and hypotension; he was subsequently transferred to the ICU for management. Patient admitted to the ICU for Type I Hepatorenal Syndrome, now ESRD on HD, complicated by hypercapnic respiratory failure. Patient is not a candidate for liver transplant. Plan: Neuro: - AMS 2/2 Hepatic encephalopathy vs Uremia - ammonia level 100 --> 71 --> 14 --> 77 (06/16) --> 14 (06/21) - c/w lactulose 20g PO q8 and Rifaximin 550mg PO q12; goal 2-3 bowel movements a day - c/w thiamine and folic acid (Cirrhosis 2/2 EtOH abuse) Cardio: - Afib with RVR - rate controlled; not a candidate for anticoagulation (CHADVASC score 3; HASBLED score 4); cardizem and metoprolol held - Severe pulmonary hypertension - Echo: EF 66%. Suggests CHF-pEF: severely dilated RV, mod-severe mitral valve stenosis and tricuspid regurgitation. RVSP 79, severe pulmonary hypertension. - Cardio on consult. Recs appreciated. Pulm: - Shortness of Breath 2/2 Severe Pulmonary Hypertension complicated by Hypercapnic Respiratory Failure - ABG (06/19): 7.29/50/86/24 - c/w solumedrol 40mg IVP daily; continue to taper - c/w intermittent BiPAP (settings: IPAP/EPAP 16/5, RR 16, FiO2 60%) - c/w brovana, pulmicort, xopenex, and robitussin prn - Maintain SaO2 > 92% - c/w aspiration precautions and head of bed elevation GI: - Type I Hepatorenal Syndrome 2/2 EtOH Cirrhosis - MELD score 32 points; 52% mortality within next 3 months. Patient is not a liver transplant candidate. - Palliative Care is following - patient is DNR/DNI - Mild transaminitis - GI on consult. Recs appreciated. - c/w Renal/Dysphagia diet Renal: - Acute renal failure 2/2 Type I Hepatorenal Syndrome - now ESRD on HD; BUN/Cr is 88/4.7 (downtrending) - HD today via R-permacath - R-permacath placed for HD (06/17) - Hyperkalemia - resolved - continue to monitor labs - Nephrology on consult - Ins/outs: net -100 mL past 24 hours - Receiving HD for oligouria - UA and UCx negative - Kumar in place and draining ID: - Severe Sepsis 2/2 CAP/Aspiration PNA (RLL) vs RLE cellulitis - resolved - completed azithromycin course for CAP - currently afebrile with no leukocytosis - Blood Cx negative x2 - MRSA negative - L-leg wound cx: +klebsiella, +beta-hemolytic group B strep, +corynebacterium - ID on consult. Recs appreciated. - Podiatry on consult. Recs appreciated. - Wound care on board Heme: - Hgb stable at this time - FOBT positive - No indication for transfusion at this time unless Hgb < 7.0 Endo: - Hypothyroidism - c/w levothyroxine 25 mcg PO daily DVT ppx: hep sc GI ppx: ptx Diet: Renal/Dysphagia Code Status: DNR/DNI Palliative Care on consult. Dispo: Continue to monitor patient in the ICU at this time. Overall prognosis is poor. Will discuss with social work lecturer and case monitor in regards to sending patient to LTACH facility today. Case was discussed and reviewed with Attending Physician, Dr. Blackwell. <Axel Blackwell - Last Filed: 06/21/18 12:38> CCU Objective - Vital Signs / Intake & Output Intake and Output (Last 8hrs): Intake & Output 06/20/18 06/21/18 06/21/18 22:59 06:59 14:59 Intake Total 100 Output Total 200 Balance -100 Weight 238 lb 9.6 oz Intake: IV 0 Left Forearm 0 Oral 100 Output: Urine 200 Urethral (Kumar) 200 Other: # Bowel Movements 1 - Medications Active Medications: Active Medications Generic Name Dose Route Start Last Admin Trade Name Freq PRN Reason Stop Dose Admin Arformoterol Tartrate 15 mcg 06/12/18 20:00 06/21/18 07:38 Brovana IH 15 mcg [id number] CASEY Administration Betamethasone/Clotrimazole 0 gm 06/11/18 10:00 06/20/18 11:24 Lotrisone TOP 1 tcp DAILY CASEY Administration Budesonide 0.5 mg 06/12/18 20:00 06/21/18 07:38 Pulmicort Respules IH 0.5 mg [id number] CASEY Administration Diltiazem HCl 60 mg 06/10/18 10:00 06/11/18 13:15 Cardizem PO 60 mg TID CASEY Administration Folic Acid 1 mg 06/10/18 10:00 06/20/18 10:27 Folic Acid PO 1 mg DAILY CASEY Administration Guaifenesin/Dextromethorphan 10 ml 06/12/18 15:13 04/07/19 17:20 Robitussin Dm PO 10 ml Q4H PRN Administration Cough Heparin Sodium (Porcine) 5,000 units 06/17/18 14:00 06/21/18 06:10 Heparin SC 5,000 units Q8 CASEY Administration Protocol Lactic Acid 0 ea 06/11/18 10:00 06/20/18 10:29 Lac-Hydrin 12% Cream (140 G) TOP 1 tcp DAILY CASEY Administration Lactulose 20 gm 06/17/18 14:00 06/21/18 06:09 Enulose PO 20 gm Q8 CASEY Administration Levalbuterol HCl 0.63 mg 06/10/18 14:00 06/21/18 07:38 Xopenex IH 0.63 mg TIDRESP CASEY Administration Levothyroxine Sodium 25 mcg 06/12/18 06:00 06/21/18 06:11 Synthroid PO 25 mcg 0600 CASEY Administration Methylprednisolone 40 mg 06/19/18 10:00 06/20/18 10:27 Solu-Medrol IVP 40 mg DAILY CASEY Administration Metoprolol Tartrate 25 mg 06/10/18 18:00 06/20/18 17:40 Lopressor PO Not Given BID CASEY Mupirocin 0 gm 06/14/18 11:42 06/20/18 17:41 Bactroban Ointment TOP 1 applic BID CASEY Administration Rifaximin 550 mg 06/12/18 22:00 06/20/18 22:01 Xifaxan PO 550 mg Q12 CASEY Administration Protocol Thiamine HCl 100 mg 06/10/18 10:00 06/20/18 10:27 Vitamin B1 Tab PO 100 mg DAILY CASEY Administration - Patient Studies Lab Studies: Lab Studies 06/21/18 06/21/18 06/21/18 Range/Units 10:30 06:35 06:35 WBC (4.5-11.0) 10^3/uL RBC (3.5-6.1) 10^6/uL Hgb (14.0-18.0) g/dL Hct (42.0-52.0) % MCV (80.0-105.0) fl MCH (25.0-35.0) pg MCHC (31.0-37.0) g/dl RDW (11.5-14.5) % Plt Count (120.0-450.0) 10^3/uL MPV (7.0-11.0) fl Corrected WBC (Man) (4.5-11.0) K/mm3 Neutrophils % (Manual) (50.0-70.0) % Band Neutrophils % (0-2) % Lymphocytes % (Manual) (22.0-35.0) % Atypical Lymphs % (0.0-0.0) % Monocytes % (Manual) (1.0-6.0) % Nucleated RBC % % Platelet Evaluation (NORMAL) Poikilocytosis (manual Anisocytosis (manual) Target Cells Tear Drop Cells Earlimart Cells PT 30.1 H (9.4-12.5) SECONDS INR 2.66 APTT 43.1 H (26.9-38.3) Seconds Sodium (132-148) mmol/L Potassium (3.6-5.0) mmol/L Chloride (98-107) mmol/L Carbon Dioxide (21-33) mmol/L Anion Gap (10-20) BUN (7-21) mg/dL Creatinine (0.8-1.5) mg/dl Est GFR ( Amer) Est GFR (Non-Af Amer) Random Glucose (70-110) mg/dL Calcium (8.4-10.5) mg/dL Phosphorus (2.5-4.5) mg/dL Magnesium (1.7-2.2) mg/dL Total Bilirubin (0.2-1.3) mg/dL AST (17-59) U/L ALT (7-56) U/L Alkaline Phosphatase (38-126) U/L Ammonia 42 H D 14 D (9-33) umol/L Total Protein (5.8-8.3) g/dL Albumin (3.0-4.8) g/dL Globulin gm/dL Albumin/Globulin Ratio (1.1-1.8) Stool Occult Blood (NEGATIVE) 06/21/18 06/21/18 06/20/18 Range/Units 06:35 06:35 16:46 WBC 13.4 H (4.5-11.0) 10^3/uL RBC 4.81 (3.5-6.1) 10^6/uL Hgb 15.5 (14.0-18.0) g/dL Hct 45.7 (42.0-52.0) % MCV 95.0 (80.0-105.0) fl MCH 32.2 (25.0-35.0) pg MCHC 33.9 (31.0-37.0) g/dl RDW 17.2 H (11.5-14.5) % Plt Count 166 (120.0-450.0) 10^3/uL MPV 10.3 (7.0-11.0) fl Corrected WBC (Man) 12.8 H (4.5-11.0) K/mm3 Neutrophils % (Manual) 96 H (50.0-70.0) % Band Neutrophils % (0-2) % Lymphocytes % (Manual) 2 L (22.0-35.0) % Atypical Lymphs % (0.0-0.0) % Monocytes % (Manual) 2 (1.0-6.0) % Nucleated RBC % 5 % Platelet Evaluation Normal (NORMAL) Poikilocytosis (manual Anisocytosis (manual) Target Cells Tear Drop Cells Earlimart Cells PT (9.4-12.5) SECONDS INR APTT (26.9-38.3) Seconds Sodium 142 (132-148) mmol/L Potassium 4.7 (3.6-5.0) mmol/L Chloride 103 (98-107) mmol/L Carbon Dioxide 24 (21-33) mmol/L Anion Gap 20 (10-20) BUN 88 H (7-21) mg/dL Creatinine 4.7 H (0.8-1.5) mg/dl Est GFR ( Amer) 15 Est GFR (Non-Af Amer) 12 Random Glucose 117 H (70-110) mg/dL Calcium 8.1 L (8.4-10.5) mg/dL Phosphorus 7.4 H (2.5-4.5) mg/dL Magnesium 2.7 H (1.7-2.2) mg/dL Total Bilirubin 2.3 H (0.2-1.3) mg/dL AST 74 H (17-59) U/L ALT 47 (7-56) U/L Alkaline Phosphatase 136 H (38-126) U/L Ammonia (9-33) umol/L Total Protein 7.3 (5.8-8.3) g/dL Albumin 3.6 (3.0-4.8) g/dL Globulin 3.7 gm/dL Albumin/Globulin Ratio 1.0 L (1.1-1.8) Stool Occult Blood Positive H (NEGATIVE) 06/20/18 Range/Units 05:40 WBC (4.5-11.0) 10^3/uL RBC (3.5-6.1) 10^6/uL Hgb (14.0-18.0) g/dL Hct (42.0-52.0) % MCV (80.0-105.0) fl MCH (25.0-35.0) pg MCHC (31.0-37.0) g/dl RDW (11.5-14.5) % Plt Count (120.0-450.0) 10^3/uL MPV (7.0-11.0) fl Corrected WBC (Man) 12.3 H (4.5-11.0) K/mm3 Neutrophils % (Manual) 82 H (50.0-70.0) % Band Neutrophils % 2 (0-2) % Lymphocytes % (Manual) 4 L (22.0-35.0) % Atypical Lymphs % 1 H (0.0-0.0) % Monocytes % (Manual) 11 H (1.0-6.0) % Nucleated RBC % 6 % Platelet Evaluation Normal (NORMAL) Poikilocytosis (manual Slight Anisocytosis (manual) Slight Target Cells Slight Tear Drop Cells Slight Earlimart Cells 2+ PT (9.4-12.5) SECONDS INR APTT (26.9-38.3) Seconds Sodium (132-148) mmol/L Potassium (3.6-5.0) mmol/L Chloride (98-107) mmol/L Carbon Dioxide (21-33) mmol/L Anion Gap (10-20) BUN (7-21) mg/dL Creatinine (0.8-1.5) mg/dl Est GFR ( Amer) Est GFR (Non-Af Amer) Random Glucose (70-110) mg/dL Calcium (8.4-10.5) mg/dL Phosphorus (2.5-4.5) mg/dL Magnesium (1.7-2.2) mg/dL Total Bilirubin (0.2-1.3) mg/dL AST (17-59) U/L ALT (7-56) U/L Alkaline Phosphatase (38-126) U/L Ammonia (9-33) umol/L Total Protein (5.8-8.3) g/dL Albumin (3.0-4.8) g/dL Globulin gm/dL Albumin/Globulin Ratio (1.1-1.8) Stool Occult Blood (NEGATIVE) Laboratory Results - last 24 hr 06/20/18 06/20/18 06/21/18 05:40 16:46 06:35 WBC 13.4 H RBC 4.81 Hgb 15.5 Hct 45.7 MCV 95.0 MCH 32.2 MCHC 33.9 RDW 17.2 H Plt Count 166 MPV 10.3 Corrected WBC (Man) 12.3 H 12.8 H Neutrophils % (Manual) 82 H 96 H Band Neutrophils % 2 Lymphocytes % (Manual) 4 L 2 L Atypical Lymphs % 1 H Monocytes % (Manual) 11 H 2 Nucleated RBC % 6 5 Platelet Evaluation Normal Normal Poikilocytosis (manual Slight Anisocytosis (manual) Slight Target Cells Slight Tear Drop Cells Slight Earlimart Cells 2+ PT INR APTT Sodium Potassium Chloride Carbon Dioxide Anion Gap BUN Creatinine Est GFR ( Amer) Est GFR (Non-Af Amer) Random Glucose Calcium Phosphorus Magnesium Total Bilirubin AST ALT Alkaline Phosphatase Ammonia Total Protein Albumin Globulin Albumin/Globulin Ratio Stool Occult Blood Positive H 06/21/18 06/21/18 06/21/18 06:35 06:35 06:35 WBC RBC Hgb Hct MCV MCH MCHC RDW Plt Count MPV Corrected WBC (Man) Neutrophils % (Manual) Band Neutrophils % Lymphocytes % (Manual) Atypical Lymphs % Monocytes % (Manual) Nucleated RBC % Platelet Evaluation Poikilocytosis (manual Anisocytosis (manual) Target Cells Tear Drop Cells Earlimart Cells PT 30.1 H INR 2.66 APTT 43.1 H Sodium 142 Potassium 4.7 Chloride 103 Carbon Dioxide 24 Anion Gap 20 BUN 88 H Creatinine 4.7 H Est GFR ( Amer) 15 Est GFR (Non-Af Amer) 12 Random Glucose 117 H Calcium 8.1 L Phosphorus 7.4 H Magnesium 2.7 H Total Bilirubin 2.3 H AST 74 H ALT 47 Alkaline Phosphatase 136 H Ammonia 14 D Total Protein 7.3 Albumin 3.6 Globulin 3.7 Albumin/Globulin Ratio 1.0 L Stool Occult Blood 06/21/18 10:30 WBC RBC Hgb Hct MCV MCH MCHC RDW Plt Count MPV Corrected WBC (Man) Neutrophils % (Manual) Band Neutrophils % Lymphocytes % (Manual) Atypical Lymphs % Monocytes % (Manual) Nucleated RBC % Platelet Evaluation Poikilocytosis (manual Anisocytosis (manual) Target Cells Tear Drop Cells Earlimart Cells PT INR APTT Sodium Potassium Chloride Carbon Dioxide Anion Gap BUN Creatinine Est GFR ( Amer) Est GFR (Non-Af Amer) Random Glucose Calcium Phosphorus Magnesium Total Bilirubin AST ALT Alkaline Phosphatase Ammonia 42 H D Total Protein Albumin Globulin Albumin/Globulin Ratio Stool Occult Blood Critical Care Progress Note - Nutrition Nutrition: Nutrition Category Date Time Status Renal Diet [DIET] Diets 06/18/18 Lunch Ordered Assessment/Plan - Assessment and Plan (Free Text) Plan: I saw and examined the patient on rounds with resident, agree with note with following additions/exceptions: Patient is 73yo male with HRS, requiring HD, and Hepatic encephalopathy. Currently awake, not interactive Pt is DNR/DNI Awaiting Ltach HRS Hepatic Encephalopathy on HD End stage Liver disease, not transplant candidate Recommend: - cont with BIPAP as needed, duonebs PRN, IV Solumderol taper, pt is DNR/DNI - Abx as per ID - BP control - Rifaximin, Lactulose, titrate to 2-3 BMs per day - HD as per renal - GI ppx - DVT ppx - Pt is DNR/DNI - Awaiting LTACH, transfer to regional med floor - Overall prognosis is poor
[2018-06-21] MEDS: MethylPREDNISolone 40 mg Vial IVP SCH (11:00)
--- NOTE | 2018-06-21 12:22 | PN ---
DATE: 06/21/2018 SUBJECTIVE: A 73-year-old white male seen in the intensive care unit, bed 4. The patient has a recent history of hepatic encephalopathy; sepsis from lower extremity stasis dermatitis and ulcerations; hepatorenal syndrome, on hemodialysis, new onset of atrial fibrillation with controlled ventricular response. The patient is somewhat hypotensive today at 87/51. He is on pressors. He should be having dialysis, but may need to wait until his blood pressure is more stable. The patient is awake, but speaking to the room, no one is in the room, but he is having conservation. He is a little bit confused today. We will continue to give him lactulose. Recheck his ammonia level. Increase his volume, so we can do some dialysis. The patient to continue to look for LTAC when the patient is appropriate. PHYSICAL EXAMINATION: ABDOMEN: Otherwise, his abdomen is obese, but benign. CHEST: Clear. HEART: Regularly regular with controlled ventricular response. EXTREMITIES: With cyanosis, clubbing, or edema. Chronic stasis dermatitis bilaterally. Chadd Savage MD
--- NOTE | 2018-06-21 16:45 | CP.PCM.PN ---
<Vickie Aviles - Last Filed: 06/21/18 18:00> Subjective - Date & Time of Evaluation Date of Evaluation: 06/21/18 Time of Evaluation: 16:45 - Subjective Subjective: Vickie Aviles, PGY2, GI Progress Note for Dr Issa: Patient seen and examined at bedside. No acute events overnight. Patient had 1-2 BMs overnight. Patient awake, saying non-comprehensible words. Tolerating PO intake well. No vomiting, fevers, abdominal pain. Patient to have dialysis session today. ROS limited due to patient's AMS. Objective - Vital Signs/Intake and Output Vital Signs (last 24 hours): Temp Pulse Resp BP Pulse Ox 97.4 F L 95 H 15 95/56 L 92 L 06/21/18 08:00 06/21/18 13:44 06/21/18 13:44 06/21/18 13:44 06/21/18 13:44 Intake and Output: 06/21/18 06/21/18 06:59 18:59 Intake Total 100 Output Total 200 Balance -100 - Medications Medications: Current Medications Arformoterol Tartrate (Brovana) 15 mcg [facility] [id number] [facility] Last Admin: 06/21/18 07:38 Dose: 15 mcg Betamethasone/Clotrimazole (Lotrisone) 0 gm TOP DAILY [facility] Last Admin: 06/21/18 10:00 Dose: 1 tcp Budesonide (Pulmicort Respules) 0.5 mg IH [id number] [facility] Last Admin: 06/21/18 07:38 Dose: 0.5 mg Diltiazem HCl (Cardizem) 60 mg PO TID [facility] Last Admin: 06/11/18 13:15 Dose: 60 mg Folic Acid (Folic Acid) 1 mg PO DAILY [facility] Last Admin: 06/21/18 11:00 Dose: 1 mg Guaifenesin/Dextromethorphan (Robitussin Dm) 10 ml PO Q4H PRN PRN Reason: Cough Last Admin: 06/13/18 17:20 Dose: 10 ml Heparin Sodium (Porcine) (Heparin) 5,000 units SC Q8 [facility]; Protocol Last Admin: 06/21/18 13:56 Dose: 5,000 units Lactic Acid (Lac-Hydrin 12% Cream (140 G)) 0 ea TOP DAILY [facility] Last Admin: 06/21/18 10:00 Dose: 1 tcp Lactulose (Enulose) 20 gm PO Q8 [facility] Last Admin: 06/21/18 13:56 Dose: 20 gm Levalbuterol HCl (Xopenex) 0.63 mg IH TIDRESP [facility] Last Admin: 06/21/18 13:01 Dose: 0.63 mg Levothyroxine Sodium (Synthroid) 25 mcg PO 0600 [facility] Last Admin: 06/21/18 06:11 Dose: 25 mcg Methylprednisolone (Solu-Medrol) 40 mg IVP DAILY [facility] Last Admin: 06/21/18 11:00 Dose: 40 mg Metoprolol Tartrate (Lopressor) 25 mg PO BID [facility] Last Admin: 06/21/18 12:38 Dose: 25 mg Mupirocin (Bactroban Ointment) 0 gm TOP BID [facility] Last Admin: 06/21/18 10:00 Dose: 1 applic Rifaximin (Xifaxan) 550 mg PO Q12 [facility]; Protocol Last Admin: 06/21/18 11:00 Dose: 550 mg Thiamine HCl (Vitamin B1 Tab) 100 mg PO DAILY [facility] Last Admin: 06/21/18 11:00 Dose: 100 mg - Labs Labs: 06/21/18 06:35 06/21/18 06:35 PT 30.1 SECONDS (9.4-12.5) H 06/21/18 06:35 INR 2.66 06/21/18 06:35 APTT 43.1 Seconds (26.9-38.3) H 06/21/18 06:35 - Additional Findings Additional findings: - Constitutional Appears: Chronically Ill - Head Exam Head Exam: ATRAUMATIC, NORMOCEPHALIC R IJ dialysis cath. - Eye Exam Eye Exam: EOMI, PERRL. absent: Conjunctival injection, Nystagmus, Scleral icterus Pupil Exam: NORMAL ACCOMODATION, PERRL. absent: Irregular, Miosis, Mydriatic - ENT Exam ENT Exam: Mucous Membranes Moist - Neck Exam Neck exam: Positive for: Full Rom - Respiratory Exam Respiratory Exam: Decreased Breath Sounds - Cardiovascular Exam Cardiovascular Exam: RRR, +S1, +S2. absent: Systolic Murmur - GI/Abdominal Exam GI & Abdominal Exam: Soft, Normal Bowel Sounds. absent: Firm, Guarding, Rebound, Tenderness Additional comments: + asterixis no fluid wave - Extremities Exam Extremities exam: Normal Additional comments: improving erythema b/l LE - Neurological Exam Additional comments: awake - Psychiatric Exam Psychiatric exam: Normal Mood - Skin Skin Exam: Normal Color, Warm Assessment and Plan - Assessment and Plan (Free Text) Assessment: # Decompensated Alcoholic Cirrhosis, ruled out Selvin's disease, AI hepatitis, viral hepatitis # Elevated LFTs 2/2 hepatic congestion 2/2 right sided heart failure, rule out tylenol toxicity # AMS 2/2 likely hepatic encephalopathy # Type 1 hepatorenal syndrome s/p 48hrs albumin and levophed, dialysis sessions # Rapid afib # Severe pulm HTN # Right ventricular heart failure # Bilateral pleural effusions, R>L # Anasarca # Alcohol abuse # ITP s/p splenectomy # Hypothyroidism # Peripheral arterial disease - Abd pelvis CT: potential duodenitis. liver size unchanged, cryptogenic type cirrhotic pattern imposs to exclude, no overt cirrhotic pattern. trace perihepatic ascites. b/l inguinal LAD. questionable anasarca? Mild b/l pleural effusions, R>L with limited pericardial thickening. - Abd US: mild hepatomegaly, diffuse increased echogenicity of the liver, hepatic steatosis. trace perihepatic ascites. no cholelithiasis or biliary dilatation. Diffuse gallbladder wall thickening. - Echo: EF 66%. Systolic fxn of RV is severely reduced. Mod valvular aortic stenosis, DESMOND 1.13. Mod to severe MV stenosis. Mod to severe TR. Severe pulm HTN (RVSP 79 mmHg). IVC dilated. - Head CT neg - LE US: neg for DVT - Continue with his Lactulose to 20 gm q8h. Will titrate to 2-3 BMs per day. Continue with rifaximin 550 mg PO BID. Ammonia level 42 today. - Acute hepatitis panel negative, HIV NR. Hep A total negative. - Ferritin 225, percent sat 28%. Tylenol, salicylate negative, ceruloplasmin 53 elevated. immunofixation studies negative. - Appreciate nephrology recs. - s/p albumin and levophed for 48 hours. - patient is a poor candidate for liver transplant. - MELD 34 today - Will monitor mentation, clinical course - Recommend EGD to assess for varices - Patient DNR/DNI, palliative on board. Poor prognosis. - Further recs per Dr Issa. Case seen and discussed with Dr Maegan. <Maegan,Kovil V - Last Filed: 06/21/18 22:25> Objective - Vital Signs/Intake and Output Vital Signs (last 24 hours): Temp Pulse Resp BP Pulse Ox 97.4 F L 93 H 14 98/53 L 100 06/21/18 08:00 06/21/18 20:00 06/21/18 20:00 06/21/18 17:13 06/21/18 20:00 Intake and Output: 06/21/18 06/22/18 18:59 06:59 Intake Total 2400 Output Total 175 Balance 2225 - Medications Medications: Current Medications Arformoterol Tartrate (Brovana) 15 mcg [facility] [id number] [facility] Last Admin: 06/21/18 20:00 Dose: 15 mcg Betamethasone/Clotrimazole (Lotrisone) 0 gm TOP DAILY [facility] Last Admin: 06/21/18 10:00 Dose: 1 tcp Budesonide (Pulmicort Respules) 0.5 mg IH [id number] [facility] Last Admin: 06/21/18 20:00 Dose: 0.5 mg Diltiazem HCl (Cardizem) 60 mg PO TID [facility] Last Admin: 06/11/18 13:15 Dose: 60 mg Folic Acid (Folic Acid) 1 mg PO DAILY [facility] Last Admin: 06/21/18 11:00 Dose: 1 mg Guaifenesin/Dextromethorphan (Robitussin Dm) 10 ml PO Q4H PRN PRN Reason: Cough Last Admin: 06/13/18 17:20 Dose: 10 ml Heparin Sodium (Porcine) (Heparin) 5,000 units SC Q8 [facility]; Protocol Last Admin: 06/21/18 13:56 Dose: 5,000 units Lactic Acid (Lac-Hydrin 12% Cream (140 G)) 0 ea TOP DAILY [facility] Last Admin: 06/21/18 10:00 Dose: 1 tcp Lactulose (Enulose) 20 gm PO Q8 [facility] Last Admin: 06/21/18 13:56 Dose: 20 gm Levalbuterol HCl (Xopenex) 0.63 mg IH TIDRESP [facility] Last Admin: 06/21/18 20:00 Dose: 0.63 mg Levothyroxine Sodium (Synthroid) 25 mcg PO 0600 [facility] Last Admin: 04/15/19 06:11 Dose: 25 mcg Methylprednisolone (Solu-Medrol) 40 mg IVP DAILY [facility] Last Admin: 06/21/18 11:00 Dose: 40 mg Metoprolol Tartrate (Lopressor) 25 mg PO BID [facility] Last Admin: 06/21/18 17:13 Dose: Not Given Mupirocin (Bactroban Ointment) 0 gm TOP BID [facility] Last Admin: 06/21/18 17:11 Dose: 1 applic Rifaximin (Xifaxan) 550 mg PO Q12 [facility]; Protocol Last Admin: 06/21/18 11:00 Dose: 550 mg Thiamine HCl (Vitamin B1 Tab) 100 mg PO DAILY [facility] Last Admin: 06/21/18 11:00 Dose: 100 mg - Labs Labs: 06/21/18 06:35 06/21/18 06:35 PT 30.1 SECONDS (9.4-12.5) H 06/21/18 06:35 INR 2.66 06/21/18 06:35 APTT 43.1 Seconds (26.9-38.3) H 06/21/18 06:35 Attending/Attestation - Attestation I have personally seen and examined this patient.: Yes I have fully participated in the care of the patient.: Yes I have reviewed all pertinent clinical information, including history, physical exam and plan: Yes Notes (Text): This is an addendum to the GI progress report dictated by the resident. The patient was seen and evaluated along with the resident team earlier today. Patient is on BiPAP lethargic multisystem organ failure decompensated cirrhosis, hepatorenal syndrome, with severe pulmonary hypertension with a heart failure mainly right-sided patient is presently DNR/DNI prognosis poor continue the present management supportive care 06/21/18 22:24
--- NOTE | 2018-06-21 20:01 | PN ---
DATE: 06/21/2018 REASON FOR CONSULTATION AND FOLLOWUP: Atrial fibrillation, shortness of breath, congestive heart failure, altered mental status, cirrhosis, deconditioning, congestive heart failure, elevated ammonia level, liver failure on Josiah restraint non-invasive ventilator. SUBJECTIVE: The patient denies any chest pain, shortness of breath, any palpitation. The patient in not in acute distress, but on Josiah restraint non-invasive ventilator. PHYSICAL EXAMINATION: VITAL SIGNS: Temperature afebrile, heart rate 95, and blood pressure 95/56. HEENT: PERRLA. Extraocular muscles intact. NECK: Supple. No carotid bruit. No thyromegaly. CHEST: Clear to auscultation. HEART: S1 and S2 regular. ABDOMEN: Soft. EXTREMITIES: Clubbing and cyanosis, negative. LABORATORY DATA: Blood workup as follows; WBC 13.5, hemoglobin 15.5, hematocrit 45.7, and platelet count of 166. Chemistry shows sodium 140, potassium 4.7, chloride 103, carbon dioxide 24, anion gap 20, BUN 88, and creatinine 4.7. IMPRESSION AND PLAN: A 73-year-old morbidly obese male with past medical history significant for heavy alcohol abuse, admitted with atrial fibrillation, altered mental status, moved to Intensive Care Unit because of further deterioration in mentation. Initially, the patient was in the floor with shortness of breath and atrial fibrillation. Echo dated 06/10/2018; showed ejection fraction 65% severely reduced right ventricle function, [id number] valvular aortic stenosis, valve area of 1.13 cm2, [id number] mitral stenosis, valve area 1.3 cm2, trace mitral regurgitation, wvuvuwvb-[id number] tricuspid regurgitation, severe pulmonary hypertension, multiorgan dysfunction, coagulopathy, auto-anticoagulated INR was 2.66; acute kidney injury status post dialysis on 06/19/2018; acute liver failure, elevated ammonia level, though the patient is in atrial fibrillation, was not a candidate for long-term anticoagulation because of CHADS score is elevated, but HAS-BLED score is more and more risk for bleeding, treat medically. Overall, the patient's condition is critical. Long-term prognosis is guarded. Continue metoprolol as blood pressure and heart rate is tolerated. Continue supportive care. Continue lactose. Overall the patient's condition is critical. Long-term prognosis is guarded. Code Status; DNR/DNI. We will follow with you. Thank you, Dr. Savage, for providing us the opportunity in taking care of the patient, Dm Carrasco. Aruna Montilla MD
--- NOTE | 2018-06-21 20:05 | CP.PCM.PN ---
Subjective - Date & Time of Evaluation Date of Evaluation: 06/21/18 Time of Evaluation: 06:40 - Subjective Subjective: Not in distress, no fevers. Objective - Vital Signs/Intake and Output Vital Signs (last 24 hours): Temp Pulse Resp BP Pulse Ox 97.4 F L 96 H 10 L 125/75 98 06/20/18 20:00 06/20/18 20:00 06/20/18 20:00 06/20/18 20:00 06/20/18 20:00 - Medications Medications: Current Medications Arformoterol Tartrate (Brovana) 15 mcg IH [id number] [facility] Last Admin: 06/20/18 20:30 Dose: 15 mcg Betamethasone/Clotrimazole (Lotrisone) 0 gm TOP DAILY [facility] Last Admin: 06/20/18 11:24 Dose: 1 tcp Budesonide (Pulmicort Respules) 0.5 mg IH [id number] [facility] Last Admin: 06/20/18 20:30 Dose: 0.5 mg Diltiazem HCl (Cardizem) 60 mg PO TID [facility] Last Admin: 06/11/18 13:15 Dose: 60 mg Folic Acid (Folic Acid) 1 mg PO DAILY [facility] Last Admin: 06/20/18 10:27 Dose: 1 mg Guaifenesin/Dextromethorphan (Robitussin Dm) 10 ml PO Q4H PRN PRN Reason: Cough Last Admin: 06/13/18 17:20 Dose: 10 ml Heparin Sodium (Porcine) (Heparin) 5,000 units SC Q8 [facility]; Protocol Last Admin: 06/20/18 13:36 Dose: 5,000 units Lactic Acid (Lac-Hydrin 12% Cream (140 G)) 0 ea TOP DAILY [facility] Last Admin: 06/20/18 10:29 Dose: 1 tcp Lactulose (Enulose) 20 gm PO Q8 [facility] Last Admin: 06/20/18 13:35 Dose: 20 gm Levalbuterol HCl (Xopenex) 0.63 mg IH TIDRESP [facility] Last Admin: 06/20/18 20:25 Dose: 0.63 mg Levothyroxine Sodium (Synthroid) 25 mcg PO 0600 [facility] Last Admin: 06/20/18 06:15 Dose: 25 mcg Methylprednisolone (Solu-Medrol) 40 mg IVP DAILY [facility] Last Admin: 06/20/18 10:27 Dose: 40 mg Metoprolol Tartrate (Lopressor) 25 mg PO BID [facility] Last Admin: 06/20/18 17:40 Dose: Not Given Mupirocin (Bactroban Ointment) 0 gm TOP BID [facility] Last Admin: 06/20/18 17:41 Dose: 1 applic Rifaximin (Xifaxan) 550 mg PO Q12 [facility]; Protocol Last Admin: 06/20/18 10:27 Dose: 550 mg Thiamine HCl (Vitamin B1 Tab) 100 mg PO DAILY [facility] Last Admin: 06/20/18 10:27 Dose: 100 mg - Labs Labs: 06/20/18 05:40 06/20/18 05:40 PT 29.3 SECONDS (9.4-12.5) H 06/18/18 09:55 INR 2.59 06/18/18 09:55 APTT 45.6 Seconds (26.9-38.3) H 06/09/18 14:05 - Constitutional Appears: Chronically Ill - Head Exam Head Exam: NORMAL INSPECTION - Respiratory Exam Respiratory Exam: Decreased Breath Sounds - Cardiovascular Exam Cardiovascular Exam: +S1, +S2 - GI/Abdominal Exam GI & Abdominal Exam: Soft. 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
[2018-06-22] MEDS: Levothyroxine 25 MCG TAB PO SCH (05:38)
[2018-06-22] MEDS: Arformoterol 15 mcg/2 ml Inh Sol IH SCH ×2 (07:37→19:18)
[2018-06-22] MEDS: Levalbuterol 0.63 MG/3 ML Inhal Soln UD IH SCH ×3 (07:37→19:18)
[2018-06-22] MEDS: Budesonide 0.5 mg/2 ml Inhal Susp UD IH SCH ×2 (07:38→19:18)
--- NOTE | 2018-06-22 10:17 | CP.PCM.PN ---
Subjective - Date & Time of Evaluation Date of Evaluation: 06/22/18 Time of Evaluation: 10:13 - Subjective Subjective: Gastroenterology Fellow/PGY6 Progress Note Patient on BiPAP. Answering questioning appropriately. One bowel movement overnight. Nursing denies acute events overnight. A 12-point review of systems negative except for as above. Objective - Vital Signs/Intake and Output Vital Signs (last 24 hours): Temp Pulse Resp BP Pulse Ox 98.9 F 106 H 15 126/68 100 06/22/18 04:00 06/22/18 07:25 06/22/18 06:00 06/22/18 04:00 06/22/18 06:00 Intake and Output: 06/22/18 06/22/18 06:59 18:59 Intake Total 120 Output Total 150 Balance -30 - Medications Medications: Current Medications Arformoterol Tartrate (Brovana) 15 mcg IH [id number] [facility] Last Admin: 06/22/18 07:37 Dose: 15 mcg Betamethasone/Clotrimazole (Lotrisone) 0 gm TOP DAILY [facility] Last Admin: 06/21/18 10:00 Dose: 1 tcp Budesonide (Pulmicort Respules) 0.5 mg IH [id number] [facility] Last Admin: 06/22/18 07:38 Dose: 0.5 mg Diltiazem HCl (Cardizem) 60 mg PO TID [facility] Last Admin: 06/11/18 13:15 Dose: 60 mg Folic Acid (Folic Acid) 1 mg PO DAILY [facility] Last Admin: 06/21/18 11:00 Dose: 1 mg Guaifenesin/Dextromethorphan (Robitussin Dm) 10 ml PO Q4H PRN PRN Reason: Cough Last Admin: 06/13/18 17:20 Dose: 10 ml Heparin Sodium (Porcine) (Heparin) 5,000 units SC Q8 [facility]; Protocol Last Admin: 06/22/18 05:38 Dose: 5,000 units Lactic Acid (Lac-Hydrin 12% Cream (140 G)) 0 ea TOP DAILY [facility] Last Admin: 06/21/18 10:00 Dose: 1 tcp Lactulose (Enulose) 20 gm PO Q8 [facility] Last Admin: 06/22/18 05:39 Dose: 20 gm Levalbuterol HCl (Xopenex) 0.63 mg IH TIDRESP [facility] Last Admin: 06/22/18 07:37 Dose: 0.63 mg Levothyroxine Sodium (Synthroid) 25 mcg PO 0600 [facility] Last Admin: 06/22/18 05:38 Dose: 25 mcg Methylprednisolone (Solu-Medrol) 40 mg IVP DAILY [facility] Last Admin: 06/21/18 11:00 Dose: 40 mg Metoprolol Tartrate (Lopressor) 50 mg PO BID [facility] Mupirocin (Bactroban Ointment) 0 gm TOP BID [facility] Last Admin: 06/21/18 17:11 Dose: 1 applic Rifaximin (Xifaxan) 550 mg PO Q12 [facility]; Protocol Last Admin: 06/21/18 22:35 Dose: 550 mg Sevelamer HCl (Renagel) 800 mg PO [facility] Thiamine HCl (Vitamin B1 Tab) 100 mg PO DAILY [facility] Last Admin: 06/21/18 11:00 Dose: 100 mg - Labs Labs: 06/21/18 06:35 06/21/18 06:35 PT 30.1 SECONDS (9.4-12.5) H 06/21/18 06:35 INR 2.66 06/21/18 06:35 APTT 43.1 Seconds (26.9-38.3) H 06/21/18 06:35 - Constitutional Appears: Non-toxic, No Acute Distress, Chronically Ill - Head Exam Head Exam: NORMOCEPHALIC - Eye Exam Eye Exam: PERRL. absent: Scleral icterus Pupil Exam: PERRL. absent: Miosis, Mydriatic - ENT Exam ENT Exam: Mucous Membranes Dry, Normal Oropharynx - Neck Exam Neck Exam: Normal Inspection - Respiratory Exam Respiratory Exam: Clear to Ausculation Bilateral. absent: Rales, Rhonchi - Cardiovascular Exam Cardiovascular Exam: RRR, +S1, +S2. absent: Gallop, Rubs - GI/Abdominal Exam GI & Abdominal Exam: Soft, Normal Bowel Sounds. absent: Distended, Firm, Guarding, Rigid, Tenderness, Organomegaly, Rebound - Extremities Exam Additional comments: 1-2+ B/L LE pitting edema with discoloration - Neurological Exam Neurological Exam: Alert, Awake - Psychiatric Exam Psychiatric exam: Normal Affect, Normal Mood - Skin Skin Exam: Dry, Intact, Normal Color, Warm Assessment and Plan - Assessment and Plan (Free Text) Assessment: 73 year old male history of ITP s/p splenectomy (20 years ago, s/p Rituximab), PAD complicated by Bilateral lower extremity ulcerations with Multi-drug resistant cellulitis (MRSA, Klebsiella and Serratia) presenting with confusion. Active treatment of decompensated Alcoholic Cirrhosis 2/2 hepatic encephalopathy and hepatorenal syndrome on hemodialysis complicated by severe pulmonary hypertension with right-sided heart failure status post antibiotic course for severe sepsis with CAP and right leg cellulitis. No prior EGD or colonoscopy. Plan: -06/21 MELD-Na 34 -continue Lactulose 20g Q8H, titrate to 2-3 bowel movements daily -continue with rifaximin 550 mg PO BID. Ammonia level 42 today. -autoimmune workup- negative LKM, ASMA, AMA, hepatitis panel, ferritin -nephrology managing- follow up recommendations -poor prognosis -continue supportive care -low sodium diet as tolerated -will follow clinical course
--- NOTE | 2018-06-22 10:24 | DS ---
HOSPITAL COURSE: The patient was seen and examined. I do agree with the note of the medical cash poster. l was involved in the plan of care. The patient has hepatorenal syndrome type 1. The patient's blood pressures is trending to go down. The patient's blood pressure has been in the 90s. He dialyzed today. He has liver cirrhosis. He has aortic stenosis. The patient has had rifaximin and lactulose for his liver cirrhosis. I did speak to Dr. Savage, regarding the case. His overall prognosis is poor. The plan is for possible LTAC. The patient is DNR/DNI. He remains confused at times. Jonathon Aviles MD
[2018-06-22] MEDS: MethylPREDNISolone 40 mg Vial IVP SCH (10:35)
[2018-06-22] MEDS: Clotrimazole/Betamethasone Cream(15 gm) TOP SCH (11:35)
--- NOTE | 2018-06-22 11:55 | CP.PCM.PN ---
<Alfonso Sun - Last Filed: 06/22/18 11:47> Subjective - Date & Time of Evaluation Date of Evaluation: 06/22/18 Time of Evaluation: 07:00 - Subjective Subjective: Luis Fernando Sun PGY2 IM - Nephrology Progress Note for Dr. Aviles Patient seen and examined this AM. No acute events reported overnight. Patient is more verbal and with more intact speech. He continues to demonstrate confusion. He has no complaints at the time of the interview. Objective - Vital Signs/Intake and Output Vital Signs (last 24 hours): Temp Pulse Resp BP Pulse Ox 98.9 F 103 H 51 H 113/62 70 L 06/22/18 04:00 06/22/18 10:44 06/22/18 10:44 06/22/18 10:49 06/22/18 11:06 Intake and Output: 06/22/18 06/22/18 06:59 18:59 Intake Total 120 Output Total 150 Balance -30 - Medications Medications: Current Medications Arformoterol Tartrate (Brovana) 15 mcg IH [id number] [facility] Last Admin: 06/22/18 07:37 Dose: 15 mcg Betamethasone/Clotrimazole (Lotrisone) 0 gm TOP DAILY [facility] Last Admin: 06/22/18 11:35 Dose: 1 tcp Budesonide (Pulmicort Respules) 0.5 mg IH [id number] [facility] Last Admin: 06/22/18 07:38 Dose: 0.5 mg Diltiazem HCl (Cardizem) 60 mg PO TID [facility] Last Admin: 06/11/18 13:15 Dose: 60 mg Famotidine (Pepcid) 40 mg PO HS [facility] Folic Acid (Folic Acid) 1 mg PO DAILY [facility] Last Admin: 06/22/18 10:28 Dose: 1 mg Guaifenesin/Dextromethorphan (Robitussin Dm) 10 ml PO Q4H PRN PRN Reason: Cough Last Admin: 06/13/18 17:20 Dose: 10 ml Heparin Sodium (Porcine) (Heparin) 5,000 units SC Q8 [facility]; Protocol Last Admin: 06/22/18 05:38 Dose: 5,000 units Lactic Acid (Lac-Hydrin 12% Cream (140 G)) 0 ea TOP DAILY [facility] Last Admin: 06/21/18 10:00 Dose: 1 tcp Lactulose (Enulose) 20 gm PO Q8 [facility] Last Admin: 06/22/18 05:39 Dose: 20 gm Levalbuterol HCl (Xopenex) 0.63 mg IH TIDRESP [facility] Last Admin: 06/22/18 07:37 Dose: 0.63 mg Levothyroxine Sodium (Synthroid) 25 mcg PO 0600 [facility] Last Admin: 06/22/18 05:38 Dose: 25 mcg Methylprednisolone (Solu-Medrol) 40 mg IVP DAILY [facility] Last Admin: 06/22/18 10:35 Dose: 40 mg Metoprolol Tartrate (Lopressor) 50 mg PO BID [facility] Last Admin: 06/22/18 10:30 Dose: 50 mg Mupirocin (Bactroban Ointment) 0 gm TOP BID [facility] Last Admin: 06/21/18 17:11 Dose: 1 applic Rifaximin (Xifaxan) 550 mg PO Q12 [facility]; Protocol Last Admin: 06/22/18 10:37 Dose: 550 mg Sevelamer HCl (Renagel) 800 mg PO AC [facility] Last Admin: 06/22/18 10:35 Dose: 800 mg Thiamine HCl (Vitamin B1 Tab) 100 mg PO DAILY [facility] Last Admin: 06/22/18 10:37 Dose: 100 mg - Labs Labs: 06/21/18 06:35 06/21/18 06:35 PT 30.1 SECONDS (9.4-12.5) H 06/21/18 06:35 INR 2.66 06/21/18 06:35 APTT 43.1 Seconds (26.9-38.3) H 06/21/18 06:35 - Constitutional Appears: No Acute Distress - Head Exam Head Exam: ATRAUMATIC, NORMOCEPHALIC - Eye Exam Eye Exam: EOMI, PERRL - ENT Exam Additional comments: BiPAP mask in place, good seal - Respiratory Exam Respiratory Exam: Clear to Ausculation Bilateral, NORMAL BREATHING PATTERN. absent: Rales, Rhonchi - Cardiovascular Exam Cardiovascular Exam: REGULAR RHYTHM, +S1, +S2 - GI/Abdominal Exam GI & Abdominal Exam: Soft, Normal Bowel Sounds. absent: Firm, Guarding, Tenderness - Extremities Exam Extremities Exam: absent: Calf Tenderness Additional comments: all four extremities exhibit swelling and erythema, lower extremities bilaterally show chronic skin changes in the form of ulcerations as well as erythema and cracking - Neurological Exam Neurological Exam: Alert, Awake Additional comments: motor and sensory grossly intact - Psychiatric Exam Psychiatric exam: Normal Affect, Normal Mood - Skin Skin Exam: Dry, Warm Assessment and Plan - Assessment and Plan (Free Text) Assessment: # Hepatorenal Syndrome Type I # Hepatic Encephalopathy # Liver Cirrhosis likely multifactorial # Severe Pulmonary HTN # Moderate Aortic Stenosis # Oliguria # Hypocalcemia # Hypothyroidism # Peripheral artery disease Patient renal function has appeared to be stable while undergoing dialysis. Patient HD dependent likely in relation to his hepatorenal syndrome. Patient will undergo dialysis tomorrow. Patient blood pressure appears to be stable at this time. Continue to monitor electrolytes, avoid nephrotoxic medications, encourage euvolemia. Continue pulmicort, xopenex, and brovana for pulmonary hypertension and COPD. Continue rifaximin and lactulose for liver cirrhosis. Continue synthroid for hypothyroidism. Patient disposition continues to be work in progress. Patient is cleared from nephrology standpoint with plan for continued dialysis. Patient prognosis continues to be guarded. Patient case and plan discussed with attending, Dr. Aviles <Jonathon Aviles S - Last Filed: 06/22/18 14:27> Objective - Vital Signs/Intake and Output Vital Signs (last 24 hours): Temp Pulse Resp BP Pulse Ox 98.9 F 103 H 51 H 113/62 70 L 06/22/18 04:00 06/22/18 10:44 06/22/18 10:44 06/22/18 10:49 06/22/18 11:06 Intake and Output: 06/22/18 06/22/18 06:59 18:59 Intake Total 120 Output Total 150 Balance -30 - Medications Medications: Current Medications Arformoterol Tartrate (Brovana) 15 mcg IH [id number] [facility] Last Admin: 06/22/18 07:37 Dose: 15 mcg Betamethasone/Clotrimazole (Lotrisone) 0 gm TOP DAILY [facility] Last Admin: 06/22/18 11:35 Dose: 1 tcp Budesonide (Pulmicort Respules) 0.5 mg IH [id number] [facility] Last Admin: 06/22/18 07:38 Dose: 0.5 mg Diltiazem HCl (Cardizem) 60 mg PO TID [facility] Last Admin: 06/11/18 13:15 Dose: 60 mg Famotidine (Pepcid) 40 mg PO HS [facility] Folic Acid (Folic Acid) 1 mg PO DAILY [facility] Last Admin: 06/22/18 10:28 Dose: 1 mg Guaifenesin/Dextromethorphan (Robitussin Dm) 10 ml PO Q4H PRN PRN Reason: Cough Last Admin: 06/13/18 17:20 Dose: 10 ml Heparin Sodium (Porcine) (Heparin) 5,000 units SC Q8 [facility]; Protocol Last Admin: 06/22/18 05:38 Dose: 5,000 units Lactic Acid (Lac-Hydrin 12% Cream (140 G)) 0 ea TOP DAILY [facility] Last Admin: 06/21/18 10:00 Dose: 1 tcp Lactulose (Enulose) 20 gm PO Q8 [facility] Last Admin: 06/22/18 05:39 Dose: 20 gm Levalbuterol HCl (Xopenex) 0.63 mg IH TIDRESP [facility] Last Admin: 06/22/18 13:47 Dose: 0.63 mg Levothyroxine Sodium (Synthroid) 25 mcg PO 0600 [facility] Last Admin: 06/22/18 05:38 Dose: 25 mcg Methylprednisolone (Solu-Medrol) 40 mg IVP DAILY [facility] Last Admin: 06/22/18 10:35 Dose: 40 mg Metoprolol Tartrate (Lopressor) 50 mg PO BID [facility] Last Admin: 06/22/18 10:30 Dose: 50 mg Mupirocin (Bactroban Ointment) 0 gm TOP BID [facility] Last Admin: 06/21/18 17:11 Dose: 1 applic Rifaximin (Xifaxan) 550 mg PO Q12 [facility]; Protocol Last Admin: 06/22/18 10:37 Dose: 550 mg Sevelamer HCl (Renagel) 800 mg PO AC [facility] Last Admin: 06/22/18 10:35 Dose: 800 mg Thiamine HCl (Vitamin B1 Tab) 100 mg PO DAILY [facility] Last Admin: 06/22/18 10:37 Dose: 100 mg - Labs Labs: 06/21/18 06:35 06/21/18 06:35 PT 30.1 SECONDS (9.4-12.5) H 06/21/18 06:35 INR 2.66 06/21/18 06:35 APTT 43.1 Seconds (26.9-38.3) H 06/21/18 06:35 Assessment and Plan - Assessment and Plan (Free Text) Assessment: Patient was seen and examined by me. I have reviewed the note of the medical administrative and have gone over the plan of care. I agree with the note. I have reviewed the medications and the last labs.
--- NOTE | 2018-06-22 12:27 | PN ---
DATE: 06/22/2018 SUBJECTIVE: Seen in bed 4 ICU. The patient is more awake and alert. Tolerating his diet well today. His blood pressure is up to 126/68. He is afebrile. PHYSICAL EXAMINATION: VITAL SIGNS: Stable. HEART: He is slightly tachycardiac, in atrial fibrillation. CHEST: Clear to auscultation and percussion. ABDOMEN: Obese, but benign. EXTREMITIES: Shows chronic stasis dermatitis, but no swelling. LABORATORY DATA: His BUN and creatinine are 88 and 4.7 which is stable. Potassium is 4.7, bicarb is 24, white count is 13,000, hemoglobin is up to 15.5. ASSESSMENT AND PLAN: The patient is more awake and alert today. Plan is to transfer to LTAC as soon as . Chadd Savage MD
--- NOTE | 2018-06-22 13:01 | PN ---
DATE: 06/22/2018 REASON FOR CONSULTATION AND FOLLOWUP: Atrial fibrillation, shortness of breath, congestive heart failure, altered mental status, cirrhosis, deconditioning of the body, and respiratory insufficiency, on non-invasive ventilator. SUBJECTIVE: The patient denies any chest pain. He is on non-invasive ventilator. OBJECTIVE: GENERAL: Not in apparent distress; on non-invasive ventilator. VITAL SIGNS: Temperature afebrile, heart rate 106, and blood pressure 126/68. HEENT: PERRLA. Extraocular muscles intact. NECK: Supple. No carotid bruits or thyromegaly. CHEST: Clear to auscultation. HEART: S1 and S2 regular. ABDOMEN: Soft. EXTREMITIES: Clubbing and cyanosis negative. LABORATORY DATA: Blood workup; WBC 13.5, hemoglobin 15.5, hematocrit 45.7, and platelet count 166. Chemistry shows sodium 140, potassium 4.7, chloride 103, carbon dioxide 24, anion gap of 20, BUN 88, and creatinine 4.7. IMPRESSION: A 73-year-old morbidly obese male, with past medical history significant for heavy alcohol abuse, admitted with atrial fibrillation and altered mental status moved to Intensive Care Unit because of further deterioration in mental status as well as impending respiratory failure. The patient is being managed on non-invasive ventilator. The patient's code status is do not resuscitate/do not intubate. Echocardiogram dated 06/10/2018 shows ejection fraction 65%, moderate to severe aortic stenosis, moderate to severe mitral regurgitation, heavy calcified mitral valve, trace mitral regurgitation, moderate to severe tricuspid regurgitation, severe pulmonary hypertension, coagulopathy, multiorgan dysfunction, auto-anticoagulated INR is 2.66 because of underlying cirrhosis and alcohol-related liver disease, and acute kidney injury, creatinine 4.7. RECOMMENDATIONS: Continue beta sesar as blood pressure, heart rate is tolerated. We will increase metoprolol to 50 twice a day for elevated heart rate. Continue levothyroxine for hypothyroidism. Overall the patient's condition is critical. Long-term prognosis is extremely poor. Continue supportive care. He is not a candidate for open heart surgery. We will follow with you. Thank you Dr. Savage for providing us the opportunity in taking care of the patient, Danilo Chaidez. Aruna Montilla MD [facility] # [id number]
--- NOTE | 2018-06-22 16:19 | PN ---
DATE: 06/22/2018 SUBJECTIVE: The patient was seen and examined. I do agree with the note of the medical technician. I was involved in plan of care. The patient has type 1 hepatorenal failure. He continues to be on dialysis. His next dialysis treatment is tomorrow. The patient is waiting for possible LTAC transfer. The patient had pulmonary hypertension, has controlled. He had hypothyroidism; he is on Synthroid. The patient's blood work was reviewed. The patient used to use BiPAP. He is currently a DNR/DNI. His overall prognosis is guarded, poor given hepatorenal syndrome. He has secondary hypoparathyroidism. He has been placed on sevelamer for his hypophosphatemia. Jonathon Aviles MD
[2018-06-22] MEDS: Mupirocin 2% Ointment 15 GM TUBE TOP SCH (17:49)
--- NOTE | 2018-06-22 21:29 | CP.PCM.PN ---
Subjective - Date & Time of Evaluation Date of Evaluation: 06/22/18 Time of Evaluation: 07:15 - Subjective Subjective: Patient still using BiPAP but not in distress, no fevers. Objective - Vital Signs/Intake and Output Vital Signs (last 24 hours): Temp Pulse Resp BP Pulse Ox 97.4 F L 90 10 L 98/53 L 98 06/21/18 08:00 06/21/18 18:00 06/21/18 18:00 06/21/18 17:13 06/21/18 18:00 Intake and Output: 06/21/18 06/22/18 18:59 06:59 Intake Total 2400 Output Total 175 Balance 2225 - Medications Medications: Current Medications Arformoterol Tartrate (Brovana) 15 mcg IH [id number] [facility] Last Admin: 06/21/18 07:38 Dose: 15 mcg Betamethasone/Clotrimazole (Lotrisone) 0 gm TOP DAILY [facility] Last Admin: 06/21/18 10:00 Dose: 1 tcp Budesonide (Pulmicort Respules) 0.5 mg IH [id number] [facility] Last Admin: 06/21/18 07:38 Dose: 0.5 mg Diltiazem HCl (Cardizem) 60 mg PO TID [facility] Last Admin: 06/11/18 13:15 Dose: 60 mg Folic Acid (Folic Acid) 1 mg PO DAILY [facility] Last Admin: 06/21/18 11:00 Dose: 1 mg Guaifenesin/Dextromethorphan (Robitussin Dm) 10 ml PO Q4H PRN PRN Reason: Cough Last Admin: 06/13/18 17:20 Dose: 10 ml Heparin Sodium (Porcine) (Heparin) 5,000 units SC Q8 [facility]; Protocol Last Admin: 06/21/18 13:56 Dose: 5,000 units Lactic Acid (Lac-Hydrin 12% Cream (140 G)) 0 ea TOP DAILY [facility] Last Admin: 06/21/18 10:00 Dose: 1 tcp Lactulose (Enulose) 20 gm PO Q8 [facility] Last Admin: 06/21/18 13:56 Dose: 20 gm Levalbuterol HCl (Xopenex) 0.63 mg IH TIDRESP [facility] Last Admin: 06/21/18 13:01 Dose: 0.63 mg Levothyroxine Sodium (Synthroid) 25 mcg PO 0600 [facility] Last Admin: 06/21/18 06:11 Dose: 25 mcg Methylprednisolone (Solu-Medrol) 40 mg IVP DAILY [facility] Last Admin: 06/21/18 11:00 Dose: 40 mg Metoprolol Tartrate (Lopressor) 25 mg PO BID [facility] Last Admin: 06/21/18 17:13 Dose: Not Given Mupirocin (Bactroban Ointment) 0 gm TOP BID [facility] Last Admin: 06/21/18 17:11 Dose: 1 applic Rifaximin (Xifaxan) 550 mg PO Q12 [facility]; Protocol Last Admin: 06/21/18 11:00 Dose: 550 mg Thiamine HCl (Vitamin B1 Tab) 100 mg PO DAILY [facility] Last Admin: 06/21/18 11:00 Dose: 100 mg - Labs Labs: 06/21/18 06:35 06/21/18 06:35 PT 30.1 SECONDS (9.4-12.5) H 06/21/18 06:35 INR 2.66 06/21/18 06:35 APTT 43.1 Seconds (26.9-38.3) H 06/21/18 06:35 - Constitutional Appears: Chronically Ill - Head Exam Head Exam: NORMAL INSPECTION - Respiratory Exam Respiratory Exam: Decreased Breath Sounds - Cardiovascular Exam Cardiovascular Exam: +S1, +S2 - GI/Abdominal Exam GI & Abdominal Exam: Soft. 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
[2018-06-23] MEDS: Levothyroxine 25 MCG TAB PO SCH (05:45)
--- NOTE | 2018-06-23 06:47 | CP.PCM.PN ---
Subjective - Date & Time of Evaluation Date of Evaluation: 06/23/18 Time of Evaluation: 06:10 - Subjective Subjective: Awake, no distress, disoriented Reason for consultation and follow up: Cardiac evaluation and follow up; Atrial fibrillation, shortness of breath, congestive heart failure, altered mental status Seen and examined by me and Dr. Montilla Objective - Vital Signs/Intake and Output Vital Signs (last 24 hours): Temp Pulse Resp BP Pulse Ox 98.7 F 82 18 92/60 L 94 L 06/22/18 16:51 06/23/18 01:11 06/22/18 16:51 06/22/18 18:02 06/22/18 16:51 Intake and Output: 06/22/18 06/23/18 18:59 06:59 Intake Total 120 360 Balance 120 360 - Medications Medications: Current Medications Arformoterol Tartrate (Brovana) 15 mcg IH [id number] [facility] Last Admin: 06/22/18 19:18 Dose: 15 mcg Betamethasone/Clotrimazole (Lotrisone) 0 gm TOP DAILY [facility] Last Admin: 06/22/18 11:35 Dose: 1 tcp Budesonide (Pulmicort Respules) 0.5 mg IH [id number] [facility] Last Admin: 06/22/18 19:18 Dose: 0.5 mg Diltiazem HCl (Cardizem) 60 mg PO TID [facility] Last Admin: 06/11/18 13:15 Dose: 60 mg Famotidine (Pepcid) 40 mg PO HS [facility] Last Admin: 06/22/18 21:42 Dose: 40 mg Folic Acid (Folic Acid) 1 mg PO DAILY [facility] Last Admin: 06/22/18 10:28 Dose: 1 mg Guaifenesin/Dextromethorphan (Robitussin Dm) 10 ml PO Q4H PRN PRN Reason: Cough Last Admin: 06/13/18 17:20 Dose: 10 ml Heparin Sodium (Porcine) (Heparin) 5,000 units SC Q8 [facility]; Protocol Last Admin: 06/23/18 05:44 Dose: 5,000 units Lactic Acid (Lac-Hydrin 12% Cream (140 G)) 0 ea TOP DAILY [facility] Last Admin: 06/21/18 10:00 Dose: 1 tcp Lactulose (Enulose) 20 gm PO Q8 [facility] Last Admin: 06/23/18 05:43 Dose: 20 gm Levalbuterol HCl (Xopenex) 0.63 mg IH TIDRESP [facility] Last Admin: 06/22/18 19:18 Dose: 0.63 mg Levothyroxine Sodium (Synthroid) 25 mcg PO 0600 [facility] Last Admin: 06/23/18 05:45 Dose: 25 mcg Methylprednisolone (Solu-Medrol) 40 mg IVP DAILY [facility] Last Admin: 06/22/18 10:35 Dose: 40 mg Metoprolol Tartrate (Lopressor) 50 mg PO BID [facility] Last Admin: 06/22/18 18:02 Dose: Not Given Mupirocin (Bactroban Ointment) 0 gm TOP BID [facility] Last Admin: 06/22/18 17:49 Dose: 1 applic Rifaximin (Xifaxan) 550 mg PO Q12 [facility]; Protocol Last Admin: 06/22/18 21:42 Dose: 550 mg Sevelamer HCl (Renagel) 800 mg PO AC [facility] Last Admin: 06/22/18 17:56 Dose: 800 mg Thiamine HCl (Vitamin B1 Tab) 100 mg PO DAILY [facility] Last Admin: 06/22/18 10:37 Dose: 100 mg - Labs Labs: 06/21/18 06:35 06/21/18 06:35 PT 30.1 SECONDS (9.4-12.5) H 06/21/18 06:35 INR 2.66 06/21/18 06:35 APTT 43.1 Seconds (26.9-38.3) H 06/21/18 06:35 - Constitutional Appears: Non-toxic, No Acute Distress - Head Exam Head Exam: NORMAL INSPECTION, NORMOCEPHALIC - ENT Exam ENT Exam: Mucous Membranes Dry - Respiratory Exam Respiratory Exam: Decreased Breath Sounds, NORMAL BREATHING PATTERN - Cardiovascular Exam Cardiovascular Exam: +S1, +S2 - GI/Abdominal Exam GI & Abdominal Exam: Soft, Normal Bowel Sounds - Neurological Exam Neurological Exam: Alert, Awake - Psychiatric Exam Psychiatric exam: Normal Affect, Normal Mood - Skin Skin Exam: Normal Color, Warm Assessment and Plan - Assessment and Plan (Free Text) Assessment: A 73 year old morbidly obese male who came in to the ER due to shortness of breath. History of heavy alcohol abuse, former smoker, ITP post splenectomy, diabetes, generalized petechia, hemorrhoids, urinary tract infection, CHF, pneumonia,falls. Admitted to ICU for respiratory failure managed with non- invasive ventilator/BiPaP. Patient DNR/DNI. Admitted for altered mental status and atrial fibrillation. Stabilized in ICU and now transferred to telemetry unit. Patient denies shortness of breath, disoriented. Heart rate controlled. Plan: No distress Heart rate controlled Blood pressure controlled Continue current treatment On Cardizem 60 mg TID, Synthroid 25 mcg daily, Lopressor 50 mg BID, Continue current medications No further cardiac work up at this time DNR/DNI Discharge planning Will follow up Plan and treatment discussed with Dr. Montilla
--- NOTE | 2018-06-23 07:20 | CP.PCM.PN ---
<Alfonso Sun - Last Filed: 06/23/18 13:01> Subjective - Date & Time of Evaluation Date of Evaluation: 06/23/18 Time of Evaluation: 07:00 - Subjective Subjective: Theo Sun PGY2 IM Resident - Nephrology Progress Note for Dr. Aviles Patient seen and examined this AM. No acute events overnight. Patient interviewed without BiPAP mask on. Patient continues to have altered mentation and confusion. He is able to answer simple questions but becomes confused and lacks choice words when responding to/or asking questions. He denies any complaints at time of interview. Objective - Vital Signs/Intake and Output Vital Signs (last 24 hours): Temp Pulse Resp BP Pulse Ox 98.7 F 82 18 92/60 L 94 L 06/22/18 16:51 06/23/18 01:11 06/22/18 16:51 06/22/18 18:02 06/22/18 16:51 Intake and Output: 06/23/18 06/23/18 06:59 18:59 Intake Total 420 Balance 420 - Medications Medications: Current Medications Arformoterol Tartrate (Brovana) 15 mcg IH [id number] [facility] Last Admin: 06/22/18 19:18 Dose: 15 mcg Betamethasone/Clotrimazole (Lotrisone) 0 gm TOP DAILY [facility] Last Admin: 06/22/18 11:35 Dose: 1 tcp Budesonide (Pulmicort Respules) 0.5 mg IH [id number] [facility] Last Admin: 06/22/18 19:18 Dose: 0.5 mg Diltiazem HCl (Cardizem) 60 mg PO TID [facility] Last Admin: 06/11/18 13:15 Dose: 60 mg Famotidine (Pepcid) 40 mg PO HS [facility] Last Admin: 06/22/18 21:42 Dose: 40 mg Folic Acid (Folic Acid) 1 mg PO DAILY [facility] Last Admin: 06/22/18 10:28 Dose: 1 mg Guaifenesin/Dextromethorphan (Robitussin Dm) 10 ml PO Q4H PRN PRN Reason: Cough Last Admin: 06/13/18 17:20 Dose: 10 ml Heparin Sodium (Porcine) (Heparin) 5,000 units SC Q8 [facility]; Protocol Last Admin: 06/23/18 05:44 Dose: 5,000 units Lactic Acid (Lac-Hydrin 12% Cream (140 G)) 0 ea TOP DAILY [facility] Last Admin: 06/21/18 10:00 Dose: 1 tcp Lactulose (Enulose) 20 gm PO Q8 [facility] Last Admin: 06/23/18 05:43 Dose: 20 gm Levalbuterol HCl (Xopenex) 0.63 mg IH TIDRESP [facility] Last Admin: 06/22/18 19:18 Dose: 0.63 mg Levothyroxine Sodium (Synthroid) 25 mcg PO 0600 [facility] Last Admin: 06/23/18 05:45 Dose: 25 mcg Methylprednisolone (Solu-Medrol) 40 mg IVP DAILY [facility] Last Admin: 06/22/18 10:35 Dose: 40 mg Metoprolol Tartrate (Lopressor) 50 mg PO BID [facility] Last Admin: 06/22/18 18:02 Dose: Not Given Mupirocin (Bactroban Ointment) 0 gm TOP BID [facility] Last Admin: 06/22/18 17:49 Dose: 1 applic Rifaximin (Xifaxan) 550 mg PO Q12 [facility]; Protocol Last Admin: 06/22/18 21:42 Dose: 550 mg Sevelamer HCl (Renagel) 800 mg PO AC [facility] Last Admin: 06/22/18 17:56 Dose: 800 mg Thiamine HCl (Vitamin B1 Tab) 100 mg PO DAILY [facility] Last Admin: 06/22/18 10:37 Dose: 100 mg - Labs Labs: 06/21/18 06:35 06/21/18 06:35 PT 30.1 SECONDS (9.4-12.5) H 06/21/18 06:35 INR 2.66 06/21/18 06:35 APTT 43.1 Seconds (26.9-38.3) H 06/21/18 06:35 - Constitutional Appears: No Acute Distress - Head Exam Head Exam: ATRAUMATIC, NORMOCEPHALIC - Eye Exam Eye Exam: EOMI, PERRL - ENT Exam ENT Exam: Mucous Membranes Moist - Respiratory Exam Respiratory Exam: Clear to Ausculation Bilateral, NORMAL BREATHING PATTERN. absent: Rales, Rhonchi, Wheezes - Cardiovascular Exam Cardiovascular Exam: REGULAR RHYTHM, +S1, +S2 - GI/Abdominal Exam GI & Abdominal Exam: Soft. absent: Firm, Guarding, Rigid, Tenderness - Extremities Exam Additional comments: erythema noted in all four extremities, lower extremity edema improved from admission, continued appearance of skin ulcerations, upper extremities appear slightly swollen - Neurological Exam Neurological Exam: Alert, Awake, CN II-XII Intact Additional comments: motor and sensory grossly intact - Psychiatric Exam Additional comments: confusion - Skin Skin Exam: Dry, Warm Assessment and Plan - Assessment and Plan (Free Text) Assessment: # Hepatorenal Syndrome Type I # Hepatic Encephalopathy # Liver Cirrhosis likely multifactorial # Severe Pulmonary HTN # Moderate Aortic Stenosis # Oliguria # Hypocalcemia # Hypothyroidism # Peripheral artery disease Patient HD dependent likely in relation to his hepatorenal syndrome. Patient underwent dialysis today removal of 2.5 liters. Patient blood pressure stable. Continue to monitor electrolytes, avoid nephrotoxic medications, encourage euvolemia. Continue Sevelemar for phosphorous control. Continue to monitor electrolytes and replace as needed. Avoid nephrotoxic medications. Maintain controlled BP goal MAP >65mmHg. Continue pulmicort, xopenex, and brovana for pulmonary hypertension and COPD. Continue rifaximin and lactulose for liver cirrhosis. Continue synthroid for hypothyroidism. Patient disposition continues to be work in progress. Patient is cleared from nephrology standpoint with plan for continued dialysis. Patient prognosis continues to be guarded. Patient case and plan discussed with attending, Dr. Aviles <Jonathon Aviles S - Last Filed: 06/23/18 14:58> Objective - Vital Signs/Intake and Output Vital Signs (last 24 hours): Temp Pulse Resp BP Pulse Ox 97.4 F L 90 18 119/76 93 L 06/23/18 06:00 06/23/18 06:00 06/23/18 06:00 06/23/18 06:00 06/23/18 06:00 Intake and Output: 06/23/18 06/23/18 06:59 18:59 Intake Total 420 Balance 420 - Medications Medications: Current Medications Arformoterol Tartrate (Brovana) 15 mcg IH [id number] [facility] Last Admin: 06/23/18 08:28 Dose: Not Given Betamethasone/Clotrimazole (Lotrisone) 0 gm TOP DAILY [facility] Last Admin: 06/23/18 12:57 Dose: 1 tcp Budesonide (Pulmicort Respules) 0.5 mg IH [id number] [facility] Last Admin: 06/23/18 08:28 Dose: Not Given Diltiazem HCl (Cardizem) 60 mg PO TID [facility] Last Admin: 06/11/18 13:15 Dose: 60 mg Famotidine (Pepcid) 40 mg PO HS [facility] Last Admin: 06/22/18 21:42 Dose: 40 mg Folic Acid (Folic Acid) 1 mg PO DAILY [facility] Last Admin: 06/23/18 12:55 Dose: 1 mg Guaifenesin/Dextromethorphan (Robitussin Dm) 10 ml PO Q4H PRN PRN Reason: Cough Last Admin: 06/13/18 17:20 Dose: 10 ml Heparin Sodium (Porcine) (Heparin) 5,000 units SC Q8 [facility]; Protocol Last Admin: 06/23/18 13:05 Dose: 5,000 units Lactic Acid (Lac-Hydrin 12% Cream (140 G)) 0 ea TOP DAILY [facility] Last Admin: 06/23/18 12:57 Dose: 1 tcp Lactulose (Enulose) 20 gm PO Q8 [facility] Last Admin: 06/23/18 13:04 Dose: 20 gm Levalbuterol HCl (Xopenex) 0.63 mg IH TIDRESP [facility] Last Admin: 06/23/18 14:01 Dose: 0.63 mg Levothyroxine Sodium (Synthroid) 25 mcg PO 0600 [facility] Last Admin: 06/23/18 05:45 Dose: 25 mcg Metoprolol Tartrate (Lopressor) 50 mg PO BID [facility] Last Admin: 06/23/18 12:57 Dose: Not Given Mupirocin (Bactroban Ointment) 0 gm TOP BID [facility] Last Admin: 06/23/18 12:54 Dose: Not Given Rifaximin (Xifaxan) 550 mg PO Q12 [facility]; Protocol Last Admin: 06/23/18 12:58 Dose: Not Given Sevelamer HCl (Renagel) 800 mg PO AC [facility] Last Admin: 06/23/18 13:01 Dose: 800 mg Thiamine HCl (Vitamin B1 Tab) 100 mg PO DAILY [facility] Last Admin: 06/23/18 13:01 Dose: 100 mg - Labs Labs: 06/23/18 08:50 06/23/18 08:50 PT 30.1 SECONDS (9.4-12.5) H 06/21/18 06:35 INR 2.66 06/21/18 06:35 APTT 43.1 Seconds (26.9-38.3) H 06/21/18 06:35 Assessment and Plan - Assessment and Plan (Free Text) Assessment: Pt seen and examined by me. I have reviewed the note of the emergency medicine medical director and I agree with it. I have discussed the assessment and plan with the resident. I have reviewed the medications and the last labs.Pt with hepatorenal syndrome and is on HD. He is getting HD today. He is more awake and alert then yesterday. D/C planning ongoing. He is on Lactulose for the cirrhosis. He is eating better. He is on Sevelemar for his high phosp. He will need PT. He has a R IV permacath. He is on synthroid for his hypothyroidism.
[2018-06-23] MEDS: Budesonide 0.5 mg/2 ml Inhal Susp UD IH SCH ×2 (08:28→19:46)
[2018-06-23] MEDS: Arformoterol 15 mcg/2 ml Inh Sol IH SCH ×2 (08:28→19:46)
[2018-06-23] MEDS: Levalbuterol 0.63 MG/3 ML Inhal Soln UD IH SCH ×3 (08:29→19:46)
--- NOTE | 2018-06-23 08:46 | CP.PCM.PCO ---
Physician Communication Note - Physician Communication Note Physician Communication Note: per talk with pmd- pt for [facility] ( [facility]) as dispo - no longer LTACH .
[2018-06-23 09:01] LABS: HEMOGLOBIN 15.1 g/dL (14.0-18.0); MEAN CELL VOLUME 94.6 fl (80.0-105.0); MEAN CORPUSCULAR HEMOGLOBIN 32.5 pg (25.0-35.0); MEAN CORPUSCULAR HGB CONC 34.3 g/dl (31.0-37.0); MEAN PLATELET VOLUME 11.4 fl (7.0-11.0); RBC 4.65 10^6/uL (3.5-6.1); RED CELL DISTRIBUTION WIDTH 17.6 % (11.5-14.5); WHITE BLOOD COUNT 9.8 10^3/uL (4.5-11.0)
[2018-06-23 09:10] LABS: ALBUMIN 3.5 g/dL (3.0-4.8); CALCIUM 8.5 mg/dL (8.4-10.5)
--- NOTE | 2018-06-23 11:55 | PN ---
DATE: 06/23/2018 The patient is a 73-year-old white male who was transferred from the ICU to the floor. The patient is awake. He is alert. He is going to dialysis today, but he has no peripheral edema. His chest is clear. His heart examinations is irregularly irregular, AFib. He is more lucent. He is still having . We will stop his steroids. We will start to switch to p.o. medications. This case was discussed with Dr. Aviles for possible transfer to for continuing physical therapy and hemodialysis. The patient is afebrile today. His abdomen is obese, but benign. Extremities without cyanosis, clubbing,edema, or stasis dermatitis. Chest is clear. Heart examination is irregularly irregular. Chadd Savage MD
[2018-06-23] MEDS: Mupirocin 2% Ointment 15 GM TUBE TOP SCH (12:54)
[2018-06-23] MEDS: Clotrimazole/Betamethasone Cream(15 gm) TOP SCH (12:57)
[2018-06-23] MEDS: Ammonium Lactate 12% Cream (140 g) TOP SCH (12:57)
[2018-06-23 15:31] LABS: HEMOGLOBIN 13.1 g/dL (14.0-18.0); MEAN CELL VOLUME 95.9 fl (80.0-105.0); MEAN CORPUSCULAR HEMOGLOBIN 31.8 pg (25.0-35.0); MEAN CORPUSCULAR HGB CONC 33.2 g/dl (31.0-37.0); MEAN PLATELET VOLUME 11.5 fl (7.0-11.0); RBC 4.12 10^6/uL (3.5-6.1); RED CELL DISTRIBUTION WIDTH 17.5 % (11.5-14.5); WHITE BLOOD COUNT 10.6 10^3/uL (4.5-11.0)
[2018-06-23 15:37] LABS: INR 3.06; PARTIAL THROMBOPLASTIN TIME 48.3 Seconds (26.9-38.3)
--- NOTE | 2018-06-23 16:10 | CP.PCM.PN ---
Subjective - Date & Time of Evaluation Date of Evaluation: 06/23/18 Time of Evaluation: 16:06 - Subjective Subjective: Vickie Aviles, PGY2, GI Progress Note for Dr Issa: Patient seen and examined at bedside. Patient went for dialysis this morning. Patient had 3 bloody BMs today in the afternoon, witnessed by bedside nurse. Patient awake, but not making comprehensible words. No fevers, abdominal pain. Objective - Vital Signs/Intake and Output Vital Signs (last 24 hours): Temp Pulse Resp BP Pulse Ox 97.4 F L 102 H 18 107/71 93 L 06/23/18 06:00 06/23/18 14:00 06/23/18 06:00 06/23/18 14:00 06/23/18 06:00 Intake and Output: 06/23/18 06/23/18 06:59 18:59 Intake Total 420 Balance 420 - Medications Medications: Current Medications Arformoterol Tartrate (Brovana) 15 mcg IH [id number] [facility] Last Admin: 06/23/18 08:28 Dose: Not Given Betamethasone/Clotrimazole (Lotrisone) 0 gm TOP DAILY [facility] Last Admin: 06/23/18 12:57 Dose: 1 tcp Budesonide (Pulmicort Respules) 0.5 mg IH [id number] [facility] Last Admin: 06/23/18 08:28 Dose: Not Given Diltiazem HCl (Cardizem) 60 mg PO TID [facility] Last Admin: 06/11/18 13:15 Dose: 60 mg Famotidine (Pepcid) 40 mg PO HS [facility] Last Admin: 06/22/18 21:42 Dose: 40 mg Folic Acid (Folic Acid) 1 mg PO DAILY [facility] Last Admin: 06/23/18 12:55 Dose: 1 mg Guaifenesin/Dextromethorphan (Robitussin Dm) 10 ml PO Q4H PRN PRN Reason: Cough Last Admin: 06/13/18 17:20 Dose: 10 ml Heparin Sodium (Porcine) (Heparin) 5,000 units SC Q8 [facility]; Protocol Last Admin: 06/23/18 13:05 Dose: 5,000 units Octreotide Acetate 1,250 mcg/ (Sodium Chloride) 252.5 mls @ 10.1 mls/hr IV .Q24H [facility]; Protocol Stop: 06/28/18 16:01 Lactic Acid (Lac-Hydrin 12% Cream (140 G)) 0 ea TOP DAILY [facility] Last Admin: 06/23/18 12:57 Dose: 1 tcp Lactulose (Enulose) 20 gm PO Q8 [facility] Last Admin: 06/23/18 13:04 Dose: 20 gm Levalbuterol HCl (Xopenex) 0.63 mg IH TIDRESP [facility] Last Admin: 06/23/18 14:01 Dose: 0.63 mg Levothyroxine Sodium (Synthroid) 25 mcg PO 0600 [facility] Last Admin: 06/23/18 05:45 Dose: 25 mcg Metoprolol Tartrate (Lopressor) 50 mg PO BID [facility] Last Admin: 06/23/18 12:57 Dose: Not Given Mupirocin (Bactroban Ointment) 0 gm TOP BID [facility] Last Admin: 06/23/18 12:54 Dose: Not Given Rifaximin (Xifaxan) 550 mg PO Q12 [facility]; Protocol Last Admin: 06/23/18 12:58 Dose: Not Given Sevelamer HCl (Renagel) 800 mg PO AC [facility] Last Admin: 06/23/18 13:01 Dose: 800 mg Thiamine HCl (Vitamin B1 Tab) 100 mg PO DAILY [facility] Last Admin: 06/23/18 13:01 Dose: 100 mg - Labs Labs: 06/23/18 15:22 06/23/18 08:50 PT 34.0 SECONDS (9.4-12.5) H 06/23/18 15:22 INR 3.06 06/23/18 15:22 APTT 48.3 Seconds (26.9-38.3) H 06/23/18 15:22 - Additional Findings Additional findings: - Constitutional Appears: Chronically Ill - Head Exam Head Exam: ATRAUMATIC, NORMOCEPHALIC R IJ dialysis cath. - Eye Exam Eye Exam: EOMI, PERRL. absent: Conjunctival injection, Nystagmus, Scleral icterus Pupil Exam: NORMAL ACCOMODATION, PERRL. absent: Irregular, Miosis, Mydriatic - ENT Exam ENT Exam: Mucous Membranes Moist - Neck Exam Neck exam: Positive for: Full Rom - Respiratory Exam Respiratory Exam: Decreased Breath Sounds - Cardiovascular Exam Cardiovascular Exam: RRR, +S1, +S2. absent: Systolic Murmur - GI/Abdominal Exam GI & Abdominal Exam: Soft, Normal Bowel Sounds. absent: Firm, Guarding, Rebound, Tenderness Additional comments: + asterixis no fluid wave - Extremities Exam Extremities exam: Normal Additional comments: improving erythema b/l LE - Neurological Exam Additional comments: awake - Psychiatric Exam Psychiatric exam: Normal Mood - Skin Skin Exam: Normal Color, Warm Assessment and Plan - Assessment and Plan (Free Text) Assessment: # GI bleeding 2/2 supratherapeutic INR (2/2 decomp cirrhosis), source can be esophageal varices vs AVMs # Decompensated Alcoholic Cirrhosis # Elevated LFTs 2/2 hepatic congestion 2/2 right sided heart failure # AMS 2/2 likely hepatic encephalopathy # Type 1 hepatorenal syndrome s/p albumin and levophed, dialysis sessions # Rapid afib # Severe pulm HTN # Right ventricular heart failure # Bilateral pleural effusions, R>L # Anasarca # Alcohol abuse # ITP s/p splenectomy # Hypothyroidism # Peripheral arterial disease - Abd pelvis CT: potential duodenitis. liver size unchanged, cryptogenic type cirrhotic pattern imposs to exclude, no overt cirrhotic pattern. trace perihepatic ascites. b/l inguinal LAD. questionable anasarca? Mild b/l pleural effusions, R>L with limited pericardial thickening. - Abd US: mild hepatomegaly, diffuse increased echogenicity of the liver, hepatic steatosis. trace perihepatic ascites. no cholelithiasis or biliary dilatation. Diffuse gallbladder wall thickening. - Echo: EF 66%. Systolic fxn of RV is severely reduced. Mod valvular aortic stenosis, DESMOND 1.13. Mod to severe MV stenosis. Mod to severe TR. Severe pulm HTN (RVSP 79 mmHg). IVC dilated. - Head CT neg - LE US: neg for DVT - Continue with his Lactulose to 20 gm q8h. Will titrate to 2-3 BMs per day. Continue with rifaximin 550 mg PO BID. - Acute hepatitis panel negative, HIV NR. Hep A total negative. - Ferritin 225, percent sat 28%. Tylenol, salicylate negative, ceruloplasmin 53 elevated. immunofixation studies negative. - Appreciate nephrology recs. - s/p albumin and levophed for 48 hours. - patient is a poor candidate for liver transplant. - MELD 36 points today, 52.6% 3 -month mortality rate - Will monitor mentation, clinical course - Hgb dropped down to 13.1 (from 15.1) after bloody BMs. INR 3.06 today. - Spoke with POA, Clarice Washington, over the phone regarding bleeding and patient prognosis. Will give 1 unit FFP, start octreotide drip, protonix 40 mg IV daily. Agreed with conservative management for now, due to increased risk of mortality with procedures like EGD, colonoscopy. - Patient DNR/DNI, palliative on board. Poor prognosis. - Further recs per Dr Issa. Case seen and discussed with Dr Issa.
[2018-06-23] MEDS ORDERED: DiphenhydrAMINE 50 mg/ml Inj IVP STA (18:13)
[2018-06-24 04:33] LABS: CERULOPLASMIN 41 mg/dL (18-36)
[2018-06-24 05:52] VITALS: O2SAT 95
[2018-06-24] MEDS ORDERED: Sodium Chloride 0.9% 500 ML IV STA (05:58)
[2018-06-24] MEDS: Levothyroxine 25 MCG TAB PO SCH ×2 (06:15→06:51)
[2018-06-24] MEDS ORDERED: NOREPINEPHRINE BIT/0.9 % NACL 4 MG/250 ML BAG IV PRN (06:17)
[2018-06-24] MEDS ORDERED: Phytonadione 10 mg/ml Inj (Adult) SC STA (06:22)
[2018-06-24 06:53] VITALS: BP 90/56
[2018-06-24 07:08] LABS: EOS # 0.1 (0.0-0.7); EOS % 0.7 % (1.5-5.0); LYMPH # 1.1 (1.2-3.4); LYMPH % 8.8 % (22.0-35.0); MEAN CELL VOLUME 97.6 fl (80.0-105.0); MEAN CORPUSCULAR HEMOGLOBIN 32.7 pg (25.0-35.0); MEAN CORPUSCULAR HGB CONC 33.5 g/dl (31.0-37.0); MEAN PLATELET VOLUME 10.7 fl (7.0-11.0); MONO # 1.1 (0.1-0.6); MONO % 9.5 % (1.0-6.0); RBC 2.54 10^6/uL (3.5-6.1); WHITE BLOOD COUNT 11.9 10^3/uL (4.5-11.0)
--- NOTE | 2018-06-24 07:12 | CP.PCM.PN ---
<Vickie Aviles - Last Filed: 06/24/18 06:51> Subjective - Date & Time of Evaluation Date of Evaluation: 06/24/18 Time of Evaluation: 06:51 - Subjective Subjective: House Doc Progress Note: Paged for low BP 70/44, HR elevated 112 after patient had a bloody BM. Bedside nurse states that his BM was bright red blood mixed with brown stool. Patient awake, but altered, nodding to questions, pale looking. Spoke to HERRERA Washington, regarding need to transfer patient to ICU for possible central line placement for vasopressor support. After thorough discussion, HERRERA states that she would not like to have a central line placed, she is okay with receiving IVF bolus, 1 unit FFP for now, midodrine 10 mg PO q8 for now. She would like to make him comfortable, after discussion with the palliative nurse. Spoke to Ruby Saini, and informed her about the case and inpatient hospice. # GI bleeding, likely esophageal variceal, 2/2 hepatic coagulopathy # Hypovolemic shock # Type 1 hepatorenal syndrome - STAT cbc, pt, ptt - Gave 500 cc NS bolus, SBP 90s, MAP 68. - Stat 1 unit FFP. - Increased protonix to 40 IV q 12 - type and cross 2 unit pbcs, on hold - started midodrine 10 mg PO q8 - Spoke with Dr Aviles (primary and nephrology) regarding the case, agrees with the management, will f/u - Notified GI team - Day time ICU team aware - Palliative care aware, will follow up. Case reviewed and discussed with Dr Freeman. Objective - Vital Signs/Intake and Output Vital Signs (last 24 hours): Temp Pulse Resp BP Pulse Ox 97.6 F 112 H 20 70/44 L 95 06/24/18 05:40 06/24/18 05:40 06/24/18 05:40 06/24/18 05:40 06/24/18 05:40 Intake and Output: 06/23/18 06/24/18 18:59 06:59 Intake Total 660 Balance 660 - Medications Medications: Current Medications Arformoterol Tartrate (Brovana) 15 mcg IH [id number] [facility] Last Admin: 06/23/18 19:46 Dose: 15 mcg Betamethasone/Clotrimazole (Lotrisone) 0 gm TOP DAILY [facility] Last Admin: 06/23/18 12:57 Dose: 1 tcp Budesonide (Pulmicort Respules) 0.5 mg IH [id number] [facility] Last Admin: 06/23/18 19:46 Dose: 0.5 mg Calcium Acetate (Phoslo) 1,334 mg PO WM [facility] Diltiazem HCl (Cardizem) 60 mg PO TID [facility] Last Admin: 06/11/18 13:15 Dose: 60 mg Folic Acid (Folic Acid) 1 mg PO DAILY [facility] Last Admin: 06/23/18 12:55 Dose: 1 mg Guaifenesin/Dextromethorphan (Robitussin Dm) 10 ml PO Q4H PRN PRN Reason: Cough Last Admin: 06/13/18 17:20 Dose: 10 ml Heparin Sodium (Porcine) (Heparin) 5,000 units SC Q8 [facility]; Protocol Last Admin: 06/23/18 13:05 Dose: 5,000 units Octreotide Acetate 1,250 mcg/ (Sodium Chloride) 252.5 mls @ 10.1 mls/hr IV .Q24H [facility]; Protocol Stop: 06/28/18 16:01 Last Admin: 06/23/18 21:44 Dose: 50 mcg/hr, 10.1 mls/hr Lactic Acid (Lac-Hydrin 12% Cream (140 G)) 0 ea TOP DAILY [facility] Last Admin: 06/23/18 12:57 Dose: 1 tcp Levalbuterol HCl (Xopenex) 0.63 mg IH TIDRESP [facility] Last Admin: 06/23/18 19:46 Dose: 0.63 mg Levothyroxine Sodium (Synthroid) 25 mcg PO 0600 [facility] Last Admin: 06/23/18 05:45 Dose: 25 mcg Metoprolol Tartrate (Lopressor) 50 mg PO BID [facility] Last Admin: 06/23/18 12:57 Dose: Not Given Midodrine (Proamatine) 10 mg PO Q8H [facility] Last Admin: 06/24/18 06:41 Dose: 10 mg Mupirocin (Bactroban Ointment) 0 gm TOP BID [facility] Last Admin: 06/23/18 12:54 Dose: Not Given Pantoprazole Sodium (Protonix Inj) 40 mg IVP Q12 [facility] Rifaximin (Xifaxan) 550 mg PO Q12 [facility]; Protocol Last Admin: 06/23/18 21:36 Dose: 550 mg Thiamine HCl (Vitamin B1 Tab) 100 mg PO DAILY [facility] Last Admin: 06/23/18 13:01 Dose: 100 mg - Labs Labs: 06/23/18 15:22 06/23/18 08:50 PT 34.0 SECONDS (9.4-12.5) H 06/23/18 15:22 INR 3.06 06/23/18 15:22 APTT 48.3 Seconds (26.9-38.3) H 06/23/18 15:22 <Gini Garza - Last Filed: 06/24/18 18:15> Objective - Vital Signs/Intake and Output Vital Signs (last 24 hours): Temp Pulse Resp BP Pulse Ox 98.2 F 84 18 90/56 L 95 06/24/18 09:19 06/24/18 09:19 06/24/18 09:19 06/24/18 09:19 06/24/18 05:40 Intake and Output: 06/24/18 06/24/18 06:59 18:59 Intake Total 920 Output Total 0 Balance 920 - Labs Labs: 06/24/18 06:55 06/24/18 06:55 PT 39.6 SECONDS (9.4-12.5) H 06/24/18 06:55 INR 3.50 06/24/18 06:55 APTT 48.7 Seconds (26.9-38.3) H 06/24/18 06:55 Addendum Addendum: 06/24/18 18:15 MICU Attending Addendum Patient seen and examined I am familiar with this patient from his recent ICU stay Acute bleeding events with interventions occurred just prior to my shift discussed with overnight attending reviewed chart and examined patient given his chronic co-morbidites and overall poor prognosis family has decided to make him comfort care / hospice no interventions at this time patient will not be taken to ICU d/w team Gini Garza MD Pulmonary Critical Care Sleep Medicine <Zoe Freeman - Last Filed: 06/24/18 19:08> Objective - Vital Signs/Intake and Output Vital Signs (last 24 hours): Temp Pulse Resp BP Pulse Ox 98.2 F 84 18 90/56 L 95 06/24/18 09:19 06/24/18 09:19 06/24/18 09:19 06/24/18 09:19 06/24/18 05:40 - Labs Labs: 06/24/18 06:55 06/24/18 06:55 PT 39.6 SECONDS (9.4-12.5) H 06/24/18 06:55 INR 3.50 06/24/18 06:55 APTT 48.7 Seconds (26.9-38.3) H 06/24/18 06:55 Attending/Attestation - Attestation I have personally seen and examined this patient.: Yes I have fully participated in the care of the patient.: Yes I have reviewed all pertinent clinical information, including history, physical exam and plan: Yes
--- NOTE | 2018-06-24 07:20 | CP.PCM.PN ---
Objective - Vital Signs/Intake and Output Vital Signs (last 24 hours): Temp Pulse Resp BP Pulse Ox 97.6 F 112 H 20 90/56 L 95 06/24/18 05:40 06/24/18 05:40 06/24/18 05:40 06/24/18 06:45 06/24/18 05:40 - Medications Medications: Current Medications Arformoterol Tartrate (Brovana) 15 mcg IH [id number] [facility] Last Admin: 06/23/18 19:46 Dose: 15 mcg Betamethasone/Clotrimazole (Lotrisone) 0 gm TOP DAILY [facility] Last Admin: 06/23/18 12:57 Dose: 1 tcp Budesonide (Pulmicort Respules) 0.5 mg IH [id number] [facility] Last Admin: 06/23/18 19:46 Dose: 0.5 mg Calcium Acetate (Phoslo) 1,334 mg PO WM [facility] Diltiazem HCl (Cardizem) 60 mg PO TID [facility] Last Admin: 06/11/18 13:15 Dose: 60 mg Folic Acid (Folic Acid) 1 mg PO DAILY [facility] Last Admin: 06/23/18 12:55 Dose: 1 mg Guaifenesin/Dextromethorphan (Robitussin Dm) 10 ml PO Q4H PRN PRN Reason: Cough Last Admin: 06/13/18 17:20 Dose: 10 ml Heparin Sodium (Porcine) (Heparin) 5,000 units SC Q8 [facility]; Protocol Last Admin: 06/23/18 13:05 Dose: 5,000 units Octreotide Acetate 1,250 mcg/ (Sodium Chloride) 252.5 mls @ 10.1 mls/hr IV .Q24H [facility]; Protocol Stop: 06/28/18 16:01 Last Admin: 06/23/18 21:44 Dose: 50 mcg/hr, 10.1 mls/hr Lactic Acid (Lac-Hydrin 12% Cream (140 G)) 0 ea TOP DAILY [facility] Last Admin: 06/23/18 12:57 Dose: 1 tcp Levalbuterol HCl (Xopenex) 0.63 mg IH TIDRESP [facility] Last Admin: 06/23/18 19:46 Dose: 0.63 mg Levothyroxine Sodium (Synthroid) 25 mcg PO 0600 [facility] Last Admin: 06/24/18 06:51 Dose: Not Given Metoprolol Tartrate (Lopressor) 50 mg PO BID [facility] Last Admin: 06/23/18 12:57 Dose: Not Given Midodrine (Proamatine) 10 mg PO Q8H [facility] Last Admin: 06/24/18 06:41 Dose: 10 mg Mupirocin (Bactroban Ointment) 0 gm TOP BID [facility] Last Admin: 06/23/18 12:54 Dose: Not Given Pantoprazole Sodium (Protonix Inj) 40 mg IVP Q12 [facility] Rifaximin (Xifaxan) 550 mg PO Q12 [facility]; Protocol Last Admin: 06/23/18 21:36 Dose: 550 mg Thiamine HCl (Vitamin B1 Tab) 100 mg PO DAILY [facility] Last Admin: 06/23/18 13:01 Dose: 100 mg - Labs Labs: 06/23/18 15:22 06/23/18 08:50 PT 34.0 SECONDS (9.4-12.5) H 06/23/18 15:22 INR 3.06 06/23/18 15:22 APTT 48.3 Seconds (26.9-38.3) H 06/23/18 15:22
[2018-06-24 07:22] LABS: INR 3.5; PARTIAL THROMBOPLASTIN TIME 48.7 Seconds (26.9-38.3); PROTHROMBIN TIME 39.6 SECONDS (9.4-12.5)
[2018-06-24 07:24] LABS: HEMOGLOBIN 8.3 g/dL (14.0-18.0)
[2018-06-24 07:42] LABS: ALB/GLOB RATIO 0.9 (1.1-1.8); CALCIUM 7.6 mg/dL (8.4-10.5)
[2018-06-24] MEDS: Arformoterol 15 mcg/2 ml Inh Sol IH SCH (07:46)
[2018-06-24] MEDS: Levalbuterol 0.63 MG/3 ML Inhal Soln UD IH SCH (07:46)
[2018-06-24] MEDS: Budesonide 0.5 mg/2 ml Inhal Susp UD IH SCH (07:46)
--- NOTE | 2018-06-24 08:18 | CP.PCM.PN ---
Subjective - Date & Time of Evaluation Date of Evaluation: 06/24/18 Time of Evaluation: 06:40 - Subjective Subjective: Awake, no distress, lying in bed Reason for consultation and follow up: Cardiac evaluation and follow up; Atrial fibrillation, shortness of breath, congestive heart failure, altered mental status Seen and examined by me and Dr. Montilla Objective - Vital Signs/Intake and Output Vital Signs (last 24 hours): Temp Pulse Resp BP Pulse Ox 97.6 F 112 H 20 90/56 L 95 06/24/18 05:40 06/24/18 05:40 06/24/18 05:40 06/24/18 06:45 06/24/18 05:40 Intake and Output: 06/24/18 06/24/18 06:59 18:59 Intake Total 920 Output Total 0 Balance 920 - Medications Medications: Current Medications Arformoterol Tartrate (Brovana) 15 mcg IH [id number] [facility] Last Admin: 06/24/18 07:46 Dose: 15 mcg Betamethasone/Clotrimazole (Lotrisone) 0 gm TOP DAILY [facility] Last Admin: 06/23/18 12:57 Dose: 1 tcp Budesonide (Pulmicort Respules) 0.5 mg IH [id number] [facility] Last Admin: 06/24/18 07:46 Dose: 0.5 mg Calcium Acetate (Phoslo) 1,334 mg PO WM [facility] Diltiazem HCl (Cardizem) 60 mg PO TID [facility] Last Admin: 06/11/18 13:15 Dose: 60 mg Folic Acid (Folic Acid) 1 mg PO DAILY [facility] Last Admin: 06/23/18 12:55 Dose: 1 mg Guaifenesin/Dextromethorphan (Robitussin Dm) 10 ml PO Q4H PRN PRN Reason: Cough Last Admin: 06/13/18 17:20 Dose: 10 ml Heparin Sodium (Porcine) (Heparin) 5,000 units SC Q8 [facility]; Protocol Last Admin: 06/23/18 13:05 Dose: 5,000 units Octreotide Acetate 1,250 mcg/ (Sodium Chloride) 252.5 mls @ 10.1 mls/hr IV .Q24H [facility]; Protocol Stop: 06/28/18 16:01 Last Admin: 06/23/18 21:44 Dose: 50 mcg/hr, 10.1 mls/hr Lactic Acid (Lac-Hydrin 12% Cream (140 G)) 0 ea TOP DAILY [facility] Last Admin: 06/23/18 12:57 Dose: 1 tcp Levalbuterol HCl (Xopenex) 0.63 mg IH TIDRESP [facility] Last Admin: 06/24/18 07:46 Dose: 0.63 mg Levothyroxine Sodium (Synthroid) 25 mcg PO 0600 [facility] Last Admin: 06/24/18 06:51 Dose: Not Given Metoprolol Tartrate (Lopressor) 50 mg PO BID [facility] Last Admin: 06/23/18 12:57 Dose: Not Given Midodrine (Proamatine) 10 mg PO Q8H [facility] Last Admin: 06/24/18 06:41 Dose: 10 mg Mupirocin (Bactroban Ointment) 0 gm TOP BID [facility] Last Admin: 06/23/18 12:54 Dose: Not Given Pantoprazole Sodium (Protonix Inj) 40 mg IVP Q12 [facility] Rifaximin (Xifaxan) 550 mg PO Q12 [facility]; Protocol Last Admin: 06/23/18 21:36 Dose: 550 mg Thiamine HCl (Vitamin B1 Tab) 100 mg PO DAILY [facility] Last Admin: 06/23/18 13:01 Dose: 100 mg - Labs Labs: 06/24/18 06:55 06/24/18 06:55 PT 39.6 SECONDS (9.4-12.5) H 06/24/18 06:55 INR 3.50 06/24/18 06:55 APTT 48.7 Seconds (26.9-38.3) H 06/24/18 06:55 - Constitutional Appears: Non-toxic, No Acute Distress - Head Exam Head Exam: NORMAL INSPECTION, NORMOCEPHALIC - Eye Exam Eye Exam: Normal appearance - ENT Exam ENT Exam: Mucous Membranes Dry - Respiratory Exam Respiratory Exam: Decreased Breath Sounds, NORMAL BREATHING PATTERN - Cardiovascular Exam Cardiovascular Exam: +S1, +S2 Additional comments: right chesr permacath - Exam Additional comments: on hemodialysis - Neurological Exam Neurological Exam: Alert, Awake - Psychiatric Exam Psychiatric exam: Normal Affect, Normal Mood - Skin Skin Exam: Normal Color, Warm Assessment and Plan - Assessment and Plan (Free Text) Assessment: A 73 year old morbidly obese male who came in to the ER due to shortness of breath. History of heavy alcohol abuse, former smoker, ITP post splenectomy, diabetes, generalized petechia, hemorrhoids, urinary tract infection, CHF, pneumonia,falls. Admitted to ICU for respiratory failure managed with non- invasive ventilator/BiPaP. Patient DNR/DNI. Admitted for altered mental status and atrial fibrillation. Stabilized in ICU and now transferred to telemetry unit. Heart rate controlled.On hemodialysis. No further cardiac work up at this time. Had positive occult blood. GI on consult. Plan: Positive occult blood GI on consult Had hemodialysis yesterday pulled 2.5 liters No distress Heart rate controlled Blood pressure controlled Continue current treatment On Cardizem 60 mg TID, Synthroid 25 mcg daily, Lopressor 50 mg BID, Continue current medications No further cardiac work up at this time DNR/DNI Discharge planning Will follow up Plan and treatment discussed with Dr. Montilla
[2018-06-24 09:19] VITALS: PULSE 84; RESP 18; TEMP 98.2
[2018-06-24] MEDS: Mupirocin 2% Ointment 15 GM TUBE TOP SCH (10:24)
[2018-06-24] MEDS: Ammonium Lactate 12% Cream (140 g) TOP SCH (10:24)
[2018-06-24] MEDS: Clotrimazole/Betamethasone Cream(15 gm) TOP SCH (10:25)
--- NOTE | 2018-06-24 11:46 | CP.PCM.PN ---
Subjective - Date & Time of Evaluation Date of Evaluation: 06/24/18 Time of Evaluation: 10:00 - Subjective Subjective: Resltess, confused, agonal breathing Objective - Vital Signs/Intake and Output Vital Signs (last 24 hours): Temp Pulse Resp BP Pulse Ox 98.2 F 84 18 90/56 L 95 06/24/18 09:19 06/24/18 09:19 06/24/18 09:19 06/24/18 09:19 06/24/18 05:40 Intake and Output: 06/24/18 06/24/18 06:59 18:59 Intake Total 920 Output Total 0 Balance 920 - Medications Medications: Current Medications Arformoterol Tartrate (Brovana) 15 mcg IH [id number] [facility] Last Admin: 06/24/18 07:46 Dose: 15 mcg Betamethasone/Clotrimazole (Lotrisone) 0 gm TOP DAILY [facility] Last Admin: 06/24/18 10:25 Dose: Not Given Budesonide (Pulmicort Respules) 0.5 mg IH [id number] [facility] Last Admin: 06/24/18 07:46 Dose: 0.5 mg Calcium Acetate (Phoslo) 1,334 mg PO WM [facility] Last Admin: 06/24/18 10:25 Dose: Not Given Diltiazem HCl (Cardizem) 60 mg PO TID [facility] Last Admin: 06/11/18 13:15 Dose: 60 mg Folic Acid (Folic Acid) 1 mg PO DAILY [facility] Last Admin: 06/24/18 10:24 Dose: Not Given Guaifenesin/Dextromethorphan (Robitussin Dm) 10 ml PO Q4H PRN PRN Reason: Cough Last Admin: 06/13/18 17:20 Dose: 10 ml Heparin Sodium (Porcine) (Heparin) 5,000 units SC Q8 [facility]; Protocol Last Admin: 06/23/18 13:05 Dose: 5,000 units Octreotide Acetate 1,250 mcg/ (Sodium Chloride) 252.5 mls @ 10.1 mls/hr IV .Q24 H [facility]; Protocol Stop: 06/28/18 16:01 Last Admin: 06/23/18 21:44 Dose: 50 mcg/hr, 10.1 mls/hr Lactic Acid (Lac-Hydrin 12% Cream (140 G)) 0 ea TOP DAILY [facility] Last Admin: 06/24/18 10:24 Dose: Not Given Levalbuterol HCl (Xopenex) 0.63 mg IH TIDRESP [facility] Last Admin: 06/24/18 07:46 Dose: 0.63 mg Levothyroxine Sodium (Synthroid) 25 mcg PO 0600 [facility] Last Admin: 06/24/18 06:51 Dose: Not Given Metoprolol Tartrate (Lopressor) 50 mg PO BID [facility] Last Admin: 06/24/18 10:39 Dose: Not Given Midodrine (Proamatine) 10 mg PO Q8H [facility] Last Admin: 06/24/18 06:41 Dose: 10 mg Mupirocin (Bactroban Ointment) 0 gm TOP BID [facility] Last Admin: 06/24/18 10:24 Dose: Not Given Pantoprazole Sodium (Protonix Inj) 40 mg IVP Q12 [facility] Last Admin: 06/24/18 10:25 Dose: Not Given Rifaximin (Xifaxan) 550 mg PO Q12 [facility]; Protocol Last Admin: 06/24/18 10:25 Dose: Not Given Thiamine HCl (Vitamin B1 Tab) 100 mg PO DAILY [facility] Last Admin: 06/24/18 10:25 Dose: Not Given - Labs Labs: 06/24/18 06:55 06/24/18 06:55 PT 39.6 SECONDS (9.4-12.5) H 06/24/18 06:55 INR 3.50 06/24/18 06:55 APTT 48.7 Seconds (26.9-38.3) H 06/24/18 06:55 - Constitutional Appears: Chronically Ill - Eye Exam Eye Exam: PERRL, Scleral icterus - ENT Exam ENT Exam: Mucous Membranes Moist - Respiratory Exam Respiratory Exam: Accessory Muscle Use, Decreased Breath Sounds Additional comments: irregular breathing - Cardiovascular Exam Cardiovascular Exam: Tachycardia, +S1, +S2 - Extremities Exam Extremities Exam: Pedal Edema - Neurological Exam Neurological Exam: Altered - Skin Skin Exam: Dry, Pallor Assessment and Plan - Assessment and Plan (Free Text) Assessment: This is a 77 year old male with history PAD, LE cellulitis, DM,HTN,alcoholism who is admitted with hepatic encephalopathy, alcoholic cirrhosis, aortic stenosis,PAD, lymphedema, A fib with RVR, anasarca, sepsis,RLL pneumonia, R pleural effusion, MARIE > dialysis yesterday. Now having bloody BM's, hypotensive Patient's sister, Clarice Posey was updated of his condition earlier this morning by medical team. Family requesting comfort care. Clarice arrived at 10 am. I met with her in the patients room and explained that his condition was rapidly declining and that he was nearing end of life. I offered option to transition to hospice care for management of symptoms. Clarice became upset, she felt this should not have not discussed in her brother's presence. Acknowledged her concerns , agreed to conduct all further discussions in another location Later, Clarice spoke with Shaneka MCCLURE and requested her brother be evaluated for hospice care Time spent with family in goals of care and end of life counseling Plan: Goals of care/ end of life counseling Hospice evaluation Discharge to [facility]
--- NOTE | 2018-06-24 16:33 | CP.PCM.DIS ---
Provider - Provider Date of Admission: 06/09/18 16:38 Attending physician: Chadd Savage MD Primary care physician: Chadd Savage MD Consults: 06/09/18 19:19 Physician Consult Routine Comment: Consulting Provider: Aruna Montilla Consulting Physician: Aruna Montilla Reason for Consult: a fib 06/09/18 19:20 Physician Consult Routine Comment: Consulting Provider: Hyacinth De Consulting Physician: Hyacinth De Reason for Consult: leg cellulitis 06/09/18 19:21 Physician Consult Routine Comment: Consulting Provider: Karl Molina Consulting Physician: Karl Molina Reason for Consult: cellulitis 06/09/18 19:26 Physician Consult Routine Comment: Consulting Provider: Dipesh Hoffman Consulting Physician: Dipesh Hoffman Reason for Consult: ch liver 06/09/18 20:39 Case Management Referral Routine Comment: NEEDS ASSISTANCE AT HOME Physician Instructions: Reason For Exam: EVALUATION 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 Core Measures Referral Routine Comment: PNA Physician Instructions: Reason For Exam: EVALUATION Nursing Referral for Wound Care Routine Comment: ASCITES,ANASARCA, GENERALIZED SKIN DRYNESS, Physician Instructions: Reason For Exam: EVALUATION-BILATERAL LE SKIN DRYNESS,EDEMA,WD CENT Transition In Care/Readmission Reduction Routine Comment: Physician Instructions: Reason For Exam: EVALUATION 06/09/18 20:46 Nursing Referral for Palliative Care Routine Comment: Physician Instructions: Reason For Exam: EVALUATION 06/11/18 09:41 Consult [Physician Consult] Routine Comment: please evaluate Arterial doppler results Consulting Provider: Henry Gomes Consulting Physician: Henry Gomes Reason for Consult: PAD 06/11/18 12:24 Consult [Physician Consult] Routine Comment: Consulting Provider: Marysol Issa V Consulting Physician: Marysol Issa V Reason for Consult: elevated ammonia level, elevated LFT's 06/11/18 14:20 Consult [Physician Consult] Routine Comment: Consulting Provider: Junior Garnett Consulting Physician: Junior Garnett Reason for Consult: AMS/hypotension 06/12/18 07:33 Physician Consult Routine Comment: arf Consulting Provider: Jonathon Aviles Consulting Physician: Jonathon Aviles Reason for Consult: arf 06/15/18 13:08 Palliative Care Consult Routine Comment: Consulting Provider: Eboni Saini Physician Instructions: Reason For Exam: end-stage liver disease, MELD score 32 06/16/18 08:20 Physician Consult Routine Comment: dialysis catheter Consulting Provider: Henry Gomes Consulting Physician: Henry Gomes Reason for Consult: dialysis catheter Additional Comments: for dialysis cath 06/16/18 08:33 Nursing Referral for Wound Care Routine Comment: Physician Instructions: Reason For Exam: bilateral leg red and dry skin 06/16/18 16:26 Nursing Referral for Wound Care Routine Comment: Physician Instructions: Reason For Exam: same 06/16/18 16:49 Nursing Referral for Wound Care Routine Comment: Physician Instructions: Reason For Exam: same 06/19/18 08:03 Nursing Referral for Wound Care Routine Comment: Physician Instructions: Reason For Exam: BLE dry skin and multiple scabs 06/19/18 10:00 Nursing Referral for Wound Care Routine Comment: Physician Instructions: Reason For Exam: sacral ulcer stage 2 06/22/18 15:28 Nursing Referral for Wound Care Routine Comment: Physician Instructions: Reason For Exam: pressure ulcer 06/24/18 01:29 Nursing Referral for Wound Care Routine Comment: Physician Instructions: Reason For Exam: skin dry crusing, & some weeping areas, sacral dec 06/24/18 11:47 Hospice [Case Management Referral] Routine Comment: Physician Instructions: Reason For Exam: [facility] Reason for Referral: Hospice Eval Time Spent in preparation of Discharge (in minutes): 45 Diagnosis - Discharge Diagnosis (1) Hepatorenal syndrome Status: Acute (2) Pulmonary hypertension Status: Chronic (3) Cellulitis Status: Acute (4) Hepatic encephalopathy Status: Acute (5) Liver cirrhosis Status: Chronic Hospital Course - Lab Results Lab Results: Micro Results 06/20/18 16:46 Stool C. difficile Antigen & Toxins A,B - Final 06/09/18 14:35 Blood-Venous Blood Culture - Final NO GROWTH AFTER 5 DAYS 06/09/18 14:05 Blood-Venous Blood Culture - Final NO GROWTH AFTER 5 DAYS 06/11/18 15:10 Nose MRSA Culture (Admit) - Final MRSA NOT DETECTED 06/09/18 17:11 Leg - Right Gram Stain - Final 06/09/18 17:11 Leg - Right Wound Culture - Final Klebsiella Oxytoca Beta Hemolytic Strep Group B Corynebacterium Species 06/10/18 06:00 Naris MRSA Culture (Admit) - Final MRSA NOT DETECTED 06/09/18 16:00 Urine,Clean Catch Urine Culture - Final MULTIPLE SPECIES. SUGGEST REPEAT SPECIMEN. Most Recent Lab Values WBC 11.9 10^3/uL (4.5-11.0) H 06/24/18 06:55 RBC 2.54 10^6/uL (3.5-6.1) L 06/24/18 06:55 Hgb 8.3 g/dL (14.0-18.0) L D 06/24/18 06:55 Hct 24.8 % (42.0-52.0) L 06/24/18 06:55 MCV 97.6 fl (80.0-105.0) 06/24/18 06:55 MCH 32.7 pg (25.0-35.0) 06/24/18 06:55 MCHC 33.5 g/dl (31.0-37.0) 06/24/18 06:55 RDW 18.0 % (11.5-14.5) H 06/24/18 06:55 Plt Count 130 10^3/uL (120.0-450.0) 06/24/18 06:55 MPV 10.7 fl (7.0-11.0) 06/24/18 06:55 Neut % (Auto) 81.0 % (50.0-68.0) H 06/24/18 06:55 Lymph % (Auto) 8.8 % (22.0-35.0) L 06/24/18 06:55 Owsley % (Auto) 9.5 % (1.0-6.0) H 06/24/18 06:55 Eos % (Auto) 0.7 % (1.5-5.0) L 06/24/18 06:55 Baso % (Auto) 0.0 % (0.0-3.0) 06/24/18 06:55 Lymph # (Auto) 1.1 (1.2-3.4) L 06/24/18 06:55 Owsley # (Auto) 1.1 (0.1-0.6) H 06/24/18 06:55 Eos # (Auto) 0.1 (0.0-0.7) 06/24/18 06:55 Baso # (Auto) 0.00 K/mm3 (0.0-2.0) 06/24/18 06:55 Absolute Neuts (auto) 9.64 (1.4-6.5) H 06/24/18 06:55 Corrected WBC (Man) 12.8 K/mm3 (4.5-11.0) H 06/21/18 06:35 Neutrophils % (Manual) 96 % (50.0-70.0) H 06/21/18 06:35 Band Neutrophils % 2 % (0-2) 06/20/18 05:40 Lymphocytes % (Manual) 2 % (22.0-35.0) L 06/21/18 06:35 Atypical Lymphs % 1 % (0.0-0.0) H 06/20/18 05:40 Monocytes % (Manual) 2 % (1.0-6.0) 06/21/18 06:35 Nucleated RBC % 5 % 06/21/18 06:35 Platelet Evaluation Normal (NORMAL) 06/21/18 06:35 Poikilocytosis (manual Slight 06/20/18 05:40 Anisocytosis (manual) Slight 06/20/18 05:40 Target Cells Slight 06/20/18 05:40 Tear Drop Cells Slight 06/20/18 05:40 Marilyn Cells 2+ 06/20/18 05:40 ESR 45 mm/hr (0.00-15.0) H 06/11/18 06:00 PT 39.6 SECONDS (9.4-12.5) H 06/24/18 06:55 INR 3.50 06/24/18 06:55 APTT 48.7 Seconds (26.9-38.3) H 06/24/18 06:55 pCO2 50 mm/Hg (35-45) H 06/19/18 18:00 pO2 86.0 mm/Hg (80-100) 06/19/18 18:00 HCO3 24.0 mmol/L (21-28) 06/19/18 18:00 ABG pH 7.29 (7.35-7.45) L 06/19/18 18:00 ABG Total CO2 25.5 mmol.L (22-28) 06/19/18 18:00 ABG O2 Saturation 97.8 % (95-98) 06/19/18 18:00 ABG O2 Content 23.1 ML/dl (15-23) H 06/19/18 18:00 ABG Base Excess -3.3 mmol/L (-2.0-3.0) L 06/19/18 18:00 ABG Hemoglobin 17.3 g/dL (11.7-17.4) 06/19/18 18:00 ABG Carboxyhemoglobin 1.9 % (0.5-1.5) H 06/19/18 18:00 POC ABG HHb (Measured) 2.1 % (0-5) 06/19/18 18:00 ABG Methemoglobin 1.0 % (0.0-3.0) 06/19/18 18:00 ABG O2 Capacity 23.6 mL/dl (16-24) 06/19/18 18:00 ABG Potassium 5.2 mmol/L (3.6-5.2) 06/14/18 16:10 VBG pH 7.24 (7.32-7.43) L 06/14/18 20:00 VBG pCO2 41.0 (40-60) 06/14/18 20:00 VBG HCO3 17.6 mmol/l (21-28) L 06/14/18 20:00 VBG Total CO2 18.9 mmol.L (22-28) L 06/14/18 20:00 VBG O2 Sat (Calc) 96.3 % (40-65) H 06/14/18 20:00 VBG Base Excess -9.3 mmol/L (0.0-2.0) L 06/14/18 20:00 VBG Potassium 5.7 mmol/L (3.6-5.2) H 06/14/18 20:00 Hgb O2 Saturation 95.0 % (95.0-98.0) 06/19/18 18:00 Sodium 131.0 mmol/L (132-148) L 06/14/18 20:00 Chloride 96.0 mmol/L (98-107) L 06/14/18 20:00 Glucose 138 mg/dl (75-110) H 06/14/18 20:00 Lactate 1.8 mmol/L (0.7-2.1) 06/14/18 20:00 FiO2 60.0 % 06/19/18 18:00 Inspiratory BiPAP 12 06/14/18 09:35 Sodium 143 mmol/L (132-148) 06/24/18 06:55 Potassium 5.4 mmol/L (3.6-5.0) H 06/24/18 06:55 Chloride 113 mmol/L (98-107) H 06/24/18 06:55 Carbon Dioxide 27 mmol/L (21-33) 06/24/18 06:55 Anion Gap 9 (10-20) L 06/24/18 06:55 BUN 68 mg/dL (7-21) H 06/24/18 06:55 Creatinine 3.6 mg/dl (0.8-1.5) H 06/24/18 06:55 Est GFR ( Amer) 20 06/24/18 06:55 Est GFR (Non-Af Amer) 17 06/24/18 06:55 POC Glucose (mg/dL) 155 mg/dL (65-110) H 06/22/18 11:32 Random Glucose 97 mg/dL (70-110) 06/24/18 06:55 Hemoglobin A1c 6.4 % (4.2-6.5) 06/11/18 06:00 Uric Acid 7.6 mg/dL (3.5-8.5) 06/11/18 14:20 Calcium 7.6 mg/dL (8.4-10.5) L 06/24/18 06:55 Phosphorus 3.8 mg/dL (2.5-4.5) 06/24/18 06:55 Magnesium 2.3 mg/dL (1.7-2.2) H 06/24/18 06:55 Iron 87 ug/dL (45-180) 06/11/18 14:20 TIBC 316 ug/dL (261-462) 06/11/18 14:20 % Saturation 28 % (20-55) 06/11/18 14:20 Ferritin 225.0 ng/mL 06/11/18 14:20 Total Bilirubin 1.7 mg/dL (0.2-1.3) H 06/24/18 06:55 Direct Bilirubin 1.4 mg/dL (0.0-0.4) H 06/11/18 19:57 AST 35 U/L (17-59) 06/24/18 06:55 ALT 34 U/L (7-56) 06/24/18 06:55 Alkaline Phosphatase 68 U/L (38-126) 06/24/18 06:55 Ammonia < 9 umol/L (9-33) L D 06/24/18 06:55 Lactate Dehydrogenase 1016 U/L (333-699) H 06/09/18 14:05 Total Creatine Kinase 243 U/L (35-230) H 06/09/18 14:05 CK-MB (CK-2) 15.0 ng/mL (0.0-3.6) H 06/09/18 14:05 CK-MB (CK-2) % 6.2 % (2.5-3.0) H 06/09/18 14:05 Troponin I < 0.01 ng/mL 06/09/18 14:05 C-React Prot High Sens > 15.00 mg/L (1.00-3.00) H 06/11/18 06:00 NT-Pro-B Natriuret Pep 3760 pg/mL (0-450) H 06/09/18 14:05 Total Protein 4.3 g/dL (5.8-8.3) L 06/24/18 06:55 Albumin 2.0 g/dL (3.0-4.8) L 06/24/18 06:55 Globulin 2.3 gm/dL 06/24/18 06:55 Albumin/Globulin Ratio 0.9 (1.1-1.8) L 06/24/18 06:55 Ceruloplasmin 41 mg/dL (18-36) H 06/23/18 10:35 Triglycerides 84 mg/dL (35-160) 06/11/18 06:00 Cholesterol 123 mg/dL (130-200) L 06/11/18 06:00 LDL Cholesterol Direct 84 mg/dL (0-129) 06/11/18 06:00 HDL Cholesterol 18 mg/dL (29-60) L 06/11/18 06:00 Mitochondrial AB Titer 06/11/18 19:57 Alpha Fetoprotein 1.0 ng/mL (0.0-7.5) 06/11/18 19:57 Procalcitonin 0.19 NG/ML (0.19-0.49) 06/09/18 20:00 Free T4 1.58 ng/dL (0.78-2.19) 06/11/18 08:27 TSH 3rd Generation 5.53 mIU/mL (0.46-4.68) H 06/11/18 06:00 Arterial Blood Potassium 5.2 mmol/L (3.6-5.2) 06/14/18 16:10 Venous Blood Potassium 5.7 mmol/L (3.6-5.2) H 06/14/18 20:00 Urine Color Dark yellow (YELLOW) 06/12/18 02:00 Urine Appearance Sl cloudy (CLEAR) 06/12/18 02:00 Urine pH 5.0 (4.7-8.0) 06/12/18 02:00 Ur Specific [place] >= 1.030 (1.005-1.035) 06/12/18 02:00 Urine Protein 100 mg/dL (<30 mg/dL) H 06/12/18 02:00 Urine Glucose (UA) Negative mg/dL (NEGATIVE) 06/12/18 02:00 Urine Ketones Trace mg/dL (NEGATIVE) H 06/12/18 02:00 Urine Blood Trace-intact (NEGATIVE) H 06/12/18 02:00 Urine Nitrate Negative (NEGATIVE) 06/12/18 02:00 Urine Bilirubin Small (NEGATIVE) H 06/12/18 02:00 Urine Urobilinogen 1.0 E.U./dL (<1 E.U./dL) H 06/12/18 02:00 Ur Leukocyte Esterase Negative Chevy/uL (NEGATIVE) 06/12/18 02:00 Urine RBC 1 - 3 /hpf (0-2) H 06/12/18 02:00 Urine WBC 0 - 2 /hpf (0-6) 06/12/18 02:00 Ur Epithelial Cells 0 - 2 /hpf (0-5) 06/12/18 02:00 Amorphous Sediment Few /hpf (NONE) 06/12/18 02:00 Urine Bacteria Few /hpf (NONE) 06/12/18 02:00 Urine Eosinophils Negative 06/14/18 06:00 Urine Osmolality 480 mosm/kg (300-1000) 06/15/18 07:30 Ur Random Creatinine 217 mg/dL 06/14/18 06:00 U Random Total Protein 97 mg/L 06/14/18 06:00 Ur Random Sodium < 5 meq/L 06/14/18 06:00 Ur Random Urea Nitrogn 184 mg/dL 06/12/18 02:00 Stool Occult Blood Positive (NEGATIVE) H 06/20/18 16:46 Salicylates < 1 mg/dL (2.0-20.0) L 06/11/18 19:57 Urine Opiates Screen Negative (NEGATIVE) 06/09/18 16:05 Urine Methadone Screen Negative (NEGATIVE) 06/09/18 16:05 Acetaminophen < 10.0 ug/ml (10.0-20.0) L 06/11/18 19:57 Ur Barbiturates Screen Negative (NEGATIVE) 06/09/18 16:05 Ur Phencyclidine Scrn Negative (NEGATIVE) 06/09/18 16:05 Ur Amphetamines Screen Negative (NEGATIVE) 06/09/18 16:05 U Benzodiazepines Scrn Negative (NEGATIVE) 06/09/18 16:05 U Oth Cocaine Metabols Negative (NEGATIVE) 06/09/18 16:05 U Cannabinoids Screen Negative (NEGATIVE) 06/09/18 16:05 Alcohol, Quantitative < 10 mg/dL (0-10) 06/09/18 14:05 IgG 2176 mg/dL (694-1618) H 06/11/18 19:57 IgA 565 mg/dL (81-463) H 06/11/18 19:57 IgM 37 mg/dL (48-271) L 06/11/18 19:57 Serum Immunofixation Not detected (Not Detected) 06/11/18 19:57 GENE Screen Negative (Negative) 06/11/18 19:57 GENE Pattern 2 06/11/18 19:57 Anti-Mitochondrial Ab TNP 06/11/18 19:57 Smooth Muscle Ab Titer (()) 06/11/18 19:57 Anti-Smooth Muscle Ab Negative (Negative) 06/11/18 19:57 Liver/Kid Microsomes Ab <=20.0 U (<=20.0) 06/11/18 19:57 Hepatitis A IgM Ab Negative (NEGATIVE) 06/11/18 10:07 Hepatitis A Ab Total Antibody neg (NEGATIVE) 06/11/18 19:57 Hep Bs Antigen Negative (NEGATIVE) 06/11/18 10:07 Hep Bs Antibody Negative (NEGATIVE) 06/11/18 19:57 Hep B Core IgM Ab Negative (NEGATIVE) 06/11/18 10:07 Hepatitis C Antibody Negative (NEGATIVE) 06/11/18 10:07 HIV 1&2 Ag/Ab, 4th Gen Nonreactive (Nonreactive) 06/11/18 10:08 Influenza Typ A,B (EIA) Negative for flu a/b (NEGATIVE) 06/10/18 14:30 Ur L.pneumophila Ag Negative (NEGATIVE) 06/12/18 02:00 Blood Type A POSITIVE 06/23/18 16:45 Antibody Screen Negative 06/23/18 16:45 Crossmatch See Detail 06/23/18 16:45 BBK History Checked Patient has bt 06/23/18 16:45 Discharge Exam - Head Exam Head Exam: NORMAL INSPECTION, NORMOCEPHALIC - Additional Findings Additional findings: patient Discharge Plan - Follow Up Plan Condition: STABLE Disposition: HOSPICE - MEDICAL FACILITY Instructions: Fever of Unknown Origin Additional Instructions: PT discharged to hospice Referrals: Chadd Savage MD [Primary Care Provider] -
--- NOTE | 2018-06-25 00:47 | DS ---
HOSPITAL COURSE: The patient was seen and examined. I do agree with the note of the medical and scientific illustrator. The patient has type 1 hepatorenal syndrome. He is on hemodialysis. He has hepatic encephalopathy. He was found to have significant bleeding overnight. His hemoglobin has decreased significantly. There was a long discussion with the sister regarding end-of-life care. The patient's hemoglobin was 15 yesterday morning and has decreased to 8. He has a poor prognosis. The patient's sister decided to do hospice inpatient and to stop the dialysis treatment. The patient shortly after that decision was made. The patient's sister was called and informed about the expiration. Jonathon Aviles MD
== END 2018-06-24 13:05 | disposition hospice, inpatient (51) | DRG 871 ==
LOC: ED 13:42 → ERH 16:38 → 2RNO 18:56 → ICU 06-11 14:59 → CCU 06-13 18:28 → 3RNO 06-22 12:08
PROVIDERS: ADMIT Internal Medicine; ATTEND Internal Medicine
PROC: 5A1D70Z Performance of Urinary Filtration, Intermittent, Less than 6 Hours Per Day (ICD-10-PCS; principal; 2018-06-17)
PROC: 5A1D70Z Performance of Urinary Filtration, Intermittent, Less than 6 Hours Per Day (ICD-10-PCS; 2018-06-19)
PROC: 5A1D70Z Performance of Urinary Filtration, Intermittent, Less than 6 Hours Per Day (ICD-10-PCS; 2018-06-21)
PROC: 5A1D70Z Performance of Urinary Filtration, Intermittent, Less than 6 Hours Per Day (ICD-10-PCS; 2018-06-23)
PROC: 30233K1 Transfusion of Nonautologous Frozen Plasma into Peripheral Vein, Percutaneous Approach (ICD-10-PCS; 2018-06-23)
DX: A41.9 Sepsis, unspecified organism (principal); J18.1 Lobar pneumonia, unspecified organism; K76.7 Hepatorenal syndrome; I50.31 Acute diastolic (congestive) heart failure; N18.6 End stage renal disease; R57.1 Hypovolemic shock; D59.3 Hemolytic-uremic syndrome; J96.92 Respiratory failure, unspecified with hypercapnia; D69.3 Immune thrombocytopenic purpura; N17.9 Acute kidney failure, unspecified; L03.115 Cellulitis of right lower limb; E87.2 Acidosis; E87.1 Hypo-osmolality and hyponatremia; J44.1 Chronic obstructive pulmonary disease with (acute) exacerbation; J44.0 Chronic obstructive pulmonary disease with (acute) lower respiratory infection; I13.2 Hypertensive heart and chronic kidney disease with heart failure and with stage 5 chronic kidney disease, or end stage renal disease; D68.32 Hemorrhagic disorder due to extrinsic circulating anticoagulants; K92.2 Gastrointestinal hemorrhage, unspecified; D68.4 Acquired coagulation factor deficiency; E87.4 Mixed disorder of acid-base balance; I85.00 Esophageal varices without bleeding; L03.116 Cellulitis of left lower limb; L97.919 Non-pressure chronic ulcer of unspecified part of right lower leg with unspecified severity; L97.929 Non-pressure chronic ulcer of unspecified part of left lower leg with unspecified severity; K70.40 Alcoholic hepatic failure without coma; E11.51 Type 2 diabetes mellitus with diabetic peripheral angiopathy without gangrene; I87.2 Venous insufficiency (chronic) (peripheral); I48.91 Unspecified atrial fibrillation; F10.10 Alcohol abuse, uncomplicated; K21.9 Gastro-esophageal reflux disease without esophagitis; L85.3 Xerosis cutis; Z68.39 Body mass index [BMI] 39.0-39.9, adult; R59.0 Localized enlarged lymph nodes; I27.29 Other secondary pulmonary hypertension; R41.0 Disorientation, unspecified; E03.9 Hypothyroidism, unspecified; Z90.81 Acquired absence of spleen; Z87.891 Personal history of nicotine dependence; I50.82 Biventricular heart failure; R29.6 Repeated falls; R65.20 Severe sepsis without septic shock; E87.5 Hyperkalemia; E66.01 Morbid (severe) obesity due to excess calories; K70.31 Alcoholic cirrhosis of liver with ascites; Z99.2 Dependence on renal dialysis; E11.22 Type 2 diabetes mellitus with diabetic chronic kidney disease; T45.515A Adverse effect of anticoagulants, initial encounter; E20.8 Other hypoparathyroidism; G47.30 Sleep apnea, unspecified; I08.3 Combined rheumatic disorders of mitral, aortic and tricuspid valves; K70.11 Alcoholic hepatitis with ascites; K76.0 Fatty (change of) liver, not elsewhere classified; K76.1 Chronic passive congestion of liver; K76.81 Hepatopulmonary syndrome; N20.0 Calculus of kidney; Z16.24 Resistance to multiple antibiotics; Z51.5 Encounter for palliative care; Z66 Do not resuscitate; Z79.01 Long term (current) use of anticoagulants; Z87.01 Personal history of pneumonia (recurrent); Z87.440 Personal history of urinary (tract) infections; Z95.5 Presence of coronary angioplasty implant and graft

== ENCOUNTER 2018-06-24 13:08 | Inpatient (IN) | payer OTHER ==
[2018-06-24] MEDS ORDERED: Morphine PCA 1 mg/ml (30ml) 30 ML IV PRN (13:22)
[2018-06-24 13:52] VITALS: RESP 20
--- NOTE | 2018-06-24 15:13 | CP.PCM.PRO ---
Pronouncement of Note - Clinical Findings Physical Exam: No Response Verbal/Painful Stimuli, Absent Peripheral Puls es{Carotid & Femoral}, Absent Heart & Breath Sounds, No Pupillary Light Reflex, No Corneal Reflex, Pupils Fixed & Dilated, Absence of Vital Signs - Pronouncement Time Time of Pronouncement of : 15:10 - Notifications Pronouncement Notifications: Atending Notified Almond Grinder Notified: No - Autopsy Autopsy Requested: No [place]: [id number] Additional Comments: Sister Clarice was attempted to be reached but number went to voicemail - will try again.
--- NOTE | 2018-06-25 00:47 | DS ---
HOSPITAL COURSE: The patient was seen and examined. I do agree with the note of the medical claims assistant. The patient has type 1 hepatorenal syndrome. He is on hemodialysis. He has hepatic encephalopathy. He was found to have significant bleeding overnight. His hemoglobin has decreased significantly. There was a long discussion with the sister regarding end-of-life care. The patient's hemoglobin was 15 yesterday morning and has decreased to 8. He has a poor prognosis. The patient's sister decided to do hospice inpatient and to stop the dialysis treatment. The patient shortly after that decision was made. The patient's sister was called and informed about the expiration. Jonathon Aviles MD
== END 2018-06-24 15:10 | DRG 441 ==
LOC: 3RNO 13:08
PROVIDERS: ADMIT Internal Medicine Nephrology; ATTEND Internal Medicine Nephrology
DX: K72.90 Hepatic failure, unspecified without coma (principal); K76.7 Hepatorenal syndrome; R58 Hemorrhage, not elsewhere classified; Z90.81 Acquired absence of spleen; I87.2 Venous insufficiency (chronic) (peripheral); I48.91 Unspecified atrial fibrillation; R60.1 Generalized edema; E66.9 Obesity, unspecified; R82.2 Biliuria; R31.9 Hematuria, unspecified; R82.71 Bacteriuria; Z51.5 Encounter for palliative care; Z66 Do not resuscitate